=== PATIENT | male | born 1960 | race Caucasian/White ===

== ENCOUNTER → 2018-01-19 | Outpatient (CLI) | payer MEDICARE, OTHER ==
--- NOTE | 2018-01-19 20:12 | CT ---
EXAMINATION TYPE: CT chest wo con DATE OF EXAM: 01/19/2018 COMPARISON: NONE HISTORY: Right side chest pain and SOB x1 month. CT DLP: 848 mGycm. Automated Exposure Control for Dose Reduction was Utilized. TECHNIQUE: CT scan of the thorax is performed without IV contrast. FINDINGS: There is a moderate right-sided pleural effusion. There is atelectasis at the right lung base. The le ft lung is clear of infiltrate. There is no pleural fluid on the left side. Heart size is normal. The re is no pericardial effusion. There is decreased size of the right lower lobe bronchus. I see no def inite hilar mass. There is a 1.3 cm pretracheal lymph node. The bony thorax is intact. There is old u nunited lateral left rib fracture. There is no evidence of aortic aneurysm. IMPRESSION: Large right pleural effusion. Right lower lobe atelectasis. No definite hilar mass identi fied. Bronchoscopy is recommended for further evaluation if clinically indicated.
== END | disposition home or self-care (01) ==
LOC: RADCTMAIN 16:05
PROVIDERS: ATTEND Internal Medicine Critical Care Medicine
DX: J90 Pleural effusion, not elsewhere classified (principal); J98.11 Atelectasis
CPT/HCPCS: 71250

== ENCOUNTER 2018-01-22 16:28 | Inpatient (IN) | payer MEDICARE, OTHER ==
[2018-01-22] MEDS ORDERED: DEXAMETHASONE SOD PHOSPHATE 10 MG/ML 1 ML VIAL IV STA (17:27)
[2018-01-22] MEDS ORDERED: IPRATROPIUM-ALBUTEROL 3 ML NEB INHALATION STA (17:27)
--- NOTE | 2018-01-22 17:37 | ED ---
General Adult HPI - General Chief complaint: Shortness of Breath Stated complaint: LUNG PROBLEM Time Seen by Provider: 01/22/18 17:15 Source: patient, RN notes reviewed, old records reviewed Mode of arrival: wheelchair Limitations: no limitations - History of Present Illness Initial comments: 57-year-old male presenting for worsening cough and dyspnea. Patient was sent from previous pulmonologists office with low oxygen level and right-sided pleural effusion. This was seen on CAT scan taken several days prior. Patient does have history of COPD, he is on 2.5 L of home oxygen. He reports over the past several days his breathing has worsened. Cough is productive. He reports some mild pain which is worse with cough. No fever or chills. He also complains of abdominal distention and right lateral chest wall fullness. He denies nausea vomiting or diarrhea. Denies lower extremity pain or swelling. - Related Data Home Medications Medication Instructions Recorded Confirmed Ipratropium/Albuterol Sulfate 1 puff INHALATION RT-QID 02/28/16 01/22/18 [Combivent Respimat Inhaler] OLANZapine [ZyPREXA] 20 mg PO HS 02/28/16 01/22/18 Tiotropium [place] [Spiriva] 1 cap INHALATION RT-DAILY 04/17/16 01/22/18 Albuterol Nebulized [Ventolin 2.5 mg INHALATION RT-Q4H PRN 01/22/18 01/22/18 Nebulized] Albuterol Sulfate [Proair Hfa] 2 puff INHALATION RT-Q4H PRN 01/22/18 01/22/18 Budesonide/Formoterol Fumarate 2 puff INHALATION RT-BID 01/22/18 01/22/18 [Symbicort 160-4.5 Mcg Inhaler] Escitalopram [Lexapro] 15 mg PO DAILY 01/22/18 01/22/18 HYDROcodone/APAP 5-325MG [[place] 1 tab PO BID PRN 01/22/18 01/22/18 5-325] Omeprazole 40 mg PO DAILY 01/22/18 01/22/18 predniSONE 10 mg PO QAM 01/22/18 01/22/18 traZODone HCL 50 mg PO HS 01/22/18 01/22/18 Allergies Allergy/AdvReac Type Severity Reaction Status Date / Time No Known Allergies Allergy Verified 01/22/18 17:14 Review of Systems ROS Statement: Those systems with pertinent positive or pertinent negative responses have been documented in the HPI. ROS Other: All systems not noted in ROS Statement are negative. Past Medical History Past Medical History: COPD, GERD/Reflux Additional Past Medical History / Comment(s): hep C History of Any Multi-Drug Resistant Organisms: None Reported Past Surgical History: No Surgical Hx Reported Past Psychological History: No Psychological Hx Reported Smoking Status: Former smoker Past Alcohol Use History: Occasional Past Drug Use History: None Reported, Marijuana General Exam Limitations: no limitations General appearance: alert, in no apparent distress Head exam: Present: atraumatic, normocephalic Eye exam: Present: normal appearance, PERRL, EOMI ENT exam: Present: normal exam Neck exam: Present: normal inspection. Absent: tenderness, meningismus Respiratory exam: Present: respiratory distress, wheezes, decreased breath sounds, prolonged expiratory Cardiovascular Exam: Present: regular rate, normal rhythm GI/Abdominal exam: Present: soft, distended. Absent: tenderness Extremities exam: Present: normal inspection, normal capillary refill. Absent: pedal edema, calf tenderness Neurological exam: Present: alert, oriented X3, CN II-XII intact. Absent: motor sensory deficit Psychiatric exam: Present: normal affect, normal mood Skin exam: Present: warm, dry, intact. Absent: cyanosis, diaphoretic Course Vital Signs 01/22/18 01/22/18 01/22/18 16:51 17:29 17:49 Temperature 98.9 F Pulse Rate 86 88 Respiratory 20 22 Rate Blood Pressure 139/77 O2 Sat by Pulse 83 L Oximetry 01/22/18 01/22/18 01/22/18 18:05 18:08 18:50 Temperature Pulse Rate 86 90 86 Respiratory 20 16 Rate Blood Pressure 144/89 140/91 O2 Sat by Pulse 97 91 L Oximetry EKG Findings - EKG Comments: EKG Findings:: EKG: Normal sinus rhythm with premature atrial complexes, rate of 87, NE interval 136, QRS duration 92, QTC 421 Medical Decision Making - Medical Decision Making 57-year-old male with history COPD on home O2 presents for evaluation of worsening hypoxia and right pleural effusion. Computed tomography scan from several days prior shows a large right pleural effusion. Chest x-ray today confirms pleural fluid with concern for possible adjacent consolidation. Blood cell count is normal 9.8. Hemoglobin stable. CO2 31 consistent with chronic CO2 retention. Patient will be admitted for further management of his COPD as well as evaluation of his pleural effusion. Case discussed with Dr. Hernandez, and Dr. Canales who will accept admission. - Lab Data Result diagrams: 01/22/18 17:30 01/22/18 17:30 Lab Results 01/22/18 01/22/18 01/22/18 Range/Units 17:30 17:30 17:30 WBC 9.8 (3.8-10.6) k/uL RBC 5.07 (4.30-5.90) m/uL Hgb 15.3 (13.0-17.5) gm/dL Hct 47.2 (39.0-53.0) % MCV 93.1 (80.0-100.0) fL MCH 30.1 (25.0-35.0) pg MCHC 32.4 (31.0-37.0) g/dL RDW 15.2 (11.5-15.5) % Plt Count 352 (150-450) k/uL Neutrophils % 70 % Lymphocytes % 20 % Monocytes % 5 % Eosinophils % 3 % Basophils % 0 % Neutrophils # 6.9 (1.3-7.7) k/uL Lymphocytes # 2.0 (1.0-4.8) k/uL Monocytes # 0.5 (0-1.0) k/uL Eosinophils # 0.3 (0-0.7) k/uL Basophils # 0.0 (0-0.2) k/uL Hypochromasia Slight PT (9.0-12.0) sec INR (<1.2) APTT (22.0-30.0) sec Sodium 138 (137-145) mmol/L Potassium 4.2 (3.5-5.1) mmol/L Chloride 96 L (98-107) mmol/L Carbon Dioxide 31 H (22-30) mmol/L Anion Gap 11 mmol/L BUN 7 L (9-20) mg/dL Creatinine 0.70 (0.66-1.25) mg/dL Est GFR (CKD-EPI)AfAm >90 (>60 ml/min/1.73 sqM) Est GFR (CKD-EPI)NonAf >90 (>60 ml/min/1.73 sqM) Glucose 133 H (74-99) mg/dL Calcium 9.0 (8.4-10.2) mg/dL Magnesium 2.1 (1.6-2.3) mg/dL Total Bilirubin 0.2 (0.2-1.3) mg/dL AST 21 (17-59) U/L ALT 31 (21-72) U/L Alkaline Phosphatase 61 (38-126) U/L Total Creatine Kinase 95 (55-170) U/L CK-MB (CK-2) 2.2 (0.0-2.4) ng/mL CK-MB (CK-2) Rel Index 2.3 Troponin I <0.012 (0.000-0.034) ng/mL NT-Pro-B Natriuret Pep pg/mL Total Protein 6.0 L (6.3-8.2) g/dL Albumin 3.7 (3.5-5.0) g/dL 01/22/18 01/22/18 Range/Units 17:30 17:30 WBC (3.8-10.6) k/uL RBC (4.30-5.90) m/uL Hgb (13.0-17.5) gm/dL Hct (39.0-53.0) % MCV (80.0-100.0) fL MCH (25.0-35.0) pg MCHC (31.0-37.0) g/dL RDW (11.5-15.5) % Plt Count (150-450) k/uL Neutrophils % % Lymphocytes % % Monocytes % % Eosinophils % % Basophils % % Neutrophils # (1.3-7.7) k/uL Lymphocytes # (1.0-4.8) k/uL Monocytes # (0-1.0) k/uL Eosinophils # (0-0.7) k/uL Basophils # (0-0.2) k/uL Hypochromasia PT 9.6 (9.0-12.0) sec INR 1.0 (<1.2) APTT 23.6 (22.0-30.0) sec Sodium (137-145) mmol/L Potassium (3.5-5.1) mmol/L Chloride (98-107) mmol/L Carbon Dioxide (22-30) mmol/L Anion Gap mmol/L BUN (9-20) mg/dL Creatinine (0.66-1.25) mg/dL Est GFR (CKD-EPI)AfAm (>60 ml/min/1.73 sqM) Est GFR (CKD-EPI)NonAf (>60 ml/min/1.73 sqM) Glucose (74-99) mg/dL Calcium (8.4-10.2) mg/dL Magnesium (1.6-2.3) mg/dL Total Bilirubin (0.2-1.3) mg/dL AST (17-59) U/L ALT (21-72) U/L Alkaline Phosphatase (38-126) U/L Total Creatine Kinase (55-170) U/L CK-MB (CK-2) (0.0-2.4) ng/mL CK-MB (CK-2) Rel Index Troponin I (0.000-0.034) ng/mL NT-Pro-B Natriuret Pep 93 pg/mL Total Protein (6.3-8.2) g/dL Albumin (3.5-5.0) g/dL Disposition Clinical Impression: Acute exacerbation of chronic obstructive airways disease, Pleural effusion Disposition: ADMITTED IP TO THIS HOSP Condition: Stable Is patient prescribed a controlled substance at d/c from ED?: No Referrals: Hina Rojas MD [Primary Care Provider] - 1-2 days Decision to Admit Reason: Admit from EC Decision Date: 01/22/18 Decision Time: 19:39
[2018-01-22 17:38] LABS: Basophils % (A) 0 %; Eosinophils # (A) 0.3 k/uL (0-0.7); Eosinophils % (A) 3 %; HCT 47.2 % (39.0-53.0); HGB 15.3 gm/dL (13.0-17.5); Hypochromasia Slight; Lymphocytes % (A) 20 %; MCH 30.1 pg (25.0-35.0); MCHC 32.4 g/dL (31.0-37.0); MCV 93.1 fL (80.0-100.0); Monocytes # (A) 0.5 k/uL (0-1.0); Monocytes % (A) 5 %; Neutrophils # (A) 6.9 k/uL (1.3-7.7); Neutrophils % (A) 70 %; Platelet Count 352 k/uL (150-450); RBC 5.07 m/uL (4.30-5.90); RDW 15.2 % (11.5-15.5); WBC 9.8 k/uL (3.8-10.6)
[2018-01-22 17:49] LABS: Partial Thromboplastin Time 23.6 sec (22.0-30.0); Prothrombin Time 9.6 sec (9.0-12.0)
[2018-01-22] MEDS: IPRATROPIUM-ALBUTEROL 3 ML NEB INHALATION STA (17:49)
--- NOTE | 2018-01-22 17:55 | XR ---
EXAMINATION TYPE: XR chest 2V DATE OF EXAM: 01/22/2018 COMPARISON: NONE HISTORY: Difficulty breathing TECHNIQUE: Frontal and lateral views of the chest are obtained. FINDINGS: There is opacification of 50% of right hemithorax. Left lung is fairly clear. There is no heart failure. Trachea is midline. IMPRESSION: There is consolidation and pleural fluid on the right side. No gross heart failure.
[2018-01-22 18:11] LABS: ALT 31 U/L (21-72); AST 21 U/L (17-59); Albumin 3.7 g/dL (3.5-5.0); Alkaline Phosphatase 61 U/L (38-126); Anion Gap 11 mmol/L; Blood Urea Nitrogen 7 mg/dL (9-20); Carbon Dioxide 31 mmol/L (22-30); Chloride 96 mmol/L (98-107); Glucose 133 mg/dL (74-99); Magnesium 2.1 mg/dL (1.6-2.3); Potassium 4.2 mmol/L (3.5-5.1); Sodium 138 mmol/L (137-145); Total Bilirubin 0.2 mg/dL (0.2-1.3)
[2018-01-22 18:12] LABS: Creatine Kinase 95 U/L (55-170)
[2018-01-22 18:14] LABS: Creatine Kinase MB 2.2 ng/mL (0.0-2.4); Troponin I <0.012 ng/mL (0.000-0.034)
[2018-01-22] MEDS ORDERED: NALOXONE 0.4 MG/ML 1 ML VIAL IV PRN (19:37)
[2018-01-22] MEDS ORDERED: HYDROcodone/APAP 5-325MG 1 EACH TAB PO STA (20:13)
--- NOTE | 2018-01-22 23:44 | P.HPIM ---
History of Present Illness H&P Date: 01/22/18 Chief Complaint: Progressive shortness of breath 57-year-old male with history of COPD on home oxygen of 2-3 L and hepatitis C. Patient presented to the hospital with 1 month history of progressive shortness of breath, he has underwent outpatient workup including computed tomography scan of the chest which showed moderate to large right pleural effusion. Patient uses home oxygen however he was requiring an increased dose of his oxygen, he reports paroxysmal nocturnal dyspnea and difficulty sleeping at night until he finds a proper positioning. He reports some coughing and shortness of breath even at rest now without any chest pain however he noticed some fullness in the right subcostal region. He denies any fevers or chills, he denies any night sweats except for the past few days due to outdoor temperatures being high. He denies any hemoptysis or weight loss actually he reports weight gain. He denies any leg swelling or early satiety. He denies any prior history of pleural effusion. Patient continues to smoke 2 packs a day however he quit 5 days ago due to very severe progressive shortness of breath that he couldn't smoke anymore. Patient has seen his employee benefits coordinator in the outpatient setting recommended pleural tap to help diagnose and relieve his symptoms. Patient is not currently on any blood thinners Review of Systems Pertinent positives as noted in HPI. All other systems were reviewed and are negative Patient reported that he had colonoscopy done and reports to him to be normal ROS unobtainable: due to endotracheal tube Past Medical History Past Medical History: Asthma, COPD, GERD/Reflux, Hyperlipidemia, Hypertension, Pneumonia Additional Past Medical History / Comment(s): hep C past iv heroin use in the , home 02 2.5 liters n/c pt stated he had a pne vacine less than 5 years ago not sure of date, unable to verify at time of this admit. History of Any Multi-Drug Resistant Organisms: None Reported Past Surgical History: Adenoidectomy, Tonsillectomy Past Anesthesia/Blood Transfusion Reactions: No Reported Reaction Smoking Status: Former smoker - Past Family History Father Family Medical History: Myocardial Infarction ([place]) Additional Family Medical History / Comment(s): from [place] Mother Family Medical History: COPD Additional Family Medical History / Comment(s): still living Medications and Allergies Home Medications Medication Instructions Recorded Confirmed Type Ipratropium/Albuterol Sulfate 1 puff INHALATION RT-QID 02/28/16 01/22/18 History [Combivent Respimat Inhaler] OLANZapine [ZyPREXA] 20 mg PO HS 02/28/16 01/22/18 History Tiotropium [place] [Spiriva] 1 cap INHALATION RT-DAILY 04/17/16 01/22/18 History Albuterol Nebulized [Ventolin 2.5 mg INHALATION RT-Q4H PRN 01/22/18 01/22/18 History Nebulized] Albuterol Sulfate [Proair Hfa] 2 puff INHALATION RT-Q4H PRN 01/22/18 01/22/18 History Budesonide/Formoterol Fumarate 2 puff INHALATION RT-BID 01/22/18 01/22/18 History [Symbicort 160-4.5 Mcg Inhaler] Escitalopram [Lexapro] 15 mg PO DAILY 01/22/18 01/22/18 History HYDROcodone/APAP 5-325MG [[place] 1 tab PO BID PRN 01/22/18 01/22/18 History 5-325] Omeprazole 40 mg PO DAILY 01/22/18 01/22/18 History predniSONE 10 mg PO QAM 01/22/18 01/22/18 History traZODone HCL 50 mg PO HS 01/22/18 01/22/18 History Allergies Allergy/AdvReac Type Severity Reaction Status Date / Time No Known Allergies Allergy Verified 01/22/18 17:14 Physical Exam Vitals: Vital Signs Temp Pulse Resp BP Pulse Ox 01/22/18 20:19 93 17 123/84 94 L 01/22/18 18:50 86 16 140/91 91 L 01/22/18 18:08 90 01/22/18 18:05 86 20 144/89 97 01/22/18 17:49 88 01/22/18 17:29 22 01/22/18 16:51 98.9 F 86 20 139/77 83 L Intake and Output 01/22/18 01/22/18 01/22/18 06:59 14:59 22:59 Output Total 550 Balance -550 Output: Urine 550 Other: Voiding Method Urinal Weight 122.016 kg Constitutional: No acute distress, conversant, pleasant Eyes: Anicteric sclerae, moist conjunctiva, no lid-lag Pupils equal round reactive to light ENMT: NC/AT Oropharynx clear, no erythema, or exudates Neck: Supple, FROM, no masses, or JVD No carotid bruits No thyromegaly Lungs: Decreased breath sounds throughout, diffuse expiratory rhonchi Dullness to percussion over the right back from the midportion and below Normal respiratory effort, no accessory muscle use Cardiovascular: Heart regular in rate and rhythm, No murmurs, gallops, or rubs No peripheral edema Abdominal: Soft Nontender, no guarding, rebound or rigidity Abdomen moving with respiration Normoactive bowel sounds No hepatomegaly, No splenomegaly No palpable mass No abdominal wall hernia noted Skin: Normal temperature, tone, texture, turgor No induration No subcutaneous nodules No rash, lesions No ulcers Extremities: No digital cyanosis No clubbing Pedal pulses intact and symmetrical Radial pulses intact and symmetrical No calf tenderness Psychiatric: Alert and oriented to person, place and time Appropriate affect fair judgment Neuro Muscles Strength 5/5 in all 4 extremities Sensation to light touch grossly present throughout Cranial nerves II-XII grossly intact No focal sensory deficits Lymphatics: no palpable cervical or supraclavicular , or inguinal lymph nodes Results CBC & Chem 7: 01/22/18 17:30 01/22/18 17:30 Labs: Abnormal Lab Results - Last 24 Hours (Table) 01/22/18 Range/Units 17:30 Chloride 96 L (98-107) mmol/L Carbon Dioxide 31 H (22-30) mmol/L BUN 7 L (9-20) mg/dL Glucose 133 H (74-99) mg/dL Total Protein 6.0 L (6.3-8.2) g/dL Thrombosis Risk Factor Assmnt - Choose All That Apply Any of the Below Risk Factors Present?: Yes Each Factor Represents 1 point: Abnormal pulmonary function (COPD), Age 41-60 years, Obesity (BMI >25) Other Risk Factors: No Other congenital or acquired thrombophilia - If yes, enter type in comment: No Thrombosis Risk Factor Assessment Total Risk Factor Score: 3 Thrombosis Risk Factor Assessment Level: Moderate Risk Assessment and Plan Assessment: 57-year-old male with history of COPD on home oxygen 2-3 L, continues to smoke 2 packs a day, history of schizophrenia, hepatitis C. Patient presented to the hospital due to worsening shortness of breath for which outpatient workup revealed moderate to large right pleural effusion patient admitted for further care and to have right pleural tap for purposes of therapeutic and diagnostic.. Computed tomography scan of the chest was done as an outpatient which revealed consolidation over the right side with large right pleural effusion Plan: #Large right pleural effusion currently symptomatic with shortness of breath #COPD with acute mild exacerbation Unknown underlying cause Plan for pleurocentesis for diagnostic and therapeutic reasons Computed tomography scan suggests consolidation and large right pleural effusion otherwise did not show any masses Patient is requiring higher oxygen dosing than his baseline due to hypoxemia currently at 4 L/m Continue home medications DuoNeb's, Combivent, Spiriva Systemic by mouth steroids, prednisone Patient strongly counseled to quit smoking #GERD Continue with PPI #History of hepatitis C Continue to follow up outpatient #History of schizophrenia Continue home medications #Obesity Patient counseled for lifestyle modification weight loss #DVT prophylaxis heparin subcu 3 times a day #Diet regular as tolerated #Tobacco smoking abuse Patient counseled to quit smoking Nicotine replacement therapy offered patient declined Labs reviewed Chest x-ray reviewed Preformed a thorough record review from recent workup including computed tomography scan of the chest as summarized above Surrogate decision-maker: Patient's Sister. Shilpa Ferrell CODE STATUS: Full code Discussed with: Patient, ER, RN Anticipated discharge: <[address]: Home A total of 50 minutes was spent on the care of this complex patient more than 50 % of the time was spent in counseling and care coordination.
[2018-01-23] MEDS: OLANZapine 10 MG TAB PO SCH ×2 (00:15→21:23)
[2018-01-23] MEDS: traZODone HCL 50 MG TAB PO SCH ×2 (00:15→21:23)
[2018-01-23] MEDS: HEPARIN SODIUM,PORCINE 5,000 UNIT/ML 1 ML VIAL SQ SCH ×4 (00:15→23:13)
[2018-01-23] MEDS ORDERED: IPRATROPIUM 0.5 MG/2.5 ML NEBU INHALATION PRN (05:28)
[2018-01-23] MEDS: PANTOPRAZOLE 40 MG TABLET PO SCH (07:36)
[2018-01-23] MEDS: predniSONE 20 MG TAB PO SCH (07:36)
[2018-01-23] MEDS: ESCITALOPRAM 5 MG TAB PO SCH (07:36)
[2018-01-23 07:43] LABS: Prothrombin Time 9.7 sec (9.0-12.0)
[2018-01-23 07:53] LABS: Basophils % (A) 0 %; Eosinophils % (A) 0 %; HCT 50.4 % (39.0-53.0); HGB 15.7 gm/dL (13.0-17.5); Hypochromasia Moderate; Lymphocytes # (A) 0.5 k/uL (1.0-4.8); Lymphocytes % (A) 6 %; MCH 29.3 pg (25.0-35.0); MCHC 31.2 g/dL (31.0-37.0); MCV 93.9 fL (80.0-100.0); Mean Platelet Volume 7.3; Monocytes # (A) 0.3 k/uL (0-1.0); Monocytes % (A) 3 %; Neutrophils % (A) 90 %; Platelet Count 364 k/uL (150-450); RBC 5.37 m/uL (4.30-5.90); WBC 7.8 k/uL (3.8-10.6)
[2018-01-23 07:54] LABS: ALT 31 U/L (21-72); AST 19 U/L (17-59); Albumin 3.7 g/dL (3.5-5.0); Alkaline Phosphatase 60 U/L (38-126); Anion Gap 10 mmol/L; Blood Urea Nitrogen 8 mg/dL (9-20); Calcium 9.4 mg/dL (8.4-10.2); Carbon Dioxide 35 mmol/L (22-30); Chloride 95 mmol/L (98-107); Glucose 111 mg/dL (74-99); Sodium 140 mmol/L (137-145); Total Bilirubin 0.3 mg/dL (0.2-1.3); Total Protein 5.9 g/dL (6.3-8.2)
[2018-01-23] MEDS ORDERED: IPRATROPIUM 0.5 MG/2.5 ML NEBU INHALATION SCH (08:00)
[2018-01-23] MEDS ORDERED: IPRATROPIUM-ALBUTEROL 3 ML NEB INHALATION SCH ×3 (08:00→20:00)
[2018-01-23] MEDS: SYMBICORT 160-4.5 MCG INHALER INHALATION SCH ×2 (08:09→19:28)
[2018-01-23] MEDS: IPRATROPIUM-ALBUTEROL 3 ML NEB INHALATION STA ×2 (08:09→12:16)
[2018-01-23] MEDS ORDERED: IOPAMIDOL-300 CONTRAST 30 ML VIAL (ORAL USE) PO PRN ×2 (11:28→11:52)
[2018-01-23] MEDS ORDERED: RX INFO: IV CONTRAST WAS GIVEN 1 EACH MISC MISCELLANE PRN ×2 (11:28→11:52)
--- NOTE | 2018-01-23 11:45 | P.CNPUL ---
History of Present Illness Consult date: 01/23/18 Requesting physician: Eduardo Canales Reason for consult: dyspnea, COPD, hypoxemia, pleural effusion, abnormal CXR/CT Chief complaint: Shortness of breath right-sided chest pain, right upper quadrant pain History of present illness: This is a very pleasant 57-year-old gentleman who follows with Dr. Rojas as his primary care physician. He has a history of gastroesophageal reflux disease , hyperlipidemia, hypertension, hepatitis C and previous IV drug abuse. He also has significant chronic obstructive pulmonary disease with an FEV1 value of 26% of predicted, Gold stage IV. Also a 40+ year pack per day smoking history. He was recently seen in our office by Dr. Hernandez as a new patient on . He did review pulmonary function testing and initiated the patient on Symbicort, Spiriva, Pro-air and DuoNeb inhalations. He was started on nebulized treatments. He is on home oxygen at 2 L/m per nasal cannula. No portable oxygen at this time. He presented to our office again yesterday regarding the computed tomography scan of the chest that was ordered which revealed a large right-sided pleural effusion. The patient also has hepatomegaly and abdominal distention. He was quite dyspneic and hypoxemic with O2 saturation of 80% on room air at rest. He had ongoing right-sided chest discomfort was splinting. He was recommended inpatient evaluation. He is seen today in consultation on the regular medical floor. He is awake and alert in no acute distress. He is still having significant shortness of breath and right-sided chest pain. He has significant abdominal distention. 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 He is currently maintaining good O2 saturations in the 90s on 4 L/m per nasal cannula. His been afebrile. Slightly tachycardic. Hemodynamically stable. No leukocytosis. Bicarb 35. Creatinine 0.70. Liver enzymes within normal limits. ProBNP 93. Troponin negative. Review of Systems Constitutional: Reports daytime sleepiness, Reports fatigue, Reports weakness, Reports weight gain Eyes: denies blurred vision, denies decreased vision Ears: deny: decreased hearing Ears, nose, mouth and throat: Denies headache, Denies sore throat Cardiovascular: Reports dyspnea on exertion, Reports lightheadedness, Reports shortness of breath Respiratory: Reports cough with sputum, Reports dyspnea, Reports home oxygen, Reports wheezing Gastrointestinal: Reports abdominal pain, Reports bloating Genitourinary: Reports as per HPI Musculoskeletal: Reports limitation of motion, Reports muscle weakness Musculoskeletal: bilateral: ankle swelling Integumentary: Reports as per HPI Neurological: Denies numbness, Denies weakness Psychiatric: Reports anxiety Endocrine: Denies fatigue, Denies weight change Hematologic/Lymphatic: Reports as per HPI Allergic/Immunologic: Reports as per HPI Past Medical History Past Medical History: Asthma, COPD, GERD/Reflux, Hyperlipidemia, Hypertension, Pneumonia Additional Past Medical History / Comment(s): hep C past iv heroin use in the , home 02 2.5 liters n/c pt stated he had a pne vacine less than 5 years ago not sure of date, unable to verify at time of this admit. History of Any Multi-Drug Resistant Organisms: None Reported Past Surgical History: Adenoidectomy, Tonsillectomy Past Anesthesia/Blood Transfusion Reactions: No Reported Reaction Smoking Status: Former smoker - Past Family History Father Family Medical History: Myocardial Infarction ([place]) Additional Family Medical History / Comment(s): from [place] Mother Family Medical History: COPD Additional Family Medical History / Comment(s): still living Medications and Allergies Home Medications Medication Instructions Recorded Confirmed Type Ipratropium/Albuterol Sulfate 1 puff INHALATION RT-QID 02/28/16 01/22/18 History [Combivent Respimat Inhaler] OLANZapine [ZyPREXA] 20 mg PO HS 02/28/16 01/22/18 History Tiotropium [place] [Spiriva] 1 cap INHALATION RT-DAILY 04/17/16 01/22/18 History Albuterol Nebulized [Ventolin 2.5 mg INHALATION RT-Q4H PRN 01/22/18 01/22/18 History Nebulized] Albuterol Sulfate [Proair Hfa] 2 puff INHALATION RT-Q4H PRN 01/22/18 01/22/18 History Budesonide/Formoterol Fumarate 2 puff INHALATION RT-BID 01/22/18 01/22/18 History [Symbicort 160-4.5 Mcg Inhaler] Escitalopram [Lexapro] 15 mg PO DAILY 01/22/18 01/22/18 History HYDROcodone/APAP 5-325MG [[place] 1 tab PO BID PRN 01/22/18 01/22/18 History 5-325] Omeprazole 40 mg PO DAILY 01/22/18 01/22/18 History predniSONE 10 mg PO QAM 01/22/18 01/22/18 History traZODone HCL 50 mg PO HS 01/22/18 01/22/18 History Allergies Allergy/AdvReac Type Severity Reaction Status Date / Time No Known Allergies Allergy Verified 01/22/18 17:14 Physical Exam Vitals: Vital Signs Temp Pulse Pulse Resp BP BP Pulse Ox 01/23/18 08:25 107 H 01/23/18 05:35 97.0 F L 97 16 155/71 92 L 01/22/18 22:30 98.7 F 100 20 151/79 90 L 01/22/18 20:19 93 17 123/84 94 L 01/22/18 18:50 86 16 140/91 91 L 01/22/18 18:08 90 01/22/18 18:05 86 20 144/89 97 01/22/18 17:49 88 01/22/18 17:29 22 01/22/18 16:51 98.9 F 86 20 139/77 83 L Intake and Output 01/22/18 01/23/18 01/23/18 22:59 06:59 14:59 Output Total 550 550 Balance -550 -550 Output: Urine 550 550 Other: Voiding Method Urinal Urinal # Voids 1 Weight 122.016 kg - Constitutional General appearance: cooperative, morbidly obese - EENT Eyes: EOMI, PERRLA Ears: bilateral: normal - Neck Carotids: bilateral: upstroke normal Thyroid: negative: normal size - Respiratory Respiratory: right: diminished, dullness, bilateral: wheezing - Cardiovascular Rhythm: regular Heart sounds: normal: S1, S2 - Gastrointestinal General gastrointestinal: distended, hepatomegaly, normal bowel sounds, tenderness Localized gastrointestinal: tender: RUQ, guarding: RUQ - Neurologic Neurologic: CNII-XII intact - Musculoskeletal Musculoskeletal: generalized weakness - Psychiatric Psychiatric: A&O x's 3, appropriate affect, intact judgment & insight Results - Laboratory Findings CBC and BMP: 01/23/18 06:44 01/23/18 06:44 PT/INR, D-dimer PT 9.7 sec (9.0-12.0) 01/23/18 06:44 INR 1.0 (<1.2) 01/23/18 06:44 Abnormal lab findings: Abnormal Labs 01/22/18 01/23/18 01/23/18 17:30 06:44 06:44 Lymphocytes # 0.5 L Chloride 96 L 95 L Carbon Dioxide 31 H 35 H BUN 7 L 8 L Glucose 133 H 111 H Total Protein 6.0 L 5.9 L - Diagnostic Findings Chest x-ray: image reviewed CT scan - chest: image reviewed Assessment and Plan Assessment: Impression: #1 Acute on chronic hypoxic respiratory failure secondary to large right-sided pleural effusion and acute exacerbation of chronic obstructive pulmonary disease. Severe Gold stage IV chronic obstructive pulmonary disease with FEV1 value 26% of predicted. #2 Chronic tobacco dependence. 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 Computed tomography scan of the abdomen is pending. #4 Hepatitis C secondary to remote history of IV drug abuse. #5 History of alcohol abuse. #6 History of hyperlipidemia. #7 Hypertension. #8 Gastroesophageal reflux disease. #9 Morbid obesity with suspected obesity/hypoventilation syndrome. Possible obstructive sleep apnea. Marine: The patient was seen and evaluated by Dr. Hernandez. Chest x-ray, computed tomography scan and labs were all reviewed. We'll go ahead and order a computed tomography scan of the abdomen to determine if there is a significant amount of ascites that may benefit from a paracentesis which will help with the right-sided pleural effusion. Probable need for interventional radiology for thoracentesis if needed based on the patient's body habitus. In the interim, we' ll continue with his current pulmonary medications including DuoNeb inhalations 4 times a day and when necessary, Symbicort, prednisone. He is on heparin for DVT prophylaxis. Protonix for GI prophylaxis. We will increase his activity as tolerated. We'll continue to follow and make further recommendations based on his clinical status. I, the cosigning physician, performed a history & physical examination of the patient. Lungs sounds bilateral end expiratory wheeze. Crackles in the right posterior base. Diminished mainly in the right base. Maintaining good O2 saturations in the 90s on 4 L/m per nasal cannula. I discussed the assessment and plan of care with my nurse practitioner, Marixa Carty. I attest to the above note as dictated by her. Time with Patient: Greater than 30
--- NOTE | 2018-01-23 12:31 | P.PN ---
Subjective Progress Note Date: 01/23/18 Principal diagnosis: Shortness of breath Patient is a 57-year-old male with a history of COPD on home oxygen of 2-3 L, hepatitis C, GERD, dyslipidemia, hypertension, morbid obesity who presented to the hospital at the direction of Dr. Hernandez's office due to right- sided pleural effusion. In the ER he underwent an extensive examination. On arrival he was found to be hypoxic with an oxygen saturation of 83% on room air. He remained hypoxic despite being placed on 2.5 L his home dose. Remainder of his vital signs were within normal limits. Initial laboratory analysis was unremarkable. Chest x-ray showed consolidation and pleural effusion on the right side. Dr. Slade was contacted who recommended admission for thoracentesis. Patient was admitted to the general medical floor. He was suspected to have acute exacerbation of COPD due to diffuse wheezing and was started on oral prednisone therapy. He has been seen by Dr. Hernandez who recommends a CT abdomen and pelvis to rule out significant ascites as well as drainage by interventional radiology secondary to morbid obesity. Patient seen and examined at bedside. He complains of chest and rib discomfort has not responded to his [place] 5 mg dose. He complains of shortness of breath that has been progressing over the last month. He states shortness of breath is slightly better when he lays on his left hand side. He denies any nausea, vomiting, or diarrhea. He denies any weight loss. Objective - Vital Signs Vital signs: Vital Signs Temp 97.0 F L 01/23/18 05:35 Pulse 97 01/23/18 12:16 Resp 16 01/23/18 05:35 BP 155/71 01/23/18 05:35 Pulse Ox 92 L 01/23/18 05:35 Intake & Output 01/22/18 01/23/18 01/23/18 18:59 06:59 18:59 Output Total 1100 Balance -1100 Weight 122.016 kg 122.016 kg Output: Urine 1100 Other: Voiding Method Urinal # Voids 1 - Exam General: non toxic, no distress, appears at stated age, obese Derm: warm, dry Head: atraumatic, normocephalic, symmetric Eyes: EOMI, no lid lag, anicteric sclera Mouth: no lip lesion, mucus membranes moist Cardiovascular: S1S2 reg, no murmur, positive posterior tibial pulse bilateral, Lungs: Diffuse wheeze bilaterally, no rhonchi, no rales , no accessory muscle use Abdominal: soft, nontender to palpation, no guarding, no appreciable organomegaly Ext: no gross muscle atrophy, no edema, no contractures Neuro: CN II-XI grossly intact, no focal neuro deficits Psych: Alert, oriented, appropriate affect - Labs CBC & Chem 7: 01/23/18 06:44 01/23/18 06:44 Labs: Abnormal Lab Results - Last 24 Hours (Table) 01/22/18 01/23/18 01/23/18 Range/Units 17:30 06:44 06:44 Lymphocytes # 0.5 L (1.0-4.8) k/uL Chloride 96 L 95 L (98-107) mmol/L Carbon Dioxide 31 H 35 H (22-30) mmol/L BUN 7 L 8 L (9-20) mg/dL Glucose 133 H 111 H (74-99) mg/dL Total Protein 6.0 L 5.9 L (6.3-8.2) g/dL Assessment and Plan Assessment: Right-sided pleural effusion -Consult pulmonary -Need for thoracentesis both diagnostic and therapeutic -Echocardiogram pending -Pulmonology recommendations appreciated. Plan is for CT abdomen and pelvis to rule out hepatomegaly and ascites -Interventional radiology is not available at this time Acute on chronic hypoxic respiratory failure secondary to pleural effusion and COPD -Wean O2 as able Acute exacerbation of severe cold stage IV chronic obstructive pulmonary disease with FEV1 of 26% -Continue with home Symbicort -As needed bronchodilators -Oral prednisone therapy History of hepatitis C -Liver enzymes normal Morbid obesity with BMI 36.5 -Structured outpatient weight loss GERD -PPI History of schizophrenia -Continue home medication: Lexapro, Zyprexa, and trazodone Tobacco abuse -Patient recently quit smoking -Patient refuses nicotine replacement therapy -Continue tobacco cessation DVT prophylaxis: Heparin subcutaneous Discussed with: Patient, nursing Anticipated discharge: 24-[address]: Home A total of 35 minutes was spent on the care of this complex patient more than 50 % of the time was spent in counseling and care coordination.
[2018-01-23] MEDS: HYDROcodone/APAP 7.5-325MG 1 EACH TAB PO PRN ×2 (13:23→21:24)
--- NOTE | 2018-01-23 16:01 | CT ---
EXAMINATION TYPE: CT abdomen pelvis w con DATE OF EXAM: 01/23/2018 COMPARISON: 01/19/2018 CT chest. HISTORY: Abdominal distention CT DLP: 1804 mGycm Automated exposure control for dose reduction was used. TECHNIQUE: Helical acquisition of images was performed from the lung bases through the pelvis. CONTRAST: Performed with Oral Contrast and with IV Contrast, patient injected with 100 mL of Isovue 300. Oral c ontrast per protocol. FINDINGS: LUNG BASES: There is partial visualization of a large right pleural effusion and associated right mul tifocal subsegmental atelectasis. Left lung remains clear. Pleural parenchymal scarring is seen on th e left. LIVER/GB: No significant abnormality is appreciated. No cholelithiasis. PANCREAS: No ductal dilatation. Pancreas enhances homogeneously. SPLEEN: No splenomegaly. ADRENALS: No significant abnormality is seen. KIDNEYS: Hydronephrosis. Kidneys enhance symmetrically. FREE AIR: No free air is visualized. ADENOPATHY: No greater than 1 cm short axis lymph nodes are seen within the abdomen or pelvis. REPRODUCTIVE ORGANS: No significant abnormality is seen URINARY BLADDER: No significant abnormality is seen. OSSEOUS STRUCTURES: No significant abnormality is seen. Multilevel degenerative changes are mild. BOWEL: Moderate amount retained colonic stool is seen. No evidence of bowel dilatation. Appendix is air-filled and within normal limits. No pericolonic fluid or fat stranding. OTHER: Subcentimeter fat filled umbilical hernia is noted. IMPRESSION: 1. NO ACUTE INTRA-ABDOMINAL PROCESS IDENTIFIED. NO EVIDENCE OF BOWEL OBSTRUCTION. 2. PARTIAL VISUALIZATION OF A LARGE RIGHT PLEURAL EFFUSION AND MULTIFOCAL RIGHT-SIDED SUBSEGMENTAL AT ELECTASIS. AGAIN BRONCHOSCOPY COULD BE PERFORMED.
[2018-01-23] MEDS: IPRATROPIUM-ALBUTEROL 3 ML NEB INHALATION SCH (19:34)
[2018-01-24] MEDS: HYDROcodone/APAP 7.5-325MG 1 EACH TAB PO PRN ×4 (03:23→21:56)
[2018-01-24] MEDS: ESCITALOPRAM 5 MG TAB PO SCH (07:41)
[2018-01-24] MEDS: HEPARIN SODIUM,PORCINE 5,000 UNIT/ML 1 ML VIAL SQ SCH ×3 (07:41→23:24)
[2018-01-24] MEDS: predniSONE 20 MG TAB PO SCH (07:42)
[2018-01-24] MEDS: PANTOPRAZOLE 40 MG TABLET PO SCH (07:42)
[2018-01-24] MEDS: IPRATROPIUM-ALBUTEROL 3 ML NEB INHALATION SCH ×4 (07:47→21:31)
[2018-01-24] MEDS: SYMBICORT 160-4.5 MCG INHALER INHALATION SCH ×2 (07:47→21:31)
--- NOTE | 2018-01-24 08:06 | ECHOF ---
Referral Reason:right pleural effusion MEASUREMENTS -------- HEIGHT: 182.9 cm WEIGHT: 122.0 kg BP: 155/71 RVIDd: 2.8 cm (< 3.3) IVSd: 1.2 cm (0.6 - 1.1) LVIDd: 3.3 cm (3.9 - 5.3) LVPWd: 1.2 cm (0.6 - 1.1) IVSs: 1.6 cm LVIDs: 2.3 cm LVPWs: 1.5 cm LAESV Index (A-L): 13.88 ml/m Ao Diam: 3.3 cm (2.0 - 3.7) AV Cusp: 2.1 cm (1.5 - 2.6) LA Diam: 3.9 cm (2.7 - 3.8) MV E David: 0.82 m/s MV DecT: 357 ms MV A David: 1.04 m/s MV E/A Ratio: 0.78 RAP: 5.00 mmHg RVSP: 14.61 mmHg FINDINGS -------- Sinus rhythm with extra systolic beats. This was a technically adequate study. The left ventricular size is normal. There is mild concentric left ventricular hypertrophy. Overa ll left ventricular systolic function is normal with, an EF between 55 - 60 %. The right ventricle is normal in size and function. Normal LA size by volume 22+/-6 ml/m2. The right atrium is normal in size. There is mild aortic valve sclerosis. There is no evidence of aortic regurgitation. There is no e vidence of aortic stenosis. The mitral valve leaflets are mildly thickened. There is trace mitral regurgitation. Trace tricuspid regurgitation present. Right ventricular systolic pressure is normal at < 35 mmHg. There is no evidence of pulmonary hypertension. The pulmonic valve was not well visualized. The aortic root size is normal. Normal inferior vena cava with normal inspiratory collapse consistent with estimated right atrial pre ssure of 5 mmHg. Echo free space may represent effusion or a pericardial fat pad. CONCLUSIONS -------- 1. Sinus rhythm with extra systolic beats. 2. This was a technically adequate study. 3. The left ventricular size is normal. 4. There is mild concentric left ventricular hypertrophy. 5. Overall left ventricular systolic function is normal with, an EF between 55 - 60 %. 6. Normal LA size by volume 22+/-6 ml/m2. 7. There is mild aortic valve sclerosis. 8. The mitral valve leaflets are mildly thickened. 9. There is trace mitral regurgitation. 10. Trace tricuspid regurgitation present. 11. Right ventricular systolic pressure is normal at < 35 mmHg. 12. There is no evidence of pulmonary hypertension. 13. The pulmonic valve was not well visualized. 14. The aortic root size is normal. 15. Echo free space may represent effusion or a pericardial fat pad. IN ROOM DINING SERVER: Venkata Duran RDCS
--- NOTE | 2018-01-24 10:05 | P.PN ---
Subjective Progress Note Date: 01/24/18 Principal diagnosis: Shortness of breath, pleural effusion Progress note dated 01/24/2018 This is a very pleasant 57-year-old gentleman who follows with Dr. Rojas as his primary care physician. He has a history of gastroesophageal reflux disease , hyperlipidemia, hypertension, hepatitis C and previous IV drug abuse. He also has significant chronic obstructive pulmonary disease with an FEV1 value of 26% of predicted, Gold stage IV. Also a 40+ year pack per day smoking history. He was recently seen in our office by Dr. Hernandez as a new patient on . He did review pulmonary function testing and initiated the patient on Symbicort, Spiriva, Pro-air and DuoNeb inhalations. He was started on nebulized treatments. He is on home oxygen at 2 L/m per nasal cannula. No portable oxygen at this time. He presented to our office again yesterday regarding the computed tomography scan of the chest that was ordered which revealed a large right-sided pleural effusion. The patient also has hepatomegaly and abdominal distention. He was quite dyspneic and hypoxemic with O2 saturation of 80% on room air at rest. He had ongoing right-sided chest discomfort was splinting. He was recommended inpatient evaluation. He is seen today in consultation on the regular medical floor. He is awake and alert in no acute distress. He is still having significant shortness of breath and right-sided chest pain. He has significant abdominal distention. 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 He is currently maintaining good O2 saturations in the 90s on 4 L/m per nasal cannula. His been afebrile. Slightly tachycardic. Hemodynamically stable. No leukocytosis. Bicarb 35. Creatinine 0.70. Liver enzymes within normal limits. ProBNP 93. Troponin negative. I spoke to the primary physician. The patient could be discharged home and brought back as an outpatient for outpatient thoracentesis. I'm not sure why interventional radiology isn't available on the weekends. The patient is stable though. Because of body habitus, I don't believe my kid we will allow me to enter the pleural space. Interventional radiology has the longer needles that would be necessary in a patient this body habitus. Objective - Vital Signs Vital signs: Vital Signs Temp 97.8 F 01/24/18 05:25 Pulse 84 01/24/18 08:01 Resp 16 01/24/18 05:25 BP 133/64 01/24/18 05:25 Pulse Ox 83 L 01/24/18 05:25 Intake & Output 01/23/18 01/24/18 01/24/18 18:59 06:59 18:59 Intake Total 800 1790 Output Total 550 Balance 250 1790 Weight 122.016 kg Intake: Oral 800 1790 Output: Urine 550 Other: Voiding Method Urinal Urinal # Voids 1 2 - Exam No acute distress, oriented 3. HEENT examination is grossly unremarkable. Mucous membranes are moist. No oral lesions. Neck supple. Full range of motion. No adenopathy thyromegaly or neck vein distention. Cardiovascular examination reveals regular rhythm rate. S1-S2 normal. No S3 or S4. No discernible murmur noted. Lungs reveal diminished breath sounds at the right lung base. There is dullness at the right lung base. No crackles or wheezes appreciated. Mild diffuse rhonchi are noted throughout. Abdomen soft bowel sounds are heard. No masses or tenderness. Extremities are intact. No cyanosis clubbing or edema. Skin is without rash or lesion. Neurologic examination is brief but nonfocal. - Labs CBC & Chem 7: 01/23/18 06:44 01/23/18 06:44 Labs: Microbiology - Last 24 Hours (Table) 01/22/18 17:30 Blood Culture - Preliminary Blood No Growth after 24 hours Assessment and Plan Assessment: Assessment #1 Acute on chronic hypoxic respiratory failure secondary to large right-sided pleural effusion and acute exacerbation of chronic obstructive pulmonary disease. Severe Gold stage IV chronic obstructive pulmonary disease with FEV1 value 26% of predicted. #2 Chronic tobacco dependence. 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 Computed tomography scan of the abdomen is pending. #4 Hepatitis C secondary to remote history of IV drug abuse. #5 History of alcohol abuse. #6 History of hyperlipidemia. #7 Hypertension. #8 Gastroesophageal reflux disease. #9 Morbid obesity with suspected obesity/hypoventilation syndrome. Possible obstructive sleep apnea. Plan: Plan dated 01/24/2018 I spoke to the primary hospitalist. We may end up either trying to get interventional radiology into the thoracentesis or rather, because the patient relatively stable, have the patient come back on Thursday for an outpatient thoracentesis. Additional recommendations and suggestions are forthcoming. Computed tomography scan of the abdomen did not reveal any abnormalities of significance. We'll continue to follow. Prognosis is guarded. The patient has a plethora of medical problems. Time with Patient: Less than 30
--- NOTE | 2018-01-24 11:41 | P.PN ---
Subjective Progress Note Date: 01/24/18 Principal diagnosis: Shortness of breath Patient is a 57-year-old male with a history of COPD on home oxygen of 2-3 L, hepatitis C, GERD, dyslipidemia, hypertension, morbid obesity who presented to the hospital at the direction of Dr. Hernandez's office due to right- sided pleural effusion. In the ER he underwent an extensive examination. On arrival he was found to be hypoxic with an oxygen saturation of 83% on room air. He remained hypoxic despite being placed on 2.5 L his home dose. Remainder of his vital signs were within normal limits. Initial laboratory analysis was unremarkable. Chest x-ray showed consolidation and pleural effusion on the right side. Dr. Hernandez was contacted who recommended admission for thoracentesis. Patient was admitted to the general medical floor. He was suspected to have acute exacerbation of COPD due to diffuse wheezing and was started on oral prednisone therapy. He has been seen by Dr. Hernandez who recommends a CT abdomen and pelvis to rule out significant ascites as well as drainage by interventional radiology secondary to morbid obesity. CT abdomen and plevis showed no acute process. Unfortunately, interventional radiology is not available this weekend. We were going to attempt to set patient up for outpatient thora on Thursday. Patient then informed nurse that he has been using his sisters O2 and does not have his own at home. He has no portable tanks and immediately desats for 83 on . We are unable to set up home O2 at this time due to holiday weekend. Patient seen and examined at bedside. Pain is well controlled on norco 7.5, still having SOB and rib pain at the bottom. No nausea. vomiting or diarrhea. Objective - Vital Signs Vital signs: Vital Signs Temp 97.8 F 01/24/18 05:25 Pulse 84 01/24/18 08:01 Resp 16 01/24/18 05:25 BP 133/64 01/24/18 05:25 Pulse Ox 94 L 01/24/18 07:30 Intake & Output 01/23/18 01/24/18 01/24/18 18:59 06:59 18:59 Intake Total 800 1790 Output Total 550 Balance 250 1790 Weight 122.016 kg Intake: Oral 800 1790 Output: Urine 550 Other: Voiding Method Urinal Urinal # Voids 1 2 - Exam General: non toxic, no distress, appears at stated age, obese Derm: warm, dry Head: atraumatic, normocephalic, symmetric Eyes: EOMI, no lid lag, anicteric sclera Mouth: no lip lesion, mucus membranes moist Cardiovascular: S1S2 reg, no murmur, positive posterior tibial pulse bilateral, Lungs: Diffuse wheeze bilaterally, no rhonchi, no rales , no accessory muscle use Abdominal: soft, nontender to palpation, no guarding, no appreciable organomegaly Ext: no gross muscle atrophy, no edema, no contractures Neuro: CN II-XI grossly intact, no focal neuro deficits Psych: Alert, oriented, appropriate affect - Labs CBC & Chem 7: 01/23/18 06:44 01/23/18 06:44 Labs: Microbiology - Last 24 Hours (Table) 01/22/18 17:30 Blood Culture - Preliminary Blood No Growth after 24 hours Assessment and Plan Assessment: Right-sided pleural effusion -pulmonary recs appreciated -Need for thoracentesis both diagnostic and therapeutic -Echocardiogram pending -Interventional radiology is not available at this time, plan will be for drainage on Thursday. Acute on chronic hypoxic respiratory failure secondary to pleural effusion and COPD -Wean O2 as able, needs arrangements for home oxygen with protab tanks. Acute exacerbation of severe cold stage IV chronic obstructive pulmonary disease with FEV1 of 26% -Continue with home Symbicort -As needed bronchodilators -Oral prednisone therapy History of hepatitis C -Liver enzymes normal Morbid obesity with BMI 36.5 -Structured outpatient weight loss GERD -PPI History of schizophrenia -Continue home medication: Lexapro, Zyprexa, and trazodone Tobacco abuse -Patient recently quit smoking -Patient refuses nicotine replacement therapy -Continue tobacco cessation Unfortunately, interventional radiology is not available this weekend. Discussed with Dr. Hernandez who felt he could have this done as an outpatient as he is relatively stable. We were going to attempt to set patient up for outpatient thora on Thursday. Patient then informed nurse that he has been using his sisters O2 and does not have his own at home. He has no portable tanks and immediately desats for 83 on RA. We are unable to set up home O2 at this time due to holiday weekend. DVT prophylaxis: Heparin subcutaneous Discussed with: Patient, Dr. Hernandez, nursing Anticipated discharge: [address]: Home A total of 35 minutes was spent on the care of this complex patient more than 50 % of the time was spent in counseling and care coordination.
[2018-01-24] MEDS: traZODone HCL 50 MG TAB PO SCH (20:59)
[2018-01-24] MEDS: OLANZapine 10 MG TAB PO SCH (20:59)
[2018-01-25] MEDS: HYDROcodone/APAP 7.5-325MG 1 EACH TAB PO PRN ×4 (04:06→22:52)
[2018-01-25] MEDS: SYMBICORT 160-4.5 MCG INHALER INHALATION SCH ×2 (07:41→21:15)
[2018-01-25] MEDS: IPRATROPIUM-ALBUTEROL 3 ML NEB INHALATION SCH ×4 (07:41→20:58)
[2018-01-25] MEDS: HEPARIN SODIUM,PORCINE 5,000 UNIT/ML 1 ML VIAL SQ SCH (07:56)
[2018-01-25] MEDS: ESCITALOPRAM 5 MG TAB PO SCH (07:56)
[2018-01-25] MEDS: PANTOPRAZOLE 40 MG TABLET PO SCH (07:57)
[2018-01-25] MEDS: predniSONE 20 MG TAB PO SCH (07:57)
--- NOTE | 2018-01-25 08:41 | US ---
EXAMINATION TYPE: US chest DATE OF EXAM: 01/25/2018 COMPARISON: CT abdomen pelvis dated 01/23/2018 CLINICAL HISTORY: right pleural effusion. EXAM MEASUREMENTS: Right Pleural Effusion fluid pocket: 4.1 cm Right skin to fluid thickness: 5.2 cm Left Pleural Effusion fluid pocket: minimally seen Right side was marked for possible thoracentesis outside the dept. Pulmonologists are able to review the images in the patient?s EMR. IMPRESSIONS: Partial visualization of a right pleural effusion is seen on the prior CT abdomen pelvis of 01/23/2018 and trace left pleural effusion
--- NOTE | 2018-01-25 09:47 | P.PN ---
Subjective Progress Note Date: 01/25/18 Principal diagnosis: Shortness of breath Patient is a 57-year-old male with a history of COPD on home oxygen of 2-3 L, hepatitis C, GERD, dyslipidemia, hypertension, morbid obesity who presented to the hospital at the direction of Dr. Hernandez's office due to right- sided pleural effusion. In the ER he underwent an extensive examination. On arrival he was found to be hypoxic with an oxygen saturation of 83% on room air. He remained hypoxic despite being placed on 2.5 L his home dose. Remainder of his vital signs were within normal limits. Initial laboratory analysis was unremarkable. Chest x-ray showed consolidation and pleural effusion on the right side. Dr. Hernandez was contacted who recommended admission for thoracentesis. Patient was admitted to the general medical floor. He was suspected to have acute exacerbation of COPD due to diffuse wheezing and was started on oral prednisone therapy. He has been seen by Dr. Hernandez who recommends a CT abdomen and pelvis to rule out significant ascites as well as drainage by interventional radiology secondary to morbid obesity. CT abdomen and plevis showed no acute process. Unfortunately, interventional radiology is not available this weekend. We were going to attempt to set patient up for outpatient thora on Thursday. Patient then informed nurse that he has been using his sisters O2 and does not have his own at home. He has no portable tanks and immediately desats for 83 on . We are unable to set up home O2 at this time due to holiday weekend. Patient seen and examined at bedside. Patient states SOB is increasing and he is feeling tired. Pain is controlled. c/o numbness over his RUQ. No chest pain, + back pain on the right. No nausea, no vomiting. No diarrhea. Has nebulizer at home Objective - Vital Signs Vital signs: Vital Signs Temp 97.7 F 01/25/18 06:24 Pulse 96 01/25/18 07:54 Resp 16 01/25/18 06:24 BP 139/79 01/25/18 06:24 Pulse Ox 91 L 01/25/18 07:44 Intake & Output 01/24/18 01/25/18 01/25/18 18:59 06:59 18:59 Intake Total 1040 Balance 1040 Intake: Oral 1040 Other: Voiding Method Urinal Urinal Urinal # Voids 4 1 - Exam General: non toxic, no distress, appears at stated age, obese Derm: warm, dry Head: atraumatic, normocephalic, symmetric Eyes: EOMI, no lid lag, anicteric sclera Mouth: no lip lesion, mucus membranes moist Cardiovascular: S1S2 reg, no murmur, positive posterior tibial pulse bilateral, Lungs: absent breath sounds right base, no rhonchi, no rales , no accessory muscle use Abdominal: soft, nontender to palpation, no guarding, no appreciable organomegaly Ext: no gross muscle atrophy, no edema, no contractures Neuro: CN II-XI grossly intact, no focal neuro deficits Psych: Alert, oriented, appropriate affect - Labs CBC & Chem 7: 01/23/18 06:44 01/23/18 06:44 Labs: Microbiology - Last 24 Hours (Table) 01/22/18 17:30 Blood Culture - Preliminary Blood No Growth after 48 hours Assessment and Plan Assessment: Right-sided pleural effusion -pulmonary recs appreciated -Need for thoracentesis both diagnostic and therapeutic -Echocardiogram with EF 55-60% -Interventional radiology is not available at this time, plan will be for drainage on Thursday. NPO after midnight Acute on chronic hypoxic respiratory failure secondary to pleural effusion and COPD -Wean O2 as able, needs arrangements for home oxygen with protable tanks. Acute exacerbation of severe chronic obstructive pulmonary disease with FEV1 of 26%, Gold stage IV -Continue with home Symbicort -As needed bronchodilators -Oral prednisone therapy History of hepatitis C -Liver enzymes normal Morbid obesity with BMI 36.5 -Structured outpatient weight loss GERD -PPI History of schizophrenia -Continue home medication: Lexapro, Zyprexa, and trazodone Tobacco abuse -Patient recently quit smoking -Patient refuses nicotine replacement therapy -Continue tobacco cessation Unfortunately, interventional radiology is not available this weekend also not available to set up home O2 over the weekend. Plan is for thoracentesis in AM and then D/C home. DVT prophylaxis: Heparin subcutaneous (hold for thoracentesis) Discussed with: Patient, nursing Anticipated discharge: [address]: Home A total of 35 minutes was spent on the care of this complex patient more than 50 % of the time was spent in counseling and care coordination.
--- NOTE | 2018-01-25 14:57 | P.PN ---
Subjective Progress Note Date: 01/25/18 Principal diagnosis: Shortness of breath, pleural effusion Progress note dated 01/24/2018 This is a very pleasant 57-year-old gentleman who follows with Dr. Rojas as his primary care physician. He has a history of gastroesophageal reflux disease , hyperlipidemia, hypertension, hepatitis C and previous IV drug abuse. He also has significant chronic obstructive pulmonary disease with an FEV1 value of 26% of predicted, Gold stage IV. Also a 40+ year pack per day smoking history. He was recently seen in our office by Dr. Hernandez as a new patient on . He did review pulmonary function testing and initiated the patient on Symbicort, Spiriva, Pro-air and DuoNeb inhalations. He was started on nebulized treatments. He is on home oxygen at 2 L/m per nasal cannula. No portable oxygen at this time. He presented to our office again yesterday regarding the computed tomography scan of the chest that was ordered which revealed a large right-sided pleural effusion. The patient also has hepatomegaly and abdominal distention. He was quite dyspneic and hypoxemic with O2 saturation of 80% on room air at rest. He had ongoing right-sided chest discomfort was splinting. He was recommended inpatient evaluation. He is seen today in consultation on the regular medical floor. He is awake and alert in no acute distress. He is still having significant shortness of breath and right-sided chest pain. He has significant abdominal distention. 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 He is currently maintaining good O2 saturations in the 90s on 4 L/m per nasal cannula. His been afebrile. Slightly tachycardic. Hemodynamically stable. No leukocytosis. Bicarb 35. Creatinine 0.70. Liver enzymes within normal limits. ProBNP 93. Troponin negative. I spoke to the primary physician. The patient could be discharged home and brought back as an outpatient for outpatient thoracentesis. I'm not sure why interventional radiology isn't available on the weekends. The patient is stable though. Because of body habitus, I don't believe my kid we will allow me to enter the pleural space. Interventional radiology has the longer needles that would be necessary in a patient this body habitus. Progress noted dated 01/25/2018 57-year-old male with a history of acute hypoxemic respiratory failure secondary to COPD and a moderate size right pleural effusion. His FEV1 is 26% of predicted. 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 The patient's ultrasound showed a small to moderate right -sided pleural effusion. The skin to pocket depth is quite significant. I think we will allow interventional radiology to do his thoracentesis under ultrasound guidance. The patient is not in any respiratory distress at this time. The patient was placed on Symbicort Spiriva and Pro Air as well as updrafts. The breathing is about the same. He denies any wheezing chest congestion cough or phlegm production. No fever or chills. A CT of the abdomen was essentially unremarkable. Objective - Vital Signs Vital signs: Vital Signs Temp 97.7 F 01/25/18 06:24 Pulse 92 01/25/18 11:35 Resp 16 01/25/18 06:24 BP 139/79 01/25/18 06:24 Pulse Ox 91 L 01/25/18 07:44 Intake & Output 01/24/18 01/25/18 01/25/18 18:59 06:59 18:59 Intake Total 1040 Balance 1040 Intake: Oral 1040 Other: Voiding Method Urinal Urinal Urinal # Voids 4 1 4 - Exam No acute distress, oriented 3. HEENT examination is grossly unremarkable. Mucous membranes are moist. No oral lesions. Neck supple. Full range of motion. No adenopathy thyromegaly or neck vein distention. Cardiovascular examination reveals regular rhythm rate. S1-S2 normal. No S3 or S4. No discernible murmur noted. Lungs reveal diminished breath sounds at the right lung base. There is dullness at the right lung base. No crackles or wheezes appreciated. Mild diffuse rhonchi are noted throughout. Abdomen soft bowel sounds are heard. No masses or tenderness. Extremities are intact. No cyanosis clubbing or edema. Skin is without rash or lesion. Neurologic examination is brief but nonfocal. - Labs CBC & Chem 7: 01/23/18 06:44 01/23/18 06:44 Labs: Microbiology - Last 24 Hours (Table) 01/22/18 17:30 Blood Culture - Preliminary Blood No Growth after 48 hours Assessment and Plan Assessment: Assessment #1 Acute on chronic hypoxic respiratory failure secondary to large right-sided pleural effusion and acute exacerbation of chronic obstructive pulmonary disease. Severe Gold stage IV chronic obstructive pulmonary disease with FEV1 value 26% of predicted. #2 Chronic tobacco dependence. 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 Computed tomography scan of the abdomen is pending. #4 Hepatitis C secondary to remote history of IV drug abuse. #5 History of alcohol abuse. #6 History of hyperlipidemia. #7 Hypertension. #8 Gastroesophageal reflux disease. #9 Morbid obesity with suspected obesity/hypoventilation syndrome. Possible obstructive sleep apnea. Plan: Plan dated 01/24/2018 I spoke to the primary hospitalist. We may end up either trying to get interventional radiology into the thoracentesis or rather, because the patient relatively stable, have the patient come back on Thursday for an outpatient thoracentesis. Additional recommendations and suggestions are forthcoming. Computed tomography scan of the abdomen did not reveal any abnormalities of significance. We'll continue to follow. Prognosis is guarded. The patient has a plethora of medical problems. Plan dated 01/25/2018 The patient is scheduled for a thoracentesis to be done by interventional radiology tomorrow morning. The patient is currently stable. Denies any cough wheezing or congestion in the chest. Labs x-rays a medications are all reviewed. No new labs have been ordered. Blood cultures are currently negative. Chest ultrasound was reviewed. Additional recommendations and suggestions are forthcoming. Time with Patient: Less than 30
[2018-01-25] MEDS: traZODone HCL 50 MG TAB PO SCH (20:31)
[2018-01-25] MEDS: OLANZapine 10 MG TAB PO SCH (20:31)
[2018-01-26] MEDS ORDERED: IPRATROPIUM-ALBUTEROL 3 ML NEB INHALATION PRN (02:24)
[2018-01-26] MEDS: IPRATROPIUM-ALBUTEROL 3 ML NEB INHALATION SCH ×5 (02:27→19:35)
[2018-01-26 07:07] LABS: HGB 14.7 gm/dL (13.0-17.5); Hypochromasia Moderate; MCH 29.3 pg (25.0-35.0); MCHC 30.6 g/dL (31.0-37.0); MCV 95.9 fL (80.0-100.0); Mean Platelet Volume 6.4; Platelet Count 323 k/uL (150-450); RBC 5.01 m/uL (4.30-5.90)
[2018-01-26] MEDS: HYDROcodone/APAP 7.5-325MG 1 EACH TAB PO PRN ×3 (07:46→22:20)
[2018-01-26] MEDS: ESCITALOPRAM 5 MG TAB PO SCH (07:46)
[2018-01-26] MEDS: predniSONE 20 MG TAB PO SCH (07:47)
[2018-01-26] MEDS: PANTOPRAZOLE 40 MG TABLET PO SCH (07:47)
[2018-01-26] MEDS: SYMBICORT 160-4.5 MCG INHALER INHALATION SCH ×2 (09:05→19:35)
--- NOTE | 2018-01-26 15:21 | US ---
EXAMINATION TYPE: US thoracentesis DATE OF EXAM: 01/26/2018 COMPARISON: NONE HISTORY: Pleural effusion. FINDINGS: Maximal barrier technique was utilized. The skin overlying a suitable pocket of fluid was localized and the overlying skin prepped and draped. Lidocaine was used for local anesthesia. Ultras ound was used with sterile technique. A 5 Yi catheter over guide needle was advanced into the pl eural fluid collection using ultrasound guidance and the catheter advanced, needle. Approximately 1. 3 liter(s) of serous angle and is fluid was removed. Catheter was withdrawn and hemostasis achieved. There is no immediate complication. The patient discharged in stable condition without complicatio n. IMPRESSION: STATUS POST ULTRASOUND GUIDED THORACENTESIS, POST PROCEDURE CHEST X-RAY PENDING. THIS MO OCEDURE WAS PERFORMED BY THE UNDERSIGNED. Specimen sent for laboratory analysis.
--- NOTE | 2018-01-26 15:37 | XR ---
EXAMINATION TYPE: XR chest 1V DATE OF EXAM: 01/26/2018 COMPARISON: Prior chest x-ray 01/22/2018 HISTORY: Pleural effusion status post thoracentesis TECHNIQUE: Single frontal view of the chest is obtained. FINDINGS: There is aerated lung the apex. Increased pleural fluid is present. There is obscured righ t hemidiaphragm and heart border, patient is rotated. IMPRESSION: Large right pleural effusion and associated underlying atelectasis versus edema or pneum onia, rotated exam, follow-up recommended.
[2018-01-26 17:06] LABS: Appearance,BF Bloody; Color,BF Red; Nucleated Cells, Body Fluid 1540 /uL; RBC, Body Fluid 170000 /uL
[2018-01-26 17:29] LABS: Mononuclear WBC,Body Fluid 82 %; Polynuclear WBC,Body Fluid 16 %; Total Cells Counted,Body Fluid 100
--- NOTE | 2018-01-26 17:42 | P.PN ---
Subjective Progress Note Date: 01/26/18 Principal diagnosis: Acute on chronic hypoxic rest or a failure secondary to large right-sided pleural effusion and acute exacerbation of chronic obstructive pulmonary disease Progress note dated 01/24/2018 This is a very pleasant 57-year-old gentleman who follows with Dr. Rojas as his primary care physician. He has a history of gastroesophageal reflux disease , hyperlipidemia, hypertension, hepatitis C and previous IV drug abuse. He also has significant chronic obstructive pulmonary disease with an FEV1 value of 26% of predicted, Gold stage IV. Also a 40+ year pack per day smoking history. He was recently seen in our office by Dr. Hernandez as a new patient on . He did review pulmonary function testing and initiated the patient on Symbicort, Spiriva, Pro-air and DuoNeb inhalations. He was started on nebulized treatments. He is on home oxygen at 2 L/m per nasal cannula. No portable oxygen at this time. He presented to our office again yesterday regarding the computed tomography scan of the chest that was ordered which revealed a large right-sided pleural effusion. The patient also has hepatomegaly and abdominal distention. He was quite dyspneic and hypoxemic with O2 saturation of 80% on room air at rest. He had ongoing right-sided chest discomfort was splinting. He was recommended inpatient evaluation. He is seen today in consultation on the regular medical floor. He is awake and alert in no acute distress. He is still having significant shortness of breath and right-sided chest pain. He has significant abdominal distention. 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 He is currently maintaining good O2 saturations in the 90s on 4 L/m per nasal cannula. His been afebrile. Slightly tachycardic. Hemodynamically stable. No leukocytosis. Bicarb 35. Creatinine 0.70. Liver enzymes within normal limits. ProBNP 93. Troponin negative. I spoke to the primary physician. The patient could be discharged home and brought back as an outpatient for outpatient thoracentesis. I'm not sure why interventional radiology isn't available on the weekends. The patient is stable though. Because of body habitus, I don't believe my kid we will allow me to enter the pleural space. Interventional radiology has the longer needles that would be necessary in a patient this body habitus. Progress noted dated 01/25/2018 57-year-old male with a history of acute hypoxemic respiratory failure secondary to COPD and a moderate size right pleural effusion. His FEV1 is 26% of predicted. 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 The patient's ultrasound showed a small to moderate right -sided pleural effusion. The skin to pocket depth is quite significant. I think we will allow interventional radiology to do his thoracentesis under ultrasound guidance. The patient is not in any respiratory distress at this time. The patient was placed on Symbicort Spiriva and Pro Air as well as updrafts. The breathing is about the same. He denies any wheezing chest congestion cough or phlegm production. No fever or chills. A CT of the abdomen was essentially unremarkable. On 01/26/2018 patient seen in follow-up on medical surgical floor. Denies any acute complaints, denies any worsening dyspnea. Currently on 3 L per nasal cannula with a pulse ox at 92%, afebrile, hemodynamically stable. Interventional radiology has performed ultrasound-guided right thoracentesis would removal of 1.3 L of serous pleural fluid which was sent for analysis. Otherwise patient remains stable, has improved significantly and is requesting to go home today. He has been treated with a combination of nebulized bronchodilators, IV steroids, Symbicort. Patient could be discharged home today as low and he remains stable after the procedure, and he could be followed up on by Dr. Dr. Hernandez in the outpatient setting in regards to the results of his pleural fluid analysis. Objective - Vital Signs Vital signs: Vital Signs Temp 97.9 F 01/26/18 15:31 Pulse 90 01/26/18 15:31 Resp 18 01/26/18 15:31 BP 133/83 01/26/18 15:31 Pulse Ox 92 L 01/26/18 15:31 Intake & Output 01/25/18 01/26/18 01/26/18 18:59 06:59 18:59 Intake Total 700 Balance 700 Intake: Oral 700 Other: Voiding Method Urinal Toilet Toilet # Voids 4 1 3 - Exam No acute distress, oriented 3. HEENT examination is grossly unremarkable. Mucous membranes are moist. No oral lesions. Neck supple. Full range of motion. No adenopathy thyromegaly or neck vein distention. Cardiovascular examination reveals regular rhythm rate. S1-S2 normal. No S3 or S4. No discernible murmur noted. Lungs reveal diminished breath sounds at the right lung base. There is dullness at the right lung base. No crackles or wheezes appreciated. Mild diffuse rhonchi are noted throughout. Abdomen soft bowel sounds are heard. No masses or tenderness. Extremities are intact. No cyanosis clubbing or edema. Skin is without rash or lesion. Neurologic examination is brief but nonfocal. - Labs CBC & Chem 7: 01/26/18 06:48 01/23/18 06:44 Labs: Abnormal Lab Results - Last 24 Hours (Table) 01/26/18 Range/Units 06:48 MCHC 30.6 L (31.0-37.0) g/dL Microbiology - Last 24 Hours (Table) 01/22/18 17:30 Blood Culture - Preliminary Blood No Growth after 72 hours Assessment and Plan Plan: Assessment: #1 Acute on chronic hypoxic respiratory failure secondary to large right-sided pleural effusion and acute exacerbation of chronic obstructive pulmonary disease. Severe Gold stage IV chronic obstructive pulmonary disease with FEV1 value 26% of predicted. #2 Chronic tobacco dependence. 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 Computed tomography scan of the abdomen is pending. #4 Hepatitis C secondary to remote history of IV drug abuse. #5 History of alcohol abuse. #6 History of hyperlipidemia. #7 Hypertension. #8 Gastroesophageal reflux disease. #9 Morbid obesity with suspected obesity/hypoventilation syndrome. Possible obstructive sleep apnea. Plan: Plan dated 01/24/2018 I spoke to the primary hospitalist. We may end up either trying to get interventional radiology into the thoracentesis or rather, because the patient relatively stable, have the patient come back on Thursday for an outpatient thoracentesis. Additional recommendations and suggestions are forthcoming. Computed tomography scan of the abdomen did not reveal any abnormalities of significance. We'll continue to follow. Prognosis is guarded. The patient has a plethora of medical problems. Plan dated 01/25/2018 The patient is scheduled for a thoracentesis to be done by interventional radiology tomorrow morning. The patient is currently stable. Denies any cough wheezing or congestion in the chest. Labs x-rays a medications are all reviewed. No new labs have been ordered. Blood cultures are currently negative. Chest ultrasound was reviewed. Additional recommendations and suggestions are forthcoming. Plan dated 01/26/2018 Patient underwent ultrasound-guided right thoracentesis would removal of 1.3 L of serous pleural fluid which was sent for analysis. From pulmonary standpoint his breathing is improving, IV steroids have been transitioned to oral, no worsening dyspnea, he is on 3 L per nasal cannula, which is his home dose oxygen. From pulmonary standpoint patient could be discharged home today as long as he remains stable, with follow-up in an outpatient setting with Dr. Dr. Hernandez in regards to the results of his pleural fluid analysis I performed a history & physical examination of the patient and discussed their management with my nurse practitioner, Asia Peraza. I reviewed the nurse practitioner's note and agree with the documented findings and plan of care. Lung sounds are positive diminished breath sounds on the right, and scattered crackles on the left base. The findings and the impression was discussed with the patient. I attest to the documentation by the nurse practitioner. Time with Patient: Less than 30
--- NOTE | 2018-01-26 18:14 | P.PN ---
Subjective Progress Note Date: 01/26/18 Principal diagnosis: Shortness of breath Patient is a 57-year-old male with a history of COPD on home oxygen of 2-3 L, hepatitis C, GERD, dyslipidemia, hypertension, morbid obesity who presented to the hospital at the direction of Dr. Hernandez's office due to right- sided pleural effusion. In the ER he underwent an extensive examination. On arrival he was found to be hypoxic with an oxygen saturation of 83% on room air. He remained hypoxic despite being placed on 2.5 L his home dose. Remainder of his vital signs were within normal limits. Initial laboratory analysis was unremarkable. Chest x-ray showed consolidation and pleural effusion on the right side. Dr. Hernandez was contacted who recommended admission for thoracentesis. Patient was admitted to the general medical floor. He was suspected to have acute exacerbation of COPD due to diffuse wheezing and was started on oral prednisone therapy. He has been seen by Dr. Hernandez who recommends a CT abdomen and pelvis to rule out significant ascites as well as drainage by interventional radiology secondary to morbid obesity. CT abdomen and plevis showed no acute process. Patient underwent thoracentesis on 01/26. This showed grossly bloody fluid with 170,[address] Farnsworth was contacted who recommended maintaining the patient's hospitalization secondary to increased risk of pleural scarring and incomplete reexpansion of the lung due to hemothorax. Patient updated as well as patient's family and they're understanding of need for continued hospitalization. We were able to set up his oxygen and portable oxygen for home. Patient seen and examined at bedside. States that his breathing feels much improved. Having much less right-sided rib pain. No longer feeling a mass underneath his right rib cage. No nausea, vomiting, or diarrhea. Prolonged discussion was had with the patient and his family regarding the findings of blood on pleural fluid and possible hemothorax and continued need for hospitalization and possible repeat procedures. Objective - Vital Signs Vital signs: Vital Signs Temp 97.9 F 01/26/18 15:31 Pulse 90 01/26/18 15:31 Resp 18 01/26/18 15:31 BP 133/83 01/26/18 15:31 Pulse Ox 92 L 01/26/18 15:31 Intake & Output 01/25/18 01/26/18 01/26/18 18:59 06:59 18:59 Intake Total 700 Balance 700 Intake: Oral 700 Other: Voiding Method Urinal Toilet Toilet # Voids 4 1 3 - Exam General: non toxic, no distress, appears at stated age, obese Derm: warm, dry Head: atraumatic, normocephalic, symmetric Eyes: EOMI, no lid lag, anicteric sclera Mouth: no lip lesion, mucus membranes moist Cardiovascular: S1S2 reg, no murmur, positive posterior tibial pulse bilateral, Lungs: absent breath sounds right base, no rhonchi, no rales , no accessory muscle use Abdominal: soft, nontender to palpation, no guarding, no appreciable organomegaly Ext: no gross muscle atrophy, no edema, no contractures Neuro: CN II-XI grossly intact, no focal neuro deficits Psych: Alert, oriented, appropriate affect - Labs CBC & Chem 7: 01/26/18 06:48 01/23/18 06:44 Labs: Abnormal Lab Results - Last 24 Hours (Table) 01/26/18 Range/Units 06:48 MCHC 30.6 L (31.0-37.0) g/dL Microbiology - Last 24 Hours (Table) 01/22/18 17:30 Blood Culture - Preliminary Blood No Growth after 72 hours Assessment and Plan Assessment: Right-sided pleural effusion, grossly bloody fluid -Status post removal of 1.3 L of fluid, repeat chest x-ray shows continued right sided pleural effusion as well as mediastinal shift to the right. Discussed with Dr. Farnsworth at length plan is for repeat Thora versus chest tube in a.m. -pulmonary recs appreciated -Echocardiogram with EF 55-60% - Await remainder of pleural fluid analysis including cytology. Acute on chronic hypoxic respiratory failure secondary to pleural effusion and COPD -Wean O2 as able, needs arrangements for home oxygen with protable tanks. Acute exacerbation of severe chronic obstructive pulmonary disease with FEV1 of 26%, Gold stage IV -Continue with home Symbicort -As needed bronchodilators -Oral prednisone therapy History of hepatitis C -Liver enzymes normal Morbid obesity with BMI 36.5 -Structured outpatient weight loss GERD -PPI History of schizophrenia -Continue home medication: Lexapro, Zyprexa, and trazodone Tobacco abuse -Patient recently quit smoking -Patient refuses nicotine replacement therapy -Continue tobacco cessation DVT prophylaxis: Heparin subcutaneous (hold for thoracentesis/ CT in AM) Discussed with: Patient, nursing Anticipated discharge: 2-[address]: Home A total of 55 minutes was spent on the care of this complex patient more than 50 % of the time was spent in counseling and care coordination.
[2018-01-26] MEDS: OLANZapine 10 MG TAB PO SCH (20:29)
[2018-01-26] MEDS: traZODone HCL 50 MG TAB PO SCH (20:29)
[2018-01-27 01:30] LABS: Total Protein, Body Fluid 3330 mg/dL
[2018-01-27] MEDS: HYDROcodone/APAP 7.5-325MG 1 EACH TAB PO PRN ×3 (05:31→18:15)
[2018-01-27] MEDS: SYMBICORT 160-4.5 MCG INHALER INHALATION SCH ×2 (07:44→19:36)
[2018-01-27] MEDS: IPRATROPIUM-ALBUTEROL 3 ML NEB INHALATION SCH ×4 (07:44→19:35)
--- NOTE | 2018-01-27 07:47 | XR ---
EXAMINATION TYPE: XR chest 2V DATE OF EXAM: 01/27/2018 COMPARISON: Prior chest x-ray 01/26/2018 HISTORY: Pleural effusion TECHNIQUE: Frontal and lateral views of the chest are obtained. FINDINGS: Right-sided effusion persists. No pneumothorax. Heart is obscured. Patient is showing over lying cardiac leads. IMPRESSION: Right pleural effusion and associated atelectasis or pneumonia, follow-up to resolution to exclude underlying mass.
[2018-01-27 08:17] LABS: HCT 49.6 % (39.0-53.0); HGB 15.3 gm/dL (13.0-17.5); Hypochromasia Marked; MCH 29.6 pg (25.0-35.0); MCHC 30.8 g/dL (31.0-37.0); Mean Platelet Volume 6.7; Platelet Count 323 k/uL (150-450); RBC 5.16 m/uL (4.30-5.90); RDW 15.1 % (11.5-15.5)
[2018-01-27 08:27] LABS: ALT 48 U/L (21-72); AST 24 U/L (17-59); Albumin 3.7 g/dL (3.5-5.0); Alkaline Phosphatase 55 U/L (38-126); Anion Gap 9 mmol/L; Blood Urea Nitrogen 14 mg/dL (9-20); Calcium 8.8 mg/dL (8.4-10.2); Carbon Dioxide 36 mmol/L (22-30); Chloride 95 mmol/L (98-107); Glucose 76 mg/dL (74-99); LDH 473 U/L (313-618); Potassium 4.5 mmol/L (3.5-5.1); Sodium 140 mmol/L (137-145); Total Bilirubin 0.4 mg/dL (0.2-1.3); Total Protein 5.9 g/dL (6.3-8.2)
--- NOTE | 2018-01-27 09:15 | P.PN ---
Subjective Progress Note Date: 01/27/18 Principal diagnosis: Shortness of breath Patient is a 57-year-old male with a history of COPD on home oxygen of 2-3 L, hepatitis C, GERD, dyslipidemia, hypertension, morbid obesity who presented to the hospital at the direction of Dr. Hernandez's office due to right- sided pleural effusion. In the ER he underwent an extensive examination. On arrival he was found to be hypoxic with an oxygen saturation of 83% on room air. He remained hypoxic despite being placed on 2.5 L his home dose. Remainder of his vital signs were within normal limits. Initial laboratory analysis was unremarkable. Chest x-ray showed consolidation and pleural effusion on the right side. Dr. Hernandez was contacted who recommended admission for thoracentesis. Patient was admitted to the general medical floor. He was suspected to have acute exacerbation of COPD due to diffuse wheezing and was started on oral prednisone therapy. He has been seen by Dr. Hernandez who recommends a CT abdomen and pelvis to rule out significant ascites as well as drainage by interventional radiology secondary to morbid obesity. CT abdomen and plevis showed no acute process. Patient underwent thoracentesis on 01/26. This showed grossly bloody fluid with 170,[address] Farnsworth was contacted who recommended maintaining the patient's hospitalization secondary to increased risk of pleural scarring and incomplete reexpansion of the lung due to bloody pleural fluid. Patient seen and examined at bedside. Patient is feeling well this morning. States that shortness of breath is even better than when I saw him last evening. He is still having some coughing. He states he is having less rib pain than he was yesterday. Denies nausea or vomiting. Asking to go home. I again explained that we need to have Dr. Farnsworth reevaluate his fluid analysis and probable need for further intervention secondary to blood. Objective - Vital Signs Vital signs: Vital Signs Temp 97.9 F 01/27/18 05:00 Pulse 88 01/27/18 07:53 Resp 16 01/27/18 05:00 BP 122/61 01/27/18 05:00 Pulse Ox 93 L 01/27/18 05:00 Intake & Output 01/26/18 01/27/18 01/27/18 18:59 06:59 18:59 Intake Total 1080 Balance 1080 Intake: Oral 1080 Other: Voiding Method Toilet Toilet # Voids 3 2 - Exam General: non toxic, no distress, appears at stated age, obese Derm: warm, dry Head: atraumatic, normocephalic, symmetric Eyes: EOMI, no lid lag, anicteric sclera Mouth: no lip lesion, mucus membranes moist Cardiovascular: S1S2 reg, no murmur, positive posterior tibial pulse bilateral, Lungs: absent breath sounds right base, improved breath sounds right apex, no rhonchi, no rales , no accessory muscle use Abdominal: soft, nontender to palpation, no guarding, no appreciable organomegaly Ext: no gross muscle atrophy, no edema, no contractures Neuro: CN II-XI grossly intact, no focal neuro deficits Psych: Alert, oriented, appropriate affect - Labs CBC & Chem 7: 01/27/18 07:38 01/27/18 07:38 Labs: Abnormal Lab Results - Last 24 Hours (Table) 01/27/18 01/27/18 Range/Units 07:38 07:38 MCHC 30.8 L (31.0-37.0) g/dL Chloride 95 L (98-107) mmol/L Carbon Dioxide 36 H (22-30) mmol/L Total Protein 5.9 L (6.3-8.2) g/dL Microbiology - Last 24 Hours (Table) 01/26/18 14:50 Gram Stain - Preliminary Pleural Fluid Body Fluid Culture - Preliminary 01/26/18 14:50 Anaerobic Culture - Preliminary Pleural Fluid 01/22/18 17:30 Blood Culture - Preliminary Blood No Growth after 96 hours Assessment and Plan Assessment: Right-sided pleural effusion, grossly bloody fluid -Status post removal of 1.3 L of fluid, repeat chest x-ray shows continued right sided pleural effusion as well as mediastinal shift to the right. Discussed with Dr. Farnsworth at length plan is for re-eval of fluid today. -pulmonary recs appreciated -Echocardiogram with EF 55-60% - Protein ratio 0.55, LDH 0.4, no organism awaiting cytology and cultures Acute on chronic hypoxic respiratory failure secondary to pleural effusion and COPD -Wean O2 as able, has arrangements for home oxygen with protable tank at bedside. Acute exacerbation of severe chronic obstructive pulmonary disease with FEV1 of 26%, Gold stage IV -Continue with home Symbicort -As needed bronchodilators -Oral prednisone therapy History of hepatitis C -Liver enzymes normal Morbid obesity with BMI 36.5 -Structured outpatient weight loss GERD -PPI History of schizophrenia -Continue home medication: Lexapro, Zyprexa, and trazodone Tobacco abuse -Patient recently quit smoking -Patient refuses nicotine replacement therapy -Continue tobacco cessation DVT prophylaxis: Heparin subcutaneous (hold for thoracentesis/ CT in AM) Discussed with: Patient, nursing Anticipated discharge: 2-[address]: Home A total of 55 minutes was spent on the care of this complex patient more than 50 % of the time was spent in counseling and care coordination.
[2018-01-27] MEDS ORDERED: RX INFO: IV CONTRAST WAS GIVEN 1 EACH MISC MISCELLANE PRN (09:27)
[2018-01-27] MEDS: ESCITALOPRAM 5 MG TAB PO SCH (09:36)
[2018-01-27] MEDS: PANTOPRAZOLE 40 MG TABLET PO SCH ×2 (09:36→21:27)
[2018-01-27] MEDS: predniSONE 20 MG TAB PO SCH (09:36)
--- NOTE | 2018-01-27 10:51 | CT ---
EXAMINATION TYPE: CT chest w con DATE OF EXAM: 01/27/2018 COMPARISON: Prior CT chest 01/19/2018 HISTORY: Pneumothorax, history of mass CT DLP: 868 mGycm Automated exposure control for dose reduction was used. CONTRAST: CT scan of the chest is performed with IV Contrast, patient injected with 100 ml mL of Isovue 300. FINDINGS: LUNGS: Again noted is a right pleural effusion, there is associated atelectasis. Minimal basilar atel ectatic changes are present on the left, there is a calcified granuloma in the left lung base. MEDIASTINUM: There are no greater than 1 cm hilar or mediastinal lymph nodes. No pericardial effusi on is seen. AORTA: No additional significant abnormality is seen. Pulmonary artery is prominent. OTHER: There are bilateral rib fractures. The eighth rib on the left shows nonunion rib fracture. Th e right eighth rib fracture is minimally displaced, ninth rib fracture laterally is displaced approxi mately 1 cm. Suspected eventration of the right hemidiaphragm. IMPRESSION: Bilateral rib fractures of questionable acuity, correlate with appropriate patient histo ry. Right pleural effusion and associated atelectasis. Correlate to exclude pulmonary artery hyperten gil.
--- NOTE | 2018-01-27 13:33 | P.PN ---
Subjective Progress Note Date: 01/27/18 Principal diagnosis: Acute on chronic hypoxic rest or a failure secondary to large right-sided pleural effusion and acute exacerbation of chronic obstructive pulmonary disease Progress note dated 01/24/2018 This is a very pleasant 57-year-old gentleman who follows with Dr. Rojas as his primary care physician. He has a history of gastroesophageal reflux disease , hyperlipidemia, hypertension, hepatitis C and previous IV drug abuse. He also has significant chronic obstructive pulmonary disease with an FEV1 value of 26% of predicted, Gold stage IV. Also a 40+ year pack per day smoking history. He was recently seen in our office by Dr. Hernandez as a new patient on . He did review pulmonary function testing and initiated the patient on Symbicort, Spiriva, Pro-air and DuoNeb inhalations. He was started on nebulized treatments. He is on home oxygen at 2 L/m per nasal cannula. No portable oxygen at this time. He presented to our office again yesterday regarding the computed tomography scan of the chest that was ordered which revealed a large right-sided pleural effusion. The patient also has hepatomegaly and abdominal distention. He was quite dyspneic and hypoxemic with O2 saturation of 80% on room air at rest. He had ongoing right-sided chest discomfort was splinting. He was recommended inpatient evaluation. He is seen today in consultation on the regular medical floor. He is awake and alert in no acute distress. He is still having significant shortness of breath and right-sided chest pain. He has significant abdominal distention. 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 He is currently maintaining good O2 saturations in the 90s on 4 L/m per nasal cannula. His been afebrile. Slightly tachycardic. Hemodynamically stable. No leukocytosis. Bicarb 35. Creatinine 0.70. Liver enzymes within normal limits. ProBNP 93. Troponin negative. I spoke to the primary physician. The patient could be discharged home and brought back as an outpatient for outpatient thoracentesis. I'm not sure why interventional radiology isn't available on the weekends. The patient is stable though. Because of body habitus, I don't believe my kid we will allow me to enter the pleural space. Interventional radiology has the longer needles that would be necessary in a patient this body habitus. Progress noted dated 01/25/2018 57-year-old male with a history of acute hypoxemic respiratory failure secondary to COPD and a moderate size right pleural effusion. His FEV1 is 26% of predicted. 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 The patient's ultrasound showed a small to moderate right -sided pleural effusion. The skin to pocket depth is quite significant. I think we will allow interventional radiology to do his thoracentesis under ultrasound guidance. The patient is not in any respiratory distress at this time. The patient was placed on Symbicort Spiriva and Pro Air as well as updrafts. The breathing is about the same. He denies any wheezing chest congestion cough or phlegm production. No fever or chills. A CT of the abdomen was essentially unremarkable. On 01/26/2018 patient seen in follow-up on medical surgical floor. Denies any acute complaints, denies any worsening dyspnea. Currently on 3 L per nasal cannula with a pulse ox at 92%, afebrile, hemodynamically stable. Interventional radiology has performed ultrasound-guided right thoracentesis would removal of 1.3 L of serous pleural fluid which was sent for analysis. Otherwise patient remains stable, has improved significantly and is requesting to go home today. He has been treated with a combination of nebulized bronchodilators, IV steroids, Symbicort. Patient could be discharged home today as low and he remains stable after the procedure, and he could be followed up on by Dr. Dr. Hernandez in the outpatient setting in regards to the results of his pleural fluid analysis. On 01/27/2018 patient seen in follow-up. The pleural fluid drained yesterday was found to be bloody, and for that reason chest CT was obtained, which showed bilateral rib fractures of questionable acuity, and residual right pleural effusion and associated atelectasis, possibly traumatic hemothorax. We spoke to interventional radiologist Dr. Carter today, and insertion of a right-sided chest tube was discussed with the intent of draining the rest of the pleural fluid. Patient is still having some right-sided chest wall discomfort, likely related to his rib fractures. He denies any trauma to his chest wall. Patient will be scheduled for ultrasound-guided right-sided pigtail chest tube insertion , and it will be connected to wall suction. Patient is in agreement with the plan. Otherwise continue with the rest of his medical treatments. Objective - Vital Signs Vital signs: Vital Signs Temp 97.9 F 01/27/18 05:00 Pulse 90 01/27/18 11:52 Resp 16 01/27/18 05:00 BP 122/61 01/27/18 05:00 Pulse Ox 93 L 01/27/18 05:00 Intake & Output 01/26/18 01/27/18 01/27/18 18:59 06:59 18:59 Intake Total 1080 Balance 1080 Intake: Oral 1080 Other: Voiding Method Toilet Toilet Toilet # Voids 3 2 - Exam No acute distress, oriented 3. HEENT examination is grossly unremarkable. Mucous membranes are moist. No oral lesions. Neck supple. Full range of motion. No adenopathy thyromegaly or neck vein distention. Cardiovascular examination reveals regular rhythm rate. S1-S2 normal. No S3 or S4. No discernible murmur noted. Lungs reveal diminished breath sounds at the right lung base. There is dullness at the right lung base. No crackles or wheezes appreciated. Mild diffuse rhonchi are noted throughout. Abdomen soft bowel sounds are heard. No masses or tenderness. Extremities are intact. No cyanosis clubbing or edema. Skin is without rash or lesion. Neurologic examination is brief but nonfocal. - Labs CBC & Chem 7: 01/27/18 07:38 01/27/18 07:38 Labs: Abnormal Lab Results - Last 24 Hours (Table) 01/27/18 01/27/18 Range/Units 07:38 07:38 MCHC 30.8 L (31.0-37.0) g/dL Chloride 95 L (98-107) mmol/L Carbon Dioxide 36 H (22-30) mmol/L Total Protein 5.9 L (6.3-8.2) g/dL Microbiology - Last 24 Hours (Table) 01/26/18 14:50 Gram Stain - Preliminary Pleural Fluid Body Fluid Culture - Preliminary 01/26/18 14:50 Anaerobic Culture - Preliminary Pleural Fluid 01/22/18 17:30 Blood Culture - Preliminary Blood No Growth after 96 hours Assessment and Plan Plan: Assessment: #1 Acute on chronic hypoxic respiratory failure secondary to large right-sided pleural effusion and acute exacerbation of chronic obstructive pulmonary disease , possibly related to a traumatic hemothorax, status post ultrasound-guided right thoracentesis on 01/26/2018 with removal of 1.3 L, and the fluid was bloody, pleural fluid analysis is positive for exudative pleural fluid. Severe Gold stage IV chronic obstructive pulmonary disease with FEV1 value 26% of predicted. #2 Chronic tobacco dependence. 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 Computed tomography scan of the abdomen is pending. #4 Hepatitis C secondary to remote history of IV drug abuse. #5 History of alcohol abuse. #6 History of hyperlipidemia. #7 Hypertension. #8 Gastroesophageal reflux disease. #9 Morbid obesity with suspected obesity/hypoventilation syndrome. Possible obstructive sleep apnea. Plan: Plan dated 01/24/2018 I spoke to the primary hospitalist. We may end up either trying to get interventional radiology into the thoracentesis or rather, because the patient relatively stable, have the patient come back on Thursday for an outpatient thoracentesis. Additional recommendations and suggestions are forthcoming. Computed tomography scan of the abdomen did not reveal any abnormalities of significance. We'll continue to follow. Prognosis is guarded. The patient has a plethora of medical problems. Plan dated 01/25/2018 The patient is scheduled for a thoracentesis to be done by interventional radiology tomorrow morning. The patient is currently stable. Denies any cough wheezing or congestion in the chest. Labs x-rays a medications are all reviewed. No new labs have been ordered. Blood cultures are currently negative. Chest ultrasound was reviewed. Additional recommendations and suggestions are forthcoming. Plan dated 01/26/2018 Patient underwent ultrasound-guided right thoracentesis would removal of 1.3 L of serous pleural fluid which was sent for analysis. From pulmonary standpoint his breathing is improving, IV steroids have been transitioned to oral, no worsening dyspnea, he is on 3 L per nasal cannula, which is his home dose oxygen. From pulmonary standpoint patient could be discharged home today as long as he remains stable, with follow-up in an outpatient setting with Dr. Dr. Hernandez in regards to the results of his pleural fluid analysis Plan dated 01/27/2018 The pleural fluid drained on 01/26/2018 was bloody, and there is a possibility of traumatic hemothorax, CT chest shows large pleural effusion and interventional radiology has been consulted for ultrasound-guided pigtail chest tube placement today, so we connected to continuous low wall suction. Continue the rest of the medical treatments, cytology is pending. Vital signs are stable , patient still has right-sided chest wall pain, but his shortness of breath has not worsened, hopefully this will further improve with drainage of the residual pleural fluid in the right chest. I performed a history & physical examination of the patient and discussed their management with my nurse practitioner, Asia Peraza. I reviewed the nurse practitioner's note and agree with the documented findings and plan of care. Lung sounds are positive diminished breath sounds on the right, and scattered crackles on the left base. The findings and the impression was discussed with the patient. I attest to the documentation by the nurse practitioner. Time with Patient: Less than 30
--- NOTE | 2018-01-27 16:14 | XR ---
EXAMINATION TYPE: XR chest 1V DATE OF EXAM: 01/27/2018 COMPARISON: Prior chest 01/27/2018 HISTORY: Status post right-sided chest tube placement TECHNIQUE: Single frontal view of the chest is obtained. FINDINGS: There is been interval placement of a posterior right chest tube. There is some improvemen t in aeration in the right lung. No evident sizable pneumothorax. IMPRESSION: No evident complication status post chest tube placement.
[2018-01-27] MEDS: traZODone HCL 50 MG TAB PO SCH (20:18)
[2018-01-27] MEDS: OLANZapine 10 MG TAB PO SCH (20:18)
[2018-01-27] MEDS ORDERED: MAG HYDROX/AL HYDROX/SIMETH 30 ML CUP PO PRN (20:38)
[2018-01-27] MEDS: KETOROLAC 30 MG/ML 1 ML VIAL IVP PRN (21:25)
[2018-01-28] MEDS ORDERED: HYDROcodone/APAP 7.5-325MG 1 EACH TAB ONE (01:15)
[2018-01-28] MEDS: IPRATROPIUM-ALBUTEROL 3 ML NEB INHALATION SCH ×4 (07:13→20:14)
[2018-01-28] MEDS: SYMBICORT 160-4.5 MCG INHALER INHALATION SCH ×2 (07:13→20:14)
[2018-01-28 07:16] LABS: HCT 45.9 % (39.0-53.0); HGB 14.3 gm/dL (13.0-17.5); Hypochromasia Moderate; MCH 29.4 pg (25.0-35.0); MCHC 31.1 g/dL (31.0-37.0); MCV 94.8 fL (80.0-100.0); Mean Platelet Volume 7.1; Platelet Count 313 k/uL (150-450); RBC 4.84 m/uL (4.30-5.90); WBC 11.4 k/uL (3.8-10.6)
[2018-01-28 07:41] LABS: ALT 39 U/L (21-72); AST 19 U/L (17-59); Albumin 3.1 g/dL (3.5-5.0); Alkaline Phosphatase 47 U/L (38-126); Anion Gap 7 mmol/L; Blood Urea Nitrogen 17 mg/dL (9-20); Calcium 8.8 mg/dL (8.4-10.2); Carbon Dioxide 35 mmol/L (22-30); Chloride 95 mmol/L (98-107); Glucose 103 mg/dL (74-99); Potassium 4.2 mmol/L (3.5-5.1); Sodium 137 mmol/L (137-145); Total Bilirubin 0.4 mg/dL (0.2-1.3); Total Protein 5.2 g/dL (6.3-8.2)
[2018-01-28] MEDS: PANTOPRAZOLE 40 MG TABLET PO SCH ×2 (07:44→16:43)
[2018-01-28] MEDS: predniSONE 20 MG TAB PO SCH (07:44)
[2018-01-28] MEDS: HYDROcodone/APAP 7.5-325MG 1 EACH TAB PO PRN ×3 (07:44→21:40)
[2018-01-28] MEDS: ESCITALOPRAM 5 MG TAB PO SCH (07:44)
[2018-01-28] MEDS: KETOROLAC 30 MG/ML 1 ML VIAL IVP PRN (08:54)
--- NOTE | 2018-01-28 09:24 | US ---
EXAMINATION TYPE: US guided chest tube insertion DATE OF EXAM: 01/27/2018 HISTORY: Pleural effusion FINDINGS: Maximal barrier technique was utilized. The skin overlying a suitable path to the fluid wa s localized with ultrasound and the overlying skin prepped and draped. Lidocaine was used for local anesthesia. A skin chevy made with a scalpel. Access was gained under direct ultrasound guidance to the fluid with a 21-gauge needle. Ultrasound was utilized using sterile technique. A 0.018 inch wire was advanced. Access site was dilated and an 8.5-Beninese catheter advanced into the pleural fluid co llection. Sanguinous fluid returned. Catheter fixed to the skin. Hemostasis achieved. No immediate complication and the patient remained in stable condition. IMPRESSION: STATUS POST ULTRASOUND GUIDED SEROMA DRAINAGE, THIS PROCEDURE WAS PERFORMED BY THE UNDERS IGNED. Post procedure chest x-ray pending.
--- NOTE | 2018-01-28 09:38 | P.PN ---
Subjective Progress Note Date: 01/28/18 Principal diagnosis: Shortness of breath Patient is a 57-year-old male with a history of COPD on home oxygen of 2-3 L, hepatitis C, GERD, dyslipidemia, hypertension, morbid obesity who presented to the hospital at the direction of Dr. Hernandez's office due to right- sided pleural effusion. In the ER he underwent an extensive examination. On arrival he was found to be hypoxic with an oxygen saturation of 83% on room air. He remained hypoxic despite being placed on 2.5 L his home dose. Remainder of his vital signs were within normal limits. Initial laboratory analysis was unremarkable. Chest x-ray showed consolidation and pleural effusion on the right side. Dr. Hernandez was contacted who recommended admission for thoracentesis. Patient was admitted to the general medical floor. He was suspected to have acute exacerbation of COPD due to diffuse wheezing and was started on oral prednisone therapy. He has been seen by Dr. Hernandez who recommends a CT abdomen and pelvis to rule out significant ascites as well as drainage by interventional radiology secondary to morbid obesity. CT abdomen and plevis showed no acute process. Patient underwent thoracentesis on 01/26. This showed grossly bloody fluid with 170,[address] Farnsworth was contacted who recommended maintaining the patient's hospitalization secondary to increased risk of pleural scarring and incomplete reexpansion of the lung due to hemothorax. Patient had chest tube placed by interventional radiology on with the return of bloody fluid. Chest tube to suction. He had a repeat CT of the chest that demonstarted multiple rib fractures which may account for his hemothorax and pain. Patient seen and examined at bedside. Complains of increasing pain today. Pain is now at the front of his right chest and goes down his abdomen. He states that his shortness of breath and cough are better. No nausea. No vomiting. Wants to go home. Poor understanding of current conditions. Objective - Vital Signs Vital signs: Vital Signs Temp 97.2 F L 01/28/18 05:40 Pulse 80 01/28/18 07:24 Resp 16 01/28/18 05:40 BP 138/74 01/28/18 05:40 Pulse Ox 95 01/28/18 07:13 Intake & Output 01/27/18 01/28/18 01/28/18 18:59 06:59 18:59 Intake Total 1750 Output Total 400 Balance 1350 Intake: Oral 1750 Output: Chest Tube Drainage 400 Chest Tube 400 Other: Voiding Method Toilet Toilet # Voids 2 2 - Exam General: non toxic, mild distress, appears at stated age, obese Derm: warm, dry Head: atraumatic, normocephalic, symmetric Eyes: EOMI, no lid lag, anicteric sclera Mouth: no lip lesion, mucus membranes moist Cardiovascular: S1S2 reg, no murmur, positive posterior tibial pulse bilateral, Lungs: decreased breath sounds right base, no rhonchi, no rales , no accessory muscle use Abdominal: soft, + tender to palpation RUQ, no guarding, no appreciable organomegaly Ext: no gross muscle atrophy, no edema, no contractures Neuro: CN II-XI grossly intact, no focal neuro deficits Psych: Alert, oriented, appropriate affect - Labs CBC & Chem 7: 01/28/18 06:51 01/28/18 06:51 Labs: Abnormal Lab Results - Last 24 Hours (Table) 01/28/18 01/28/18 Range/Units 06:51 06:51 WBC 11.4 H (3.8-10.6) k/uL Chloride 95 L (98-107) mmol/L Carbon Dioxide 35 H (22-30) mmol/L Glucose 103 H (74-99) mg/dL Total Protein 5.2 L (6.3-8.2) g/dL Albumin 3.1 L (3.5-5.0) g/dL Microbiology - Last 24 Hours (Table) 01/22/18 17:30 Blood Culture - Preliminary Blood No Growth after 120 hours 01/26/18 14:50 Gram Stain - Preliminary Pleural Fluid Body Fluid Culture - Preliminary Assessment and Plan Assessment: Right-sided pleural effusion, hemothorax - s/p Chest tube on 01/27 - increased chest pain, check CXR - pain control - pulmonary hygiene -pulmonary recs appreciated -Echocardiogram with EF 55-60% - cytology and cultures are pending - Protein ratio 0.55, LDH 0.4, no organism awaiting cytology and cultures Leukoctyosis, likely reactive - follow CBC - repeat CXR Acute on chronic hypoxic respiratory failure secondary to pleural effusion and COPD -Wean O2 as able, has arrangements for home oxygen with protable tank at bedside. Acute exacerbation of severe chronic obstructive pulmonary disease with FEV1 of 26%, Gold stage IV -Continue with home Symbicort -As needed bronchodilators -Oral prednisone therapy completed. History of hepatitis C -Liver enzymes normal Morbid obesity with BMI 36.5 -Structured outpatient weight loss GERD -PPI History of schizophrenia -Continue home medication: Lexapro, Zyprexa, and trazodone Tobacco abuse -Patient recently quit smoking -Patient refuses nicotine replacement therapy -Continue tobacco cessation DVT prophylaxis: SCDs due to hemothorax Discussed with: Patient, nursing Anticipated discharge: 2-[address]: Home A total of 45 minutes was spent on the care of this complex patient more than 50 % of the time was spent in counseling and care coordination.
--- NOTE | 2018-01-28 10:48 | XR ---
EXAMINATION TYPE: XR chest 1V DATE OF EXAM: 01/28/2018 COMPARISON: Prior chest x-ray 01/27/2018 HISTORY: Right pleural effusion, chest tube TECHNIQUE: Single frontal view of the chest is obtained. FINDINGS: There is persistent opacity at the right lung base, obscured right hemidiaphragm and right heart border. Chest tube is not well seen. No evident pneumothorax. IMPRESSION: Findings compatible with right lower lobe atelectasis versus pneumonia and associated pa rapneumonic effusion, follow-up to resolution.
--- NOTE | 2018-01-28 15:57 | P.PN ---
Subjective Progress Note Date: 01/28/18 Principal diagnosis: Acute on chronic hypoxic rest or a failure secondary to large right-sided pleural effusion and acute exacerbation of chronic obstructive pulmonary disease Progress note dated 01/24/2018 This is a very pleasant 57-year-old gentleman who follows with Dr. Rojas as his primary care physician. He has a history of gastroesophageal reflux disease , hyperlipidemia, hypertension, hepatitis C and previous IV drug abuse. He also has significant chronic obstructive pulmonary disease with an FEV1 value of 26% of predicted, Gold stage IV. Also a 40+ year pack per day smoking history. He was recently seen in our office by Dr. Hernandez as a new patient on . He did review pulmonary function testing and initiated the patient on Symbicort, Spiriva, Pro-air and DuoNeb inhalations. He was started on nebulized treatments. He is on home oxygen at 2 L/m per nasal cannula. No portable oxygen at this time. He presented to our office again yesterday regarding the computed tomography scan of the chest that was ordered which revealed a large right-sided pleural effusion. The patient also has hepatomegaly and abdominal distention. He was quite dyspneic and hypoxemic with O2 saturation of 80% on room air at rest. He had ongoing right-sided chest discomfort was splinting. He was recommended inpatient evaluation. He is seen today in consultation on the regular medical floor. He is awake and alert in no acute distress. He is still having significant shortness of breath and right-sided chest pain. He has significant abdominal distention. 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 He is currently maintaining good O2 saturations in the 90s on 4 L/m per nasal cannula. His been afebrile. Slightly tachycardic. Hemodynamically stable. No leukocytosis. Bicarb 35. Creatinine 0.70. Liver enzymes within normal limits. ProBNP 93. Troponin negative. I spoke to the primary physician. The patient could be discharged home and brought back as an outpatient for outpatient thoracentesis. I'm not sure why interventional radiology isn't available on the weekends. The patient is stable though. Because of body habitus, I don't believe my kid we will allow me to enter the pleural space. Interventional radiology has the longer needles that would be necessary in a patient this body habitus. Progress noted dated 01/25/2018 57-year-old male with a history of acute hypoxemic respiratory failure secondary to COPD and a moderate size right pleural effusion. His FEV1 is 26% of predicted. 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 The patient's ultrasound showed a small to moderate right -sided pleural effusion. The skin to pocket depth is quite significant. I think we will allow interventional radiology to do his thoracentesis under ultrasound guidance. The patient is not in any respiratory distress at this time. The patient was placed on Symbicort Spiriva and Pro Air as well as updrafts. The breathing is about the same. He denies any wheezing chest congestion cough or phlegm production. No fever or chills. A CT of the abdomen was essentially unremarkable. On 01/26/2018 patient seen in follow-up on medical surgical floor. Denies any acute complaints, denies any worsening dyspnea. Currently on 3 L per nasal cannula with a pulse ox at 92%, afebrile, hemodynamically stable. Interventional radiology has performed ultrasound-guided right thoracentesis would removal of 1.3 L of serous pleural fluid which was sent for analysis. Otherwise patient remains stable, has improved significantly and is requesting to go home today. He has been treated with a combination of nebulized bronchodilators, IV steroids, Symbicort. Patient could be discharged home today as low and he remains stable after the procedure, and he could be followed up on by Dr. Dr. Hernandez in the outpatient setting in regards to the results of his pleural fluid analysis. On 01/27/2018 patient seen in follow-up. The pleural fluid drained yesterday was found to be bloody, and for that reason chest CT was obtained, which showed bilateral rib fractures of questionable acuity, and residual right pleural effusion and associated atelectasis, possibly traumatic hemothorax. We spoke to interventional radiologist Dr. Carter today, and insertion of a right-sided chest tube was discussed with the intent of draining the rest of the pleural fluid. Patient is still having some right-sided chest wall discomfort, likely related to his rib fractures. He denies any trauma to his chest wall. Patient will be scheduled for ultrasound-guided right-sided pigtail chest tube insertion , and it will be connected to wall suction. Patient is in agreement with the plan. Otherwise continue with the rest of his medical treatments. Patient seen in follow-up again on 01/28/2018. Patient does have some discomfort in the right upper chest, and the right posterior lower chest, his pain has been treated with [place] and Toradol has been added for pain control. Vital signs are stable, patient is currently 2 L per nasal cannula with O2 sat at 93%, vital signs are stable, patient is afebrile, and 1500 mL of serosanguineous fluid in the Pleur-evac since the chest tube yesterday on 2017. The chest tube continues to drain, it is now serous and thin. Chest x- ray has been reviewed, and shows right lower lobe atelectasis and associated parapneumonic effusion. Today's labs were reviewed, we'll continue current plan of care, obtain repeat chest x-ray in the morning. Encourage incentive spirometry, pain control Objective - Vital Signs Vital signs: Vital Signs Temp 98.4 F 01/28/18 13:48 Pulse 86 01/28/18 15:31 Resp 20 01/28/18 13:48 BP 109/69 01/28/18 13:48 Pulse Ox 93 L 01/28/18 13:48 Intake & Output 01/27/18 01/28/18 01/28/18 18:59 06:59 18:59 Intake Total 1750 Output Total 400 1700 Balance 1350 -1700 Intake: Oral 1750 Output: Chest Tube Drainage 400 1700 Chest Tube 400 1700 Other: Voiding Method Toilet Toilet Toilet # Voids 2 2 - Exam No acute distress, oriented 3. HEENT examination is grossly unremarkable. Mucous membranes are moist. No oral lesions. Neck supple. Full range of motion. No adenopathy thyromegaly or neck vein distention. Cardiovascular examination reveals regular rhythm rate. S1-S2 normal. No S3 or S4. No discernible murmur noted. Lungs reveal diminished breath sounds at the right lung base. No wheezes, no rhonchi, no rales. Temperature right posterior chest tube in place, connected to Pleur-evac, and continuous low wall suction Abdomen soft bowel sounds are heard. No masses or tenderness. Extremities are intact. No cyanosis clubbing or edema. Skin is without rash or lesion. Neurologic examination is brief but nonfocal. - Labs CBC & Chem 7: 05/31/18 06:51 01/28/18 06:51 Labs: Abnormal Lab Results - Last 24 Hours (Table) 01/28/18 01/28/18 Range/Units 06:51 06:51 WBC 11.4 H (3.8-10.6) k/uL Chloride 95 L (98-107) mmol/L Carbon Dioxide 35 H (22-30) mmol/L Glucose 103 H (74-99) mg/dL Total Protein 5.2 L (6.3-8.2) g/dL Albumin 3.1 L (3.5-5.0) g/dL Microbiology - Last 24 Hours (Table) 01/22/18 17:30 Blood Culture - Preliminary Blood No Growth after 120 hours 01/26/18 14:50 Gram Stain - Preliminary Pleural Fluid Body Fluid Culture - Preliminary Assessment and Plan Plan: Assessment: #1 Acute on chronic hypoxic respiratory failure secondary to large right-sided pleural effusion and acute exacerbation of chronic obstructive pulmonary disease , possibly related to a traumatic hemothorax, status post ultrasound-guided right thoracentesis on 01/26/2018 with removal of 1.3 L, and the fluid was bloody, pleural fluid analysis is positive for exudative pleural fluid. Patient underwent right chest tube placement on 01/27/2018, and additional drainage of 1500 mL of serosanguineous pleural fluid . Severe Gold stage IV chronic obstructive pulmonary disease with FEV1 value 26% of predicted. #2 Chronic tobacco dependence. 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 Computed tomography scan of the abdomen is pending. #4 Hepatitis C secondary to remote history of IV drug abuse. #5 History of alcohol abuse. #6 History of hyperlipidemia. #7 Hypertension. #8 Gastroesophageal reflux disease. #9 Morbid obesity with suspected obesity/hypoventilation syndrome. Possible obstructive sleep apnea. Plan: Plan dated 01/24/2018 I spoke to the primary hospitalist. We may end up either trying to get interventional radiology into the thoracentesis or rather, because the patient relatively stable, have the patient come back on Thursday for an outpatient thoracentesis. Additional recommendations and suggestions are forthcoming. Computed tomography scan of the abdomen did not reveal any abnormalities of significance. We'll continue to follow. Prognosis is guarded. The patient has a plethora of medical problems. Plan dated 01/25/2018 The patient is scheduled for a thoracentesis to be done by interventional radiology tomorrow morning. The patient is currently stable. Denies any cough wheezing or congestion in the chest. Labs x-rays a medications are all reviewed. No new labs have been ordered. Blood cultures are currently negative. Chest ultrasound was reviewed. Additional recommendations and suggestions are forthcoming. Plan dated 01/26/2018 Patient underwent ultrasound-guided right thoracentesis would removal of 1.3 L of serous pleural fluid which was sent for analysis. From pulmonary standpoint his breathing is improving, IV steroids have been transitioned to oral, no worsening dyspnea, he is on 3 L per nasal cannula, which is his home dose oxygen. From pulmonary standpoint patient could be discharged home today as long as he remains stable, with follow-up in an outpatient setting with Dr. Dr. Hernandez in regards to the results of his pleural fluid analysis Plan dated 01/27/2018 The pleural fluid drained on 01/26/2018 was bloody, and there is a possibility of traumatic hemothorax, CT chest shows large pleural effusion and interventional radiology has been consulted for ultrasound-guided pigtail chest tube placement today, so we connected to continuous low wall suction. Continue the rest of the medical treatments, cytology is pending. Vital signs are stable , patient still has right-sided chest wall pain, but his shortness of breath has not worsened, hopefully this will further improve with drainage of the residual pleural fluid in the right chest. Plan dated 01/28/2018 Today's chest x-ray has been reviewed by Dr. Farnsworth. We'll obtain repeat chest x-ray in the morning, maintain pain control, encourage deep breathing and coughing, incentive spirometry use. We'll continue to follow I performed a history & physical examination of the patient and discussed their management with my nurse practitioner, Asia Peraza. I reviewed the nurse practitioner's note and agree with the documented findings and plan of care. Lung sounds are positive diminished. The findings and the impression was discussed with the patient. I attest to the documentation by the nurse practitioner. Time with Patient: Less than 30
[2018-01-28] MEDS: ceFAZolin 1,000 MG in DEXTROSE/WATER 1 50ML.BAG IVPB SCH (16:43)
[2018-01-28] MEDS: OLANZapine 10 MG TAB PO SCH (20:10)
[2018-01-28] MEDS: traZODone HCL 50 MG TAB PO SCH (20:11)
[2018-01-29] MEDS: ceFAZolin 1,000 MG in DEXTROSE/WATER 1 50ML.BAG IVPB SCH ×2 (00:01→07:53)
[2018-01-29] MEDS: HYDROcodone/APAP 7.5-325MG 1 EACH TAB PO PRN ×2 (05:14→11:10)
[2018-01-29] MEDS: PANTOPRAZOLE 40 MG TABLET PO SCH (07:53)
[2018-01-29] MEDS: ESCITALOPRAM 5 MG TAB PO SCH (07:54)
[2018-01-29] MEDS: KETOROLAC 30 MG/ML 1 ML VIAL IVP PRN (08:09)
--- NOTE | 2018-01-29 09:15 | XR ---
EXAMINATION TYPE: XR chest 1V DATE OF EXAM: 01/29/2018 COMPARISON: Prior chest 01/28/2018 HISTORY: Chest tube, pleural effusion TECHNIQUE: Single frontal view of the chest is obtained. FINDINGS: Persistent density present at the right lung base. No pneumothorax. Posterior chest tube i s not well seen, there are overlying cardiac leads. Bilateral rib fractures noted. IMPRESSION: Persistent right pleural effusion and atelectasis versus associated pneumonia, follow-up to resolution.
--- NOTE | 2018-01-29 10:17 | P.PN ---
Subjective Progress Note Date: 01/29/18 Principal diagnosis: Right pleural effusion Patient was in the bathroom, when he suddenly felt the chest tube was slipping out of his chest. Subsequently the whole tube was out. He was ok afterwards, no significant sob but did have chest pain on the site of the tube. Last night he did have bilateral chest discomfort that resolved spontaneously. Objective - Vital Signs Vital signs: Vital Signs Temp 97.9 F 01/29/18 08:30 Pulse 96 01/29/18 08:30 Resp 24 01/29/18 08:59 BP 130/77 01/29/18 08:30 Pulse Ox 93 L 01/29/18 08:30 Intake & Output 01/28/18 01/29/18 01/29/18 18:59 06:59 18:59 Intake Total 2850 Output Total 1900 Balance -1900 2850 Weight 122.016 kg Intake: Oral 2850 Output: Chest Tube Drainage 1900 Chest Tube 1900 Other: Voiding Method Toilet Toilet Toilet # Voids 3 4 - Exam No acute distress, oriented 3. HEENT examination is grossly unremarkable. Mucous membranes are moist. No oral lesions. Neck supple. Full range of motion. No adenopathy thyromegaly or neck vein distention. Cardiovascular examination reveals regular rhythm rate. S1-S2 normal. No S3 or S4. No discernible murmur noted. Lungs reveal diminished breath sounds at the right lung base. No wheezes, no rhonchi, no rales. Chest wall wound at the site of the chest tube. Abdomen soft bowel sounds are heard. No masses or tenderness. Extremities are intact. No cyanosis clubbing or edema. Skin is without rash or lesion. Neurologic examination is brief but nonfocal. - Labs CBC & Chem 7: 01/28/18 06:51 01/28/18 06:51 Labs: Microbiology - Last 24 Hours (Table) 01/26/18 14:50 Anaerobic Culture - Preliminary Pleural Fluid 01/22/18 17:30 Blood Culture - Final Blood No Growth after 144 hours 01/26/18 14:50 Gram Stain - Preliminary Pleural Fluid Body Fluid Culture - Preliminary Assessment and Plan Plan: Right-sided pleural effusion, hemothorax - s/p Chest tube on 01/27, spontaneous dislodging 01/29. Awaiting further input from pulm. - F/U CXR today reviewed. - pain control - pulmonary hygiene - Echocardiogram with EF 55-60% - cytology and cultures are pending - Protein ratio 0.55, LDH 0.4, no organism awaiting cytology and cultures Acute on chronic hypoxic respiratory failure secondary to pleural effusion and COPD -Wean O2 as able, has arrangements for home oxygen with protable tank at bedside. Acute exacerbation of severe chronic obstructive pulmonary disease with FEV1 of 26%, Gold stage IV -Continue with home Symbicort -Duonebs qid and q2hrs as needed. -Oral prednisone therapy completed. History of hepatitis C -Liver enzymes normal Morbid obesity with BMI 36.5 -Structured outpatient weight loss GERD -PPI History of schizophrenia -Continue home medication: Lexapro, Zyprexa, and trazodone Tobacco abuse -Patient recently quit smoking -Patient refuses nicotine replacement therapy -Continue tobacco cessation DVT prophylaxis: SCDs due to hemothorax
[2018-01-29 10:19] LABS: HCT 46.4 % (39.0-53.0); HGB 14.4 gm/dL (13.0-17.5); Hypochromasia Moderate; MCH 29.5 pg (25.0-35.0); MCHC 31.1 g/dL (31.0-37.0); Mean Platelet Volume 7.1; Platelet Count 315 k/uL (150-450); RBC 4.88 m/uL (4.30-5.90); RDW 14.8 % (11.5-15.5); WBC 12.4 k/uL (3.8-10.6)
[2018-01-29 10:30] LABS: Anion Gap 9 mmol/L; Blood Urea Nitrogen 17 mg/dL (9-20); Carbon Dioxide 34 mmol/L (22-30); Chloride 96 mmol/L (98-107); Glucose 94 mg/dL (74-99); Potassium 4.7 mmol/L (3.5-5.1); Sodium 139 mmol/L (137-145)
[2018-01-29] MEDS: IPRATROPIUM-ALBUTEROL 3 ML NEB INHALATION SCH ×2 (10:44)
[2018-01-29] MEDS: SYMBICORT 160-4.5 MCG INHALER INHALATION SCH (10:44)
[2018-01-29 10:55] VITALS: PULSE 88
[2018-01-29 11:03] VITALS: BP 138/80; RESP 20; TEMP 97.3
[2018-01-29 11:19] VITALS: BMI 36.4
--- NOTE | 2018-01-29 14:25 | P.PN ---
Subjective Progress Note Date: 01/29/18 Principal diagnosis: Acute on chronic hypoxic rest or a failure secondary to large right-sided pleural effusion and acute exacerbation of chronic obstructive pulmonary disease Progress note dated 01/24/2018 This is a very pleasant 57-year-old gentleman who follows with Dr. Rojas as his primary care physician. He has a history of gastroesophageal reflux disease , hyperlipidemia, hypertension, hepatitis C and previous IV drug abuse. He also has significant chronic obstructive pulmonary disease with an FEV1 value of 26% of predicted, Gold stage IV. Also a 40+ year pack per day smoking history. He was recently seen in our office by Dr. Hernandez as a new patient on . He did review pulmonary function testing and initiated the patient on Symbicort, Spiriva, Pro-air and DuoNeb inhalations. He was started on nebulized treatments. He is on home oxygen at 2 L/m per nasal cannula. No portable oxygen at this time. He presented to our office again yesterday regarding the computed tomography scan of the chest that was ordered which revealed a large right-sided pleural effusion. The patient also has hepatomegaly and abdominal distention. He was quite dyspneic and hypoxemic with O2 saturation of 80% on room air at rest. He had ongoing right-sided chest discomfort was splinting. He was recommended inpatient evaluation. He is seen today in consultation on the regular medical floor. He is awake and alert in no acute distress. He is still having significant shortness of breath and right-sided chest pain. He has significant abdominal distention. 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 He is currently maintaining good O2 saturations in the 90s on 4 L/m per nasal cannula. His been afebrile. Slightly tachycardic. Hemodynamically stable. No leukocytosis. Bicarb 35. Creatinine 0.70. Liver enzymes within normal limits. ProBNP 93. Troponin negative. I spoke to the primary physician. The patient could be discharged home and brought back as an outpatient for outpatient thoracentesis. I'm not sure why interventional radiology isn't available on the weekends. The patient is stable though. Because of body habitus, I don't believe my kid we will allow me to enter the pleural space. Interventional radiology has the longer needles that would be necessary in a patient this body habitus. Progress noted dated 01/25/2018 57-year-old male with a history of acute hypoxemic respiratory failure secondary to COPD and a moderate size right pleural effusion. His FEV1 is 26% of predicted. 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 The patient's ultrasound showed a small to moderate right -sided pleural effusion. The skin to pocket depth is quite significant. I think we will allow interventional radiology to do his thoracentesis under ultrasound guidance. The patient is not in any respiratory distress at this time. The patient was placed on Symbicort Spiriva and Pro Air as well as updrafts. The breathing is about the same. He denies any wheezing chest congestion cough or phlegm production. No fever or chills. A CT of the abdomen was essentially unremarkable. On 01/26/2018 patient seen in follow-up on medical surgical floor. Denies any acute complaints, denies any worsening dyspnea. Currently on 3 L per nasal cannula with a pulse ox at 92%, afebrile, hemodynamically stable. Interventional radiology has performed ultrasound-guided right thoracentesis would removal of 1.3 L of serous pleural fluid which was sent for analysis. Otherwise patient remains stable, has improved significantly and is requesting to go home today. He has been treated with a combination of nebulized bronchodilators, IV steroids, Symbicort. Patient could be discharged home today as low and he remains stable after the procedure, and he could be followed up on by Dr. Dr. Hernandez in the outpatient setting in regards to the results of his pleural fluid analysis. On 01/27/2018 patient seen in follow-up. The pleural fluid drained yesterday was found to be bloody, and for that reason chest CT was obtained, which showed bilateral rib fractures of questionable acuity, and residual right pleural effusion and associated atelectasis, possibly traumatic hemothorax. We spoke to interventional radiologist Dr. Carter today, and insertion of a right-sided chest tube was discussed with the intent of draining the rest of the pleural fluid. Patient is still having some right-sided chest wall discomfort, likely related to his rib fractures. He denies any trauma to his chest wall. Patient will be scheduled for ultrasound-guided right-sided pigtail chest tube insertion , and it will be connected to wall suction. Patient is in agreement with the plan. Otherwise continue with the rest of his medical treatments. Patient seen in follow-up again on 01/28/2018. Patient does have some discomfort in the right upper chest, and the right posterior lower chest, his pain has been treated with [place] and Toradol has been added for pain control. Vital signs are stable, patient is currently 2 L per nasal cannula with O2 sat at 93%, vital signs are stable, patient is afebrile, and 1500 mL of serosanguineous fluid in the Pleur-evac since the chest tube yesterday on 2017. The chest tube continues to drain, it is now serous and thin. Chest x- ray has been reviewed, and shows right lower lobe atelectasis and associated parapneumonic effusion. Today's labs were reviewed, we'll continue current plan of care, obtain repeat chest x-ray in the morning. Encourage incentive spirometry, pain control Patient was seen and examined again in follow-up on 01/29/2018. Patient had accidentally pulled out his right posterior pigtail chest tube catheter this morning, follow-up chest x-ray small right plural effusion and atelectasis, but significant improvement was noted compared to previous exam with better aeration. Patient is still having some moderate amount of right upper anterior and right lower posterior chest wall discomfort, and this may be related to his rib fractures. She is being medicated with [place] and has been given a few doses of Toradol. Pulse ox on 3 L per nasal cannula is 91%, patient is afebrile , is compliant with his incentive spirometry, and is able to achieve 1500 on it today. Patient had a total output of 1900 ML in the Pleur-evac since the insertion of the chest tube. Pleural fluid cytology was negative for malignancy. Blood culture showed no growth, pleural fluid cultures are pending. From pulmonary standpoint patient is stable for discharge home today, follow up with Dr. Dr. Hernandez in the office early next week. Objective - Vital Signs Vital signs: Vital Signs Temp 97.3 F L 01/29/18 11:02 Pulse 88 01/29/18 11:02 Resp 20 01/29/18 11:02 BP 138/80 01/29/18 11:02 Pulse Ox 88 L 01/29/18 13:32 Intake & Output 01/28/18 01/29/1818 18:59 06:59 18:59 Intake Total 2850 1017 Output Total 1900 Balance -1900 2850 1017 Weight 122.016 kg 122.016 kg Intake: Oral 2850 1017 Output: Chest Tube Drainage 1900 Chest Tube 1900 Other: Voiding Method Toilet Toilet Toilet # Voids 3 4 - Exam No acute distress, oriented 3. HEENT examination is grossly unremarkable. Mucous membranes are moist. No oral lesions. Neck supple. Full range of motion. No adenopathy thyromegaly or neck vein distention. Cardiovascular examination reveals regular rhythm rate. S1-S2 normal. No S3 or S4. No discernible murmur noted. Lungs reveal diminished breath sounds at the right lung base. No wheezes, no rhonchi, no rales. Patient had removed his right posterior pigtail chest tube catheter this morning accidentally Abdomen soft bowel sounds are heard. No masses or tenderness. Extremities are intact. No cyanosis clubbing or edema. Skin is without rash or lesion. Neurologic examination is brief but nonfocal. - Labs CBC & Chem 7: 01/29/18 09:25 01/29/18 09:25 Labs: Abnormal Lab Results - Last 24 Hours (Table) 01/29/18 01/29/18 Range/Units 09:25 09:25 WBC 12.4 H (3.8-10.6) k/uL Chloride 96 L (98-107) mmol/L Carbon Dioxide 34 H (22-30) mmol/L Microbiology - Last 24 Hours (Table) 01/26/18 14:50 Anaerobic Culture - Preliminary Pleural Fluid 01/22/18 17:30 Blood Culture - Final Blood No Growth after 144 hours 01/26/18 14:50 Gram Stain - Preliminary Pleural Fluid Body Fluid Culture - Preliminary Assessment and Plan Plan: Assessment: #1 Acute on chronic hypoxic respiratory failure secondary to large right-sided pleural effusion, likely traumatic hemothorax and acute exacerbation of chronic obstructive pulmonary disease, possibly related to a traumatic hemothorax, status post ultrasound-guided right thoracentesis on 01/26/2018 with removal of 1.3 L, and the fluid was bloody, pleural fluid analysis is positive for exudative pleural fluid. Patient underwent right chest tube placement on 2017, and additional drainage of 1900 mL of serosanguineous pleural fluid . Severe Gold stage IV chronic obstructive pulmonary disease with FEV1 value 26% of predicted. #2 Chronic tobacco dependence. 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 Computed tomography scan of the abdomen is pending. #4 Hepatitis C secondary to remote history of IV drug abuse. #5 History of alcohol abuse. #6 History of hyperlipidemia. #7 Hypertension. #8 Gastroesophageal reflux disease. #9 Morbid obesity with suspected obesity/hypoventilation syndrome. Possible obstructive sleep apnea. Plan: Plan dated 01/24/2018 I spoke to the primary hospitalist. We may end up either trying to get interventional radiology into the thoracentesis or rather, because the patient relatively stable, have the patient come back on Thursday for an outpatient thoracentesis. Additional recommendations and suggestions are forthcoming. Computed tomography scan of the abdomen did not reveal any abnormalities of significance. We'll continue to follow. Prognosis is guarded. The patient has a plethora of medical problems. Plan dated 01/25/2018 The patient is scheduled for a thoracentesis to be done by interventional radiology tomorrow morning. The patient is currently stable. Denies any cough wheezing or congestion in the chest. Labs x-rays a medications are all reviewed. No new labs have been ordered. Blood cultures are currently negative. Chest ultrasound was reviewed. Additional recommendations and suggestions are forthcoming. Plan dated 01/26/2018 Patient underwent ultrasound-guided right thoracentesis would removal of 1.3 L of serous pleural fluid which was sent for analysis. From pulmonary standpoint his breathing is improving, IV steroids have been transitioned to oral, no worsening dyspnea, he is on 3 L per nasal cannula, which is his home dose oxygen. From pulmonary standpoint patient could be discharged home today as long as he remains stable, with follow-up in an outpatient setting with Dr. Dr. Hernandez in regards to the results of his pleural fluid analysis Plan dated 01/27/2018 The pleural fluid drained on 01/26/2018 was bloody, and there is a possibility of traumatic hemothorax, CT chest shows large pleural effusion and interventional radiology has been consulted for ultrasound-guided pigtail chest tube placement today, so we connected to continuous low wall suction. Continue the rest of the medical treatments, cytology is pending. Vital signs are stable , patient still has right-sided chest wall pain, but his shortness of breath has not worsened, hopefully this will further improve with drainage of the residual pleural fluid in the right chest. Plan dated 01/28/2018 Today's chest x-ray has been reviewed by Dr. Farnsworth. We'll obtain repeat chest x-ray in the morning, maintain pain control, encourage deep breathing and coughing, incentive spirometry use. We'll continue to follow Plan dated 01/29/2018 Patient accidentally removed the right posterior chest pigtail chest tube catheter this morning, and follow-up chest x-ray shows significant improvement in the appearance of the right effusion, which is likely a traumatic hemothorax secondary to broken ribs. Patient remains stable from pulmonary standpoint, continue encouraging incentive spirometry, patient is stable for discharge home today, follow up with Dr. Dr. Hernandez in the office early next week. I performed a history & physical examination of the patient and discussed their management with my nurse practitioner, Asia Peraza. I reviewed the nurse practitioner's note and agree with the documented findings and plan of care. Lung sounds are positive diminished. The findings and the impression was discussed with the patient. I attest to the documentation by the nurse practitioner. Time with Patient: Less than 30
--- NOTE | 2018-01-29 16:43 | P.DS ---
Providers Date of admission: 01/22/18 19:37 Expected date of discharge: 01/29/18 Attending physician: Eduardo Canales MD Consults: 01/22/18 19:37 Consult Physician Routine Consulting Provider: Hernando Hernandez Consult Reason/Comments: COPD, large right pleural effusion Do you want consulting provider notified?: Yes Primary care physician: Hina Rojas MD Hospital Course: 57-year-old male with a history of COPD on home oxygen of 2-3 L, hepatitis C, GERD, dyslipidemia, hypertension, morbid obesity who presented to the hospital at the direction of Dr. Hernandez's office due to right-sided pleural effusion. On arrival to ER he was found to be hypoxic with an oxygen saturation of 83% on room air. He remained hypoxic despite being placed on 2.5 L his home dose. Remainder of his vital signs were within normal limits. Initial laboratory analysis was unremarkable. Chest x-ray showed consolidation and pleural effusion on the right side. Dr. Hernandez was contacted who recommended admission for thoracentesis. Patient was admitted to the general medical floor. He was suspected to have acute exacerbation of COPD due to diffuse wheezing and was started on oral prednisone therapy. He has been seen by Dr. Hernandez who recommends a CT abdomen and pelvis to rule out significant ascites as well as drainage by interventional radiology secondary to morbid obesity. CT abdomen and plevis showed no acute process. Computed tomography scan of the chest showed bilateral rib fractures of uncertain acuity as well as a right pleural effusion with right lower lung atelectasis. Echocardiogram showed mild concentric LVH with normal ejection fraction. Patient then informed nurse that he has been using his sisters O2 and does not have his own at home. He has no portable tanks and immediately desats for 83 on RA. Interventional radiology was able to do right-sided thoracentesis and 1200 mL of bloody fluid was taken out from the chest. Due to that pulmonary thought that patient had traumatic hemothorax and he recommended putting in a chest tube on the right side. Again that was placed by IR and throughout the hospitalization a total of 1900 mL of fluids was drained through the chest tube. Serial follow-up chest x-rays were performed on a daily basis during the hospitalization and those were showing lung reexpansion with slight atelectasis at the base. Patient was treated with incentive spirometry and he was compliant with it. Patient was medicated with [place] and Toradol for pain. Blood culture showed no growth, pleural fluid cultures are pending Today patient was cleared by pulmonary for discharge, he will be discharged home in a stable condition. Follow up with pulmonary as well as primary care physician as soon as possible after discharge. Discharge diagnoses Bilateral rib fractures Traumatic right pleural effusion status post chest tube and thoracentesis COPD Bipolar disorder Patient Condition at Discharge: Stable Plan - Discharge Summary Discharge Rx Participant: Yes New Discharge Prescriptions: New Ibuprofen [Motrin] 400 mg PO Q6HR PRN #40 tab PRN Reason: Pain Continue Ipratropium/Albuterol Sulfate [Combivent Respimat Inhaler] 1 puff INHALATION RT-QID OLANZapine [ZyPREXA] 20 mg PO HS Tiotropium [place] [Spiriva] 1 cap INHALATION RT-DAILY Escitalopram [Lexapro] 15 mg PO DAILY Albuterol Nebulized [Ventolin Nebulized] 2.5 mg INHALATION RT-Q4H PRN PRN Reason: Shortness Of Breath traZODone HCL 50 mg PO HS predniSONE 10 mg PO QAM HYDROcodone/APAP 5-325MG [[place] 5-325] 1 tab PO BID PRN PRN Reason: Pain Budesonide/Formoterol Fumarate [Symbicort 160-4.5 Mcg Inhaler] 2 puff INHALATION RT-BID Albuterol Sulfate [Proair Hfa] 2 puff INHALATION RT-Q4H PRN PRN Reason: Shortness Of Breath Omeprazole 40 mg PO DAILY Discharge Medication List Ipratropium/Albuterol Sulfate [Combivent Respimat Inhaler] 1 puff INHALATION RT- QID 02/28/16 [History] OLANZapine [ZyPREXA] 20 mg PO HS 02/28/16 [History] Tiotropium [place] [Spiriva] 1 cap INHALATION RT-DAILY 04/17/16 [History] Albuterol Nebulized [Ventolin Nebulized] 2.5 mg INHALATION RT-Q4H PRN 01/22/18 [ History] Albuterol Sulfate [Proair Hfa] 2 puff INHALATION RT-Q4H PRN 01/22/18 [History] Budesonide/Formoterol Fumarate [Symbicort 160-4.5 Mcg Inhaler] 2 puff INHALATION RT-BID 01/22/18 [History] Escitalopram [Lexapro] 15 mg PO DAILY 01/22/18 [History] HYDROcodone/APAP 5-325MG [[place] 5-325] 1 tab PO BID PRN 01/22/18 [History] Omeprazole 40 mg PO DAILY 01/22/18 [History] predniSONE 10 mg PO QAM 01/22/18 [History] traZODone HCL 50 mg PO HS 01/22/18 [History] Ibuprofen [Motrin] 400 mg PO Q6HR PRN #40 tab 01/29/18 [Rx] Follow up Appointment(s)/Referral(s): Hina Rojas MD [Primary Care Provider] - 1-2 days (please call office for appointment during office hours between thursday-) Porsche Farnsworth MD [STAFF PHYSICIAN] - 02/01/18 9:15 am Patient Instructions/Handouts: Ibuprofen (By mouth), Thoracentesis (DC), Using Oxygen at Home (DC), COPD (Chronic Obstructive Pulmonary Disease) (DC), Pleural Effusion (DC) Activity/Diet/Wound Care/Special Instructions: Oxygen ordered through [facility]: #[phone] - nurse to call [facility] when the pt is d/c for delivery - [phone] Discharge Disposition: HOME SELF-CARE
== END 2018-01-29 14:40 | disposition home or self-care (01) | DRG 186 ==
LOC: EC 16:28 → 5MS5E 19:37
PROVIDERS: ADMIT Internal Medicine; ATTEND Internal Medicine
PROC: 0W993ZZ Drainage of Right Pleural Cavity, Percutaneous Approach (ICD-10-PCS; principal; 2018-01-26)
PROC: 0B9N30Z Drainage of Right Pleura with Drainage Device, Percutaneous Approach (ICD-10-PCS; 2018-01-28)
DX: J90 Pleural effusion, not elsewhere classified (principal); J96.21 Acute and chronic respiratory failure with hypoxia; S27.1XXA Traumatic hemothorax, initial encounter; S22.43XA Multiple fractures of ribs, bilateral, initial encounter for closed fracture; J44.1 Chronic obstructive pulmonary disease with (acute) exacerbation; J98.11 Atelectasis; E66.2 Morbid (severe) obesity with alveolar hypoventilation; B19.20 Unspecified viral hepatitis C without hepatic coma; E78.5 Hyperlipidemia, unspecified; F17.210 Nicotine dependence, cigarettes, uncomplicated; F20.9 Schizophrenia, unspecified; F31.9 Bipolar disorder, unspecified; I10 Essential (primary) hypertension; K21.9 Gastro-esophageal reflux disease without esophagitis; Z68.36 Body mass index [BMI] 36.0-36.9, adult; Z79.51 Long term (current) use of inhaled steroids; Z79.899 Other long term (current) drug therapy; Z82.49 Family history of ischemic heart disease and other diseases of the circulatory system; Z82.5 Family history of asthma and other chronic lower respiratory diseases; Z99.81 Dependence on supplemental oxygen
CPT/HCPCS: 32551; 32555; 36415; 71045; 71046; 71260; 74177; 76604; 76942; 80048; 80053; 82550; 82553; 82945; 83615; 83735; 83880; 84157; 84484; 85025; 85027; 85610; 85730; 87040; 87070; 87075; 87205; 88108; 88305; 89050; 93005; 93306; 94640; 94760; 96374; 99285

== ENCOUNTER → 2018-02-25 | Outpatient (CLI) | payer MEDICARE, OTHER ==
--- NOTE | 2018-02-25 11:53 | XR ---
EXAMINATION TYPE: XR chest 2V DATE OF EXAM: 02/25/2018 COMPARISON: Prior chest x-ray 01/29/2018, 02/01/2018 HISTORY: Abnormal chest x-ray, COPD exacerbation TECHNIQUE: Frontal and lateral views of the chest are obtained. FINDINGS: Some minimal patchy density persists at the right costophrenic angle. Bandlike areas of in creased attenuation seen on previous exam have improved in the interval. IMPRESSION: Improved aeration, consider additional follow-up
== END | disposition home or self-care (01) ==
LOC: RADXRMAIN 10:54
PROVIDERS: ATTEND Family Medicine
DX: J44.1 Chronic obstructive pulmonary disease with (acute) exacerbation (principal); J90 Pleural effusion, not elsewhere classified
CPT/HCPCS: 71046

== ENCOUNTER 2018-03-03 16:14 | Inpatient (IN) | payer MEDICARE, OTHER ==
[2018-03-03] MEDS ORDERED: IPRATROPIUM 0.5 MG/2.5 ML NEBU INHALATION STA (16:21)
[2018-03-03] MEDS ORDERED: ALBUTEROL NEBULIZED 2.5 MG/3 ML INHALATION STA (16:21)
[2018-03-03] MEDS ORDERED: DEXAMETHASONE 4 MG TAB PO STA (16:22)
[2018-03-03 16:43] LABS: VBG PH 7.31 (7.31-7.41)
[2018-03-03 16:44] LABS: Basophils % (A) 0 %; Eosinophils # (A) 0.2 k/uL (0-0.7); Eosinophils % (A) 1 %; HCT 44.7 % (39.0-53.0); HGB 14.7 gm/dL (13.0-17.5); Lymphocytes # (A) 2.1 k/uL (1.0-4.8); Lymphocytes % (A) 14 %; MCH 29.8 pg (25.0-35.0); MCHC 32.9 g/dL (31.0-37.0); MCV 90.7 fL (80.0-100.0); Mean Platelet Volume 7.1; Monocytes # (A) 0.7 k/uL (0-1.0); Monocytes % (A) 5 %; Neutrophils # (A) 12.6 k/uL (1.3-7.7); Neutrophils % (A) 80 %; Platelet Count 284 k/uL (150-450); RBC 4.93 m/uL (4.30-5.90); WBC 15.7 k/uL (3.8-10.6)
[2018-03-03 16:53] LABS: ALT 33 U/L (21-72); AST 31 U/L (17-59); Albumin 4.1 g/dL (3.5-5.0); Alcohol 139 mg/dL; Alkaline Phosphatase 52 U/L (38-126); Anion Gap 13 mmol/L; Blood Urea Nitrogen 10 mg/dL (9-20); Calcium 8.8 mg/dL (8.4-10.2); Carbon Dioxide 31 mmol/L (22-30); Chloride 91 mmol/L (98-107); Glucose 101 mg/dL (74-99); Lipase 127 U/L (23-300); Potassium 4.3 mmol/L (3.5-5.1); Sodium 135 mmol/L (137-145); Total Bilirubin 0.2 mg/dL (0.2-1.3); Total Protein 6.4 g/dL (6.3-8.2)
--- NOTE | 2018-03-03 17:00 | XR ---
EXAMINATION TYPE: XR chest 2V DATE OF EXAM: 03/03/2018 COMPARISON: 02/17/2018 HISTORY: Chest pain TECHNIQUE: Frontal and lateral views of the chest are obtained. FINDINGS: There is coarsening of interstitial pulmonary markings. There is poor inspiration. Heart s ize is normal. There is no heart failure. There are chest leads. IMPRESSION: Poor inspiration with coarse lung markings consistent with pulmonary fibrosis. Inspirati on is worse than last exam. No heart failure.
--- NOTE | 2018-03-03 18:40 | ED ---
General Adult HPI - General Chief complaint: Shortness of Breath Stated complaint: JESSICA Source: patient Mode of arrival: EMS Limitations: no limitations - History of Present Illness Initial comments: HPI Macro Chief Complaint: 57-year-old male with past medical history of COPD on home O2, right-sided pleural effusion presents via EMS for right upper quadrant abdominal pain and right-sided chest pain. History of Present Illness: She is a 57-year-old male with severe COPD on home oxygen presents with right-sided chest pain and shortness of breath. She states he's been having these symptoms which have been progressive over the last 2-3 days. Patient states that his chest pain is located to his right chest. Patient states his symptoms are worsened with deep inspiration. Denies any constitutional symptoms. Patient is on home oxygen or he is on 3 L. Patient does take inhaled medications for chronic COPD. Denies any fever or other constitutional symptoms. Past Medical History: Scabies, pleural effusion, COPD Past Surgical History: Thoracentesis of the right chest Social History: [denies alcohol, tobacco or illicit drug use] Family History: reviewed and noncontributory The ROS documented in this emergency department record has been reviewed and confirmed by me. Those systems with pertinent positive or negative responses have been documented in the HPI. All other systems are other negative and/or noncontributory. - Related Data Home Medications Medication Instructions Recorded Confirmed Ipratropium/Albuterol Sulfate 1 puff INHALATION RT-QID 02/28/16 01/22/18 [Combivent Respimat Inhaler] OLANZapine [ZyPREXA] 20 mg PO HS 02/28/16 01/22/[address] [Spiriva] 1 cap INHALATION RT-DAILY 04/17/16 01/22/18 Albuterol Nebulized [Ventolin 2.5 mg INHALATION RT-Q4H PRN 01/22/18 01/22/18 Nebulized] Albuterol Sulfate [Proair Hfa] 2 puff INHALATION RT-Q4H PRN 01/22/18 01/22/18 Budesonide/Formoterol Fumarate 2 puff INHALATION RT-BID 01/22/18 01/22/18 [Symbicort 160-4.5 Mcg Inhaler] Escitalopram [Lexapro] 15 mg PO DAILY 01/22/18 01/22/18 HYDROcodone/APAP 5-325MG [[place] 1 tab PO BID PRN 01/22/18 01/22/18 5-325] Omeprazole 40 mg PO DAILY 01/22/18 01/22/18 predniSONE 10 mg PO QAM 01/22/18 01/22/18 traZODone HCL 50 mg PO HS 01/22/18 01/22/18 Previous Rx's Medication Instructions Recorded Ibuprofen [Motrin] 400 mg PO Q6HR PRN #40 tab 01/29/18 Allergies Allergy/AdvReac Type Severity Reaction Status Date / Time No Known Allergies Allergy Verified 03/03/18 16:24 Review of Systems ROS Statement: Those systems with pertinent positive or pertinent negative responses have been documented in the HPI. ROS Other: All systems not noted in ROS Statement are negative. Past Medical History Past Medical History: Asthma, COPD, GERD/Reflux, Hyperlipidemia, Hypertension, Pneumonia Additional Past Medical History / Comment(s): hep C past iv heroin use in the , home 02 2.5 liters n/c pt stated he had a pne vacine less than 5 years ago not sure of date, unable to verify at time of this admit. History of Any Multi-Drug Resistant Organisms: None Reported Past Surgical History: Adenoidectomy, Tonsillectomy Past Anesthesia/Blood Transfusion Reactions: No Reported Reaction Past Psychological History: No Psychological Hx Reported Smoking Status: Current every day smoker Past Alcohol Use History: Occasional Past Drug Use History: None Reported - Past Family History Father Family Medical History: Myocardial Infarction ([place]) Additional Family Medical History / Comment(s): from [place] Mother Family Medical History: COPD Additional Family Medical History / Comment(s): still living General Exam - General Exam Comments Initial Comments: Vitals: Vital signs upon arrival shows heart rate of 103, respiratory rate of 24 , 96% on aerosol mask. Blood pressure is normotensive. PHYSICAL EXAM: General Impression: Alert and oriented x3, seated in respiratory distress, not able to complete HEENT: Normocephalic atraumatic, extra-ocular movements intact, pupils equal and reactive to light bilaterally, mucous membranes moist. Cardiovascular: Heart regular rate and rhythm, S1&S2 audible, no murmurs, rubs or gallops Chest: Bilateral lung wheezing with diminished breath sounds Abdomen: Bowel sounds present, abdomen soft, non-tender, non-distended, no organomegaly Musculoskeletal: Pulses present and equal in all extremities, no peripheral edema Motor: Power 5/5 bilaterally, no focal deficits noted Neurological: CN II-XII grossly intact, no focal motor or sensory deficits noted Skin: Intact with no visualized rashes Psych: Normal affect and mood Limitations: no limitations Course Vital Signs 03/03/18 03/03/18 03/03/18 16:15 17:02 17:12 Temperature 99.3 F Pulse Rate 107 H 100 96 Respiratory 24 Rate Blood Pressure 124/65 O2 Sat by Pulse 93 L Oximetry 03/03/18 03/03/18 03/03/18 17:29 17:39 18:12 Temperature Pulse Rate 103 H 98 100 Respiratory 24 Rate Blood Pressure 132/74 O2 Sat by Pulse 96 Oximetry 03/03/18 03/03/18 18:23 18:47 Temperature Pulse Rate 101 H 103 H Respiratory 24 22 Rate Blood Pressure 133/63 129/70 O2 Sat by Pulse 94 L 89 L Oximetry Medical Decision Making - Medical Decision Making ED course: 57-year-old male with past medical history of significant COPD on home oxygen presents with right thoracic chest pain and shortness of breath. All signs upon arrival shows tachycardia 103, respiratory rate of 24. Physical examination shows male with significant respiratory distress. Patient has history of pleural effusion to the right side. He does not report having history of cancer. There is some clinical suspicion that patient's symptoms represent pulmonary embolus. CT angiogram of the chest was obtained. Chest x- ray shows coarse lung markings consistent with pulmonary fibrosis. EKG was obtained showing sinus tachycardia however no signs of right ventricular strain.Laboratory evaluation tape. Patient is leukocytosis of 15.7. Hemoglobin stable. Coag panel unremarkable. Venous blood gas shows pH of 7.31 , pCO2 of 67 with bicarb of 33. Patient has respiratory acidosis with metabolic compensation. Sodium is 135. Patient has a non-gap acidosis likely secondary to history of COPD. Rest of labs unremarkable. Chest x-ray obtained showing findings of pulmonary fibrosis. There was some concern that patient has symptoms that could reflect pulmonary emboli. CT angios the chest was obtained showing bilateral lower lobe pneumonia without any evidence of pulmonary embolus. Patient treated for community acquired pneumonia and given ceftriaxone and azithromycin. Blood cultures were obtained. Discussed patient case with Dr. Murguia who is willing to accept admission. The patient would benefit from inpatient admission given patient has multilobar pneumonia and superimposed COPD exacerbation. EKG Interpretation: A 12 lead EKG was obtained. It was interpreted by myself and attending physician. There is a P wave before every QRS complex. Rate is 105. Rhythm is sinus tachycardia, IL interval 134, care surgeon 96, QTC 433. QT is not prolonged. No ST segment depression or elevation. - Lab Data Result diagrams: 03/03/18 16:34 03/03/18 16:34 Lab Results 03/03/18 03/03/18 03/03/18 Range/Units 16:34 16:34 16:34 WBC 15.7 H (3.8-10.6) k/uL RBC 4.93 (4.30-5.90) m/uL Hgb 14.7 (13.0-17.5) gm/dL Hct 44.7 (39.0-53.0) % MCV 90.7 (80.0-100.0) fL MCH 29.8 (25.0-35.0) pg MCHC 32.9 (31.0-37.0) g/dL RDW 15.0 (11.5-15.5) % Plt Count 284 (150-450) k/uL Neutrophils % 80 % Lymphocytes % 14 % Monocytes % 5 % Eosinophils % 1 % Basophils % 0 % Neutrophils # 12.6 H (1.3-7.7) k/uL Lymphocytes # 2.1 (1.0-4.8) k/uL Monocytes # 0.7 (0-1.0) k/uL Eosinophils # 0.2 (0-0.7) k/uL Basophils # 0.0 (0-0.2) k/uL PT (9.0-12.0) sec INR (<1.2) VBG pH 7.31 (7.31-7.41) VBG pCO2 67 H (37-51) mmHg VBG HCO3 33 H (24-28) mmol/L Sodium 135 L (137-145) mmol/L Potassium 4.3 (3.5-5.1) mmol/L Chloride 91 L (98-107) mmol/L Carbon Dioxide 31 H (22-30) mmol/L Anion Gap 13 mmol/L BUN 10 (9-20) mg/dL Creatinine 0.73 (0.66-1.25) mg/dL Est GFR (CKD-EPI)AfAm >90 (>60 ml/min/1.73 sqM) Est GFR (CKD-EPI)NonAf >90 (>60 ml/min/1.73 sqM) Glucose 101 H (74-99) mg/dL Calcium 8.8 (8.4-10.2) mg/dL Magnesium 2.0 (1.6-2.3) mg/dL Total Bilirubin 0.2 (0.2-1.3) mg/dL AST 31 (17-59) U/L ALT 33 (21-72) U/L Alkaline Phosphatase 52 (38-126) U/L Troponin I (0.000-0.034) ng/mL Total Protein 6.4 (6.3-8.2) g/dL Albumin 4.1 (3.5-5.0) g/dL Lipase 127 (23-300) U/L Serum Alcohol 139 mg/dL 03/03/18 03/03/18 Range/Units 16:34 16:34 WBC (3.8-10.6) k/uL RBC (4.30-5.90) m/uL Hgb (13.0-17.5) gm/dL Hct (39.0-53.0) % MCV (80.0-100.0) fL MCH (25.0-35.0) pg MCHC (31.0-37.0) g/dL RDW (11.5-15.5) % Plt Count (150-450) k/uL Neutrophils % % Lymphocytes % % Monocytes % % Eosinophils % % Basophils % % Neutrophils # (1.3-7.7) k/uL Lymphocytes # (1.0-4.8) k/uL Monocytes # (0-1.0) k/uL Eosinophils # (0-0.7) k/uL Basophils # (0-0.2) k/uL PT 10.0 (9.0-12.0) sec INR 1.0 (<1.2) VBG pH (7.31-7.41) VBG pCO2 (37-51) mmHg VBG HCO3 (24-28) mmol/L Sodium (137-145) mmol/L Potassium (3.5-5.1) mmol/L Chloride (98-107) mmol/L Carbon Dioxide (22-30) mmol/L Anion Gap mmol/L BUN (9-20) mg/dL Creatinine (0.66-1.25) mg/dL Est GFR (CKD-EPI)AfAm (>60 ml/min/1.73 sqM) Est GFR (CKD-EPI)NonAf (>60 ml/min/1.73 sqM) Glucose (74-99) mg/dL Calcium (8.4-10.2) mg/dL Magnesium (1.6-2.3) mg/dL Total Bilirubin (0.2-1.3) mg/dL AST (17-59) U/L ALT (21-72) U/L Alkaline Phosphatase (38-126) U/L Troponin I 0.015 (0.000-0.034) ng/mL Total Protein (6.3-8.2) g/dL Albumin (3.5-5.0) g/dL Lipase (23-300) U/L Serum Alcohol mg/dL Disposition Clinical Impression: Community acquired pneumonia, COPD (chronic obstructive pulmonary disease) Disposition: ADMITTED IP TO THIS HOSP Condition: Fair Referrals: Hina Rojas MD [Primary Care Provider] - 1-2 days
--- NOTE | 2018-03-03 18:56 | CT ---
EXAMINATION TYPE: CT angio chest DATE OF EXAM: 03/03/2018 6:50 PM COMPARISON: NONE HISTORY: Chest pain, shortness of breath, right side middle back pain. CT DLP: 662 mGycm Automated exposure control for dose reduction was used. CONTRAST: CTA scan of the thorax is performed with IV Contrast, patient injected with 86 mL of Isovue 370, pulm onary embolism protocol. There are 3-D post processed images.. FINDINGS: There is patchy infiltrate and atelectasis in the right lower lobe. There is similar change to lesser extent in the left lower lobe and lingula of the left upper lobe. There is no significant pleural ef fusion. Heart size is normal. There is no pericardial effusion. I see no filling defects in the pulmonary arteries. There is no evidence of aortic aneurysm or dissec tion. There is no mediastinal adenopathy. There are no hilar masses. There is elevated right diaphrag m. There is 1 cm right bronchial lymph node. IMPRESSION: BILATERAL LOWER LOBE PNEUMONIA AND ATELECTASIS. NO EVIDENCE OF PULMONARY EMBOLISM.
[2018-03-03] MEDS ORDERED: AZITHROMYCIN 500 MG in DEXTROSE 5% IN WATER 250 ML IVPB STA ×2 (18:59)
[2018-03-03] MEDS ORDERED: cefTRIAXone IN SWFI 1,000 MG/10 ML SYRINGE IVP STA (19:03)
[2018-03-03] MEDS ORDERED: NALOXONE 0.4 MG/ML 1 ML VIAL IV PRN (19:08)
[2018-03-03] MEDS ORDERED: ACETAMINOPHEN TAB 325 MG TAB PO PRN (19:08)
[2018-03-03] MEDS ORDERED: ALBUTEROL NEBULIZED 2.5 MG/3 ML INHALATION PRN (19:11)
[2018-03-03] MEDS ORDERED: SODIUM CHLORIDE 0.9% 1,000 ML IV SCH (19:15)
[2018-03-03] MEDS ORDERED: IBUPROFEN 400 MG TAB PO PRN (19:26)
[2018-03-03] MEDS ORDERED: IPRATROPIUM-ALBUTEROL 3 ML NEB INHALATION PRN (19:28)
[2018-03-03] MEDS ORDERED: SODIUM CHLORIDE 0.9% 1,000 ML IV STA (19:28)
[2018-03-03] MEDS ORDERED: VANCOMYCIN IV PER PHARMACY 1 EACH MISC MISCELLANE PRN (19:29)
[2018-03-03] MEDS ORDERED: methylPREDNISolone SOD SUCCI 125 MG/2 ML VIAL IV STA (19:32)
[2018-03-03] MEDS ORDERED: PIPERACILLIN-TAZOBACTAM 3.375 GM in DEXTROSE/WATER 1 50ML.BAG IVPB STA (19:33)
--- NOTE | 2018-03-03 19:38 | P.HPIM ---
History of Present Illness H&P Date: 03/03/18 Chief Complaint: SOB 57-year-old male with history of COPD on home oxygen of 2-3 L and hepatitis C presented to the hospital with 1-2 days history of progressive shortness of breath, cough productive of white and black phlegm, no hemoptysis as well as right upper back chest pain. No fevers or chills. He was evaluated by his primary care physician a few days ago and was prescribed an antibiotic. He is not sure which antibiotic he was prescribed. He has been feeling generally weak. Has some nausea and developed diarrhea after taking the antibiotic. He has been using his nebulizers but they haven't been doing much for him. He was recently discharged from the hospital last December, he had a prolonged hospitalization because of rib fracture and hemothorax. He had thoracentesis done on the right side. He denies any leg swelling. Patient used to smoke 2 packs a day however he quit about a month ago. In the emergency department she was found to be tachycardic, he had a CT angiogram of the chest to rule out PE and that was negative for PE was positive for pneumonia, subsequently he was admitted to the hospital for further evaluation and management. Review of Systems 12 point review of system performed, negative except for HPI Past Medical History Past Medical History: Asthma, COPD, GERD/Reflux, Hyperlipidemia, Hypertension, Pneumonia Additional Past Medical History / Comment(s): hep C past iv heroin use in the , home 02 2.5 liters n/c pt stated he had a pne vacine less than 5 years ago not sure of date, unable to verify at time of this admit. History of Any Multi-Drug Resistant Organisms: None Reported Past Surgical History: Adenoidectomy, Tonsillectomy Past Anesthesia/Blood Transfusion Reactions: No Reported Reaction Past Psychological History: No Psychological Hx Reported Smoking Status: Current every day smoker Past Alcohol Use History: Occasional Past Drug Use History: None Reported - Past Family History Father Family Medical History: Myocardial Infarction ([place]) Additional Family Medical History / Comment(s): [place] Mother Family Medical History: COPD Additional Family Medical History / Comment(s): still living Medications and Allergies Home Medications Medication Instructions Recorded Confirmed Type Ipratropium/Albuterol Sulfate 1 puff INHALATION RT-QID 02/27/01/22/18 History [Combivent Respimat Inhaler] OLANZapine [ZyPREXA] 20 mg PO HS 02/28/16 01/22/18 History Tiotropium [place] [Spiriva] 1 cap INHALATION RT-DAILY 04/17/16 01/22/18 History Albuterol Nebulized [Ventolin 2.5 mg INHALATION RT-Q4H PRN 01/22/18 01/22/18 History Nebulized] Albuterol Sulfate [Proair Hfa] 2 puff INHALATION RT-Q4H PRN 01/22/18 01/22/18 History Budesonide/Formoterol Fumarate 2 puff INHALATION RT-BID 01/22/18 01/22/18 History [Symbicort 160-4.5 Mcg Inhaler] Escitalopram [Lexapro] 15 mg PO DAILY 01/22/18 01/22/18 History HYDROcodone/APAP 5-325MG [[place] 1 tab PO BID PRN 01/22/18 01/22/18 History 5-325] Omeprazole 40 mg PO DAILY 01/22/18 01/22/18 History predniSONE 10 mg PO QAM 01/22/18 01/22/18 History traZODone HCL 50 mg PO HS 01/22/18 01/22/18 History Ibuprofen [Motrin] 400 mg PO Q6HR PRN #40 tab 01/29/18 Rx Allergies Allergy/AdvReac Type Severity Reaction Status Date / Time No Known Allergies Allergy Verified 03/03/18 16:24 Physical Exam Vitals: Vital Signs Temp Pulse Resp BP Pulse Ox 03/03/18 18:47 103 H 22 129/70 89 L 03/03/18 18:23 101 H 24 133/63 94 L 03/03/18 18:12 100 03/03/18 17:39 98 03/03/18 17:29 103 H 24 132/74 96 03/03/18 17:12 96 03/03/18 17:02 100 03/03/18 16:15 99.3 F 107 H 24 124/65 93 L Intake and Output 03/03/18 03/03/18 03/03/18 06:59 14:59 22:59 Other: Weight 125.191 kg Constitutional: No acute distress, conversant, pleasant Eyes:Anicteric sclerae, moist conjunctiva, no lid-lag, PERRLA, ENMT: Oropharynx clear, no erythema, exudates Neck: Supple, FROM, no masses, or JVD, No carotid bruits, No thyromegaly Lungs: Very diminished breath sounds bilaterally, Clear to percussion, Normal respiratory effort, no accessory muscle use Cardiovascular: Heart regular in rate and rhythm, No murmurs, gallops, or rubs, No peripheral edema Abdominal: Soft, right upper and left upper quadrant tenderness, no guarding, rebound or rigidity, Normoactive bowel sounds, No hepatomegaly, No splenomegaly , No palpable mass Skin: Normal temperature, tone, texture, turgor, no induration, No subcutaneous nodules, No rash, lesions, No ulcers Extremities: No digital cyanosis, No clubbing, Pedal pulses intact and symmetrical, Radial pulses intact and symmetrical, No calf tenderness Psychiatric: Alert and oriented to person, place and time, appropriate affect, intact judgement Neuro: Muscles Strength 5/5 in all 4 extremities, Sensation to light touch grossly present throughout, Cranial nerves II-XII grossly intact, no focal sensory deficits Results CBC & Chem 7: 03/03/18 16:34 03/03/18 16:34 Labs: Abnormal Lab Results - Last 24 Hours (Table) 03/03/18 03/03/18 03/03/18 Range/Units 16:34 16:34 16:34 WBC 15.7 H (3.8-10.6) k/uL Neutrophils # 12.6 H (1.3-7.7) k/uL VBG pCO2 67 H (37-51) mmHg VBG HCO3 33 H (24-28) mmol/L Sodium 135 L (137-145) mmol/L Chloride 91 L (98-107) mmol/L Carbon Dioxide 31 H (22-30) mmol/L Glucose 101 H (74-99) mg/dL Assessment and Plan Plan: Acute sepsis, likely secondary to healthcare associated pneumonia Stat lactic acid IV fluids Antibiotics Zosyn and vancomycin Blood cultures Monitor on telemetry Acute hypoxic respiratory failure/acute exacerbation of COPD DuoNeb's Steroids Bipolar disorder, GERD/Reflux, Hyperlipidemia, Hypertension: All stable Resume home meds DVT prophylaxis Subcu Lovenox Sepsis - Sepsis Sepsis Focused Exam #1 Sepsis Focused Exam Date: 03/03/18 Sepsis Focused Exam Time: 19:00 Capillary Refill: < 2 Seconds: Fingers, Toes Peripheral Pulses: Normal: Radial (R), Radial (L), Posterior Tibialis (R), Posterior Tibialis (L), Dorsalis Pedis (R), Dorsalis Pedis (L) Skin Color: Normal for Patient Respiratory Exam: rhonchi, decreased breath sounds Cardiovascular Exam: normal rhythm, tachycardia
[2018-03-03] MEDS ORDERED: NON-FORMULARY DRUG (Ipratropium/Albuterol Sulfate [Combivent Respimat Inhaler] 1 PUFF) INHALATION SCH (20:00)
[2018-03-03] MEDS ORDERED: IPRATROPIUM-ALBUTEROL 3 ML NEB INHALATION SCH (20:00)
[2018-03-03] MEDS ORDERED: VANCOMYCIN 2,250 MG in SODIUM CHLORIDE 0.9% 500 ML IVPB ONE (21:00)
[2018-03-03] MEDS: traZODone HCL 50 MG TAB PO SCH (21:06)
[2018-03-03] MEDS: OLANZapine 10 MG TAB PO SCH (21:12)
[2018-03-03 22:24] VITALS: BMI 36.0
[2018-03-04] MEDS ORDERED: HEPARIN SODIUM,PORCINE 5,000 UNIT/ML 1 ML VIAL SQ SCH
[2018-03-04] MEDS: HYDROcodone/APAP 5-325MG 1 EACH TAB PO PRN ×2 (00:37→20:20)
[2018-03-04] MEDS: methylPREDNISolone SOD SUCCI 125 MG/2 ML VIAL IV SCH ×4 (00:38→17:14)
[2018-03-04] MEDS: PIPERACILLIN-TAZOBACTAM 3.375 GM in DEXTROSE/WATER 1 50ML.BAG IVPB SCH ×3 (04:47→20:17)
[2018-03-04] MEDS: VANCOMYCIN 2,000 MG in SODIUM CHLORIDE 0.9% 500 ML IVPB SCH ×3 (06:10→22:02)
[2018-03-04 06:51] LABS: Basophils % (A) 0 %; Eosinophils % (A) 0 %; HCT 48.2 % (39.0-53.0); HGB 15.3 gm/dL (13.0-17.5); Hypochromasia Slight; Lymphocytes # (A) 0.3 k/uL (1.0-4.8); Lymphocytes % (A) 3 %; MCH 30.3 pg (25.0-35.0); MCHC 31.8 g/dL (31.0-37.0); MCV 95.1 fL (80.0-100.0); Monocytes # (A) 0.2 k/uL (0-1.0); Monocytes % (A) 2 %; Neutrophils # (A) 9.5 k/uL (1.3-7.7); Neutrophils % (A) 95 %; Platelet Count 257 k/uL (150-450); RBC 5.07 m/uL (4.30-5.90); RDW 14.9 % (11.5-15.5); WBC 10.1 k/uL (3.8-10.6)
[2018-03-04 07:05] LABS: Anion Gap 12 mmol/L; Blood Urea Nitrogen 8 mg/dL (9-20); Calcium 8.9 mg/dL (8.4-10.2); Carbon Dioxide 33 mmol/L (22-30); Chloride 94 mmol/L (98-107); Glucose 135 mg/dL (74-99); Magnesium 2.4 mg/dL (1.6-2.3); Phosphorus 5.6 mg/dL (2.5-4.5); Potassium 5.7 mmol/L (3.5-5.1); Sodium 139 mmol/L (137-145)
[2018-03-04] MEDS: IPRATROPIUM-ALBUTEROL 3 ML NEB INHALATION SCH ×4 (07:37→19:32)
[2018-03-04] MEDS: SYMBICORT 160-4.5 MCG INHALER INHALATION SCH ×2 (07:37→19:31)
[2018-03-04] MEDS: PANTOPRAZOLE 40 MG TABLET PO SCH (07:43)
[2018-03-04] MEDS: ENOXAPARIN 40 MG/0.4 ML SYRINGE SQ SCH (07:43)
[2018-03-04] MEDS ORDERED: SODIUM POLYSTYRENE SULFONATE 15 GM/60 ML BOTTLE PO STA (10:34)
[2018-03-04] MEDS: KETOROLAC 30 MG/ML 1 ML VIAL IVP SCH ×3 (10:59→17:36)
[2018-03-04] MEDS: ESCITALOPRAM 5 MG TAB PO SCH (11:04)
--- NOTE | 2018-03-04 11:58 | P.PN ---
Subjective Progress Note Date: 03/04/18 Patient complaining of pleuritic discomfort in his lower lungs, that does report to being shortness of breath, reports a cough. No acute events overnight Objective - Vital Signs Vital signs: Vital Signs Temp 96.0 F L 03/04/18 06:30 Pulse 93 03/04/18 11:11 Resp 20 03/04/18 08:00 BP 179/84 03/04/18 11:09 Pulse Ox 91 L 03/04/18 06:30 Intake & Output 03/03/18 03/04/18 03/04/18 18:59 06:59 18:59 Intake Total 1175 Output Total 800 Balance 1175 -800 Weight 125.191 kg 120.5 kg 120.5 kg Intake: Intake, IV Titration 1175 Amount Azithromycin 500 mg In 250 Dextrose 5% in Water 250 ml @ 125 mls/hr IVPB ONCE STA Rx#:[id number] Piperacillin-Tazobactam 3 50 .375 gm In Dextrose/Water 1 50ml.bag @ 12.5 mls/hr IVPB ONCE STA Rx#: [id number] Sodium Chloride 0.9% 1, 375 000 ml @ 75 mls/hr IV . [id number] STA Rx#:[id number] Vancomycin 2,000 mg In 500 Sodium Chloride 0.9% 500 ml @ 167 mls/hr IVPB Q8H JOCELYNE Rx#:[id number] Output: Urine 800 Other: Voiding Method Toilet Toilet # Voids 1 1 - Exam Constitutional: No acute distress, conversant, pleasant Eyes: Anicteric sclerae, moist conjunctiva, no lid-lag, PERRLA ENMT: NC/AT,Oropharynx clear, no erythema, exudates Neck:Supple, FROM, no masses, or JVD, No carotid bruits; No thyromegaly Lungs: Diminished in the bases, but clear no wheezes Clear to percussion, Normal respiratory effort, no accessory muscle use Cardiovascular: Heart regular in rate and rhythm, No murmurs, gallops, or rubs no peripheral edema Abdominal: Soft Nontender, nom distended, no guarding, no rebound or rigidity, Normoactive bowel sounds No hepatomegaly, No splenomegaly, No palpable mass No abdominal wall hernia noted Skin: Normal temperature, tone, texture, turgor, No induration No subcutaneous nodules, No rash, lesions, No ulcers Extremities:No digital cyanosis No clubbing, Pedal pulses intact and symmetrical Radial pulses intact and symmetrical Normal gait and station, No calf tenderness Psychiatric: Alert and oriented to person, place and time, Appropriate affect Intact judgement Neuro: Muscles Strength 5/5 in all 4 extremities, Sensation to light touch grossly present throughout, Cranial nerves II-XII grossly intact. No focal sensory deficits - Labs CBC & Chem 7: 03/04/18 06:13 03/04/18 06:13 Labs: Abnormal Lab Results - Last 24 Hours (Table) 03/03/18 03/03/18 03/03/18 Range/Units 16:34 16:34 16:34 WBC 15.7 H (3.8-10.6) k/uL Neutrophils # 12.6 H (1.3-7.7) k/uL Lymphocytes # (1.0-4.8) k/uL VBG pCO2 67 H (37-51) mmHg VBG HCO3 33 H (24-28) mmol/L Sodium 135 L (137-145) mmol/L Potassium (3.5-5.1) mmol/L Chloride 91 L (98-107) mmol/L Carbon Dioxide 31 H (22-30) mmol/L BUN (9-20) mg/dL Glucose 101 H (74-99) mg/dL Phosphorus (2.5-4.5) mg/dL Magnesium (1.6-2.3) mg/dL 03/04/18 03/04/18 Range/Units 06:13 06:13 WBC (3.8-10.6) k/uL Neutrophils # 9.5 H (1.3-7.7) k/uL Lymphocytes # 0.3 L (1.0-4.8) k/uL VBG pCO2 (37-51) mmHg VBG HCO3 (24-28) mmol/L Sodium (137-145) mmol/L Potassium 5.7 H (3.5-5.1) mmol/L Chloride 94 L (98-107) mmol/L Carbon Dioxide 33 H (22-30) mmol/L BUN 8 L (9-20) mg/dL Glucose 135 H (74-99) mg/dL Phosphorus 5.6 H (2.5-4.5) mg/dL Magnesium 2.4 H (1.6-2.3) mg/dL Assessment and Plan Plan: Acute sepsis, likely secondary to healthcare associated pneumonia * Patient afebrile with leukocytosis resolving * IV fluids * Antibiotics Zosyn and vancomycin Blood cultures pending if still negative will de-escalate antibiotic regimen Pneumonia * The treatment as above Acute hypoxic respiratory failure * Multifactorial secondary to pneumonia superimposed on COPD exacerbation * Continue with breathing treatments and supplemental oxygen COPD exacerbation * DuoNeb's * Continue with IV Steroids Solu-Medrol Hypertension * Uncontrolled we'll restart his home losartan * And continue to monitor Bipolar disorder, GERD/Reflux, Hyperlipidemia, All stable Resume home meds DVT prophylaxis Subcu Lovenox
[2018-03-04] MEDS: LOSARTAN 25 MG TAB PO SCH (12:47)
[2018-03-04] MEDS: OLANZapine 10 MG TAB PO SCH (20:18)
[2018-03-04] MEDS: traZODone HCL 50 MG TAB PO SCH (20:18)
[2018-03-05] MEDS: methylPREDNISolone SOD SUCCI 125 MG/2 ML VIAL IV SCH ×2 (01:00→05:53)
[2018-03-05] MEDS: KETOROLAC 30 MG/ML 1 ML VIAL IVP SCH ×2 (01:12→05:53)
[2018-03-05] MEDS: PIPERACILLIN-TAZOBACTAM 3.375 GM in DEXTROSE/WATER 1 50ML.BAG IVPB SCH (04:22)
[2018-03-05] MEDS ORDERED: VANCOMYCIN TROUGH DUE 1 EACH MISC MISCELLANE ONE (05:00)
[2018-03-05] MEDS: VANCOMYCIN 2,000 MG in SODIUM CHLORIDE 0.9% 500 ML IVPB SCH (05:54)
[2018-03-05 07:00] LABS: Glucose,Whole Blood 137 mg/dL (75-99)
[2018-03-05] MEDS: SYMBICORT 160-4.5 MCG INHALER INHALATION SCH (07:06)
[2018-03-05] MEDS: IPRATROPIUM-ALBUTEROL 3 ML NEB INHALATION SCH (07:06)
[2018-03-05 07:23] VITALS: BP 160/82; PULSE 88; RESP 16; TEMP 97.8
[2018-03-05 07:58] LABS: Basophils % (A) 0 %; Eosinophils % (A) 0 %; HCT 46.5 % (39.0-53.0); HGB 14.5 gm/dL (13.0-17.5); Hypochromasia Moderate; Lymphocytes # (A) 0.4 k/uL (1.0-4.8); Lymphocytes % (A) 3 %; MCH 29.7 pg (25.0-35.0); MCHC 31.1 g/dL (31.0-37.0); MCV 95.4 fL (80.0-100.0); Mean Platelet Volume 7.6; Monocytes # (A) 0.5 k/uL (0-1.0); Monocytes % (A) 4 %; Neutrophils # (A) 10.9 k/uL (1.3-7.7); Neutrophils % (A) 92 %; Platelet Count 233 k/uL (150-450); RBC 4.87 m/uL (4.30-5.90); RDW 14.6 % (11.5-15.5); WBC 11.8 k/uL (3.8-10.6)
[2018-03-05 08:01] LABS: Anion Gap 6 mmol/L; Blood Urea Nitrogen 14 mg/dL (9-20); Calcium 8.7 mg/dL (8.4-10.2); Carbon Dioxide 38 mmol/L (22-30); Chloride 92 mmol/L (98-107); Glucose 150 mg/dL (74-99); Potassium 5.3 mmol/L (3.5-5.1); Sodium 136 mmol/L (137-145)
[2018-03-05] MEDS: PANTOPRAZOLE 40 MG TABLET PO SCH (08:57)
[2018-03-05] MEDS: LOSARTAN 25 MG TAB PO SCH (08:57)
[2018-03-05] MEDS: ESCITALOPRAM 5 MG TAB PO SCH (08:57)
[2018-03-05] MEDS: ENOXAPARIN 40 MG/0.4 ML SYRINGE SQ SCH (08:57)
[2018-03-05] MEDS ORDERED: LEVOFLOXACIN 750 MG TAB PO SCH (09:00)
[2018-03-05] MEDS ORDERED: predniSONE 20 MG TAB PO SCH (09:00)
[2018-03-05] MEDS ORDERED: ATORVASTATIN 40 MG TAB PO SCH (09:00)
--- NOTE | 2018-03-05 11:35 | P.DS ---
Providers Date of admission: 03/03/18 19:08 Expected date of discharge: 03/05/18 Attending physician: Siri Murguia MD Primary care physician: Hina Rojas MD - Discharge Diagnosis(es) (1) Acute on chronic respiratory failure with hypoxia Status: Acute (2) Sepsis Status: Acute (3) Acute exacerbation of chronic obstructive airways disease Status: Acute (4) Pneumonia Status: Acute (5) Essential hypertension Status: Acute Hospital Course: The patient is a 57-year-old male the past focal history of COPD known to be oxygen dependent on 3 L of oxygen at his baseline who presented to the ER and was admitted for acute on chronic respiratory failure multifactorial secondary to sepsis triggered by community-acquired pneumonia with an acute COPD exacerbation. The patient presented with a leukocytosis of 16, but remained afebrile and pancultures were negative. He was started on empiric IV antibiotics with Zosyn and vancomycin. CTA of the chest was negative for PE but was consistent with bilateral lower lobe pneumonia and atelectasis. The patient was also treated with scheduled and when necessary bronchodilator breathing treatments, systemic steroids with IV Solu-Medrol , With treatment the patient's condition improved his leukocytosis resolved and he was transitioned to oral antibiotics Levaquin and prednisone for treatment of his COPD exacerbation. He was subsequently discharged home in stable condition told to follow-up with his primary physician in the next 2-3 days. New prescriptions for Levaquin and prednisone were given at discharge. This discharge process took approximately 35 minutes Constitutional: No acute distress, conversant, pleasant Eyes: Anicteric sclerae, moist conjunctiva, no lid-lag, PERRLA ENMT: NC/AT,Oropharynx clear, no erythema, exudates Neck:Supple, FROM, no masses, or JVD, No carotid bruits; No thyromegaly Lungs: Clear to auscultation, Clear to percussion, Normal respiratory effort, no accessory muscle use on 3 L nasal Cannula Cardiovascular: Heart regular in rate and rhythm, No murmurs, gallops, or rubs no peripheral edema Abdominal: Soft Nontender, nom distended, no guarding, no rebound or rigidity, Normoactive bowel sounds No hepatomegaly, No splenomegaly, No palpable mass No abdominal wall hernia noted Skin: Normal temperature, tone, texture, turgor, No induration No subcutaneous nodules, No rash, lesions, No ulcers Extremities:No digital cyanosis No clubbing, Pedal pulses intact and symmetrical Radial pulses intact and symmetrical Normal gait and station, No calf tenderness Psychiatric: Alert and oriented to person, place and time, Appropriate affect Intact judgement Neuro: Muscles Strength 5/5 in all 4 extremities, Sensation to light touch grossly present throughout, Cranial nerves II-XII grossly intact. No focal sensory deficits Patient Condition at Discharge: Good Plan - Discharge Summary Discharge Rx Participant: No New Discharge Prescriptions: New Levofloxacin [Levaquin] 750 mg PO DAILY #5 tab predniSONE 40 mg PO DAILY #5 tab Acetaminophen Tab [Tylenol] 650 mg PO Q6HR PRN #28 tab PRN Reason: Mild Pain Or Fever > 100.5 Continue OLANZapine [ZyPREXA] 20 mg PO HS Tiotropium [place] [Spiriva] 1 cap INHALATION RT-DAILY Escitalopram [Lexapro] 10 mg PO DAILY Albuterol Nebulized [Ventolin Nebulized] 2.5 mg INHALATION RT-Q4H PRN PRN Reason: Shortness Of Breath traZODone HCL 50 mg PO HS Budesonide/Formoterol Fumarate [Symbicort 160-4.5 Mcg Inhaler] 2 puff INHALATION RT-BID Albuterol Sulfate [Proair Hfa] 2 puff INHALATION RT-Q4H PRN PRN Reason: Shortness Of Breath Omeprazole 40 mg PO DAILY Atorvastatin [Lipitor] 40 mg PO DAILY Losartan [Cozaar] 25 mg PO DAILY Discontinued Ibuprofen [Motrin] 600 mg PO Q6HR PRN PRN Reason: Pain Discharge Medication List OLANZapine [ZyPREXA] 20 mg PO HS 02/28/16 [History] Tiotropium [place] [Spiriva] 1 cap INHALATION RT-DAILY 04/17/16 [History] Albuterol Nebulized [Ventolin Nebulized] 2.5 mg INHALATION RT-Q4H PRN 01/22/18 [ History] Albuterol Sulfate [Proair Hfa] 2 puff INHALATION RT-Q4H PRN 01/22/18 [History] Budesonide/Formoterol Fumarate [Symbicort 160-4.5 Mcg Inhaler] 2 puff INHALATION RT-BID 01/22/18 [History] Escitalopram [Lexapro] 10 mg PO DAILY 01/22/18 [History] Omeprazole 40 mg PO DAILY 01/22/18 [History] traZODone HCL 50 mg PO HS 01/22/18 [History] Atorvastatin [Lipitor] 40 mg PO DAILY 03/04/18 [History] Losartan [Cozaar] 25 mg PO DAILY 03/04/18 [History] Acetaminophen Tab [Tylenol] 650 mg PO Q6HR PRN #28 tab 03/05/18 [Rx] Levofloxacin [Levaquin] 750 mg PO DAILY #5 tab 03/05/18 [Rx] predniSONE 40 mg PO DAILY #5 tab 03/05/18 [Rx] Follow up Appointment(s)/Referral(s): Hina Rojas MD [Primary Care Provider] - 1-2 days (Patient to call Dr. Rojas's office Thursday morning to schedule follow up appointment. The office is closed at time of discharge. ) [facility], [NON-STAFF] - 1 Week Patient Instructions/Handouts: Acetaminophen/Codeine (By mouth), Prednisone ( By mouth), Levofloxacin (By mouth), COPD (Chronic Obstructive Pulmonary Disease ) (DC), Community Acquired Pneumonia (DC) Activity/Diet/Wound Care/Special Instructions: [facility] for o2 needs - Discharge Disposition: HOME SELF-CARE
== END 2018-03-05 11:00 | disposition home health service (06) | DRG 871 ==
LOC: EC 16:14 → 5MS5E 19:08
PROVIDERS: ADMIT Internal Medicine; ATTEND Internal Medicine
DX: A41.9 Sepsis, unspecified organism (principal); J18.9 Pneumonia, unspecified organism; J96.21 Acute and chronic respiratory failure with hypoxia; J44.0 Chronic obstructive pulmonary disease with (acute) lower respiratory infection; J44.1 Chronic obstructive pulmonary disease with (acute) exacerbation; J98.11 Atelectasis; E78.5 Hyperlipidemia, unspecified; F17.200 Nicotine dependence, unspecified, uncomplicated; F31.9 Bipolar disorder, unspecified; I10 Essential (primary) hypertension; K21.9 Gastro-esophageal reflux disease without esophagitis; B19.20 Unspecified viral hepatitis C without hepatic coma; R19.7 Diarrhea, unspecified; Z79.51 Long term (current) use of inhaled steroids; Z79.899 Other long term (current) drug therapy; Z79.52 Long term (current) use of systemic steroids; Z99.81 Dependence on supplemental oxygen; Z87.01 Personal history of pneumonia (recurrent); Z82.49 Family history of ischemic heart disease and other diseases of the circulatory system; Z82.5 Family history of asthma and other chronic lower respiratory diseases; Y95 Nosocomial condition
CPT/HCPCS: 36415; 71046; 71275; 80048; 80053; 80202; 80320; 82803; 83605; 83690; 83735; 84100; 84484; 85025; 85610; 87040; 87070; 87205; 93005; 94640; 94644; 94760; 96365; 96375; 99285

== ENCOUNTER 2018-03-11 07:54 | Inpatient (IN) | payer MEDICARE, OTHER ==
[2018-03-11] MEDS ORDERED: methylPREDNISolone SOD SUCCI 125 MG/2 ML VIAL IV STA (08:17)
[2018-03-11] MEDS ORDERED: SODIUM CHLORIDE 0.9% 1,000 ML IV STA (08:17)
[2018-03-11 08:49] LABS: Basophils # (A) 0.1 k/uL (0-0.2); Basophils % (A) 0 %; Eosinophils # (A) 0.2 k/uL (0-0.7); Eosinophils % (A) 1 %; HCT 53.5 % (39.0-53.0); Lymphocytes # (A) 1.7 k/uL (1.0-4.8); Lymphocytes % (A) 11 %; MCH 29.8 pg (25.0-35.0); MCHC 31.8 g/dL (31.0-37.0); MCV 93.8 fL (80.0-100.0); Mean Platelet Volume 6.7; Monocytes # (A) 0.8 k/uL (0-1.0); Monocytes % (A) 5 %; Neutrophils # (A) 12.5 k/uL (1.3-7.7); Neutrophils % (A) 82 %; Platelet Count 379 k/uL (150-450); RDW 15.4 % (11.5-15.5); WBC 15.3 k/uL (3.8-10.6)
[2018-03-11 09:00] LABS: ALT 35 U/L (21-72); AST 26 U/L (17-59); Albumin 4.1 g/dL (3.5-5.0); Alkaline Phosphatase 46 U/L (38-126); Anion Gap 8 mmol/L; Blood Urea Nitrogen 22 mg/dL (9-20); Calcium 8.8 mg/dL (8.4-10.2); Carbon Dioxide 37 mmol/L (22-30); Chloride 92 mmol/L (98-107); Glucose 100 mg/dL (74-99); Potassium 4.9 mmol/L (3.5-5.1); Sodium 137 mmol/L (137-145); Total Bilirubin 0.6 mg/dL (0.2-1.3); Total Protein 6.5 g/dL (6.3-8.2)
[2018-03-11 09:04] LABS: INR 1.1 (<1.2); Partial Thromboplastin Time 22.1 sec (22.0-30.0); Prothrombin Time 10.8 sec (9.0-12.0)
--- NOTE | 2018-03-11 09:08 | XR ---
EXAMINATION TYPE: XR chest 2V DATE OF EXAM: 03/11/2018 COMPARISON: 03/03/2018 HISTORY: Chest pain with difficulty breathing TECHNIQUE: Frontal and lateral views of the chest are obtained. FINDINGS: There is cardiomegaly, right minor fissural fluid, and mild interstitial pulmonary edema w ith trace right pleural effusion also suspicious for decompensated congestive heart failure. There is no pulmonary hyperexpansion in this patient with known underlying COPD. Osseous structures appear in tact. There is engorgement of the superior vena cava/right azygos vein exaggerated by patient rotatio n. IMPRESSION: Findings concerning for decompensated congestive heart failure with mild interstitial pu lmonary edema, right interfissural fluid, cardiomegaly and trace right pleural effusion.
[2018-03-11] MEDS ORDERED: FUROSEMIDE 10 MG/ML 10 ML VIAL IV STA (09:15)
[2018-03-11 09:29] LABS: Creatine Kinase MB 2.4 ng/mL (0.0-2.4)
[2018-03-11 09:32] LABS: Troponin I 0.167 ng/mL (0.000-0.034)
[2018-03-11 09:36] LABS: D-Dimer 1.04 mg/L FEU (<0.60)
--- NOTE | 2018-03-11 09:36 | ED ---
SOB HPI - General Chief Complaint: Shortness of Breath Stated Complaint: Back Pain Time Seen by Provider: 03/11/18 08:12 Source: patient Mode of arrival: wheelchair Limitations: no limitations - History of Present Illness Initial Comments: 57 years old male with a history of COPD respiratory failure and now essential hypertension complaining about mild prolonged expiratory last 2 days though he has no history of DVT or PE he is oxygen-dependent he wears oxygen at home him a chest hurts with deep breaths no abdominal pain no frequency urgency dysuria no symptoms of TIA or CVA - Related Data Home Medications Medication Instructions Recorded Confirmed OLANZapine [ZyPREXA] 20 mg PO HS 02/28/16 03/11/18 Tiotropium [place] [Spiriva] 1 cap INHALATION RT-DAILY 04/17/16 03/11/18 Albuterol Nebulized [Ventolin 2.5 mg INHALATION RT-Q4H PRN 01/22/18 03/11/18 Nebulized] Albuterol Sulfate [Proair Hfa] 2 puff INHALATION RT-Q4H PRN 01/22/18 03/11/18 Budesonide/Formoterol Fumarate 2 puff INHALATION RT-BID 01/22/18 03/11/18 [Symbicort 160-4.5 Mcg Inhaler] Escitalopram [Lexapro] 10 mg PO DAILY 01/22/18 03/11/18 Omeprazole 40 mg PO DAILY 01/22/18 03/11/18 traZODone HCL 50 mg PO HS 01/22/18 03/11/18 Atorvastatin [Lipitor] 40 mg PO DAILY 03/04/18 03/11/18 Losartan [Cozaar] 25 mg PO DAILY 03/04/18 03/11/18 Previous Rx's Medication Instructions Recorded Acetaminophen Tab [Tylenol] 650 mg PO Q6HR PRN #28 tab 03/05/18 Levofloxacin [Levaquin] 750 mg PO DAILY #5 tab 03/05/18 predniSONE 40 mg PO DAILY #5 tab 03/05/18 Allergies Allergy/AdvReac Type Severity Reaction Status Date / Time No Known Allergies Allergy Verified 03/11/18 08:26 Review of Systems ROS Statement: Those systems with pertinent positive or pertinent negative responses have been documented in the HPI. ROS Other: All systems not noted in ROS Statement are negative. Past Medical History Past Medical History: Asthma, COPD, GERD/Reflux, Hyperlipidemia, Hypertension, Pneumonia Additional Past Medical History / Comment(s): hep C past iv heroin use in the , home 02 2.5 liters n/c pt stated he had a pne vacine less than 5 years ago not sure of date, unable to verify at time of this admit. History of Any Multi-Drug Resistant Organisms: None Reported Past Surgical History: Adenoidectomy, Tonsillectomy Past Anesthesia/Blood Transfusion Reactions: No Reported Reaction Past Psychological History: No Psychological Hx Reported Past Drug Use History: Heroin, Marijuana - Past Family History Father Family Medical History: Myocardial Infarction ([place]) Additional Family Medical History / Comment(s): from [place] Mother Family Medical History: COPD Additional Family Medical History / Comment(s): still living General Exam Limitations: no limitations Course Vital Signs 03/11/18 03/11/18 03/11/18 08:06 09:49 10:38 Temperature 98.7 F Pulse Rate 111 H 113 H 109 H Respiratory 22 20 18 Rate Blood Pressure 145/99 188/97 171/112 O2 Sat by Pulse 81 L 94 L 95 Oximetry EKG is a sinus tachycardia ventricular rate is 1 of 4 PA interval is 24 QRS duration is 94 QT/QTc is 332/436 review of this EKG does not reveal any ST elevation or ST depression patient reassessed at at 10:50 AM, CT angios pending disposition be done as soon as CT angiogram is received CT angiogram is available at term 11 AM, noticed term pulmonary emboli with no right heart strain and also noticed hemothorax, patient denies any trauma to the chest he said he probably broke broke his ribs when he coughs hard also noticed elevated troponin which could be secondary to congestive heart failure or fluid overload and will go ahead and heparinize him for the pulmonary embolism will consult cardiology, patient be admitted to [facility] physician Medical Decision Making - Lab Data Result diagrams: 03/11/18 08:33 03/11/18 08:33 Lab Results 03/11/18 03/11/18 03/11/18 Range/Units 08:33 08:33 08:33 WBC 15.3 H (3.8-10.6) k/uL RBC 5.70 (4.30-5.90) m/uL Hgb 17.0 (13.0-17.5) gm/dL Hct 53.5 H (39.0-53.0) % MCV 93.8 (80.0-100.0) fL MCH 29.8 (25.0-35.0) pg MCHC 31.8 (31.0-37.0) g/dL RDW 15.4 (11.5-15.5) % Plt Count 379 (150-450) k/uL Neutrophils % 82 % Lymphocytes % 11 % Monocytes % 5 % Eosinophils % 1 % Basophils % 0 % Neutrophils # 12.5 H (1.3-7.7) k/uL Lymphocytes # 1.7 (1.0-4.8) k/uL Monocytes # 0.8 (0-1.0) k/uL Eosinophils # 0.2 (0-0.7) k/uL Basophils # 0.1 (0-0.2) k/uL PT (9.0-12.0) sec INR (<1.2) APTT (22.0-30.0) sec D-Dimer (<0.60) mg/L FEU Sodium 137 (137-145) mmol/L Potassium 4.9 (3.5-5.1) mmol/L Chloride 92 L (98-107) mmol/L Carbon Dioxide 37 H (22-30) mmol/L Anion Gap 8 mmol/L BUN 22 H (9-20) mg/dL Creatinine 0.79 (0.66-1.25) mg/dL Est GFR (CKD-EPI)AfAm >90 (>60 ml/min/1.73 sqM) Est GFR (CKD-EPI)NonAf >90 (>60 ml/min/1.73 sqM) Glucose 100 H (74-99) mg/dL Plasma Lactic Acid Vu (0.7-2.0) mmol/L Calcium 8.8 (8.4-10.2) mg/dL Total Bilirubin 0.6 (0.2-1.3) mg/dL AST 26 (17-59) U/L ALT 35 (21-72) U/L Alkaline Phosphatase 46 (38-126) U/L Total Creatine Kinase 69 (55-170) U/L CK-MB (CK-2) 2.4 (0.0-2.4) ng/mL CK-MB (CK-2) Rel Index 3.5 Troponin I 0.167 H* (0.000-0.034) ng/mL Total Protein 6.5 (6.3-8.2) g/dL Albumin 4.1 (3.5-5.0) g/dL 03/11/18 03/11/18 Range/Units 08:33 09:49 WBC (3.8-10.6) k/uL RBC (4.30-5.90) m/uL Hgb (13.0-17.5) gm/dL Hct (39.0-53.0) % MCV (80.0-100.0) fL MCH (25.0-35.0) pg MCHC (31.0-37.0) g/dL RDW (11.5-15.5) % Plt Count (150-450) k/uL Neutrophils % % Lymphocytes % % Monocytes % % Eosinophils % % Basophils % % Neutrophils # (1.3-7.7) k/uL Lymphocytes # (1.0-4.8) k/uL Monocytes # (0-1.0) k/uL Eosinophils # (0-0.7) k/uL Basophils # (0-0.2) k/uL PT 10.8 (9.0-12.0) sec INR 1.1 (<1.2) APTT 22.1 (22.0-30.0) sec D-Dimer 1.04 H (<0.60) mg/L FEU Sodium (137-145) mmol/L Potassium (3.5-5.1) mmol/L Chloride (98-107) mmol/L Carbon Dioxide (22-30) mmol/L Anion Gap mmol/L BUN (9-20) mg/dL Creatinine (0.66-1.25) mg/dL Est GFR (CKD-EPI)AfAm (>60 ml/min/1.73 sqM) Est GFR (CKD-EPI)NonAf (>60 ml/min/1.73 sqM) Glucose (74-99) mg/dL Plasma Lactic Acid Vu 1.2 (0.7-2.0) mmol/L Calcium (8.4-10.2) mg/dL Total Bilirubin (0.2-1.3) mg/dL AST (17-59) U/L ALT (21-72) U/L Alkaline Phosphatase (38-126) U/L Total Creatine Kinase (55-170) U/L CK-MB (CK-2) (0.0-2.4) ng/mL CK-MB (CK-2) Rel Index Troponin I (0.000-0.034) ng/mL Total Protein (6.3-8.2) g/dL Albumin (3.5-5.0) g/dL Critical Care Time Total Critical Care Time: 45 Critical Care Time: He came and numb he had a significant trouble breathing, x-ray was reviewed it' s consistent with a congestive heart failure Lasix 40 mg IV was done noticed up is elevated so is some the d-dimer at this point waiting for the CT angiogram based on that he will be heparinized. EKG sinus tachycardia ventricular rate is 74 PA interval is 124 QRS duration is 94 QT/QTc is 332/426. This EKG does not reveal any ST elevation or ST depression there are some artifacts making the interpretation bit harder. I noticed some white ketamine 15.3 patient is afebrile did notice it is a left shift I have cultured the blood in the ER and lactate is pending differential diagnosis of leukocytosis would be patient being on prednisone or sepsis. S2 x-ray didn't show any clear infiltrate area I am get a CT angiogram reported as my show pulmonary embolism considering his elevated troponin and PE and start him on heparin drip also noticed that he has a pneumothorax and multiple right-sided rib fractures 69 I plan to put him in ICU he be admitted under Dr. Yaakov Culp and Dr. Farnsworth be consult with a hemothorax there is increased stress that he might bleed Disposition Clinical Impression: Congestive heart failure, Leukocytosis, Pulmonary embolus, Hemothorax, Multiple rib fractures Clinical Impression: (Ruled Out): Fracture Disposition: ADMITTED IP TO THIS HOSP Referrals: Hina Rojas MD [Primary Care Provider] - 1-2 days
--- NOTE | 2018-03-11 11:01 | CT ---
EXAMINATION TYPE: CT angio chest DATE OF EXAM: 03/11/2018 COMPARISON: NONE HISTORY: Difficulty breathing CT DLP: 809.4 mGycm. Automated Exposure Control for Dose Reduction was Utilized. CONTRAST: CTA scan of the thorax is performed with IV Contrast, patient injected with 100, wasted 10 mL of Isov ue 370, pulmonary embolism protocol. MIP Images are created on CT scanner and reviewed. FINDINGS: Motion artifact/expiratory artifact is present throughout the exam, limiting evaluation. LUNGS: There is a moderate right and a trace left pleural effusion with associated compressive atelec tasis. Intrafissural fluid is seen on the right as well as fluid within pleural parenchymal scarring. Mild centrilobular emphysematous changes are seen with few scattered blebs. Calcified left basilar b enign granuloma is identified. No pneumothorax. Mild interstitial pulmonary edema is present. The tra cheobronchial tree is patent. MEDIASTINUM: There are multiple left basilar segmental and subsegmental, predominantly subsegmental, incompletely occluding pulmonary emboli. No interval enlargement of the main pulmonary artery is seen in comparison to the prior of 03/03/2018. There is chronic. Artery enlargement of the main pulmonary a rtery measuring 3.9 cm. The right ventricular to left ventricular ratio is greater than 1, however th ere is no reflux of contrast into the inferior vena cava or hepatic veins and ratio appears somewhat similar to the prior exam of 03/03/2018 therefore right heart strain is not suspected on CT additionall y there is no bowing of the intraventricular septum. There are no greater than 1 cm hilar or mediastinal lymph nodes. No cardiomegaly or pericardial eff usion is seen. OTHER: There is incidental note of bilateral gynecomastia. Unchanged nonunited right lateral rib frac tures are seen of the ribs 6, 7, 8, and 9 on the right. IMPRESSION: 1. Although there is extensive respiratory motion, exaggerated at the lung bases, findings are most c ompatible with multiple incompletely occluding acute subsegmental with few segmental left basilar acu te pulmonary emboli. No convincing findings of right heart strain. 2. Increasing right-sided pleural effusion with new loculated high density area favored to represent a hemothorax given its short-term development in comparison to prior 03/03/2018, secondary to multiple displaced right lateral nonunited rib fractures of ribs 6 through 9. 3. Mild interstitial edema and increasing pleural effusions also suggests component of fluid overload .
[2018-03-11] MEDS ORDERED: HEPARIN SODIUM,PORCINE 5,000 UNIT/ML 1 ML VIAL IV PRN (11:14)
[2018-03-11] MEDS ORDERED: HEPARIN SODIUM,PORCINE 10,000 UNIT/ML 1 ML VIAL IV ONE (11:14)
[2018-03-11] MEDS ORDERED: ACETAMINOPHEN TAB 325 MG TAB PO PRN (11:24)
[2018-03-11] MEDS ORDERED: NALOXONE 0.4 MG/ML 1 ML VIAL IV PRN ×2 (11:24→15:27)
[2018-03-11] MEDS: HEPARIN SOD,PORK IN 0.45% NACL 25,000 UNIT in 0.45% NACL 1 500ML.BAG IV SCH (11:32)
[2018-03-11 13:26] LABS: Glucose,Whole Blood 154 mg/dL (75-99)
[2018-03-11] MEDS: IPRATROPIUM-ALBUTEROL 3 ML NEB INHALATION PRN ×2 (15:22→19:03)
[2018-03-11] MEDS ORDERED: LACTATED RINGERS 1,000 ML IV SCH (15:30)
--- NOTE | 2018-03-11 17:24 | P.CNPUL ---
History of Present Illness Consult date: 03/11/18 Reason for consult: dyspnea, COPD, pleural effusion, pulmonary embolism History of present illness: This is a 57-year-old male patient who presented to the burst department with two-day history of worsening shortness of breath and pain across his chest with deep breathing. A CT angios the chest was done in the emergency department and the patient was found to have respiratory motion artifact, multiple areas of suspected subsegmental filling defects and few segmental defects in the left basilar pulmonary artery raising the suspicion for pulmonary embolism. No evidence of any right heart strain pattern. There was a right-sided pleural effusion that was small and the patient has multiple displaced right lateral nonunited rib fractures ribs 6 through 9. There was some also interstitial edema and signs of fluid overload This patient is known to me. The patient was in the hospital back in January 2018. The patient has a known history of COPD with an FEV1 of 26% of predicted , in addition to hepatitis C, history of IVDA, hypertension, hyperlipidemia and acid reflux. The patient is also obese.. The patient was having increased cough and and he was admitted to the hospital with vigorous cough, pain along the right side of the chest and a right lung opacity. Upon further investigation the patient was found to have a moderate-sized right-sided pleural effusion. Initially, a thoracentesis was done and approximately 1.3 L of fluid was aspirated from the right lung. The procedure itself did result in significant right lung reexpansion. Based on that, a CAT scan of the chest was ordered and the patient was found to have evidence of bilateral the fracture and there was a right-sided pleural effusion and compressive atelectasis of the right lung base. At that point, a pigtail catheter/chest tube was inserted and the residual pleural effusion was drained. Another 2 L of pleural fluid was aspirated. Ultimately the patient accidentally lost the tube and the tube was not reinserted as the patient's chest x-ray showed improved aeration reexpansion of the right lung. There may be some eventration of right hemidiaphragm/right hemidiaphragmatic paralysis as the right hemidiaphragm remains to be elevated. He was discharged home on oxygen. The patient is a chronic smoker. The patient has smoked for more than 40 years and he has not smoked for the past 2 weeks. He is on a combination of Spiriva, Symbicort and Proventil rescue inhaler. He also has an oxygen concentrator at home. In the interim the patient was readmitted to the hospital back in 03/03/2018 and it was suspected the patient was having a pneumonia. CT angios the chest was done on 03/03 and there was no evidence of any pulmonary embolism. The CAT scan showed elevation of the right hemidiaphragm and there is some limited the right basilar atelectatic changes/infiltration and the patient was assumed to have an underlying pneumonia and he was treated with broad-spectrum antibiotics including a combination of Zosyn and vancomycin ultimately the patient was discharged home on a prednisone burst taper and Levaquin. No pulmonate consultation was requested at that time. Also, on 02/16/2018, the patient was diagnosed having severe obstructive sleep apnea an AHI of 62.4 worsening a by body position and the patient also demonstrates severe nocturnal oxygen desaturations. He was supposed to undergo a CPAP/BiPAP titration at a later stage. Review of Systems Constitutional Constitutional: no fever, no night sweats, no significant weight loss, exercise intolerance Eyes Eyes: no dry eyes, no vision change, no irritation ENMT Ears: no difficulty hearing, no ear pain Nose: no frequent nosebleeds, no nose problems, no sinus problems Mouth/Throat: no sore throat, no bleeding gums, no mouth ulcers, no teeth problems, snoring, dry mouth Cardiovascular Cardiovascular: no chest pain, no arm pain on exertion, no palpitations, no known heart murmur, shortness of breath when walking, shortness of breath when lying down (right sided chest wall pain) Respiratory Respiratory: no coughing up blood, cough, wheezing, shortness of breath, sleep apnea Gastrointestinal Gastrointestinal: no abdominal pain, no nausea, no vomiting, no constipation, normal appetite, no diarrhea, not vomiting blood, no dyspepsia, no GERD Genitourinary Genitourinary: no incontinence, no difficulty urinating, no hematuria, no increased frequency Musculoskeletal Musculoskeletal: no muscle aches, no muscle weakness, no arthralgias/joint pain , no back pain, no swelling in the extremities Integumentary Skin: no abnormal mole, no jaundice, no rashes, no laceration Neurologic Neurologic: no loss of consciousness, no weakness, no numbness, no seizures, no dizziness, no migraines, no headaches, no tremor Psychiatric Psych: no depression, feeling safe in a relationship, no alcohol abuse, no anxiety, no hallucinations, no suicidal thoughts, sleep disturbances Endocrine Endocrine: fatigue Hematologic/Lymphatic Hematologic/Lymphatic no swollen glands, no bruising, no excessive bleeding Allergic/Immunologic Allergy/Immunologic: no runny nose, no sinus pressure, no itching, no hives, no frequent sneezing Past Medical History Past Medical History: Asthma, COPD, GERD/Reflux, Hyperlipidemia, Hypertension, Pneumonia Additional Past Medical History / Comment(s): COPD, right-sided rib fractures related to vigorous coughing, hepatitis C related to previous history of IV heroin use back in the 80s, chronic hypoxic respiratory failure maintained on oxygen at 2 Liters per minute nasal cannula, hypertension, hyperlipidemia, acid reflux, hypersomnia with possible obstructive sleep apnea History of Any Multi-Drug Resistant Organisms: None Reported Past Surgical History: Adenoidectomy, Tonsillectomy Past Anesthesia/Blood Transfusion Reactions: No Reported Reaction Smoking Status: Former smoker - Past Family History Father Family Medical History: Myocardial Infarction (SD) Additional Family Medical History / Comment(s): from [place] Mother Family Medical History: COPD Additional Family Medical History / Comment(s): still living Medications and Allergies Home Medications Medication Instructions Recorded Confirmed Type OLANZapine [ZyPREXA] 20 mg PO HS 02/28/16 03/11/18 History Tiotropium [place] [Spiriva] 1 cap INHALATION RT-DAILY 04/17/16 03/11/18 History Albuterol Nebulized [Ventolin 2.5 mg INHALATION RT-Q4H PRN 01/22/18 03/11/18 History Nebulized] Albuterol Sulfate [Proair Hfa] 2 puff INHALATION RT-Q4H PRN 01/22/18 03/11/18 History Budesonide/Formoterol Fumarate 2 puff INHALATION RT-BID 01/22/18 03/11/18 History [Symbicort 160-4.5 Mcg Inhaler] Escitalopram [Lexapro] 10 mg PO DAILY 01/22/18 03/11/18 History Omeprazole 40 mg PO DAILY 01/22/18 03/11/18 History traZODone HCL 50 mg PO HS 01/22/18 03/11/18 History Atorvastatin [Lipitor] 40 mg PO DAILY 03/04/18 03/11/18 History Losartan [Cozaar] 25 mg PO DAILY 03/04/18 03/11/18 History Acetaminophen Tab [Tylenol] 650 mg PO Q6HR PRN #28 tab 03/05/18 03/11/18 Rx Levofloxacin [Levaquin] 750 mg PO DAILY #5 tab 03/05/18 03/11/18 Rx predniSONE 40 mg PO DAILY #5 tab 03/05/18 03/11/18 Rx Allergies Allergy/AdvReac Type Severity Reaction Status Date / Time No Known Allergies Allergy Verified 03/11/18 08:26 Physical Exam Vitals: Vital Signs Temp Pulse Resp BP Pulse Ox 03/11/18 15:34 102 H 03/11/18 15:30 98.3 F 108 H 26 H 170/93 96 03/11/18 15:22 103 H 94 L 03/11/18 15:00 110 H 33 H 165/94 95 03/11/18 14:30 113 H 35 H 161/84 95 03/11/18 14:00 107 H 32 H 160/86 95 03/11/18 13:30 102 H 28 H 165/89 97 03/11/18 13:21 104 H 03/11/18 12:00 116 H 22 168/101 93 L 03/11/18 11:39 104 H 20 168/102 94 L 03/11/18 10:38 109 H 18 171/112 95 03/11/18 09:49 113 H 20 188/97 94 L 03/11/18 08:06 98.7 F 111 H 22 145/99 81 L Intake and Output 03/11/18 03/11/18 03/11/18 06:59 14:59 22:59 Output Total 1100 0 Balance -1100 0 Output: Urine 1100 0 Other: Weight 114.7 kg General Appearance no diaphoresis, no respiratory distress, speech not interrupted by breaths, no dyspnea, no pallor, not cachectic, well nourished, appears well, obesity HEENT no pursed lip breathing, no jugular venous distention, no mucous membrane cyanosis, no perioral cyanosis, mallampati classification: class 1, Mallampati Classification: Class 4 Chest no barrel chest, no retractions, no sternocleidomastoid muscle contractions, no supraclavicular retractions, no intercostal retractions, no prolonged expiratory wheezing, no decreased air movement, no rhonchi, no hyperinflation, (normal) adventitious sounds: rales / crackles: bilaterally: midlung contreras, decreased air movement Heart no right ventricular heave, no distant heart sounds, no s3 gallop, (normal ) jugular vein: jugular venous distention: by 0cm, (normal) jugular vein, Murmurs: Unspecified Location: Systolic: Grade 2 / IV GI bowel sounds: hyperactive (borborygmi), bowel sounds: diminished or absent Extremities no cyanosis, no clubbing, no edema Neurologic no decreased mental status, no somnolence, no confusion Assisstive Devices: ambulates with no assitive devices Gait and Mobility: gait WNL, full weight bearing General Appearance normal, (normal) normal except as noted Results - Laboratory Findings CBC and BMP: 03/11/18 08:33 03/11/18 08:33 PT/INR, D-dimer PT 10.8 sec (9.0-12.0) 03/11/18 08:33 INR 1.1 (<1.2) 03/11/18 08:33 D-Dimer 1.04 mg/L FEU (<0.60) H 03/11/18 08:33 Abnormal lab findings: Abnormal Labs 03/11/18 03/11/18 03/11/18 08:33 08:33 08:33 WBC 15.3 H Hct 53.5 H Neutrophils # 12.5 H D-Dimer Chloride 92 L Carbon Dioxide 37 H BUN 22 H Glucose 100 H POC Glucose (mg/dL) Troponin I 0.167 H* 03/11/18 03/11/18 03/11/18 08:33 13:25 15:46 WBC Hct Neutrophils # D-Dimer 1.04 H Chloride Carbon Dioxide BUN Glucose POC Glucose (mg/dL) 154 H Troponin I 0.114 H* - Diagnostic Findings CT scan - chest: image reviewed Assessment and Plan Plan: #1 acute/chronic chest pain/shortness of breath with suspected pulmonary embolism involving the left lower lobe segmental and subsegmental branches. There is mild elevation of the d-dimer and the CAT scan findings are not certain and they're not conclusive for pulmonary embolism. The fact that I'm a bit doubtful of this diagnosis. Also, the patient had a CAT scan of the chest on 03/03/2018 that was of good quality and did not show any filling defects in the lower lobe pulmonary artery branches bilaterally. #2 pleural effusion, the patient is status post initial thoracentesis and following that the patient had a small bore chest tube inserted and evacuation of more than 2 L of bloody pleural effusion which is most likely related to vigorous coughing. The patient had a pleural effusion that was bloody and the right-sided rib fractures. The fluid analysis showed no evidence of malignancy. The most recent CAT scan shows a small right-sided pleural effusion and the right hemidiaphragm remains elevated and there is no indication of an underlying pneumonia #3 fracture multiple ribs on the right 6 -9 likely secondary to vigorous cough , with secondary pain on the right side of the chest #4 Hepatitis C secondary to remote history of IV drug abuse. #5 COPD CVA with an FEV1 of 27% of predicted maintained on a combination of Symbicort Spiriva on outpatient basis #6 History of hyperlipidemia. #7 Hypertension. #8 Gastroesophageal reflux disease. #9 Morbid obesity with suspected obesity/hypoventilation syndrome. Possible obstructive sleep apnea. #10 chronic hypoxic respiratory failure maintained on O2, 2 or 3 L/m nasal cannula #11 chronic smoker #12 chronic right hemidiaphragmatic elevation, likely a underlying paralysis/ unilateral. #13 severe symptomatically obstructive sleep apnea with an AHI of 62.4 with severe nocturnal oxygen desaturation. #14 altered mentation episodic, possible CO2 narcosis due to combination of COPD and obstructive sleep apnea and chronic right hemidiaphragmatic paralysis/ elevation. #15, troponin leak Plan Obtain blood gas to assess acid-base status. Obtain Doppler of the lower extremities. May discontinue the IV heparin within next 24 hours. The predominant pathology remains COPD as the patient has a advanced COPD with an FEV1 of 27% of predicted on examination he has marked diminished breath sounds along with active signs of COPD exacerbation. We'll treat him with known otherwise seems around the clock and IV Solu-Medrol. We'll check a blood gas. We'll offer her BiPAP overnight at a pressure of 10/5 cm of water which will be an arbitrary pressure to help with his COPD and obstructive sleep apnea. We'll ask cardiology to evaluate the troponin leak. Pain control regarding his right- sided chest wall pain. Provide the patient incentive spirometer. We'll continue to follow.
[2018-03-11 17:32] LABS: ABG Oxygen Saturation 92.4 % (94-97); ABG PH 7.31 (7.35-7.45); ABG PO2 73 mmHg (83-108); ABG TCO2 47 mmol/L (19-24)
[2018-03-11 17:34] LABS: ABG HCO3 44 mmol/L (21-25); ABG PCO2 88 mmHg (35-45)
--- NOTE | 2018-03-11 17:34 | P.HPIM ---
History of Present Illness H&P Date: 03/11/18 Chief Complaint: SOB 57-year-old male with history of COPD on home oxygen of 2-3 L and hepatitis C presented to the hospital with progressively worsening shortness of breath, cough productive of white phlegm, no hemoptysis as well as right upper back pleuritic chest pain. Also mentioned subjective fevers & chills. He has not been eating for the last 3 days because he has been feeling nauseous and having abdominal pain as well. He has been feeling generally weak. He has been using his nebulizers but they haven't been doing much for him. Patient has been in and out of the hospital over the last several months. He feels he was discharged from the hospital early last time. Last time his main diagnosis was COPD exacerbation, upon discharge he was given levaquin and prednisone taper. The hospitalization before that was for rib fracture and hemothorax. He had thoracentesis done on the right side at that time. He denies any leg swelling. Patient used to smoke 2 packs a day however he quit recently. In the emergency department she was found to be tachycardic, he had a CT angiogram of the chest that was positive for PE, he was started on heparin drip and admitted to the hospital for further evaluation and management. Review of Systems 12 point review of system performed, negative except HPI Past Medical History Past Medical History: Asthma, COPD, GERD/Reflux, Hyperlipidemia, Hypertension, Pneumonia Additional Past Medical History / Comment(s): hep C past iv heroin use in the , home 02 2.5 liters n/c pt stated he had a pne vacine less than 5 years ago not sure of date, unable to verify at time of this admit. History of Any Multi-Drug Resistant Organisms: None Reported Past Surgical History: Adenoidectomy, Tonsillectomy Past Anesthesia/Blood Transfusion Reactions: No Reported Reaction Past Psychological History: No Psychological Hx Reported Past Drug Use History: Heroin, Marijuana - Past Family History Father Family Medical History: Myocardial Infarction (MD) Additional Family Medical History / Comment(s): from [place] Mother Family Medical History: COPD Additional Family Medical History / Comment(s): still living Medications and Allergies Home Medications Medication Instructions Recorded Confirmed Type OLANZapine [ZyPREXA] 20 mg PO HS 02/28/16 03/11/18 History Tiotropium [place] [Spiriva] 1 cap INHALATION RT-DAILY 04/17/16 03/11/18 History Albuterol Nebulized [Ventolin 2.5 mg INHALATION RT-Q4H PRN 01/22/18 03/11/18 History Nebulized] Albuterol Sulfate [Proair Hfa] 2 puff INHALATION RT-Q4H PRN 01/22/18 03/11/18 History Budesonide/Formoterol Fumarate 2 puff INHALATION RT-BID 01/22/18 03/11/18 History [Symbicort 160-4.5 Mcg Inhaler] Escitalopram [Lexapro] 10 mg PO DAILY 01/22/18 03/11/18 History Omeprazole 40 mg PO DAILY 01/22/18 03/11/18 History traZODone HCL 50 mg PO HS 01/22/18 03/11/18 History Atorvastatin [Lipitor] 40 mg PO DAILY 03/04/18 03/11/18 History Losartan [Cozaar] 25 mg PO DAILY 03/04/18 03/11/18 History Acetaminophen Tab [Tylenol] 650 mg PO Q6HR PRN #28 tab 03/05/18 03/11/18 Rx Levofloxacin [Levaquin] 750 mg PO DAILY #5 tab 03/05/18 03/11/18 Rx predniSONE 40 mg PO DAILY #5 tab 03/05/18 03/11/18 Rx Allergies Allergy/AdvReac Type Severity Reaction Status Date / Time No Known Allergies Allergy Verified 03/11/18 08:26 Physical Exam Vitals: Vital Signs Temp Pulse Resp BP Pulse Ox 03/11/18 15:22 103 H 94 L 03/11/18 12:00 116 H 22 168/101 93 L 03/11/18 11:39 104 H 20 168/102 94 L 03/11/18 10:38 109 H 18 171/112 95 03/11/18 09:49 113 H 20 188/97 94 L 03/11/18 08:06 98.7 F 111 H 22 145/99 81 L Intake and Output 03/11/18 03/11/18 03/11/18 06:59 14:59 22:59 Output Total 1100 Balance -1100 Output: Urine 1100 Other: Weight 114.7 kg Constitutional: No acute distress, conversant, pleasant Eyes:Anicteric sclerae, moist conjunctiva, no lid-lag, PERRLA, ENMT: Oropharynx clear, no erythema, exudates Neck: Supple, FROM, no masses, or JVD, No carotid bruits, No thyromegaly Lungs: Very diminished breath sounds bilaterally, Clear to percussion, Normal respiratory effort, no accessory muscle use Cardiovascular: Heart regular in rate and rhythm, No murmurs, gallops, or rubs, No peripheral edema Abdominal: Soft, right upper and left upper quadrant tenderness, no guarding, rebound or rigidity, Normoactive bowel sounds, No hepatomegaly, No splenomegaly , No palpable mass Skin: Normal temperature, tone, texture, turgor, no induration, No subcutaneous nodules, No rash, lesions, No ulcers Extremities: No digital cyanosis, No clubbing, Pedal pulses intact and symmetrical, Radial pulses intact and symmetrical, No calf tenderness Psychiatric: Alert and oriented to person, place and time, appropriate affect, intact judgement Neuro: Muscles Strength 5/5 in all 4 extremities, Sensation to light touch grossly present throughout, Cranial nerves II-XII grossly intact, no focal sensory deficits Results CBC & Chem 7: 03/11/18 08:33 03/11/18 08:33 Labs: Abnormal Lab Results - Last 24 Hours (Table) 03/11/18 03/11/18 03/11/18 Range/Units 08:33 08:33 08:33 WBC 15.3 H (3.8-10.6) k/uL Hct 53.5 H (39.0-53.0) % Neutrophils # 12.5 H (1.3-7.7) k/uL D-Dimer (<0.60) mg/L FEU Chloride 92 L (98-107) mmol/L Carbon Dioxide 37 H (22-30) mmol/L BUN 22 H (9-20) mg/dL Glucose 100 H (74-99) mg/dL POC Glucose (mg/dL) (75-99) mg/dL Troponin I 0.167 H* (0.000-0.034) ng/mL 03/11/18 03/11/18 Range/Units 08:33 13:25 WBC (3.8-10.6) k/uL Hct (39.0-53.0) % Neutrophils # (1.3-7.7) k/uL D-Dimer 1.04 H (<0.60) mg/L FEU Chloride (98-107) mmol/L Carbon Dioxide (22-30) mmol/L BUN (9-20) mg/dL Glucose (74-99) mg/dL POC Glucose (mg/dL) 154 H (75-99) mg/dL Troponin I (0.000-0.034) ng/mL Assessment and Plan Plan: Acute hypoxic respiratory failure/acute exacerbation of COPD We'll obtain ABG CT of the chest reviewed Pulmonary consulted, discussed with Dr. Farnsworth Support Manager doubts PE. Recommend stopping heparin in 24 hours. No sepsis or pneumonia. Solu-Medrol and DuoNeb's Right-sided pleural effusion Patient has chronic elevation of right hemidiaphragm Decision for thoracentesis up to pulmonary Troponin elevation Likely nonspecific, secondary to #1 EKG reviewed, nothing acute Consult cardiology Cycle troponins Bipolar disorder, GERD/Reflux, Hyperlipidemia, Hypertension: All stable Resume home meds DVT prophylaxis On heparin
[2018-03-11] MEDS: methylPREDNISolone SOD SUCCI 125 MG/2 ML VIAL IV SCH (18:04)
[2018-03-11] MEDS: SYMBICORT 160-4.5 MCG INHALER INHALATION SCH (19:03)
[2018-03-11 19:25] LABS: Hemoglobin A1C 5.6 % (4.0-6.0)
[2018-03-11] MEDS ORDERED: BUDESONIDE 0.5 MG/2 ML NEBU INHALATION SCH (20:00)
[2018-03-11 20:51] LABS: Glucose,Whole Blood 143 mg/dL (75-99)
[2018-03-11] MEDS: traZODone HCL 50 MG TAB PO SCH (21:38)
[2018-03-11] MEDS: OLANZapine 10 MG TAB PO SCH (21:41)
--- NOTE | 2018-03-11 22:00 | US ---
EXAMINATION TYPE: US venous doppler duplex LE DATE OF EXAM: 03/11/2018 5:19 PM COMPARISON: NONE CLINICAL HISTORY: rule out DVT. PE SIDE PERFORMED: Bilateral TECHNIQUE: The lower extremity deep venous system is examined utilizing real time linear array sonog brice with graded compression, doppler sonography and color-flow sonography. VESSELS IMAGED: External Iliac Vein (EIV) Common Femoral Vein Deep Femoral Vein Greater Saphenous Vein * Femoral Vein Popliteal Vein Small Saphenous Vein * Proximal Calf Veins (* superficial vessels) FINDINGS: Grayscale, color doppler, spectral doppler imaging performed of the deep veins of the lower extremities. There is normal flow, compressibility, vascular waveforms. IMPRESSION: NEGATIVE FOR DVT BILATERAL LOWER EXTREMITIES.
[2018-03-12] MEDS: HEPARIN SOD,PORK IN 0.45% NACL 25,000 UNIT in 0.45% NACL 1 500ML.BAG IV SCH (00:03)
[2018-03-12] MEDS: MORPHINE SULFATE 2 MG/ML SYRINGE IV PRN ×5 (00:22→22:25)
[2018-03-12 02:44] LABS: Basophils % (A) 0 %; Eosinophils # (A) 0.1 k/uL (0-0.7); Eosinophils % (A) 1 %; HCT 50.2 % (39.0-53.0); Hypochromasia Slight; Lymphocytes # (A) 0.5 k/uL (1.0-4.8); Lymphocytes % (A) 4 %; MCH 30.1 pg (25.0-35.0); MCHC 31.8 g/dL (31.0-37.0); MCV 94.7 fL (80.0-100.0); Mean Platelet Volume 6.9; Monocytes # (A) 0.3 k/uL (0-1.0); Monocytes % (A) 2 %; Neutrophils # (A) 12.3 k/uL (1.3-7.7); Neutrophils % (A) 93 %; Platelet Count 289 k/uL (150-450); RDW 14.7 % (11.5-15.5); WBC 13.2 k/uL (3.8-10.6)
[2018-03-12 03:26] LABS: Anion Gap 8 mmol/L; Blood Urea Nitrogen 31 mg/dL (9-20); Calcium 8.6 mg/dL (8.4-10.2); Carbon Dioxide 39 mmol/L (22-30); Chloride 86 mmol/L (98-107); Glucose 165 mg/dL (74-99); Magnesium 2.5 mg/dL (1.6-2.3); Phosphorus 6.4 mg/dL (2.5-4.5); Potassium 4.5 mmol/L (3.5-5.1); Sodium 133 mmol/L (137-145)
[2018-03-12 05:01] LABS: ABG Base Excess 17.6 mmol/L; ABG Oxygen Saturation 94.9 % (94-97); ABG PO2 81 mmHg (83-108); ABG TCO2 47 mmol/L (19-24)
[2018-03-12] MEDS: methylPREDNISolone SOD SUCCI 125 MG/2 ML VIAL IV SCH ×4 (05:24→18:02)
[2018-03-12 06:38] LABS: Glucose,Whole Blood 134 mg/dL (75-99)
--- NOTE | 2018-03-12 07:06 | XR ---
EXAMINATION TYPE: XR chest 1V portable DATE OF EXAM: 03/12/2018 COMPARISON: Yesterday HISTORY: Difficulty breathing TECHNIQUE: Single frontal view of the chest is obtained. FINDINGS: There is some elevation of the right diaphragm. Heart is shifted slightly to the right raudel e. There is patchy increased density over the right lung base. There is mild pulmonary congestion. Le ft lung is clear of consolidation. There are chest leads. Right posterior rib fractures noted. IMPRESSION: There is some consolidation and atelectasis in the right lower lobe that is slightly wor se than yesterday. I do not suspect heart failure.
[2018-03-12] MEDS: IPRATROPIUM-ALBUTEROL 3 ML NEB INHALATION PRN ×4 (07:16→20:30)
[2018-03-12] MEDS: IPRATROPIUM 0.5 MG/2.5 ML NEBU INHALATION SCH ×4 (07:16→20:31)
[2018-03-12] MEDS: SYMBICORT 160-4.5 MCG INHALER INHALATION SCH ×3 (07:17→21:07)
--- NOTE | 2018-03-12 07:20 | P.CRDCN ---
History of Present Illness Consult date: 03/12/18 Chief complaint: Chest discomfort History of present illness: This is a pleasant 57-year-old gentleman with a past medical history significant for COPD, chronic hypoxic respiratory failure on home oxygen, hypertension, dyslipidemia, and history of hepatitis C, presented to the hospital complaining of chest discomfort as well as shortness of breath. The patient stated that he has been experiencing chest discomfort, mainly on the right side of the chest, described it as a sharp kind of discomfort associated mainly with breathing movement. He is also was more short of breath and also was coughing extensively. The d-dimer in the emergency room came in to be elevated and subsequently the patient underwent a computed tomography scan of the chest which found to have suspected subsegmental filling defect and few segmental defect in the left lung raising suspicious of pulmonary embolization. Because of that the patient was started on heparin IV. Beside that the patient was found to have multiple displaced right lateral rib fracture and also interstitial edema and sign of fluid overload. The repeated the chest x-ray from today showed slightly worsening right pleural effusion. The patient does have history of chronic right pleural effusion and he underwent pleurocentesis in the past. We get involved in the care of the patient this time because her troponin was checked and came in to be slightly abnormal. The patient did have 3 sets of cardiac enzymes came in to be abnormal but it does not seem to be consistent with acute myocardial infarction. The EKG showed sinus rhythm without any ischemic ST or T-wave abnormalities. The patient is not aware of any prior history of coronary artery disease or congestive heart failure or cardiac arrhythmia and he stated that he never seen a radiology specialist in the past. No history of coronary revascularization as well. Currently the patient is on heparin IV. I am going to add aspirin and statin to the current medical regimen. Also I am going to add small dose of metoprolol to control the heart rate as well. I do feel that the abnormal cardiac enzymes is unrelated to acute myocardial infarction giving there are trend which is flat across the board. But I will obtain an echocardiogram was Doppler. And I will consider medical treatment at this point. Past Medical History Past Medical History: Asthma, COPD, GERD/Reflux, Hyperlipidemia, Hypertension, Pneumonia Additional Past Medical History / Comment(s): hep C past iv heroin use in the , home 02 2.5 liters n/c pt stated he had a pne vacine less than 5 years ago not sure of date, unable to verify at time of this admit. History of Any Multi-Drug Resistant Organisms: None Reported Past Surgical History: Adenoidectomy, Tonsillectomy Past Anesthesia/Blood Transfusion Reactions: No Reported Reaction Past Psychological History: No Psychological Hx Reported Past Drug Use History: Heroin, Marijuana - Past Family History Father Family Medical History: Myocardial Infarction ([place]) Additional Family Medical History / Comment(s): from [place] Mother Family Medical History: COPD Additional Family Medical History / Comment(s): still living Medications and Allergies Home Medications Medication Instructions Recorded Confirmed Type OLANZapine [ZyPREXA] 20 mg PO HS 02/28/16 03/11/18 History Tiotropium Witt [Spiriva] 1 cap INHALATION RT-DAILY 04/17/16 03/11/18 History Albuterol Nebulized [Ventolin 2.5 mg INHALATION RT-Q4H PRN 01/22/18 03/11/18 History Nebulized] Albuterol Sulfate [Proair Hfa] 2 puff INHALATION RT-Q4H PRN 01/22/18 03/11/18 History Budesonide/Formoterol Fumarate 2 puff INHALATION RT-BID 01/22/18 03/11/18 History [Symbicort 160-4.5 Mcg Inhaler] Escitalopram [Lexapro] 10 mg PO DAILY 01/22/18 03/11/18 History Omeprazole 40 mg PO DAILY 01/22/18 03/11/18 History traZODone HCL 50 mg PO HS 01/22/18 03/11/18 History Atorvastatin [Lipitor] 40 mg PO DAILY 03/04/18 03/11/18 History Losartan [Cozaar] 25 mg PO DAILY 03/04/18 03/11/18 History Acetaminophen Tab [Tylenol] 650 mg PO Q6HR PRN #28 tab 03/05/18 03/11/18 Rx Levofloxacin [Levaquin] 750 mg PO DAILY #5 tab 03/05/18 03/11/18 Rx predniSONE 40 mg PO DAILY #5 tab 03/05/18 03/11/18 Rx Allergies Allergy/AdvReac Type Severity Reaction Status Date / Time No Known Allergies Allergy Verified 03/11/18 08:26 Physical Exam Vitals: Vital Signs Temp Pulse Resp BP Pulse Ox 03/12/18 05:00 84 20 140/86 96 03/12/18 04:00 98.1 F 84 20 113/69 91 L 03/12/18 03:11 24 03/12/18 03:00 94 24 125/73 91 L 03/12/18 02:00 91 15 114/64 90 L 03/12/18 01:00 93 18 129/81 94 L 03/12/18 00:00 97.5 F L 83 23 136/71 93 L 03/11/18 23:00 86 17 104/64 93 L 03/11/18 22:00 94 11 L 111/65 93 L 03/11/18 21:00 98.5 F 91 21 128/58 96 03/11/18 20:00 92 24 90/63 90 L 03/11/18 19:14 97 93 L 03/11/18 19:03 95 03/11/18 19:00 105 H 34 H 137/73 95 03/11/18 18:00 103 H 49 H 139/82 89 L 03/11/18 17:00 113 H 36 H 150/85 92 L 03/11/18 16:30 103 H 28 H 150/85 03/11/18 16:00 98.1 F 108 H 27 H 151/70 90 L 03/11/18 15:34 102 H 03/11/18 15:30 98.3 F 108 H 26 H 170/93 96 03/11/18 15:22 103 H 94 L 03/11/18 15:00 110 H 33 H 165/94 95 03/11/18 14:30 113 H 35 H 161/84 95 03/11/18 14:00 107 H 32 H 160/86 95 03/11/18 13:30 102 H 28 H 165/89 97 03/11/18 13:21 104 H 03/11/18 12:00 116 H 22 168/101 93 L 03/11/18 11:39 104 H 20 168/102 94 L 03/11/18 10:38 109 H 18 171/112 95 03/11/18 09:49 113 H 20 188/97 94 L 03/11/18 08:06 98.7 F 111 H 22 145/99 81 L Intake and Output 03/11/18 03/12/18 03/12/18 22:59 06:59 14:59 Intake Total 528.212 569.858 Output Total 650 700 Balance -121.788 -130.142 Intake: IV 60 180 normal saline 60 180 Intake, IV Titration 348.212 149.858 Amount Heparin Sod,Pork in 0.45% 348.212 149.858 NaCl 25,000 unit In 0.45 % NaCl 1 500ml.bag @ 18 UNITS/KG/HR 41.29 mls/hr IV .Q12H7M [facility] Rx#: [id number] Oral 120 240 Output: Urine 650 700 Other: Voiding Method Urinal Urinal Weight 115 kg 116.6 kg - Constitutional General appearance: no acute distress - Respiratory Respiratory: right: diminished, left: CTA - Cardiovascular Rhythm: regular Heart sounds: normal: S1, S2 Results 03/12/18 02:28 03/12/18 02:28 Cardiac Enzymes 03/11/18 03/11/18 03/11/18 Range/Units 08:33 08:33 15:46 AST 26 (17-59) U/L CK-MB (CK-2) 2.4 (0.0-2.4) ng/mL Troponin I 0.167 H* 0.114 H* (0.000-0.034) ng/mL 03/11/18 Range/Units 20:12 AST (17-59) U/L CK-MB (CK-2) (0.0-2.4) ng/mL Troponin I 0.092 H* (0.000-0.034) ng/mL Coagulation 03/11/18 03/11/18 03/12/18 Range/Units 08:33 17:15 02:28 PT 10.8 (9.0-12.0) sec APTT 22.1 86.5 H 70.0 H (22.0-30.0) sec CBC 03/11/18 03/12/18 Range/Units 08:33 02:28 WBC 15.3 H 13.2 H (3.8-10.6) k/uL RBC 5.70 5.30 (4.30-5.90) m/uL Hgb 17.0 16.0 (13.0-17.5) gm/dL Hct 53.5 H 50.2 (39.0-53.0) % Plt Count 379 289 (150-450) k/uL Comprehensive Metabolic Panel 03/11/18 03/12/18 Range/Units 08:33 02:28 Sodium 137 133 L (137-145) mmol/L Potassium 4.9 4.5 (3.5-5.1) mmol/L Chloride 92 L 86 L (98-107) mmol/L Carbon Dioxide 37 H 39 H (22-30) mmol/L BUN 22 H 31 H (9-20) mg/dL Creatinine 0.79 0.90 (0.66-1.25) mg/dL Glucose 100 H 165 H (74-99) mg/dL Calcium 8.8 8.6 (8.4-10.2) mg/dL AST 26 (17-59) U/L ALT 35 (21-72) U/L Alkaline Phosphatase 46 (38-126) U/L Total Protein 6.5 (6.3-8.2) g/dL Albumin 4.1 (3.5-5.0) g/dL Current Medications Generic Name Dose Route Start Last Admin Trade Name Freq PRN Reason Stop Dose Admin Acetaminophen 650 mg 03/11/18 11:24 Tylenol Tab PO Q4HR PRN Fever and/or Mild Pain Albuterol/Ipratropium 3 ml 03/11/18 11:24 03/11/18 19:03 Duoneb 0.5 Mg-3 Mg/3 Ml Soln INHALATION 3 ml RT-Q4H PRN Administration Shortness Of Breath Or Wheezing Atorvastatin Calcium 40 mg 03/12/18 09:00 Lipitor PO DAILY [facility] Budesonide/Formoterol Fumarate 2 puff 03/11/18 20:00 03/11/18 19:03 Symbicort 160-4.5 Mcg Inhaler INHALATION Not Given RT-BID [facility] Escitalopram Oxalate 10 mg 03/12/18 09:00 Lexapro PO DAILY JOCELYNE Heparin Sodium (Porcine) 0 unit 03/11/18 11:14 Heparin IV PER PROTOCOL PRN Low PTT Protocol Heparin Sodium/Sodium Chloride 500 mls @ 41.29 mls/hr 03/11/18 11:15 00:03 25,000 unit/ Sodium Chloride IV 16 units/kg/hr .Q12H7M JOCELYNE 36.7 mls/hr Administration Protocol 18 UNITS/KG/HR Ipratropium Witt 0.5 mg 03/12/18 08:00 Atrovent Nebulized INHALATION RT-QID [facility] Losartan Potassium 25 mg 03/12/18 09:00 Cozaar PO DAILY [facility] Methylprednisolone Sodium Succinate 60 mg 03/11/18 18:00 03/12/18 05:24 Solu-Medrol IV 60 mg Q6HR JOCELYNE Administration Morphine Sulfate 4 mg 03/11/18 11:24 03/12/18 05:23 Morphine Sulfate (Inj) IV 4 mg Q2HR PRN Administration Pain Scale 8 to 10 Naloxone HCl 0.2 mg 03/11/18 11:24 Narcan IV Q2M PRN Opioid Reversal Naloxone HCl 0.2 mg 03/11/18 15:27 Narcan IV Q2M PRN Opioid Reversal Olanzapine 20 mg 03/11/18 21:00 03/11/18 21:41 Zyprexa PO Not Given HS [facility] Pantoprazole Sodium 40 mg 03/12/18 07:30 Protonix PO AC-BRKFST [facility] Trazodone HCl 50 mg 03/11/18 21:00 03/11/18 21:38 Desyrel PO Not Given HS [facility] Intake and Output 03/11/18 03/12/18 03/12/18 22:59 06:59 14:59 Intake Total 528.212 569.858 Output Total 650 700 Balance -121.788 -130.142 Intake: IV 60 180 normal saline 60 180 Intake, IV Titration 348.212 149.858 Amount Heparin Sod,Pork in 0.45% 348.212 149.858 NaCl 25,000 unit In 0.45 % NaCl 1 500ml.bag @ 18 UNITS/KG/HR 41.29 mls/hr IV .Q12H7M [facility] Rx#: [id number] Oral 120 240 Output: Urine 650 700 Other: Voiding Method Urinal Urinal Weight 115 kg 116.6 kg 03/12/18 02:28 03/12/18 02:28 Assessment and Plan Assessment: Assessment #1 pleuritic chest discomfort likely related to rib fracture as well as possible PE #2 PE #3 right pleural effusion #4 rib fracture #5 mildly abnormal cardiac enzymes Plan #1 the abnormal cardiac enzymes is not consistent with acute myocardial infarction. #2 in the absence of any anginal chest discomfort and EKG changes I would consider medical treatment only. #3 I would add aspirin and metoprolol to the current medical regimen which includes statin #4 continue IV heparin for anticoagulation for the PE #5 obtain an echocardiogram was Doppler #6 I will obtain a BNP as well as to help stratify the diagnoses of congestive heart failure #7 follow-up with the patient.
[2018-03-12] MEDS ORDERED: predniSONE 20 MG TAB PO SCH (09:00)
[2018-03-12] MEDS ORDERED: ASPIRIN 325 MG TAB PO SCH (09:00)
[2018-03-12] MEDS ORDERED: LEVOFLOXACIN 750 MG TAB PO SCH (09:00)
[2018-03-12] MEDS: PANTOPRAZOLE 40 MG TABLET PO SCH (10:39)
[2018-03-12] MEDS: ATORVASTATIN 40 MG TAB PO SCH (10:39)
[2018-03-12] MEDS: ESCITALOPRAM 10 MG TAB PO SCH (10:39)
[2018-03-12] MEDS: LOSARTAN 25 MG TAB PO SCH (10:40)
[2018-03-12] MEDS: APIXABAN 5 MG TAB PO SCH ×2 (10:40→21:43)
[2018-03-12] MEDS: METOPROLOL TARTRATE 12.5 MG TAB PO SCH ×2 (10:41→21:44)
[2018-03-12] MEDS: FUROSEMIDE 10 MG/ML 4 ML VIAL IV SCH ×2 (11:06→21:44)
[2018-03-12] MEDS: ASPIRIN 81 MG PO SCH (11:14)
--- NOTE | 2018-03-12 11:42 | ECHOF ---
Referral Reason:nstemi MEASUREMENTS -------- HEIGHT: 182.9 cm WEIGHT: 116.6 kg BP: 128/66 RVIDd: 3.6 cm (< 3.3) IVSd: 1.2 cm (0.6 - 1.1) LVIDd: 4.4 cm (3.9 - 5.3) LVPWd: 1.2 cm (0.6 - 1.1) IVSs: 1.7 cm LVIDs: 1.7 cm LVPWs: 1.8 cm LA Diam: 3.9 cm (2.7 - 3.8) LAESV Index (A-L): 17.85 ml/m Ao Diam: 3.2 cm (2.0 - 3.7) AV Cusp: 2.4 cm (1.5 - 2.6) MV EXCURSION: 16.659 mm (> 18.000) MV EF SLOPE: 69 mm/s (70 - 150) EPSS: 0.3 cm MV E David: 0.82 m/s MV DecT: 358 ms MV A David: 1.06 m/s MV E/A Ratio: 0.77 AV maxP.81 mmHg AV meanP.07 mmHg RAP: 5.00 mmHg RVSP: 41.95 mmHg FINDINGS -------- Sinus rhythm. This was a technically adequate study. The left ventricular size is normal. There is borderline concentric left ventricular hypertrophy. Overall left ventricular systolic function is normal with, an EF between 65 - 70 %. The right ventricle is mildly enlarged. Normal LA size by volume 22+/-6 ml/m2. The right atrium is normal in size. There is mild aortic valve sclerosis. Peak/mean gradient across the Aortic Valve is 14.81mmHg / 8.0 7mmHg. Mild mitral annular calcification present. Mild tricuspid regurgitation present. There is mild pulmonary hypertension. The right ventricular systolic pressure, as measured by Doppler, is 41.95mmHg. Trace/mild (physiologic) pulmonic regurgitation. The aortic root size is normal. Normal inferior vena cava with normal inspiratory collapse consistent with estimated right atrial pre ssure of 5 mmHg. There is no pericardial effusion. CONCLUSIONS -------- 1. Sinus rhythm. 2. This was a technically adequate study. 3. The left ventricular size is normal. 4. There is borderline concentric left ventricular hypertrophy. 5. Overall left ventricular systolic function is normal with, an EF between 65 - 70 %. 6. The right ventricle is mildly enlarged. 7. Normal LA size by volume 22+/-6 ml/m2. 8. The right atrium is normal in size. 9. There is mild aortic valve sclerosis. 10. Peak/mean gradient across the Aortic Valve is 14.81mmHg / 8.07mmHg. 11. Mild mitral annular calcification present. 12. Mild tricuspid regurgitation present. 13. There is mild pulmonary hypertension. 14. The right ventricular systolic pressure, as measured by Doppler, is 41.95mmHg. 15. Trace/mild (physiologic) pulmonic regurgitation. 16. The aortic root size is normal. 17. Normal inferior vena cava with normal inspiratory collapse consistent with estimated right atrial pressure of 5 mmHg. 18. There is no pericardial effusion. NUTRITION TECHNICIAN: Zoe Rich RDCS
[2018-03-12 12:09] LABS: Glucose,Whole Blood 118 mg/dL (75-99)
--- NOTE | 2018-03-12 12:58 | P.PN ---
Subjective Progress Note Date: 03/12/18 This is a 57-year-old male patient who presented to the burst department with two-day history of worsening shortness of breath and pain across his chest with deep breathing. A CT angios the chest was done in the emergency department and the patient was found to have respiratory motion artifact, multiple areas of suspected subsegmental filling defects and few segmental defects in the left basilar pulmonary artery raising the suspicion for pulmonary embolism. No evidence of any right heart strain pattern. There was a right-sided pleural effusion that was small and the patient has multiple displaced right lateral nonunited rib fractures ribs 6 through 9. There was some also interstitial edema and signs of fluid overload This patient is known to me. The patient was in the hospital back in January 2018. The patient has a known history of COPD with an FEV1 of 26% of predicted , in addition to hepatitis C, history of IVDA, hypertension, hyperlipidemia and acid reflux. The patient is also obese.. The patient was having increased cough and and he was admitted to the hospital with vigorous cough, pain along the right side of the chest and a right lung opacity. Upon further investigation the patient was found to have a moderate-sized right-sided pleural effusion. Initially, a thoracentesis was done and approximately 1.3 L of fluid was aspirated from the right lung. The procedure itself did result in significant right lung reexpansion. Based on that, a CAT scan of the chest was ordered and the patient was found to have evidence of bilateral the fracture and there was a right-sided pleural effusion and compressive atelectasis of the right lung base. At that point, a pigtail catheter/chest tube was inserted and the residual pleural effusion was drained. Another 2 L of pleural fluid was aspirated. Ultimately the patient accidentally lost the tube and the tube was not reinserted as the patient's chest x-ray showed improved aeration reexpansion of the right lung. There may be some eventration of right hemidiaphragm/right hemidiaphragmatic paralysis as the right hemidiaphragm remains to be elevated. He was discharged home on oxygen. The patient is a chronic smoker. The patient has smoked for more than 40 years and he has not smoked for the past 2 weeks. He is on a combination of Spiriva, Symbicort and Proventil rescue inhaler. He also has an oxygen concentrator at home. In the interim the patient was readmitted to the hospital back in 03/03/2018 and it was suspected the patient was having a pneumonia. CT angios the chest was done on 03/03 and there was no evidence of any pulmonary embolism. The CAT scan showed elevation of the right hemidiaphragm and there is some limited the right basilar atelectatic changes/infiltration and the patient was assumed to have an underlying pneumonia and he was treated with broad-spectrum antibiotics including a combination of Zosyn and vancomycin ultimately the patient was discharged home on a prednisone burst taper and Levaquin. No pulmonate consultation was requested at that time. Also, on 02/16/2018, the patient was diagnosed having severe obstructive sleep apnea an AHI of 62.4 worsening a by body position and the patient also demonstrates severe nocturnal oxygen desaturations. He was supposed to undergo a CPAP/BiPAP titration at a later stage. Today's evaluation of 03/12/2018 the patient is a bit more awake compared to yesterday. Note that after my initial evaluation blood gases was done and the patient was found to be in acute on top of chronic hypercapnic respiratory failure with a pCO2 in the high 80s. Overnight the patient was laced on a BiPAP initially at a pressure of 10/5 and subsequently at a pressure of 12/5 cm of water and FiO2 was being adjusted to maintain a saturation above 88%. This morning he seems to be much more alert and awake. I tried him on oxygen by nasal cannula however he was unable to tolerate and he desaturated and based on that he was placed back on the BiPAP. Currently his acute hypoxic and hypercapnic respiratory failure is felt to be related to COPD exacerbation, right hemidiaphragmatic paralysis, and severe obstructive sleep apnea. Underlying pulmonary embolism is felt to be less likely. The pleural effusion on the right is small at this point in time. There is troponin leak. I give him IV heparin for the past 24 hours and going to switch this patient to oral Eliquis. I doubt the possibility of pulmonary embolism as mentioned earlier and the patient had Doppler of the lower extremity that came back negative for any DVTs. white cell count is at 13.2. The morning blood gases showed a pH of 7.3 with a pCO2 of 90 and pO2 of 81 and this was done and FiO2 of 60%. Objective - Vital Signs Vital signs: Vital Signs Temp 97.8 F 03/12/18 08:00 Pulse 80 03/12/18 11:12 Resp 18 03/12/18 11:00 BP 118/80 03/12/18 11:00 Pulse Ox 93 L 03/12/18 11:00 Intake & Output 03/11/18 03/12/18 03/12/18 18:59 06:59 18:59 Intake Total 120 978.070 80 Output Total 1100 1350 0 Balance -980 -371.930 80 Weight 115 kg 116.6 kg Intake: IV 240 80 normal saline 240 80 Intake, IV Titration 498.070 Amount Heparin Sod,Pork in 0.45% 498.070 NaCl 25,000 unit In 0.45 % NaCl 1 500ml.bag @ 18 UNITS/KG/HR 41.29 mls/hr IV .Q12H7M [facility] Rx#: [id number] Oral 120 240 Output: Urine 1100 1350 0 Other: Voiding Method Urinal Urinal - Exam General Appearance no diaphoresis, no respiratory distress, speech not interrupted by breaths, no dyspnea, no pallor, not cachectic, well nourished, appears well, obesity HEENT no pursed lip breathing, no jugular venous distention, no mucous membrane cyanosis, no perioral cyanosis, mallampati classification: class 1, Mallampati Classification: Class 4 Chest no barrel chest, no retractions, no sternocleidomastoid muscle contractions, no supraclavicular retractions, no intercostal retractions, no prolonged expiratory wheezing, no decreased air movement, no rhonchi, no hyperinflation, (normal) adventitious sounds: rales / crackles: bilaterally: midlung contreras, decreased air movement Heart no right ventricular heave, no distant heart sounds, no s3 gallop, (normal ) jugular vein: jugular venous distention: by 0cm, (normal) jugular vein, Murmurs: Unspecified Location: Systolic: Grade 2 / IV GI bowel sounds: hyperactive (borborygmi), bowel sounds: diminished or absent Extremities no cyanosis, no clubbing, no edema Neurologic no decreased mental status, no somnolence, no confusion Assisstive Devices: ambulates with no assitive devices Gait and Mobility: gait WNL, full weight bearing General Appearance normal, (normal) normal except as noted - Labs CBC & Chem 7: 03/12/18 02:28 03/12/18 02:28 Labs: Abnormal Lab Results - Last 24 Hours (Table) 03/11/18 03/11/18 03/11/18 Range/Units 13:25 15:46 17:15 WBC (3.8-10.6) k/uL Neutrophils # (1.3-7.7) k/uL Lymphocytes # (1.0-4.8) k/uL APTT 86.5 H (22.0-30.0) sec ABG pH (7.35-7.45) ABG pCO2 (35-45) mmHg ABG pO2 (83-108) mmHg ABG HCO3 (21-25) mmol/L ABG Total CO2 (19-24) mmol/L ABG O2 Saturation (94-97) % Sodium (137-145) mmol/L Chloride (98-107) mmol/L Carbon Dioxide (22-30) mmol/L BUN (9-20) mg/dL Glucose (74-99) mg/dL POC Glucose (mg/dL) 154 H (75-99) mg/dL Phosphorus (2.5-4.5) mg/dL Magnesium (1.6-2.3) mg/dL Troponin I 0.114 H* (0.000-0.034) ng/mL 03/11/18 03/11/18 03/11/18 Range/Units 17:25 20:12 20:48 WBC (3.8-10.6) k/uL Neutrophils # (1.3-7.7) k/uL Lymphocytes # (1.0-4.8) k/uL APTT (22.0-30.0) sec ABG pH 7.31 L (7.35-7.45) ABG pCO2 88 H* (35-45) mmHg ABG pO2 73 L (83-108) mmHg ABG HCO3 44 H* (21-25) mmol/L ABG Total CO2 47 H (19-24) mmol/L ABG O2 Saturation 92.4 L (94-97) % Sodium (137-145) mmol/L Chloride (98-107) mmol/L Carbon Dioxide (22-30) mmol/L BUN (9-20) mg/dL Glucose (74-99) mg/dL POC Glucose (mg/dL) 143 H (75-99) mg/dL Phosphorus (2.5-4.5) mg/dL Magnesium (1.6-2.3) mg/dL Troponin I 0.092 H* (0.000-0.034) ng/mL 03/12/18 03/12/18 03/12/18 Range/Units 02:28 02:28 02:28 WBC 13.2 H (3.8-10.6) k/uL Neutrophils # 12.3 H (1.3-7.7) k/uL Lymphocytes # 0.5 L (1.0-4.8) k/uL APTT 70.0 H (22.0-30.0) sec ABG pH (7.35-7.45) ABG pCO2 (35-45) mmHg ABG pO2 (83-108) mmHg ABG HCO3 (21-25) mmol/L ABG Total CO2 (19-24) mmol/L ABG O2 Saturation (94-97) % Sodium 133 L (137-145) mmol/L Chloride 86 L (98-107) mmol/L Carbon Dioxide 39 H (22-30) mmol/L BUN 31 H (9-20) mg/dL Glucose 165 H (74-99) mg/dL POC Glucose (mg/dL) (75-99) mg/dL Phosphorus 6.4 H (2.5-4.5) mg/dL Magnesium 2.5 H (1.6-2.3) mg/dL Troponin I (0.000-0.034) ng/mL 03/12/18 03/12/18 03/12/18 Range/Units 04:59 06:36 12:07 WBC (3.8-10.6) k/uL Neutrophils # (1.3-7.7) k/uL Lymphocytes # (1.0-4.8) k/uL APTT (22.0-30.0) sec ABG pH 7.30 L (7.35-7.45) ABG pCO2 90 H* (35-45) mmHg ABG pO2 81 L (83-108) mmHg ABG HCO3 44 H* (21-25) mmol/L ABG Total CO2 47 H (19-24) mmol/L ABG O2 Saturation (94-97) % Sodium (137-145) mmol/L Chloride (98-107) mmol/L Carbon Dioxide (22-30) mmol/L BUN (9-20) mg/dL Glucose (74-99) mg/dL POC Glucose (mg/dL) 134 H 118 H (75-99) mg/dL Phosphorus (2.5-4.5) mg/dL Magnesium (1.6-2.3) mg/dL Troponin I (0.000-0.034) ng/mL Microbiology - Last 24 Hours (Table) 03/11/18 10:30 Urine Culture - Preliminary Urine,Voided Assessment and Plan Plan: #1 . acute/chronic chest pain/shortness of breath with acute on chronic hypercapnic respiratory failure and acute hypoxic arrest 30 failure. The patient's respiratory failure is essentially due to COPD exacerbation and right hemidiaphragmatic elevation and severe obstructive sleep apnea. The pleural effusion is small and probably not contributing to respiratory failure. I doubt the possibility of pulmonary embolism although the CAT scan of the chest has revealed some questionable segmental and subsegmental filling defects in the lower lobe pulmonary artery branch. I'm going to treat this patient with BiPAP, bronchodilators and steroids. We'll offer this patient some diuretics and will continue the anticoagulation. #2 pleural effusion, the patient is status post initial thoracentesis and following that the patient had a small bore chest tube inserted and evacuation of more than 2 L of bloody pleural effusion which is most likely related to vigorous coughing. The patient had a pleural effusion that was bloody and the right-sided rib fractures. The fluid analysis showed no evidence of malignancy. The most recent CAT scan shows a small right-sided pleural effusion and the right hemidiaphragm remains elevated and there is no indication of an underlying pneumonia #3 fracture multiple ribs on the right 6 -9 likely secondary to vigorous cough , with secondary pain on the right side of the chest #4 Hepatitis C secondary to remote history of IV drug abuse. #5 COPD CVA with an FEV1 of 27% of predicted maintained on a combination of Symbicort Spiriva on outpatient basis #6 History of hyperlipidemia. #7 Hypertension. #8 Gastroesophageal reflux disease. #9 Morbid obesity with suspected obesity/hypoventilation syndrome. Possible obstructive sleep apnea. #10 chronic hypoxic respiratory failure maintained on O2, 2 or 3 L/m nasal cannula #11 chronic smoker #12 chronic right hemidiaphragmatic elevation, likely a underlying paralysis/ unilateral. #13 severe symptomatically obstructive sleep apnea with an AHI of 62.4 with severe nocturnal oxygen desaturation. #14 altered mentation episodic, possible CO2 narcosis due to combination of COPD and obstructive sleep apnea and chronic right hemidiaphragmatic paralysis/ elevation. #15, troponin leak Plan Monitor the blood gases and the patient has significant amount of respiratory acidosis acute on top of chronic. Continue bronchodilators. Continue steroids. We will offer diuretics for the next 24 hours. Monitor the blood gases. Continue BiPAP on and off during the day at a pressure of 12/5 cm of water to maintain a saturation above 90% and will titrate FiO2 as tolerated. Stopped IV heparin switch this patient to oral Eliquis. The patient be kept in ICU. We'll continue to follow the patient's x-ray in the morning and make further recommendations based on his overall progress. Long-term prognosis poor. The patient will likely need a auto CPAP machine at time of discharge. Critically care evaluation. Time with Patient: Greater than 30
--- NOTE | 2018-03-12 13:29 | P.PN ---
Subjective Progress Note Date: 03/12/18 Principal diagnosis: SOB and cp Patient feels better today, chest pain and shortness of breath improving. Objective - Vital Signs Vital signs: Vital Signs Temp 97.8 F 03/12/18 08:00 Pulse 77 03/12/18 13:00 Resp 18 03/12/18 13:00 BP 133/65 03/12/18 13:00 Pulse Ox 90 L 03/12/18 13:00 Intake & Output 03/11/18 03/12/18 03/12/18 18:59 06:59 18:59 Intake Total 120 978.070 120 Output Total 1100 1350 0 Balance -980 -371.930 120 Weight 115 kg 116.6 kg Intake: IV 240 120 normal saline 240 120 Intake, IV Titration 498.070 Amount Heparin Sod,Pork in 0.45% 498.070 NaCl 25,000 unit In 0.45 % NaCl 1 500ml.bag @ 18 UNITS/KG/HR 41.29 mls/hr IV .Q12H7M [facility] Rx#: [id number] Oral 120 240 Output: Urine 1100 1350 0 Other: Voiding Method Urinal Urinal - Exam Constitutional: No acute distress, conversant, pleasant Eyes:Anicteric sclerae, moist conjunctiva, no lid-lag, PERRLA, ENMT: Oropharynx clear, no erythema, exudates Neck: Supple, FROM, no masses, or JVD, No carotid bruits, No thyromegaly Lungs: Very diminished breath sounds bilaterally, Clear to percussion, Normal respiratory effort, no accessory muscle use Cardiovascular: Heart regular in rate and rhythm, No murmurs, gallops, or rubs, No peripheral edema Abdominal: Soft, right upper and left upper quadrant tenderness, no guarding, rebound or rigidity, Normoactive bowel sounds, No hepatomegaly, No splenomegaly , No palpable mass Skin: Normal temperature, tone, texture, turgor, no induration, No subcutaneous nodules, No rash, lesions, No ulcers Extremities: No digital cyanosis, No clubbing, Pedal pulses intact and symmetrical, Radial pulses intact and symmetrical, No calf tenderness Psychiatric: Alert and oriented to person, place and time, appropriate affect, intact judgement Neuro: Gen. weakness, no focal sensory deficits - Labs CBC & Chem 7: 03/12/18 02:28 03/12/18 02:28 Labs: Abnormal Lab Results - Last 24 Hours (Table) 03/11/18 03/11/18 03/11/18 Range/Units 13:25 15:46 17:15 WBC (3.8-10.6) k/uL Neutrophils # (1.3-7.7) k/uL Lymphocytes # (1.0-4.8) k/uL APTT 86.5 H (22.0-30.0) sec ABG pH (7.35-7.45) ABG pCO2 (35-45) mmHg ABG pO2 (83-108) mmHg ABG HCO3 (21-25) mmol/L ABG Total CO2 (19-24) mmol/L ABG O2 Saturation (94-97) % Sodium (137-145) mmol/L Chloride (98-107) mmol/L Carbon Dioxide (22-30) mmol/L BUN (9-20) mg/dL Glucose (74-99) mg/dL POC Glucose (mg/dL) 154 H (75-99) mg/dL Phosphorus (2.5-4.5) mg/dL Magnesium (1.6-2.3) mg/dL Troponin I 0.114 H* (0.000-0.034) ng/mL 03/11/18 03/11/18 03/11/18 Range/Units 17:25 20:12 20:48 WBC (3.8-10.6) k/uL Neutrophils # (1.3-7.7) k/uL Lymphocytes # (1.0-4.8) k/uL APTT (22.0-30.0) sec ABG pH 7.31 L (7.35-7.45) ABG pCO2 88 H* (35-45) mmHg ABG pO2 73 L (83-108) mmHg ABG HCO3 44 H* (21-25) mmol/L ABG Total CO2 47 H (19-24) mmol/L ABG O2 Saturation 92.4 L (94-97) % Sodium (137-145) mmol/L Chloride (98-107) mmol/L Carbon Dioxide (22-30) mmol/L BUN (9-20) mg/dL Glucose (74-99) mg/dL POC Glucose (mg/dL) 143 H (75-99) mg/dL Phosphorus (2.5-4.5) mg/dL Magnesium (1.6-2.3) mg/dL Troponin I 0.092 H* (0.000-0.034) ng/mL 03/12/18 03/12/18 03/12/18 Range/Units 02:28 02:28 02:28 WBC 13.2 H (3.8-10.6) k/uL Neutrophils # 12.3 H (1.3-7.7) k/uL Lymphocytes # 0.5 L (1.0-4.8) k/uL APTT 70.0 H (22.0-30.0) sec ABG pH (7.35-7.45) ABG pCO2 (35-45) mmHg ABG pO2 (83-108) mmHg ABG HCO3 (21-25) mmol/L ABG Total CO2 (19-24) mmol/L ABG O2 Saturation (94-97) % Sodium 133 L (137-145) mmol/L Chloride 86 L (98-107) mmol/L Carbon Dioxide 39 H (22-30) mmol/L BUN 31 H (9-20) mg/dL Glucose 165 H (74-99) mg/dL POC Glucose (mg/dL) (75-99) mg/dL Phosphorus 6.4 H (2.5-4.5) mg/dL Magnesium 2.5 H (1.6-2.3) mg/dL Troponin I (0.000-0.034) ng/mL 03/12/18 03/12/18 03/12/18 Range/Units 04:59 06:36 12:07 WBC (3.8-10.6) k/uL Neutrophils # (1.3-7.7) k/uL Lymphocytes # (1.0-4.8) k/uL APTT (22.0-30.0) sec ABG pH 7.30 L (7.35-7.45) ABG pCO2 90 H* (35-45) mmHg ABG pO2 81 L (83-108) mmHg ABG HCO3 44 H* (21-25) mmol/L ABG Total CO2 47 H (19-24) mmol/L ABG O2 Saturation (94-97) % Sodium (137-145) mmol/L Chloride (98-107) mmol/L Carbon Dioxide (22-30) mmol/L BUN (9-20) mg/dL Glucose (74-99) mg/dL POC Glucose (mg/dL) 134 H 118 H (75-99) mg/dL Phosphorus (2.5-4.5) mg/dL Magnesium (1.6-2.3) mg/dL Troponin I (0.000-0.034) ng/mL Microbiology - Last 24 Hours (Table) 03/11/18 10:30 Urine Culture - Preliminary Urine,Voided Assessment and Plan Plan: Acute hypoxic and hypercarbic respiratory failure/acute exacerbation of COPD/ likely component of obstructive sleep apnea as well ABG reviewed Currently on BiPAP, we'll continue CT of the chest reviewed Discussed with Dr. Farnsworth Switch heparin to eliquis Solu-Medrol and DuoNeb's Right-sided pleural effusion Patient has chronic elevation of right hemidiaphragm Not a candidate for thoracentesis per pulmonary as the size of the effusion is small Troponin elevation Likely nonspecific, secondary to #1 EKG reviewed, nothing acute Cardiology following, input appreciated, patient was started on aspirin, metoprolol and statin Bipolar disorder, GERD/Reflux, Hyperlipidemia, Hypertension: All stable Resume home meds DVT prophylaxis On AC
[2018-03-12 17:14] LABS: Glucose,Whole Blood 153 mg/dL (75-99)
[2018-03-12 20:56] LABS: Glucose,Whole Blood 167 mg/dL (75-99)
[2018-03-12] MEDS: traZODone HCL 50 MG TAB PO SCH (21:43)
[2018-03-12] MEDS: OLANZapine 10 MG TAB PO SCH (21:43)
[2018-03-13] MEDS: methylPREDNISolone SOD SUCCI 125 MG/2 ML VIAL IV SCH ×5 (00:28→23:29)
[2018-03-13] MEDS: MORPHINE SULFATE 2 MG/ML SYRINGE IV PRN ×3 (05:29→17:06)
[2018-03-13 06:03] LABS: Basophils % (A) 0 %; Eosinophils % (A) 0 %; HCT 47.5 % (39.0-53.0); HGB 14.7 gm/dL (13.0-17.5); Hypochromasia Slight; Lymphocytes # (A) 0.5 k/uL (1.0-4.8); Lymphocytes % (A) 3 %; MCH 29.9 pg (25.0-35.0); MCV 96.5 fL (80.0-100.0); Mean Platelet Volume 7.3; Monocytes # (A) 0.5 k/uL (0-1.0); Monocytes % (A) 3 %; Neutrophils # (A) 15.5 k/uL (1.3-7.7); Neutrophils % (A) 94 %; Platelet Count 297 k/uL (150-450); RBC 4.92 m/uL (4.30-5.90); RDW 15.7 % (11.5-15.5); WBC 16.5 k/uL (3.8-10.6)
[2018-03-13 06:26] LABS: Anion Gap 5 mmol/L; Blood Urea Nitrogen 38 mg/dL (9-20); Calcium 8.8 mg/dL (8.4-10.2); Chloride 88 mmol/L (98-107); Glucose 111 mg/dL (74-99); Magnesium 2.6 mg/dL (1.6-2.3); Phosphorus 5.1 mg/dL (2.5-4.5); Potassium 5.3 mmol/L (3.5-5.1); Sodium 133 mmol/L (137-145)
[2018-03-13 06:44] LABS: Carbon Dioxide 40 mmol/L (22-30)
--- NOTE | 2018-03-13 06:53 | XR ---
EXAMINATION TYPE: XR chest 1V portable DATE OF EXAM: 03/13/2018 HISTORY: shortness of breath. REFERENCE: Previous study dated 03/12/2018. FINDINGS: The heart is enlarged. There is vascular congestion and mild interstitial change. There are small, bilateral effusions. There is some right basilar airspace disease which may represent atelect asis, pneumonia or confluent edema. The overall appearance has worsened somewhat. IMPRESSION: 1. FINDINGS SUGGESTIVE OF PULMONARY EDEMA. 2. RIGHT BASILAR AIRSPACE DISEASE. 3. SMALL, BILATERAL EFFUSIONS.
[2018-03-13 07:28] LABS: Glucose,Whole Blood 133 mg/dL (75-99)
[2018-03-13] MEDS: ATORVASTATIN 40 MG TAB PO SCH (07:42)
[2018-03-13] MEDS: ESCITALOPRAM 10 MG TAB PO SCH (07:42)
[2018-03-13] MEDS: LOSARTAN 25 MG TAB PO SCH (07:42)
[2018-03-13] MEDS: ASPIRIN 81 MG PO SCH (07:42)
[2018-03-13] MEDS: PANTOPRAZOLE 40 MG TABLET PO SCH (07:42)
[2018-03-13] MEDS: APIXABAN 5 MG TAB PO SCH ×2 (07:42→20:04)
[2018-03-13] MEDS: METOPROLOL TARTRATE 12.5 MG TAB PO SCH ×2 (07:43→20:03)
[2018-03-13] MEDS: FUROSEMIDE 10 MG/ML 4 ML VIAL IV SCH ×3 (07:49→20:04)
[2018-03-13] MEDS: IPRATROPIUM-ALBUTEROL 3 ML NEB INHALATION PRN ×2 (07:53→12:09)
--- NOTE | 2018-03-13 07:53 | P.PN ---
Subjective Progress Note Date: 03/13/18 Principal diagnosis: CHF secondary to diastolic dysfunction This is a pleasant 57-year-old gentleman with a past medical history significant for COPD, chronic hypoxic respiratory failure on home oxygen, hypertension, dyslipidemia, and history of hepatitis C, presented to the hospital complaining of chest discomfort as well as shortness of breath. The patient stated that he has been experiencing chest discomfort, mainly on the right side of the chest, described it as a sharp kind of discomfort associated mainly with breathing movement. He is also was more short of breath and also was coughing extensively. The d-dimer in the emergency room came in to be elevated and subsequently the patient underwent a computed tomography scan of the chest which found to have suspected subsegmental filling defect and few segmental defect in the left lung raising suspicious of pulmonary embolization. Because of that the patient was started on heparin IV. Beside that the patient was found to have multiple displaced right lateral rib fracture and also interstitial edema and sign of fluid overload. The repeated the chest x- ray from today showed slightly worsening right pleural effusion. The patient does have history of chronic right pleural effusion and he underwent pleurocentesis in the past. We get involved in the care of the patient this time because her troponin was checked and came in to be slightly abnormal. The patient did have 3 sets of cardiac enzymes came in to be abnormal but it does not seem to be consistent with acute myocardial infarction. The EKG showed sinus rhythm without any ischemic ST or T-wave abnormalities. 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 No history of coronary revascularization as well. On follow-up with the patient today, he is overall feeling better. He still complained of right chest pleuritic discomfort. No mid sternal chest discomfort. Is still deciding as well even with minimal exertion. On physical examination he does have very diminished breathing sounds bilaterally and the chest x-ray continues to show findings consistent with CHF. I am going to give the patient additional 40 mg IV Lasix. Beside that he is on oral anticoagulation for the PE. He is also on aspirin and metoprolol. And he is also on a statin. The echocardiogram revealed normal left ventricular systolic function. Objective - Vital Signs Vital signs: Vital Signs Temp 98.2 F 03/13/18 04:00 Pulse 81 03/13/18 07:00 Resp 17 03/13/18 07:00 BP 121/74 03/13/18 07:00 Pulse Ox 96 03/13/18 07:00 Intake & Output 03/12/18 03/13/18 03/13/18 18:59 06:59 18:59 Intake Total 340 520 20 Output Total 650 1300 Balance -310 -780 20 Weight 118.4 kg Intake: IV 240 220 20 normal saline 240 220 20 Oral 100 300 Output: Urine 650 1300 Other: Voiding Method Urinal Urinal - Constitutional General appearance: Present: no acute distress - Respiratory Respiratory: bilateral: diminished - Cardiovascular Rhythm: regular Heart sounds: normal: S1, S2 - Labs CBC & Chem 7: 03/13/18 04:59 03/13/18 04:59 Labs: Abnormal Lab Results - Last 24 Hours (Table) 03/12/18 03/12/18 03/12/18 Range/Units 12:07 17:12 20:55 WBC (3.8-10.6) k/uL RDW (11.5-15.5) % Neutrophils # (1.3-7.7) k/uL Lymphocytes # (1.0-4.8) k/uL Sodium (137-145) mmol/L Potassium (3.5-5.1) mmol/L Chloride (98-107) mmol/L Carbon Dioxide (22-30) mmol/L BUN (9-20) mg/dL Glucose (74-99) mg/dL POC Glucose (mg/dL) 118 H 153 H 167 H (75-99) mg/dL Phosphorus (2.5-4.5) mg/dL Magnesium (1.6-2.3) mg/dL 03/13/18 03/13/18 03/13/18 Range/Units 04:59 04:59 07:27 WBC 16.5 H (3.8-10.6) k/uL RDW 15.7 H (11.5-15.5) % Neutrophils # 15.5 H (1.3-7.7) k/uL Lymphocytes # 0.5 L (1.0-4.8) k/uL Sodium 133 L (137-145) mmol/L Potassium 5.3 H (3.5-5.1) mmol/L Chloride 88 L (98-107) mmol/L Carbon Dioxide 40 H* (22-30) mmol/L BUN 38 H (9-20) mg/dL Glucose 111 H (74-99) mg/dL POC Glucose (mg/dL) 133 H (75-99) mg/dL Phosphorus 5.1 H (2.5-4.5) mg/dL Magnesium 2.6 H (1.6-2.3) mg/dL Microbiology - Last 24 Hours (Table) 03/11/18 10:30 Urine Culture - Final Urine,Voided 03/11/18 12:02 Blood Culture - Preliminary Blood No Growth after 24 hours Assessment and Plan Assessment: Assessment #1 pleuritic chest discomfort likely related to rib fracture as well as possible PE #2 PE #3 right pleural effusion #4 rib fracture #5 mildly abnormal cardiac enzymes Plan #1 the abnormal cardiac enzymes is not consistent with acute myocardial infarction. #2 in the absence of any anginal chest discomfort and EKG changes I would consider medical treatment only. #3 continue the aspirin, beta asher, and statin #4 keep the patient additional 40 mg IV Lasix #5 the echocardiogram revealed normal LV function was mild aortic stenosis #6 follow-up with the patient.
[2018-03-13] MEDS: IPRATROPIUM 0.5 MG/2.5 ML NEBU INHALATION SCH ×2 (07:54→12:10)
[2018-03-13] MEDS: SYMBICORT 160-4.5 MCG INHALER INHALATION SCH ×2 (07:54→20:28)
[2018-03-13 11:13] VITALS: BMI 35.4
[2018-03-13 11:55] LABS: ABG Oxygen Saturation 88.5 % (94-97); ABG PCO2 65 mmHg (35-45); ABG PH 7.44 (7.35-7.45); ABG PO2 53 mmHg (83-108); ABG TCO2 46 mmol/L (19-24)
[2018-03-13] MEDS ORDERED: IPRATROPIUM-ALBUTEROL 3 ML NEB INHALATION PRN (12:13)
[2018-03-13 12:15] LABS: Glucose,Whole Blood 96 mg/dL (75-99)
--- NOTE | 2018-03-13 14:24 | P.PN ---
Subjective Progress Note Date: 03/13/18 Principal diagnosis: SOB and cp Patient is feeling better today, still requiring bipap jake at night. Objective - Vital Signs Vital signs: Vital Signs Temp 97.9 F 03/13/18 12:00 Pulse 81 03/13/18 13:00 Resp 17 03/13/18 13:00 BP 121/69 03/13/18 13:00 Pulse Ox 94 L 03/13/18 13:00 Intake & Output 03/12/18 03/13/18 03/13/18 18:59 06:59 18:59 Intake Total 340 520 940 Output Total 650 1300 885 Balance -310 -780 55 Weight 118.4 kg 118.4 kg Intake: IV 240 220 140 normal saline 240 220 140 Oral 100 300 800 Output: Urine 650 1300 885 Other: Voiding Method Urinal Urinal Urinal - Exam Constitutional: No acute distress, conversant, pleasant Eyes:Anicteric sclerae, moist conjunctiva, no lid-lag, PERRLA, ENMT: Oropharynx clear, no erythema, exudates Neck: Supple, FROM, no masses, or JVD, No carotid bruits, No thyromegaly Lungs: Very diminished breath sounds bilaterally, Clear to percussion, Normal respiratory effort, no accessory muscle use Cardiovascular: Heart regular in rate and rhythm, No murmurs, gallops, or rubs, No peripheral edema Abdominal: Soft, right upper and left upper quadrant tenderness, no guarding, rebound or rigidity, Normoactive bowel sounds, No hepatomegaly, No splenomegaly , No palpable mass Skin: Normal temperature, tone, texture, turgor, no induration, No subcutaneous nodules, No rash, lesions, No ulcers Extremities: No digital cyanosis, No clubbing, Pedal pulses intact and symmetrical, Radial pulses intact and symmetrical, No calf tenderness Psychiatric: Alert and oriented to person, place and time, appropriate affect, intact judgement Neuro: Gen. weakness, no focal sensory deficits - Labs CBC & Chem 7: 03/13/18 04:59 03/13/18 04:59 Labs: Abnormal Lab Results - Last 24 Hours (Table) 03/12/18 03/12/18 03/13/18 Range/Units 17:12 20:55 04:59 WBC 16.5 H (3.8-10.6) k/uL RDW 15.7 H (11.5-15.5) % Neutrophils # 15.5 H (1.3-7.7) k/uL Lymphocytes # 0.5 L (1.0-4.8) k/uL ABG pCO2 (35-45) mmHg ABG pO2 (83-108) mmHg ABG HCO3 (21-25) mmol/L ABG Total CO2 (19-24) mmol/L ABG O2 Saturation (94-97) % Sodium (137-145) mmol/L Potassium (3.5-5.1) mmol/L Chloride (98-107) mmol/L Carbon Dioxide (22-30) mmol/L BUN (9-20) mg/dL Glucose (74-99) mg/dL POC Glucose (mg/dL) 153 H 167 H (75-99) mg/dL Phosphorus (2.5-4.5) mg/dL Magnesium (1.6-2.3) mg/dL 03/13/18 03/13/18 03/13/18 Range/Units 04:59 07:27 11:53 WBC (3.8-10.6) k/uL RDW (11.5-15.5) % Neutrophils # (1.3-7.7) k/uL Lymphocytes # (1.0-4.8) k/uL ABG pCO2 65 H (35-45) mmHg ABG pO2 53 L (83-108) mmHg ABG HCO3 44 H* (21-25) mmol/L ABG Total CO2 46 H (19-24) mmol/L ABG O2 Saturation 88.5 L (94-97) % Sodium 133 L (137-145) mmol/L Potassium 5.3 H (3.5-5.1) mmol/L Chloride 88 L (98-107) mmol/L Carbon Dioxide 40 H* (22-30) mmol/L BUN 38 H (9-20) mg/dL Glucose 111 H (74-99) mg/dL POC Glucose (mg/dL) 133 H (75-99) mg/dL Phosphorus 5.1 H (2.5-4.5) mg/dL Magnesium 2.6 H (1.6-2.3) mg/dL Microbiology - Last 24 Hours (Table) 03/11/18 12:02 Blood Culture - Preliminary Blood No Growth after 48 hours 03/11/18 10:30 Urine Culture - Final Urine,Voided Assessment and Plan Plan: Acute hypoxic and hypercarbic respiratory failure/acute exacerbation of COPD/ likely component of obstructive sleep apnea as well Improving Reqiuring BiPAP on and off, we'll continue Discussed with Dr. Farnsworth Continue eliquis Wean down solu-Medrol Continue DuoNeb's Right-sided pleural effusion Patient has chronic elevation of right hemidiaphragm Not a candidate for thoracentesis per pulmonary as the size of the effusion is small Troponin elevation Likely nonspecific, secondary to #1 EKG reviewed, nothing acute Cardiology following, input appreciated, patient was started on aspirin, metoprolol and statin Bipolar disorder, GERD/Reflux, Hyperlipidemia, Hypertension: All stable Resume home meds DVT prophylaxis On AC
--- NOTE | 2018-03-13 14:40 | P.PN ---
Subjective Progress Note Date: 03/13/18 This is a 57-year-old male patient who presented to the burst department with two-day history of worsening shortness of breath and pain across his chest with deep breathing. A CT angios the chest was done in the emergency department and the patient was found to have respiratory motion artifact, multiple areas of suspected subsegmental filling defects and few segmental defects in the left basilar pulmonary artery raising the suspicion for pulmonary embolism. No evidence of any right heart strain pattern. There was a right-sided pleural effusion that was small and the patient has multiple displaced right lateral nonunited rib fractures ribs 6 through 9. There was some also interstitial edema and signs of fluid overload This patient is known to me. The patient was in the hospital back in January 2018. The patient has a known history of COPD with an FEV1 of 26% of predicted , in addition to hepatitis C, history of IVDA, hypertension, hyperlipidemia and acid reflux. The patient is also obese.. The patient was having increased cough and and he was admitted to the hospital with vigorous cough, pain along the right side of the chest and a right lung opacity. Upon further investigation the patient was found to have a moderate-sized right-sided pleural effusion. Initially, a thoracentesis was done and approximately 1.3 L of fluid was aspirated from the right lung. The procedure itself did result in significant right lung reexpansion. Based on that, a CAT scan of the chest was ordered and the patient was found to have evidence of bilateral the fracture and there was a right-sided pleural effusion and compressive atelectasis of the right lung base. At that point, a pigtail catheter/chest tube was inserted and the residual pleural effusion was drained. Another 2 L of pleural fluid was aspirated. Ultimately the patient accidentally lost the tube and the tube was not reinserted as the patient's chest x-ray showed improved aeration reexpansion of the right lung. There may be some eventration of right hemidiaphragm/right hemidiaphragmatic paralysis as the right hemidiaphragm remains to be elevated. He was discharged home on oxygen. The patient is a chronic smoker. The patient has smoked for more than 40 years and he has not smoked for the past 2 weeks. He is on a combination of Spiriva, Symbicort and Proventil rescue inhaler. He also has an oxygen concentrator at home. In the interim the patient was readmitted to the hospital back in 03/03/2018 and it was suspected the patient was having a pneumonia. CT angios the chest was done on 03/03 and there was no evidence of any pulmonary embolism. The CAT scan showed elevation of the right hemidiaphragm and there is some limited the right basilar atelectatic changes/infiltration and the patient was assumed to have an underlying pneumonia and he was treated with broad-spectrum antibiotics including a combination of Zosyn and vancomycin ultimately the patient was discharged home on a prednisone burst taper and Levaquin. No pulmonate consultation was requested at that time. Also, on 02/16/2018, the patient was diagnosed having severe obstructive sleep apnea an AHI of 62.4 worsening a by body position and the patient also demonstrates severe nocturnal oxygen desaturations. He was supposed to undergo a CPAP/BiPAP titration at a later stage. Today's evaluation of 03/12/2018 the patient is a bit more awake compared to yesterday. Note that after my initial evaluation blood gases was done and the patient was found to be in acute on top of chronic hypercapnic respiratory failure with a pCO2 in the high 80s. Overnight the patient was laced on a BiPAP initially at a pressure of 10/5 and subsequently at a pressure of 12/5 cm of water and FiO2 was being adjusted to maintain a saturation above 88%. This morning he seems to be much more alert and awake. I tried him on oxygen by nasal cannula however he was unable to tolerate and he desaturated and based on that he was placed back on the BiPAP. Currently his acute hypoxic and hypercapnic respiratory failure is felt to be related to COPD exacerbation, right hemidiaphragmatic paralysis, and severe obstructive sleep apnea. Underlying pulmonary embolism is felt to be less likely. The pleural effusion on the right is small at this point in time. There is troponin leak. I give him IV heparin for the past 24 hours and going to switch this patient to oral Eliquis. I doubt the possibility of pulmonary embolism as mentioned earlier and the patient had Doppler of the lower extremity that came back negative for any DVTs. white cell count is at 13.2. The morning blood gases showed a pH of 7.3 with a pCO2 of 90 and pO2 of 81 and this was done and FiO2 of 60%. On 03/13/2018 I'm seeing this patient for a follow-up. The patient has done significant amount of progress over the past 24 hours. He is breathing easier and he is not having any shortness of breath at rest. He was using the BiPAP throughout the night and the morning blood gases from today showed improvement in his acid base status. Noted that his pH is at 7.44 and the pCO2 is down to 65. He is still hypoxic with a pO2 of 53 and this was done on 5 L of oxygen by nasal cannula. He remains on bronchodilators. He remains on systemic steroids. He remains on IV Solu-Medrol 60 mg every 6 hours. Chest x-ray from today shows some ongoing pulmonary edema. There is also right-sided pleural effusion and right basilar airspace disease. Possibly small left-sided pleural effusion is also present. Otherwise, his hemoglobin is stable at 14.7. The possibility of pulmonary embolism is felt to be less likely. The patient was given Eliquis based on the most recent CAT scan findings. I am quite impressed by his neurologic recovery as the patient is much more lucid and awake and interactive on today's evaluation and his signs and symptoms is a CO2 narcosis is improved. The patient would likely need a noninvasive positive pressure ventilation treatment on outpatient basis. We'll try to arrange for trilogy machine. He has obstructive sleep apnea and he will undergo a CPAP titration for the appropriate vent setting changes. Objective - Vital Signs Vital signs: Vital Signs Temp 97.9 F 03/13/18 12:00 Pulse 81 03/13/18 13:00 Resp 17 03/13/18 13:00 BP 121/69 03/13/18 13:00 Pulse Ox 94 L 03/13/18 13:00 Intake & Output 03/12/18 03/13/18 03/13/18 18:59 06:59 18:59 Intake Total 340 520 940 Output Total 650 1300 885 Balance -310 -780 55 Weight 118.4 kg 118.4 kg Intake: IV 240 220 140 normal saline 240 220 140 Oral 100 300 800 Output: Urine 650 1300 885 Other: Voiding Method Urinal Urinal Urinal - Exam General Appearance no diaphoresis, no respiratory distress, speech not interrupted by breaths, no dyspnea, no pallor, not cachectic, well nourished, appears well, obesity HEENT no pursed lip breathing, no jugular venous distention, no mucous membrane cyanosis, no perioral cyanosis, mallampati classification: class 1, Mallampati Classification: Class 4 Chest no barrel chest, no retractions, no sternocleidomastoid muscle contractions, no supraclavicular retractions, no intercostal retractions, no prolonged expiratory wheezing, no decreased air movement, no rhonchi, no hyperinflation, (normal) adventitious sounds: rales / crackles: bilaterally: midlung contreras, decreased air movement Heart no right ventricular heave, no distant heart sounds, no s3 gallop, (normal ) jugular vein: jugular venous distention: by 0cm, (normal) jugular vein, Murmurs: Unspecified Location: Systolic: Grade 2 / IV GI bowel sounds: hyperactive (borborygmi), bowel sounds: diminished or absent Extremities no cyanosis, no clubbing, no edema Neurologic no decreased mental status, no somnolence, no confusion Assisstive Devices: ambulates with no assitive devices Gait and Mobility: gait WNL, full weight bearing General Appearance normal, (normal) normal except as noted - Labs CBC & Chem 7: 03/13/18 04:59 03/13/18 04:59 Labs: Abnormal Lab Results - Last 24 Hours (Table) 03/12/18 03/12/18 03/13/18 Range/Units 17:12 20:55 04:59 WBC 16.5 H (3.8-10.6) k/uL RDW 15.7 H (11.5-15.5) % Neutrophils # 15.5 H (1.3-7.7) k/uL Lymphocytes # 0.5 L (1.0-4.8) k/uL ABG pCO2 (35-45) mmHg ABG pO2 (83-108) mmHg ABG HCO3 (21-25) mmol/L ABG Total CO2 (19-24) mmol/L ABG O2 Saturation (94-97) % Sodium (137-145) mmol/L Potassium (3.5-5.1) mmol/L Chloride (98-107) mmol/L Carbon Dioxide (22-30) mmol/L BUN (9-20) mg/dL Glucose (74-99) mg/dL POC Glucose (mg/dL) 153 H 167 H (75-99) mg/dL Phosphorus (2.5-4.5) mg/dL Magnesium (1.6-2.3) mg/dL 03/13/18 03/13/18 03/13/18 Range/Units 04:59 07:27 11:53 WBC (3.8-10.6) k/uL RDW (11.5-15.5) % Neutrophils # (1.3-7.7) k/uL Lymphocytes # (1.0-4.8) k/uL ABG pCO2 65 H (35-45) mmHg ABG pO2 53 L (83-108) mmHg ABG HCO3 44 H* (21-25) mmol/L ABG Total CO2 46 H (19-24) mmol/L ABG O2 Saturation 88.5 L (94-97) % Sodium 133 L (137-145) mmol/L Potassium 5.3 H (3.5-5.1) mmol/L Chloride 88 L (98-107) mmol/L Carbon Dioxide 40 H* (22-30) mmol/L BUN 38 H (9-20) mg/dL Glucose 111 H (74-99) mg/dL POC Glucose (mg/dL) 133 H (75-99) mg/dL Phosphorus 5.1 H (2.5-4.5) mg/dL Magnesium 2.6 H (1.6-2.3) mg/dL Microbiology - Last 24 Hours (Table) 03/11/18 12:02 Blood Culture - Preliminary Blood No Growth after 48 hours 03/11/18 10:30 Urine Culture - Final Urine,Voided Assessment and Plan Plan: #1 . acute/chronic chest pain/shortness of breath with acute on chronic hypercapnic respiratory failure and acute hypoxic arrest 30 failure. The patient's respiratory failure is essentially due to COPD exacerbation and right hemidiaphragmatic elevation and severe obstructive sleep apnea. The pleural effusion is small and probably not contributing to respiratory failure. I doubt the possibility of pulmonary embolism although the CAT scan of the chest has revealed some questionable segmental and subsegmental filling defects in the lower lobe pulmonary artery branch. I'm going to treat this patient with BiPAP, bronchodilators and steroids. We'll offer this patient some diuretics and will continue the anticoagulation. On 03/13/2018 the patient was treated for COPD exacerbation and his volume status is also optimized by diuretics and there is a questionable pulmonary embolism that was treated with anticoagulation.. His blood gases from today shows improvement and acid base status. The patient is still hypoxic with a pO2 of 53 on 5 L of oxygen nasal cannula. Nevertheless his pCO2 is down to 65. He will likely need a Trilogy ventilator at a later stage on outpatient basis regarding his chronic hypercapnic respiratory failure. #2 pleural effusion, the patient is status post initial thoracentesis and following that the patient had a small bore chest tube inserted and evacuation of more than 2 L of bloody pleural effusion which is most likely related to vigorous coughing. The patient had a pleural effusion that was bloody and the right-sided rib fractures. The fluid analysis showed no evidence of malignancy. The most recent CAT scan shows a small right-sided pleural effusion and the right hemidiaphragm remains elevated and there is no indication of an underlying pneumonia #3 fracture multiple ribs on the right 6 -9 likely secondary to vigorous cough , with secondary pain on the right side of the chest #4 Hepatitis C secondary to remote history of IV drug abuse. #5 COPD CVA with an FEV1 of 27% of predicted maintained on a combination of Symbicort Spiriva on outpatient basis #6 History of hyperlipidemia. #7 Hypertension. #8 Gastroesophageal reflux disease. #9 Morbid obesity with suspected obesity/hypoventilation syndrome. Possible obstructive sleep apnea. #10 chronic hypoxic respiratory failure maintained on O2, 2 or 3 L/m nasal cannula #11 chronic smoker #12 chronic right hemidiaphragmatic elevation, likely a underlying paralysis/ unilateral. #13 severe symptomatically obstructive sleep apnea with an AHI of 62.4 with severe nocturnal oxygen desaturation. #14 altered mentation episodic, possible CO2 narcosis due to combination of COPD and obstructive sleep apnea and chronic right hemidiaphragmatic paralysis/ elevation. The patient was treated with BiPAP and bronchodilators and steroids and there is improvement in the acid base status with a drop in the pCO2 down to 65 and the patient is been much more awake and alert on today's evaluation. #15, troponin leak Plan We will continue diuresis and we'll give the patient another dose of diuretic 40 mg IV push Lasix 2 doses over the next 24 hours. Continue bronchodilators. Continue systemic steroids. BiPAP overnight at the current settings. We'll make arrangements for a Trilogy ventilator on outpatient basis. We'll continue to follow.
[2018-03-13] MEDS: IPRATROPIUM-ALBUTEROL 3 ML NEB INHALATION SCH ×2 (15:09→20:28)
[2018-03-13 16:31] LABS: Glucose,Whole Blood 188 mg/dL (75-99)
[2018-03-13] MEDS: BISACODYL 5 MG TABLET.DR PO PRN (17:06)
[2018-03-13] MEDS: traZODone HCL 50 MG TAB PO SCH (20:03)
[2018-03-13] MEDS: OLANZapine 10 MG TAB PO SCH (20:03)
[2018-03-13 21:16] LABS: Glucose,Whole Blood 142 mg/dL (75-99)
[2018-03-14] MEDS: MORPHINE SULFATE 2 MG/ML SYRINGE IV PRN ×3 (01:40→17:39)
[2018-03-14 05:53] LABS: Glucose,Whole Blood 97 mg/dL (75-99)
[2018-03-14] MEDS: PANTOPRAZOLE 40 MG TABLET PO SCH (06:18)
[2018-03-14] MEDS: methylPREDNISolone SOD SUCCI 125 MG/2 ML VIAL IV SCH (06:18)
[2018-03-14 07:06] LABS: Blood Urea Nitrogen 26 mg/dL (9-20); Calcium 8.8 mg/dL (8.4-10.2); Chloride 89 mmol/L (98-107); Glucose 98 mg/dL (74-99); Magnesium 2.6 mg/dL (1.6-2.3); Phosphorus 4.4 mg/dL (2.5-4.5); Sodium 135 mmol/L (137-145)
[2018-03-14 07:14] LABS: Anion Gap 3 mmol/L
[2018-03-14 07:15] LABS: Carbon Dioxide 43 mmol/L (22-30)
[2018-03-14 07:28] LABS: Basophils % (A) 0 %; Eosinophils % (A) 0 %; HCT 45.6 % (39.0-53.0); HGB 14.6 gm/dL (13.0-17.5); Hypochromasia Slight; Lymphocytes # (A) 0.4 k/uL (1.0-4.8); Lymphocytes % (A) 3 %; MCH 30.3 pg (25.0-35.0); MCHC 31.9 g/dL (31.0-37.0); MCV 94.7 fL (80.0-100.0); Mean Platelet Volume 7.1; Monocytes # (A) 0.8 k/uL (0-1.0); Monocytes % (A) 5 %; Neutrophils # (A) 13.1 k/uL (1.3-7.7); Neutrophils % (A) 91 %; Platelet Count 238 k/uL (150-450); RBC 4.82 m/uL (4.30-5.90); RDW 15.1 % (11.5-15.5); WBC 14.4 k/uL (3.8-10.6)
[2018-03-14] MEDS: SYMBICORT 160-4.5 MCG INHALER INHALATION SCH ×2 (08:58→20:04)
[2018-03-14] MEDS: IPRATROPIUM-ALBUTEROL 3 ML NEB INHALATION SCH ×4 (08:58→20:04)
[2018-03-14] MEDS: METOPROLOL TARTRATE 12.5 MG TAB PO SCH ×2 (09:10→20:30)
[2018-03-14] MEDS: LOSARTAN 25 MG TAB PO SCH (09:11)
[2018-03-14] MEDS: APIXABAN 5 MG TAB PO SCH ×2 (09:11→20:31)
[2018-03-14] MEDS: ESCITALOPRAM 10 MG TAB PO SCH (09:11)
[2018-03-14] MEDS: BISACODYL 5 MG TABLET.DR PO PRN (09:11)
[2018-03-14] MEDS: ASPIRIN 81 MG PO SCH (09:12)
[2018-03-14] MEDS: ATORVASTATIN 40 MG TAB PO SCH (09:12)
[2018-03-14] MEDS: FUROSEMIDE 10 MG/ML 4 ML VIAL IV SCH ×2 (09:12→20:30)
--- NOTE | 2018-03-14 10:16 | P.PN ---
Subjective Progress Note Date: 03/14/18 This is a 57-year-old male patient who presented to the burst department with two-day history of worsening shortness of breath and pain across his chest with deep breathing. A CT angios the chest was done in the emergency department and the patient was found to have respiratory motion artifact, multiple areas of suspected subsegmental filling defects and few segmental defects in the left basilar pulmonary artery raising the suspicion for pulmonary embolism. No evidence of any right heart strain pattern. There was a right-sided pleural effusion that was small and the patient has multiple displaced right lateral nonunited rib fractures ribs 6 through 9. There was some also interstitial edema and signs of fluid overload This patient is known to me. The patient was in the hospital back in January 2018. The patient has a known history of COPD with an FEV1 of 26% of predicted , in addition to hepatitis C, history of IVDA, hypertension, hyperlipidemia and acid reflux. The patient is also obese.. The patient was having increased cough and and he was admitted to the hospital with vigorous cough, pain along the right side of the chest and a right lung opacity. Upon further investigation the patient was found to have a moderate-sized right-sided pleural effusion. Initially, a thoracentesis was done and approximately 1.3 L of fluid was aspirated from the right lung. The procedure itself did result in significant right lung reexpansion. Based on that, a CAT scan of the chest was ordered and the patient was found to have evidence of bilateral the fracture and there was a right-sided pleural effusion and compressive atelectasis of the right lung base. At that point, a pigtail catheter/chest tube was inserted and the residual pleural effusion was drained. Another 2 L of pleural fluid was aspirated. Ultimately the patient accidentally lost the tube and the tube was not reinserted as the patient's chest x-ray showed improved aeration reexpansion of the right lung. There may be some eventration of right hemidiaphragm/right hemidiaphragmatic paralysis as the right hemidiaphragm remains to be elevated. He was discharged home on oxygen. The patient is a chronic smoker. The patient has smoked for more than 40 years and he has not smoked for the past 2 weeks. He is on a combination of Spiriva, Symbicort and Proventil rescue inhaler. He also has an oxygen concentrator at home. In the interim the patient was readmitted to the hospital back in 03/03/2018 and it was suspected the patient was having a pneumonia. CT angios the chest was done on 03/03 and there was no evidence of any pulmonary embolism. The CAT scan showed elevation of the right hemidiaphragm and there is some limited the right basilar atelectatic changes/infiltration and the patient was assumed to have an underlying pneumonia and he was treated with broad-spectrum antibiotics including a combination of Zosyn and vancomycin ultimately the patient was discharged home on a prednisone burst taper and Levaquin. No pulmonate consultation was requested at that time. Also, on 02/16/2018, the patient was diagnosed having severe obstructive sleep apnea an AHI of 62.4 worsening a by body position and the patient also demonstrates severe nocturnal oxygen desaturations. He was supposed to undergo a CPAP/BiPAP titration at a later stage. Today's evaluation of 03/12/2018 the patient is a bit more awake compared to yesterday. Note that after my initial evaluation blood gases was done and the patient was found to be in acute on top of chronic hypercapnic respiratory failure with a pCO2 in the high 80s. Overnight the patient was laced on a BiPAP initially at a pressure of 10/5 and subsequently at a pressure of 12/5 cm of water and FiO2 was being adjusted to maintain a saturation above 88%. This morning he seems to be much more alert and awake. I tried him on oxygen by nasal cannula however he was unable to tolerate and he desaturated and based on that he was placed back on the BiPAP. Currently his acute hypoxic and hypercapnic respiratory failure is felt to be related to COPD exacerbation, right hemidiaphragmatic paralysis, and severe obstructive sleep apnea. Underlying pulmonary embolism is felt to be less likely. The pleural effusion on the right is small at this point in time. There is troponin leak. I give him IV heparin for the past 24 hours and going to switch this patient to oral Eliquis. I doubt the possibility of pulmonary embolism as mentioned earlier and the patient had Doppler of the lower extremity that came back negative for any DVTs. white cell count is at 13.2. The morning blood gases showed a pH of 7.3 with a pCO2 of 90 and pO2 of 81 and this was done and FiO2 of 60%. On 03/13/2018 I'm seeing this patient for a follow-up. The patient has done significant amount of progress over the past 24 hours. He is breathing easier and he is not having any shortness of breath at rest. He was using the BiPAP throughout the night and the morning blood gases from today showed improvement in his acid base status. Noted that his pH is at 7.44 and the pCO2 is down to 65. He is still hypoxic with a pO2 of 53 and this was done on 5 L of oxygen by nasal cannula. He remains on bronchodilators. He remains on systemic steroids. He remains on IV Solu-Medrol 60 mg every 6 hours. Chest x-ray from today shows some ongoing pulmonary edema. There is also right-sided pleural effusion and right basilar airspace disease. Possibly small left-sided pleural effusion is also present. Otherwise, his hemoglobin is stable at 14.7. The possibility of pulmonary embolism is felt to be less likely. The patient was given Eliquis based on the most recent CAT scan findings. I am quite impressed by his neurologic recovery as the patient is much more lucid and awake and interactive on today's evaluation and his signs and symptoms is a CO2 narcosis is improved. The patient would likely need a noninvasive positive pressure ventilation treatment on outpatient basis. We'll try to arrange for trilogy machine. He has obstructive sleep apnea and he will undergo a CPAP titration for the appropriate vent setting changes. On 03/14/2018, I'm seeing this patient for a follow-up. He is awake alert and conscious and communicating. Less short of breath. He is diuresing well. Less shortness of breath in general. Still on 5 L of oxygen by nasal cannula and a pulse ox of 94%. Hemodynamically stable. We'll try to arrange this patient to have a trilogy ventilator on outpatient basis. Meanwhile we'll continue the bronchodilators and will continue the systemic steroids. Objective - Vital Signs Vital signs: Vital Signs Temp 98 F 03/14/18 00:00 Pulse 92 03/14/18 09:14 Resp 19 03/14/18 08:00 BP 145/76 03/14/18 08:00 Pulse Ox 94 L 03/14/18 08:00 Intake & Output 03/13/18 03/14/18 03/14/18 18:59 06:59 18:59 Intake Total 1300 240 120 Output Total 1535 0 250 Balance -235 240 -130 Weight 118.4 kg 119.2 kg Intake: IV 200 normal saline 200 Oral 1100 240 120 Output: Urine 1535 0 250 Other: Voiding Method Urinal Urinal # Voids 3 - Exam General Appearance no diaphoresis, no respiratory distress, speech not interrupted by breaths, no dyspnea, no pallor, not cachectic, well nourished, appears well, obesity HEENT no pursed lip breathing, no jugular venous distention, no mucous membrane cyanosis, no perioral cyanosis, mallampati classification: class 1, Mallampati Classification: Class 4 Chest no barrel chest, no retractions, no sternocleidomastoid muscle contractions, no supraclavicular retractions, no intercostal retractions, no prolonged expiratory wheezing, no decreased air movement, no rhonchi, no hyperinflation, (normal) adventitious sounds: rales / crackles: bilaterally: midlung contreras, decreased air movement Heart no right ventricular heave, no distant heart sounds, no s3 gallop, (normal ) jugular vein: jugular venous distention: by 0cm, (normal) jugular vein, Murmurs: Unspecified Location: Systolic: Grade 2 / IV GI bowel sounds: hyperactive (borborygmi), bowel sounds: diminished or absent Extremities no cyanosis, no clubbing, no edema Neurologic no decreased mental status, no somnolence, no confusion Assisstive Devices: ambulates with no assitive devices Gait and Mobility: gait WNL, full weight bearing General Appearance normal, (normal) normal except as noted - Labs CBC & Chem 7: 03/14/18 06:20 03/14/18 06:20 Labs: Abnormal Lab Results - Last 24 Hours (Table) 03/13/18 03/13/18 03/13/18 Range/Units 11:53 16:29 21:14 WBC (3.8-10.6) k/uL Neutrophils # (1.3-7.7) k/uL Lymphocytes # (1.0-4.8) k/uL ABG pCO2 65 H (35-45) mmHg ABG pO2 53 L (83-108) mmHg ABG HCO3 44 H* (21-25) mmol/L ABG Total CO2 46 H (19-24) mmol/L ABG O2 Saturation 88.5 L (94-97) % Sodium (137-145) mmol/L Chloride (98-107) mmol/L Carbon Dioxide (22-30) mmol/L BUN (9-20) mg/dL POC Glucose (mg/dL) 188 H 142 H (75-99) mg/dL Magnesium (1.6-2.3) mg/dL 03/14/18 03/14/18 Range/Units 06:20 06:20 WBC 14.4 H (3.8-10.6) k/uL Neutrophils # 13.1 H (1.3-7.7) k/uL Lymphocytes # 0.4 L (1.0-4.8) k/uL ABG pCO2 (35-45) mmHg ABG pO2 (83-108) mmHg ABG HCO3 (21-25) mmol/L ABG Total CO2 (19-24) mmol/L ABG O2 Saturation (94-97) % Sodium 135 L (137-145) mmol/L Chloride 89 L (98-107) mmol/L Carbon Dioxide 43 H* (22-30) mmol/L BUN 26 H (9-20) mg/dL POC Glucose (mg/dL) (75-99) mg/dL Magnesium 2.6 H (1.6-2.3) mg/dL Microbiology - Last 24 Hours (Table) 03/11/18 12:02 Blood Culture - Preliminary Blood No Growth after 48 hours Assessment and Plan Plan: #1 . acute/chronic chest pain/shortness of breath with acute on chronic hypercapnic respiratory failure and acute hypoxic arrest 30 failure. The patient's respiratory failure is essentially due to COPD exacerbation and right hemidiaphragmatic elevation and severe obstructive sleep apnea. The pleural effusion is small and probably not contributing to respiratory failure. I doubt the possibility of pulmonary embolism although the CAT scan of the chest has revealed some questionable segmental and subsegmental filling defects in the lower lobe pulmonary artery branch. I'm going to treat this patient with BiPAP, bronchodilators and steroids. We'll offer this patient some diuretics and will continue the anticoagulation. On 03/13/2018 the patient was treated for COPD exacerbation and his volume status is also optimized by diuretics and there is a questionable pulmonary embolism that was treated with anticoagulation.. His blood gases from today shows improvement and acid base status. The patient is still hypoxic with a pO2 of 53 on 5 L of oxygen nasal cannula. Nevertheless his pCO2 is down to 65. He will likely need a Trilogy ventilator at a later stage on outpatient basis regarding his chronic hypercapnic respiratory failure. On 03/14/2018 the patient continues to show ongoing signs of improvement and the patient is less short of breath. Note that the blood gases from yesterday showed improvement in the acid base status. Currently set at 5 L and the pulse ox is around 94%. It bronchus spastic and wheezy. He is diuresing and he is in a negative fluid balance. #2 pleural effusion, the patient is status post initial thoracentesis and following that the patient had a small bore chest tube inserted and evacuation of more than 2 L of bloody pleural effusion which is most likely related to vigorous coughing. The patient had a pleural effusion that was bloody and the right-sided rib fractures. The fluid analysis showed no evidence of malignancy. The most recent CAT scan shows a small right-sided pleural effusion and the right hemidiaphragm remains elevated and there is no indication of an underlying pneumonia #3 fracture multiple ribs on the right 6 -9 likely secondary to vigorous cough , with secondary pain on the right side of the chest #4 Hepatitis C secondary to remote history of IV drug abuse. #5 COPD CVA with an FEV1 of 27% of predicted maintained on a combination of Symbicort Spiriva on outpatient basis #6 History of hyperlipidemia. #7 Hypertension. #8 Gastroesophageal reflux disease. #9 Morbid obesity with suspected obesity/hypoventilation syndrome. Possible obstructive sleep apnea. #10 chronic hypoxic respiratory failure maintained on O2, 2 or 3 L/m nasal cannula #11 chronic smoker #12 chronic right hemidiaphragmatic elevation, likely a underlying paralysis/ unilateral. #13 severe symptomatically obstructive sleep apnea with an AHI of 62.4 with severe nocturnal oxygen desaturation. #14 altered mentation episodic, possible CO2 narcosis due to combination of COPD and obstructive sleep apnea and chronic right hemidiaphragmatic paralysis/ elevation. The patient was treated with BiPAP and bronchodilators and steroids and there is improvement in the acid base status with a drop in the pCO2 down to 65 and the patient is been much more awake and alert on today's evaluation. #15, troponin leak Plan Continue same treatment for another 24 hours. Arrange a Trilogy ventilator. Outpatient CPAP titration. Taper steroids as of tomorrow. Continue IV Lasix for another 24 hours we'll continue to follow.
--- NOTE | 2018-03-14 10:29 | P.PN ---
Subjective Progress Note Date: 03/14/18 Principal diagnosis: CHF secondary to diastolic dysfunction This is a pleasant 57-year-old gentleman with a past medical history significant for COPD, chronic hypoxic respiratory failure on home oxygen, hypertension, dyslipidemia, and history of hepatitis C, presented to the hospital complaining of chest discomfort as well as shortness of breath. The patient stated that he has been experiencing chest discomfort, mainly on the right side of the chest, described it as a sharp kind of discomfort associated mainly with breathing movement. He is also was more short of breath and also was coughing extensively. The d-dimer in the emergency room came in to be elevated and subsequently the patient underwent a computed tomography scan of the chest which found to have suspected subsegmental filling defect and few segmental defect in the left lung raising suspicious of pulmonary embolization. Because of that the patient was started on heparin IV. Beside that the patient was found to have multiple displaced right lateral rib fracture and also interstitial edema and sign of fluid overload. The repeated the chest x- ray from today showed slightly worsening right pleural effusion. The patient does have history of chronic right pleural effusion and he underwent pleurocentesis in the past. We get involved in the care of the patient this time because her troponin was checked and came in to be slightly abnormal. The patient did have 3 sets of cardiac enzymes came in to be abnormal but it does not seem to be consistent with acute myocardial infarction. The EKG showed sinus rhythm without any ischemic ST or T-wave abnormalities. The patient is not aware of any prior history of coronary artery disease or congestive heart failure or cardiac arrhythmia and he stated that he never seen a identification technician in the past. No history of coronary revascularization as well. On follow-up with the patient today, he is overall feeling better. The chest discomfort has improved significantly and he is resting in bed. No mid sternal chest discomfort. The echocardiogram revealed normal left ventricular systolic function. At this point I will continue the medical treatment which include aspirin, statin, and metoprolol. The patient was started on Lasix IV yesterday we'll continue that for additional 24 hours. Also continue oral anticoagulation for the PE. Objective - Vital Signs Vital signs: Vital Signs Temp 98 F 03/14/18 00:00 Pulse 92 03/14/18 09:14 Resp 19 03/14/18 08:00 BP 145/76 03/14/18 08:00 Pulse Ox 94 L 03/14/18 08:00 Intake & Output 03/13/18 03/14/18 03/14/18 18:59 06:59 18:59 Intake Total 1300 240 120 Output Total 1535 0 250 Balance -235 240 -130 Weight 118.4 kg 119.2 kg Intake: IV 200 normal saline 200 Oral 1100 240 120 Output: Urine 1535 0 250 Other: Voiding Method Urinal Urinal # Voids 3 - Constitutional General appearance: Present: no acute distress - Respiratory Respiratory: bilateral: CTA - Cardiovascular Rhythm: regular Heart sounds: normal: S1, S2 - Labs CBC & Chem 7: 03/14/18 06:20 03/14/18 06:20 Labs: Abnormal Lab Results - Last 24 Hours (Table) 03/13/18 03/13/18 03/13/18 Range/Units 11:53 16:29 21:14 WBC (3.8-10.6) k/uL Neutrophils # (1.3-7.7) k/uL Lymphocytes # (1.0-4.8) k/uL ABG pCO2 65 H (35-45) mmHg ABG pO2 53 L (83-108) mmHg ABG HCO3 44 H* (21-25) mmol/L ABG Total CO2 46 H (19-24) mmol/L ABG O2 Saturation 88.5 L (94-97) % Sodium (137-145) mmol/L Chloride (98-107) mmol/L Carbon Dioxide (22-30) mmol/L BUN (9-20) mg/dL POC Glucose (mg/dL) 188 H 142 H (75-99) mg/dL Magnesium (1.6-2.3) mg/dL 03/14/18 03/14/18 Range/Units 06:20 06:20 WBC 14.4 H (3.8-10.6) k/uL Neutrophils # 13.1 H (1.3-7.7) k/uL Lymphocytes # 0.4 L (1.0-4.8) k/uL ABG pCO2 (35-45) mmHg ABG pO2 (83-108) mmHg ABG HCO3 (21-25) mmol/L ABG Total CO2 (19-24) mmol/L ABG O2 Saturation (94-97) % Sodium 135 L (137-145) mmol/L Chloride 89 L (98-107) mmol/L Carbon Dioxide 43 H* (22-30) mmol/L BUN 26 H (9-20) mg/dL POC Glucose (mg/dL) (75-99) mg/dL Magnesium 2.6 H (1.6-2.3) mg/dL Microbiology - Last 24 Hours (Table) 03/11/18 12:02 Blood Culture - Preliminary Blood No Growth after 48 hours Assessment and Plan Assessment: Assessment #1 pleuritic chest discomfort likely related to rib fracture as well as possible PE #2 PE #3 right pleural effusion #4 rib fracture #5 mildly abnormal cardiac enzymes Plan #1 the abnormal cardiac enzymes is not consistent with acute myocardial infarction. #2 in the absence of any anginal chest discomfort and EKG changes I would consider medical treatment only. #3 continue the aspirin, beta asher, and statin #4 keep the patient on IV Lasix for additional 24 hours #5 the echocardiogram revealed normal LV function was mild aortic stenosis #6 follow-up with the patient.
[2018-03-14 11:33] LABS: Glucose,Whole Blood 107 mg/dL (75-99)
--- NOTE | 2018-03-14 13:23 | P.PN ---
Subjective Progress Note Date: 03/14/18 Principal diagnosis: SOB and cp Patient is feeling better, still requiring 5 L of oxygen. O2 saturation improving. Objective - Vital Signs Vital signs: Vital Signs Temp 97.4 F L 03/14/18 12:00 Pulse 88 03/14/18 13:17 Resp 18 03/14/18 12:00 BP 130/65 03/14/18 12:00 Pulse Ox 93 L 03/14/18 12:00 Intake & Output 03/13/18 03/14/18 03/14/18 18:59 06:59 18:59 Intake Total 1300 240 120 Output Total 1535 0 250 Balance -235 240 -130 Weight 118.4 kg 119.2 kg Intake: IV 200 normal saline 200 Oral 1100 240 120 Output: Urine 1535 0 250 Other: Voiding Method Urinal Urinal # Voids 3 - Exam Constitutional: No acute distress, conversant, pleasant Eyes:Anicteric sclerae, moist conjunctiva, no lid-lag, PERRLA, ENMT: Oropharynx clear, no erythema, exudates Neck: Supple, FROM, no masses, or JVD, No carotid bruits, No thyromegaly Lungs: Very diminished breath sounds bilaterally, Clear to percussion, Normal respiratory effort, no accessory muscle use Cardiovascular: Heart regular in rate and rhythm, No murmurs, gallops, or rubs, No peripheral edema Abdominal: Soft, right upper and left upper quadrant tenderness, no guarding, rebound or rigidity, Normoactive bowel sounds, No hepatomegaly, No splenomegaly , No palpable mass Skin: Normal temperature, tone, texture, turgor, no induration, No subcutaneous nodules, No rash, lesions, No ulcers Extremities: No digital cyanosis, No clubbing, Pedal pulses intact and symmetrical, Radial pulses intact and symmetrical, No calf tenderness Psychiatric: Alert and oriented to person, place and time, appropriate affect, intact judgement Neuro: Gen. weakness, no focal sensory deficits - Labs CBC & Chem 7: 03/14/18 06:20 03/14/18 06:20 Labs: Abnormal Lab Results - Last 24 Hours (Table) 03/13/18 03/13/18 03/14/18 Range/Units 16:29 21:14 06:20 WBC 14.4 H (3.8-10.6) k/uL Neutrophils # 13.1 H (1.3-7.7) k/uL Lymphocytes # 0.4 L (1.0-4.8) k/uL Sodium (137-145) mmol/L Chloride (98-107) mmol/L Carbon Dioxide (22-30) mmol/L BUN (9-20) mg/dL POC Glucose (mg/dL) 188 H 142 H (75-99) mg/dL Magnesium (1.6-2.3) mg/dL 03/14/18 03/14/18 Range/Units 06:20 11:31 WBC (3.8-10.6) k/uL Neutrophils # (1.3-7.7) k/uL Lymphocytes # (1.0-4.8) k/uL Sodium 135 L (137-145) mmol/L Chloride 89 L (98-107) mmol/L Carbon Dioxide 43 H* (22-30) mmol/L BUN 26 H (9-20) mg/dL POC Glucose (mg/dL) 107 H (75-99) mg/dL Magnesium 2.6 H (1.6-2.3) mg/dL Microbiology - Last 24 Hours (Table) 03/11/18 12:02 Blood Culture - Preliminary Blood No Growth after 48 hours Assessment and Plan Plan: Acute hypoxic and hypercarbic respiratory failure/acute exacerbation of COPD/ likely component of obstructive sleep apnea as well Improving Reqiuring BiPAP on and off, we'll continue, needs CPAP titration as an outpatient. Dr. Farnsworth to arrange for outpatient Trilogy ventilator Continue eliquis Wean down solu-Medrol Continue DuoNeb's Right-sided pleural effusion Patient has chronic elevation of right hemidiaphragm Not a candidate for thoracentesis per pulmonary as the size of the effusion is small Troponin elevation Likely nonspecific, secondary to #1 EKG reviewed, nothing acute Cardiology following, input appreciated, patient was started on aspirin, metoprolol and statin Bipolar disorder, GERD/Reflux, Hyperlipidemia, Hypertension: All stable Resume home meds DVT prophylaxis On AC
[2018-03-14] MEDS: methylPREDNISolone SOD SUCCI 40 MG/ML 1 ML VIAL IV SCH ×2 (13:46→17:33)
[2018-03-14 16:48] LABS: Glucose,Whole Blood 143 mg/dL (75-99)
[2018-03-14] MEDS: OLANZapine 10 MG TAB PO SCH (20:30)
[2018-03-14] MEDS: traZODone HCL 50 MG TAB PO SCH (20:30)
[2018-03-14 21:03] LABS: Glucose,Whole Blood 253 mg/dL (75-99)
[2018-03-15] MEDS: MORPHINE SULFATE 2 MG/ML SYRINGE IV PRN ×4 (00:02→17:47)
[2018-03-15] MEDS: methylPREDNISolone SOD SUCCI 40 MG/ML 1 ML VIAL IV SCH ×4 (00:03→21:02)
[2018-03-15 06:29] LABS: Glucose,Whole Blood 103 mg/dL (75-99)
[2018-03-15 06:46] LABS: Basophils % (A) 0 %; Eosinophils % (A) 0 %; HCT 48.2 % (39.0-53.0); Hypochromasia Slight; Lymphocytes # (A) 0.4 k/uL (1.0-4.8); Lymphocytes % (A) 3 %; MCH 29.4 pg (25.0-35.0); MCV 94.8 fL (80.0-100.0); Mean Platelet Volume 6.8; Monocytes # (A) 0.5 k/uL (0-1.0); Monocytes % (A) 4 %; Neutrophils # (A) 11.2 k/uL (1.3-7.7); Neutrophils % (A) 92 %; Platelet Count 264 k/uL (150-450); RBC 5.09 m/uL (4.30-5.90); RDW 15.4 % (11.5-15.5); WBC 12.2 k/uL (3.8-10.6)
[2018-03-15 07:42] LABS: ABG HCO3 44 mmol/L (21-25)
[2018-03-15 07:43] LABS: ABG PCO2 90 mmHg (35-45)
[2018-03-15 07:44] LABS: ABG HCO3 44 mmol/L (21-25)
[2018-03-15 07:56] LABS: Blood Urea Nitrogen 22 mg/dL (9-20); Calcium 8.8 mg/dL (8.4-10.2); Chloride 88 mmol/L (98-107); Glucose 101 mg/dL (74-99); Magnesium 2.4 mg/dL (1.6-2.3); Phosphorus 4.6 mg/dL (2.5-4.5); Potassium 4.9 mmol/L (3.5-5.1); Sodium 135 mmol/L (137-145)
[2018-03-15 08:18] LABS: Anion Gap 5 mmol/L
[2018-03-15] MEDS: SYMBICORT 160-4.5 MCG INHALER INHALATION SCH ×2 (08:19→19:12)
[2018-03-15] MEDS: IPRATROPIUM-ALBUTEROL 3 ML NEB INHALATION SCH ×4 (08:19→19:12)
[2018-03-15 08:45] LABS: Carbon Dioxide 42 mmol/L (22-30)
[2018-03-15] MEDS: METOPROLOL TARTRATE 12.5 MG TAB PO SCH ×2 (08:55→21:02)
[2018-03-15] MEDS: FUROSEMIDE 10 MG/ML 4 ML VIAL IV SCH (08:56)
[2018-03-15] MEDS: ESCITALOPRAM 10 MG TAB PO SCH (08:56)
[2018-03-15] MEDS: APIXABAN 5 MG TAB PO SCH ×2 (08:56→21:02)
[2018-03-15] MEDS: PANTOPRAZOLE 40 MG TABLET PO SCH (08:56)
[2018-03-15] MEDS: ASPIRIN 81 MG PO SCH (08:56)
[2018-03-15] MEDS: ATORVASTATIN 40 MG TAB PO SCH (08:56)
--- NOTE | 2018-03-15 09:44 | P.PN ---
Subjective Progress Note Date: 03/15/18 This is a pleasant 57-year-old gentleman with past medical history significant for COPD, chronic hypoxic respiratory failure on home oxygen, hypertension, dyslipidemia and history of hepatitis C. Presented to the hospital complaining of chest discomfort as well as shortness of breath. He had been expressing chest discomfort, mainly on the right side of the chest, described as a sharp kind of discomfort mainly associated with breathing and movement. D-dimer came in to be elevated in the emergency department and the patient subsequently underwent a computed tomography scan of the chest which found suspected subsegmental filling defect and diffuse segmental left basilar acute pulmonary emboli, no convincing findings of free heart strain. Also showed increasing right-sided pleural effusion and new loculated high density area as well as mild interstitial edema and increasing pleural effusions suggesting component of fluid overload. He does have a history of chronic right pleural effusion and underwent thoracentesis in the past. Patient does have 3 sets of cardiac enzymes that came in to be abnormal but it does not seem to be consistent with acute myocardial infarction. EKG showed sinus rhythm without any ischemic ST-T wave abnormalities. Upon examination today, patient continues to complain of chest discomfort with movement and deep inspiration. He is currently on oral anticoagulation for the PE. He continues to be on aspirin, statin and metoprolol. He's been on Lasix 40 mg IV push twice a day. Objective - Vital Signs Vital signs: Vital Signs Temp 98.2 F 03/14/18 20:00 Pulse 96 03/15/18 08:31 Resp 18 03/15/18 08:00 BP 149/79 03/15/18 08:00 Pulse Ox 93 L 03/15/18 08:22 Intake & Output 03/14/18 03/15/18 03/15/18 18:59 06:59 18:59 Intake Total 720 960 360 Output Total 600 950 Balance 120 10 360 Weight 120 kg Intake: Oral 720 960 360 Output: Urine 600 950 Other: Voiding Method Urinal # Voids 0 2 - Exam PHYSICAL EXAMINATION: HEENT: Head is atraumatic, normocephalic. Pupils equal, round. Neck is supple. There is no elevated jugular venous pressure. HEART EXAMINATION: Heart sounds regular, S1 and S2 normal. No murmur or gallop heard. CHEST EXAMINATION: Lungs reveal diminished air entry bilaterally. No chest wall tenderness is noted on palpation or with deep breathing. ABDOMEN: Soft, obese, nontender. Bowel sounds are heard. No organomegaly noted. EXTREMITIES: 2+ peripheral pulses with no evidence of peripheral edema and no calf tenderness noted. NEUROLOGIC patient is awake, alert and oriented x3. . - Labs CBC & Chem 7: 03/15/18 06:25 03/15/18 06:25 Labs: Abnormal Lab Results - Last 24 Hours (Table) 03/12/18 03/13/18 03/14/18 Range/Units 04:59 11:53 11:31 WBC (3.8-10.6) k/uL Neutrophils # (1.3-7.7) k/uL Lymphocytes # (1.0-4.8) k/uL ABG pCO2 90 H* (35-45) mmHg ABG HCO3 44 H* 44 H* (21-25) mmol/L Sodium (137-145) mmol/L Chloride (98-107) mmol/L Carbon Dioxide (22-30) mmol/L BUN (9-20) mg/dL Glucose (74-99) mg/dL POC Glucose (mg/dL) 107 H (75-99) mg/dL Phosphorus (2.5-4.5) mg/dL Magnesium (1.6-2.3) mg/dL 03/14/18 03/14/18 03/15/18 Range/Units 16:44 21:01 06:25 WBC 12.2 H (3.8-10.6) k/uL Neutrophils # 11.2 H (1.3-7.7) k/uL Lymphocytes # 0.4 L (1.0-4.8) k/uL ABG pCO2 (35-45) mmHg ABG HCO3 (21-25) mmol/L Sodium (137-145) mmol/L Chloride (98-107) mmol/L Carbon Dioxide (22-30) mmol/L BUN (9-20) mg/dL Glucose (74-99) mg/dL POC Glucose (mg/dL) 143 H 253 H (75-99) mg/dL Phosphorus (2.5-4.5) mg/dL Magnesium (1.6-2.3) mg/dL 03/15/18 03/15/18 Range/Units 06:25 06:27 WBC (3.8-10.6) k/uL Neutrophils # (1.3-7.7) k/uL Lymphocytes # (1.0-4.8) k/uL ABG pCO2 (35-45) mmHg ABG HCO3 (21-25) mmol/L Sodium 135 L (137-145) mmol/L Chloride 88 L (98-107) mmol/L Carbon Dioxide 42 H* (22-30) mmol/L BUN 22 H (9-20) mg/dL Glucose 101 H (74-99) mg/dL POC Glucose (mg/dL) 103 H (75-99) mg/dL Phosphorus 4.6 H (2.5-4.5) mg/dL Magnesium 2.4 H (1.6-2.3) mg/dL Microbiology - Last 24 Hours (Table) 03/11/18 12:02 Blood Culture - Preliminary Blood No Growth after 72 hours Assessment and Plan Assessment: #1 pleuritic chest discomfort likely related to rib fracture as well as possible PE #2 PE #3 right pleural effusion #4 rib fracture #5 mildly abnormal cardiac enzymes Plan: From cardiology's perspective, abnormal cardiac enzymes are not consistent with acute myocardial infarction. We will continue aspirin, beta asher and statin. Continue oral anticoagulation. At this time, we will follow with the patient on an as-needed basis. Please do not hesitate to contact us with questions. NET ARCHITECT note has been reviewed, I agree with a documented findings and plan of care. Patient was seen and examined.
[2018-03-15 11:41] LABS: Glucose,Whole Blood 97 mg/dL (75-99)
--- NOTE | 2018-03-15 14:10 | XR ---
EXAMINATION TYPE: XR chest 1V portable DATE OF EXAM: 03/15/2018 COMPARISON: Prior chest x-ray 03/13/[address] 03/11/2018 HISTORY: Dyspnea TECHNIQUE: Single frontal view of the chest is obtained. FINDINGS: Patient is rotated. There are low lung volumes. Patchy basilar density is again seen. Incr eased density along the minor fissure. No evident pneumothorax. Heart is stable. Central vascularity and chacho appear stable. Multiple right-sided rib fractures are not well seen. Prominent pulmonary art debi compatible with pulmonary artery hypertension. IMPRESSION: Findings suggest right pleural effusion and associated atelectasis greater on the right. Persistent cardiomegaly, additional findings above.
[2018-03-15] MEDS: LOSARTAN 25 MG TAB PO SCH (14:15)
--- NOTE | 2018-03-15 14:31 | P.PN ---
Subjective Progress Note Date: 03/15/18 Principal diagnosis: Acute/chronic chest pain/shortness of breath with acute on chronic hypercapnic respiratory failure and acute hypoxic trace failure related to COPD exacerbation , right hemidiaphragmatic elevation and severe obstructive sleep apnea This is a 57-year-old male patient who presented to the burst department with two-day history of worsening shortness of breath and pain across his chest with deep breathing. A CT angios the chest was done in the emergency department and the patient was found to have respiratory motion artifact, multiple areas of suspected subsegmental filling defects and few segmental defects in the left basilar pulmonary artery raising the suspicion for pulmonary embolism. No evidence of any right heart strain pattern. There was a right-sided pleural effusion that was small and the patient has multiple displaced right lateral nonunited rib fractures ribs 6 through 9. There was some also interstitial edema and signs of fluid overload This patient is known to me. The patient was in the hospital back in January 2018. The patient has a known history of COPD with an FEV1 of 26% of predicted , in addition to hepatitis C, history of IVDA, hypertension, hyperlipidemia and acid reflux. The patient is also obese.. The patient was having increased cough and and he was admitted to the hospital with vigorous cough, pain along the right side of the chest and a right lung opacity. Upon further investigation the patient was found to have a moderate-sized right-sided pleural effusion. Initially, a thoracentesis was done and approximately 1.3 L of fluid was aspirated from the right lung. The procedure itself did result in significant right lung reexpansion. Based on that, a CAT scan of the chest was ordered and the patient was found to have evidence of bilateral the fracture and there was a right-sided pleural effusion and compressive atelectasis of the right lung base. At that point, a pigtail catheter/chest tube was inserted and the residual pleural effusion was drained. Another 2 L of pleural fluid was aspirated. Ultimately the patient accidentally lost the tube and the tube was not reinserted as the patient's chest x-ray showed improved aeration reexpansion of the right lung. There may be some eventration of right hemidiaphragm/right hemidiaphragmatic paralysis as the right hemidiaphragm remains to be elevated. He was discharged home on oxygen. The patient is a chronic smoker. The patient has smoked for more than 40 years and he has not smoked for the past 2 weeks. He is on a combination of Spiriva, Symbicort and Proventil rescue inhaler. He also has an oxygen concentrator at home. In the interim the patient was readmitted to the hospital back in 03/03/2018 and it was suspected the patient was having a pneumonia. CT angios the chest was done on 03/03 and there was no evidence of any pulmonary embolism. The CAT scan showed elevation of the right hemidiaphragm and there is some limited the right basilar atelectatic changes/infiltration and the patient was assumed to have an underlying pneumonia and he was treated with broad-spectrum antibiotics including a combination of Zosyn and vancomycin ultimately the patient was discharged home on a prednisone burst taper and Levaquin. No pulmonate consultation was requested at that time. Also, on 02/16/2018, the patient was diagnosed having severe obstructive sleep apnea an AHI of 62.4 worsening a by body position and the patient also demonstrates severe nocturnal oxygen desaturations. He was supposed to undergo a CPAP/BiPAP titration at a later stage. Today's evaluation of 03/12/2018 the patient is a bit more awake compared to yesterday. Note that after my initial evaluation blood gases was done and the patient was found to be in acute on top of chronic hypercapnic respiratory failure with a pCO2 in the high 80s. Overnight the patient was laced on a BiPAP initially at a pressure of 10/5 and subsequently at a pressure of 12/5 cm of water and FiO2 was being adjusted to maintain a saturation above 88%. This morning he seems to be much more alert and awake. I tried him on oxygen by nasal cannula however he was unable to tolerate and he desaturated and based on that he was placed back on the BiPAP. Currently his acute hypoxic and hypercapnic respiratory failure is felt to be related to COPD exacerbation, right hemidiaphragmatic paralysis, and severe obstructive sleep apnea. Underlying pulmonary embolism is felt to be less likely. The pleural effusion on the right is small at this point in time. There is troponin leak. I give him IV heparin for the past 24 hours and going to switch this patient to oral Eliquis. I doubt the possibility of pulmonary embolism as mentioned earlier and the patient had Doppler of the lower extremity that came back negative for any DVTs. white cell count is at 13.2. The morning blood gases showed a pH of 7.3 with a pCO2 of 90 and pO2 of 81 and this was done and FiO2 of 60%. On 03/13/2018 I'm seeing this patient for a follow-up. The patient has done significant amount of progress over the past 24 hours. He is breathing easier and he is not having any shortness of breath at rest. He was using the BiPAP throughout the night and the morning blood gases from today showed improvement in his acid base status. Noted that his pH is at 7.44 and the pCO2 is down to 65. He is still hypoxic with a pO2 of 53 and this was done on 5 L of oxygen by nasal cannula. He remains on bronchodilators. He remains on systemic steroids. He remains on IV Solu-Medrol 60 mg every 6 hours. Chest x-ray from today shows some ongoing pulmonary edema. There is also right-sided pleural effusion and right basilar airspace disease. Possibly small left-sided pleural effusion is also present. Otherwise, his hemoglobin is stable at 14.7. The possibility of pulmonary embolism is felt to be less likely. The patient was given Eliquis based on the most recent CAT scan findings. I am quite impressed by his neurologic recovery as the patient is much more lucid and awake and interactive on today's evaluation and his signs and symptoms is a CO2 narcosis is improved. The patient would likely need a noninvasive positive pressure ventilation treatment on outpatient basis. We'll try to arrange for trilogy machine. He has obstructive sleep apnea and he will undergo a CPAP titration for the appropriate vent setting changes. On 03/14/2018, I'm seeing this patient for a follow-up. He is awake alert and conscious and communicating. Less short of breath. He is diuresing well. Less shortness of breath in general. Still on 5 L of oxygen by nasal cannula and a pulse ox of 94%. Hemodynamically stable. We'll try to arrange this patient to have a trilogy ventilator on outpatient basis. Meanwhile we'll continue the bronchodilators and will continue the systemic steroids. On 03/15/2018 patient seen in follow-up on selective care unit. He is awake and alert, and responding to questions appropriately, denies worsening dyspnea, still has mild to moderate degree of right lower chest wall discomfort which is worse with deep inspiration, and this is due to history of rib fractures. He is able to achieve 1850 ML on his incentive spirometry. He did wear his BiPAP support at night, with pressures of 12/5, FiO2 55%, his currently on 5 L per nasal cannula, and a pulse ox between 90-93%. Normally he wears 3 L of oxygen at home, however yesterday with ambulation patient's O2 saturation was only 90 5 L per nasal cannula. Lung sounds are diminished, no wheezes no rhonchi no rales noted on today's exam. Trilogy ventilator is being arranged. Cultures remain negative, patient is afebrile. Objective - Vital Signs Vital signs: Vital Signs Temp 98.2 F 03/14/18 20:00 Pulse 92 03/15/18 12:18 Resp 18 03/15/18 08:00 BP 149/79 03/15/18 08:00 Pulse Ox 93 L 03/15/18 08:22 Intake & Output 03/14/18 03/15/18 03/15/18 18:59 06:59 18:59 Intake Total 720 960 360 Output Total 600 950 Balance 120 10 360 Weight 120 kg Intake: Oral 720 960 360 Output: Urine 600 950 Other: Voiding Method Urinal # Voids 0 2 - Exam General Appearance no diaphoresis, no respiratory distress, speech not interrupted by breaths, no dyspnea, no pallor, not cachectic, well nourished, appears well, obesity HEENT no pursed lip breathing, no jugular venous distention, no mucous membrane cyanosis, no perioral cyanosis, mallampati classification: class 1, Mallampati Classification: Class 4 Chest no barrel chest, no retractions, no sternocleidomastoid muscle contractions, no supraclavicular retractions, no intercostal retractions, no prolonged expiratory wheezing, no decreased air movement, no rhonchi, no hyperinflation, (normal) lung sounds Heart no right ventricular heave, no distant heart sounds, no s3 gallop, (normal ) jugular vein: jugular venous distention: by 0cm, (normal) jugular vein, Murmurs: Unspecified Location: Systolic: Grade 2 / IV GI bowel sounds: hyperactive (borborygmi), bowel sounds: diminished or absent Extremities no cyanosis, no clubbing, no edema Neurologic no decreased mental status, no somnolence, no confusion Assisstive Devices: ambulates with no assitive devices Gait and Mobility: gait WNL, full weight bearing General Appearance normal, (normal) normal except as noted - Labs CBC & Chem 7: 03/15/18 06:25 03/15/18 06:25 Labs: Abnormal Lab Results - Last 24 Hours (Table) 03/12/18 03/13/18 03/14/18 Range/Units 04:59 11:53 16:44 WBC (3.8-10.6) k/uL Neutrophils # (1.3-7.7) k/uL Lymphocytes # (1.0-4.8) k/uL ABG pCO2 90 H* (35-45) mmHg ABG HCO3 44 H* 44 H* (21-25) mmol/L Sodium (137-145) mmol/L Chloride (98-107) mmol/L Carbon Dioxide (22-30) mmol/L BUN (9-20) mg/dL Glucose (74-99) mg/dL POC Glucose (mg/dL) 143 H (75-99) mg/dL Phosphorus (2.5-4.5) mg/dL Magnesium (1.6-2.3) mg/dL 03/14/18 03/15/18 03/15/18 Range/Units 21:01 06:25 06:25 WBC 12.2 H (3.8-10.6) k/uL Neutrophils # 11.2 H (1.3-7.7) k/uL Lymphocytes # 0.4 L (1.0-4.8) k/uL ABG pCO2 (35-45) mmHg ABG HCO3 (21-25) mmol/L Sodium 135 L (137-145) mmol/L Chloride 88 L (98-107) mmol/L Carbon Dioxide 42 H* (22-30) mmol/L BUN 22 H (9-20) mg/dL Glucose 101 H (74-99) mg/dL POC Glucose (mg/dL) 253 H (75-99) mg/dL Phosphorus 4.6 H (2.5-4.5) mg/dL Magnesium 2.4 H (1.6-2.3) mg/dL 03/15/18 Range/Units 06:27 WBC (3.8-10.6) k/uL Neutrophils # (1.3-7.7) k/uL Lymphocytes # (1.0-4.8) k/uL ABG pCO2 (35-45) mmHg ABG HCO3 (21-25) mmol/L Sodium (137-145) mmol/L Chloride (98-107) mmol/L Carbon Dioxide (22-30) mmol/L BUN (9-20) mg/dL Glucose (74-99) mg/dL POC Glucose (mg/dL) 103 H (75-99) mg/dL Phosphorus (2.5-4.5) mg/dL Magnesium (1.6-2.3) mg/dL Microbiology - Last 24 Hours (Table) 03/11/18 12:02 Blood Culture - Preliminary Blood No Growth after 72 hours Assessment and Plan Plan: Assessment: #1 . acute/chronic chest pain/shortness of breath with acute on chronic hypercapnic respiratory failure and acute hypoxic arrest 30 failure. The patient's respiratory failure is essentially due to COPD exacerbation and right hemidiaphragmatic elevation and severe obstructive sleep apnea. The pleural effusion is small and probably not contributing to respiratory failure. I doubt the possibility of pulmonary embolism although the CAT scan of the chest has revealed some questionable segmental and subsegmental filling defects in the lower lobe pulmonary artery branch. I'm going to treat this patient with BiPAP, bronchodilators and steroids. We'll offer this patient some diuretics and will continue the anticoagulation. On 03/13/2018 the patient was treated for COPD exacerbation and his volume status is also optimized by diuretics and there is a questionable pulmonary embolism that was treated with anticoagulation.. His blood gases from today shows improvement and acid base status. The patient is still hypoxic with a pO2 of 53 on 5 L of oxygen nasal cannula. Nevertheless his pCO2 is down to 65. He will likely need a Trilogy ventilator at a later stage on outpatient basis regarding his chronic hypercapnic respiratory failure. On 03/14/2018 the patient continues to show ongoing signs of improvement and the patient is less short of breath. Note that the blood gases from yesterday showed improvement in the acid base status. Currently set at 5 L and the pulse ox is around 94%. It bronchus spastic and wheezy. He is diuresing and he is in a negative fluid balance. #2 pleural effusion, the patient is status post initial thoracentesis and following that the patient had a small bore chest tube inserted and evacuation of more than 2 L of bloody pleural effusion which is most likely related to vigorous coughing. The patient had a pleural effusion that was bloody and the right-sided rib fractures. The fluid analysis showed no evidence of malignancy. The most recent CAT scan shows a small right-sided pleural effusion and the right hemidiaphragm remains elevated and there is no indication of an underlying pneumonia #3 fracture multiple ribs on the right 6 -9 likely secondary to vigorous cough , with secondary pain on the right side of the chest #4 Hepatitis C secondary to remote history of IV drug abuse. #5 COPD CVA with an FEV1 of 27% of predicted maintained on a combination of Symbicort Spiriva on outpatient basis #6 History of hyperlipidemia. #7 Hypertension. #8 Gastroesophageal reflux disease. #9 Morbid obesity with suspected obesity/hypoventilation syndrome. Possible obstructive sleep apnea. #10 chronic hypoxic respiratory failure maintained on O2, 2 or 3 L/m nasal cannula #11 chronic smoker #12 chronic right hemidiaphragmatic elevation, likely a underlying paralysis/ unilateral. #13 severe symptomatically obstructive sleep apnea with an AHI of 62.4 with severe nocturnal oxygen desaturation. #14 altered mentation episodic, possible CO2 narcosis due to combination of COPD and obstructive sleep apnea and chronic right hemidiaphragmatic paralysis/ elevation. The patient was treated with BiPAP and bronchodilators and steroids and there is improvement in the acid base status with a drop in the pCO2 down to 65 and the patient is been much more awake and alert on today's evaluation. #15, troponin leak Plan We will repeat chest x-ray today, encouraging incentive spirometry, we will switch the IV Lasix to oral Lasix, decreased IV Solu-Medrol to 40 mg every 12 hours. Trilogy ventilator is being arranged by discharge liquor department manager. Patient's settings will include max IPAP of 20 cm, max pressure-support of 10, with a minimal pressure-support of 4, a targeted tidal volume of 400. Increase activity as tolerated, continue with nebulized treatments. Anticipate discharge home in the next 24 hours. Need follow-up with Dr. Farnsworth in the office in 7-10 days I performed a history & physical examination of the patient and discussed their management with my nurse practitioner, Asia Peraza. I reviewed the nurse practitioner's note and agree with the documented findings and plan of care. Lung sounds are positive for diffuse wheezes throughout the lung contreras. The findings and the impression was discussed with the patient. I attest to the documentation by the nurse practitioner. Time with Patient: Less than 30
[2018-03-15] MEDS: FUROSEMIDE 40 MG TAB PO SCH (15:48)
--- NOTE | 2018-03-15 16:07 | P.PN ---
Subjective Progress Note Date: 03/15/18 Principal diagnosis: SOB and cp No overnight issues. Objective - Vital Signs Vital signs: Vital Signs Temp 98.2 F 03/14/18 20:00 Pulse 96 03/15/18 15:50 Resp 18 03/15/18 12:00 BP 118/74 03/15/18 12:00 Pulse Ox 90 L 03/15/18 12:00 Intake & Output 03/14/18 03/15/18 03/15/18 18:59 06:59 18:59 Intake Total 720 960 720 Output Total 600 950 Balance 120 10 720 Weight 120 kg Intake: Oral 720 960 720 Output: Urine 600 950 Other: Voiding Method Urinal # Voids 0 2 - Exam Constitutional: No acute distress, conversant, pleasant Eyes:Anicteric sclerae, moist conjunctiva, no lid-lag, PERRLA, ENMT: Oropharynx clear, no erythema, exudates Neck: Supple, FROM, no masses, or JVD, No carotid bruits, No thyromegaly Lungs: Very diminished breath sounds bilaterally, Clear to percussion, Normal respiratory effort, no accessory muscle use Cardiovascular: Heart regular in rate and rhythm, No murmurs, gallops, or rubs, No peripheral edema Abdominal: Soft, right upper and left upper quadrant tenderness, no guarding, rebound or rigidity, Normoactive bowel sounds, No hepatomegaly, No splenomegaly , No palpable mass Skin: Normal temperature, tone, texture, turgor, no induration, No subcutaneous nodules, No rash, lesions, No ulcers Extremities: No digital cyanosis, No clubbing, Pedal pulses intact and symmetrical, Radial pulses intact and symmetrical, No calf tenderness Psychiatric: Alert and oriented to person, place and time, appropriate affect, intact judgement Neuro: Gen. weakness, no focal sensory deficits - Labs CBC & Chem 7: 03/15/18 06:25 03/15/18 06:25 Labs: Abnormal Lab Results - Last 24 Hours (Table) 03/12/18 03/13/18 03/14/18 Range/Units 04:59 11:53 16:44 WBC (3.8-10.6) k/uL Neutrophils # (1.3-7.7) k/uL Lymphocytes # (1.0-4.8) k/uL ABG pCO2 90 H* (35-45) mmHg ABG HCO3 44 H* 44 H* (21-25) mmol/L Sodium (137-145) mmol/L Chloride (98-107) mmol/L Carbon Dioxide (22-30) mmol/L BUN (9-20) mg/dL Glucose (74-99) mg/dL POC Glucose (mg/dL) 143 H (75-99) mg/dL Phosphorus (2.5-4.5) mg/dL Magnesium (1.6-2.3) mg/dL 03/14/18 03/15/18 03/15/18 Range/Units 21:01 06:25 06:25 WBC 12.2 H (3.8-10.6) k/uL Neutrophils # 11.2 H (1.3-7.7) k/uL Lymphocytes # 0.4 L (1.0-4.8) k/uL ABG pCO2 (35-45) mmHg ABG HCO3 (21-25) mmol/L Sodium 135 L (137-145) mmol/L Chloride 88 L (98-107) mmol/L Carbon Dioxide 42 H* (22-30) mmol/L BUN 22 H (9-20) mg/dL Glucose 101 H (74-99) mg/dL POC Glucose (mg/dL) 253 H (75-99) mg/dL Phosphorus 4.6 H (2.5-4.5) mg/dL Magnesium 2.4 H (1.6-2.3) mg/dL 03/15/18 Range/Units 06:27 WBC (3.8-10.6) k/uL Neutrophils # (1.3-7.7) k/uL Lymphocytes # (1.0-4.8) k/uL ABG pCO2 (35-45) mmHg ABG HCO3 (21-25) mmol/L Sodium (137-145) mmol/L Chloride (98-107) mmol/L Carbon Dioxide (22-30) mmol/L BUN (9-20) mg/dL Glucose (74-99) mg/dL POC Glucose (mg/dL) 103 H (75-99) mg/dL Phosphorus (2.5-4.5) mg/dL Magnesium (1.6-2.3) mg/dL Microbiology - Last 24 Hours (Table) 03/11/18 12:02 Blood Culture - Preliminary Blood No Growth after 96 hours Assessment and Plan Plan: Acute hypoxic and hypercarbic respiratory failure/acute exacerbation of COPD/ likely component of obstructive sleep apnea as well Improving Reqiuring BiPAP on and off, we'll continue. Care management to arrange for outpatient Trilogy ventilator, D/W healthcare interpreter. Continue eliquis Wean down solu-Medrol Continue DuoNeb's Right-sided pleural effusion Patient has chronic elevation of right hemidiaphragm Not a candidate for thoracentesis per pulmonary as the size of the effusion is small Troponin elevation Likely nonspecific, secondary to #1 EKG reviewed, nothing acute Cardiology following, input appreciated, patient was started on aspirin, metoprolol and statin Bipolar disorder, GERD/Reflux, Hyperlipidemia, Hypertension: All stable Resume home meds DVT prophylaxis On AC
[2018-03-15 20:05] LABS: Glucose,Whole Blood 165 mg/dL (75-99)
[2018-03-15] MEDS: traZODone HCL 50 MG TAB PO SCH (21:02)
[2018-03-15] MEDS: OLANZapine 10 MG TAB PO SCH (21:02)
[2018-03-16] MEDS: MORPHINE SULFATE 2 MG/ML SYRINGE IV PRN ×4 (01:08→16:06)
[2018-03-16 06:16] LABS: Glucose,Whole Blood 141 mg/dL (75-99)
[2018-03-16] MEDS: PANTOPRAZOLE 40 MG TABLET PO SCH (06:37)
[2018-03-16 07:20] LABS: Anion Gap 6 mmol/L; Blood Urea Nitrogen 23 mg/dL (9-20); Calcium 8.8 mg/dL (8.4-10.2); Chloride 88 mmol/L (98-107); Glucose 156 mg/dL (74-99); Magnesium 2.5 mg/dL (1.6-2.3); Phosphorus 4.6 mg/dL (2.5-4.5); Potassium 4.9 mmol/L (3.5-5.1); Sodium 134 mmol/L (137-145)
[2018-03-16 07:25] LABS: Basophils % (A) 0 %; Eosinophils % (A) 0 %; HCT 46.1 % (39.0-53.0); HGB 14.3 gm/dL (13.0-17.5); Hypochromasia Moderate; Lymphocytes # (A) 0.3 k/uL (1.0-4.8); Lymphocytes % (A) 3 %; MCV 96.8 fL (80.0-100.0); Mean Platelet Volume 7.2; Monocytes # (A) 0.3 k/uL (0-1.0); Monocytes % (A) 3 %; Neutrophils # (A) 9.3 k/uL (1.3-7.7); Neutrophils % (A) 93 %; Platelet Count 251 k/uL (150-450); RBC 4.76 m/uL (4.30-5.90); RDW 15.4 % (11.5-15.5)
[2018-03-16 07:28] LABS: Carbon Dioxide 40 mmol/L (22-30)
[2018-03-16] MEDS: methylPREDNISolone SOD SUCCI 40 MG/ML 1 ML VIAL IV SCH (08:26)
[2018-03-16] MEDS: ESCITALOPRAM 10 MG TAB PO SCH (08:28)
[2018-03-16] MEDS: ATORVASTATIN 40 MG TAB PO SCH (08:28)
[2018-03-16] MEDS: ASPIRIN 81 MG PO SCH (08:28)
[2018-03-16] MEDS: LOSARTAN 25 MG TAB PO SCH (08:28)
[2018-03-16] MEDS: METOPROLOL TARTRATE 12.5 MG TAB PO SCH (08:28)
[2018-03-16] MEDS: FUROSEMIDE 40 MG TAB PO SCH ×2 (08:28→16:09)
[2018-03-16] MEDS: APIXABAN 5 MG TAB PO SCH (08:28)
[2018-03-16] MEDS: SYMBICORT 160-4.5 MCG INHALER INHALATION SCH ×2 (08:38→08:44)
[2018-03-16] MEDS: IPRATROPIUM-ALBUTEROL 3 ML NEB INHALATION SCH ×4 (08:38→15:43)
[2018-03-16 11:34] VITALS: BP 135/85; RESP 20; TEMP 98.6
[2018-03-16 11:53] LABS: Glucose,Whole Blood 111 mg/dL (75-99)
--- NOTE | 2018-03-16 12:05 | P.PN ---
Subjective Progress Note Date: 03/16/18 Principal diagnosis: Acute on chronic hypercapnic respiratory failure secondary to acute exacerbation of chronic obstructive pulmonary disease, severe obstructive sleep apnea and a right brittany-diaphragmatic elevation. This is a 57-year-old male patient who presented to the burst department with two-day history of worsening shortness of breath and pain across his chest with deep breathing. A CT angios the chest was done in the emergency department and the patient was found to have respiratory motion artifact, multiple areas of suspected subsegmental filling defects and few segmental defects in the left basilar pulmonary artery raising the suspicion for pulmonary embolism. No evidence of any right heart strain pattern. There was a right-sided pleural effusion that was small and the patient has multiple displaced right lateral nonunited rib fractures ribs 6 through 9. There was some also interstitial edema and signs of fluid overload This patient is known to me. The patient was in the hospital back in January 2018. The patient has a known history of COPD with an FEV1 of 26% of predicted , in addition to hepatitis C, history of IVDA, hypertension, hyperlipidemia and acid reflux. The patient is also obese.. The patient was having increased cough and and he was admitted to the hospital with vigorous cough, pain along the right side of the chest and a right lung opacity. Upon further investigation the patient was found to have a moderate-sized right-sided pleural effusion. Initially, a thoracentesis was done and approximately 1.3 L of fluid was aspirated from the right lung. The procedure itself did result in significant right lung reexpansion. Based on that, a CAT scan of the chest was ordered and the patient was found to have evidence of bilateral the fracture and there was a right-sided pleural effusion and compressive atelectasis of the right lung base. At that point, a pigtail catheter/chest tube was inserted and the residual pleural effusion was drained. Another 2 L of pleural fluid was aspirated. Ultimately the patient accidentally lost the tube and the tube was not reinserted as the patient's chest x-ray showed improved aeration reexpansion of the right lung. There may be some eventration of right hemidiaphragm/right hemidiaphragmatic paralysis as the right hemidiaphragm remains to be elevated. He was discharged home on oxygen. The patient is a chronic smoker. The patient has smoked for more than 40 years and he has not smoked for the past 2 weeks. He is on a combination of Spiriva, Symbicort and Proventil rescue inhaler. He also has an oxygen concentrator at home. In the interim the patient was readmitted to the hospital back in 03/03/2018 and it was suspected the patient was having a pneumonia. CT angios the chest was done on 03/03 and there was no evidence of any pulmonary embolism. The CAT scan showed elevation of the right hemidiaphragm and there is some limited the right basilar atelectatic changes/infiltration and the patient was assumed to have an underlying pneumonia and he was treated with broad-spectrum antibiotics including a combination of Zosyn and vancomycin ultimately the patient was discharged home on a prednisone burst taper and Levaquin. No pulmonate consultation was requested at that time. Also, on 02/16/2018, the patient was diagnosed having severe obstructive sleep apnea an AHI of 62.4 worsening a by body position and the patient also demonstrates severe nocturnal oxygen desaturations. He was supposed to undergo a CPAP/BiPAP titration at a later stage. Today's evaluation of 03/12/2018 the patient is a bit more awake compared to yesterday. Note that after my initial evaluation blood gases was done and the patient was found to be in acute on top of chronic hypercapnic respiratory failure with a pCO2 in the high 80s. Overnight the patient was laced on a BiPAP initially at a pressure of 10/5 and subsequently at a pressure of 12/5 cm of water and FiO2 was being adjusted to maintain a saturation above 88%. This morning he seems to be much more alert and awake. I tried him on oxygen by nasal cannula however he was unable to tolerate and he desaturated and based on that he was placed back on the BiPAP. Currently his acute hypoxic and hypercapnic respiratory failure is felt to be related to COPD exacerbation, right hemidiaphragmatic paralysis, and severe obstructive sleep apnea. Underlying pulmonary embolism is felt to be less likely. The pleural effusion on the right is small at this point in time. There is troponin leak. I give him IV heparin for the past 24 hours and going to switch this patient to oral Eliquis. I doubt the possibility of pulmonary embolism as mentioned earlier and the patient had Doppler of the lower extremity that came back negative for any DVTs. white cell count is at 13.2. The morning blood gases showed a pH of 7.3 with a pCO2 of 90 and pO2 of 81 and this was done and FiO2 of 60%. On 03/13/2018 I'm seeing this patient for a follow-up. The patient has done significant amount of progress over the past 24 hours. He is breathing easier and he is not having any shortness of breath at rest. He was using the BiPAP throughout the night and the morning blood gases from today showed improvement in his acid base status. Noted that his pH is at 7.44 and the pCO2 is down to 65. He is still hypoxic with a pO2 of 53 and this was done on 5 L of oxygen by nasal cannula. He remains on bronchodilators. He remains on systemic steroids. He remains on IV Solu-Medrol 60 mg every 6 hours. Chest x-ray from today shows some ongoing pulmonary edema. There is also right-sided pleural effusion and right basilar airspace disease. Possibly small left-sided pleural effusion is also present. Otherwise, his hemoglobin is stable at 14.7. The possibility of pulmonary embolism is felt to be less likely. The patient was given Eliquis based on the most recent CAT scan findings. I am quite impressed by his neurologic recovery as the patient is much more lucid and awake and interactive on today's evaluation and his signs and symptoms is a CO2 narcosis is improved. The patient would likely need a noninvasive positive pressure ventilation treatment on outpatient basis. We'll try to arrange for trilogy machine. He has obstructive sleep apnea and he will undergo a CPAP titration for the appropriate vent setting changes. On 03/14/2018, I'm seeing this patient for a follow-up. He is awake alert and conscious and communicating. Less short of breath. He is diuresing well. Less shortness of breath in general. Still on 5 L of oxygen by nasal cannula and a pulse ox of 94%. Hemodynamically stable. We'll try to arrange this patient to have a trilogy ventilator on outpatient basis. Meanwhile we'll continue the bronchodilators and will continue the systemic steroids. On 03/15/2018 patient seen in follow-up on selective care unit. He is awake and alert, and responding to questions appropriately, denies worsening dyspnea, still has mild to moderate degree of right lower chest wall discomfort which is worse with deep inspiration, and this is due to history of rib fractures. He is able to achieve 1850 ML on his incentive spirometry. He did wear his BiPAP support at night, with pressures of 12/5, FiO2 55%, his currently on 5 L per nasal cannula, and a pulse ox between 90-93%. Normally he wears 3 L of oxygen at home, however yesterday with ambulation patient's O2 saturation was only 90 5 L per nasal cannula. Lung sounds are diminished, no wheezes no rhonchi no rales noted on today's exam. Trilogy ventilator is being arranged. Cultures remain negative, patient is afebrile. The patient was seen again today 03/16/2018 in follow-up on the selective care unit. He is resting quite comfortably in bed. He is awake and alert in no acute distress. He is anxious to go home. He is maintaining good O2 saturations in the 90s on 3 L/m per nasal cannula. He is afebrile. Hemodynamically stable. He is anxious to go home. He will be set up for a Trilogy AVAPS machine. Objective - Vital Signs Vital signs: Vital Signs Temp 98.6 F 03/16/18 11:32 Pulse 89 03/16/18 11:41 Resp 20 03/16/18 11:41 BP 135/85 03/16/18 11:32 Pulse Ox 93 L 03/16/18 11:32 Intake & Output 03/15/18 03/16/18 03/16/18 18:59 06:59 18:59 Intake Total 720 Output Total 300 354 Balance 420 -354 Weight 119.4 kg Intake: Oral 720 Output: Urine 300 354 Other: Voiding Method Urinal Urinal # Voids 2 1 - Exam GENERAL EXAM: Obese. Alert, active, comfortable in no apparent distress. HEAD: Normocephalic. EYES: Normal reaction of pupils, equal size. NOSE: Clear with pink turbinates. THROAT: There is crowding the posterior pharynx. No erythema or exudates. NECK: Short. No masses, no JVD. CHEST: No chest wall deformity. LUNGS: Equal air entry with no crackles, wheeze, rhonchi or dullness. Diminished. CVS: S1 and S2 normal with no audible murmur, regular rhythm. ABDOMEN: No hepatosplenomegaly, normal bowel sounds, no guarding or rigidity. SPINE: No scoliosis or deformity SKIN: No rashes CENTRAL NERVOUS SYSTEM: No focal deficits, tone is normal in all 4 extremities. EXTREMITIES: There is no peripheral edema. No clubbing, no cyanosis. Peripheral pulses are intact. - Labs CBC & Chem 7: 03/16/18 06:02 03/16/18 06:02 Labs: Abnormal Lab Results - Last 24 Hours (Table) 03/15/18 03/16/18 03/16/18 Range/Units 20:03 06:02 06:02 Neutrophils # 9.3 H (1.3-7.7) k/uL Lymphocytes # 0.3 L (1.0-4.8) k/uL Sodium 134 L (137-145) mmol/L Chloride 88 L (98-107) mmol/L Carbon Dioxide 40 H* (22-30) mmol/L BUN 23 H (9-20) mg/dL Glucose 156 H (74-99) mg/dL POC Glucose (mg/dL) 165 H (75-99) mg/dL Phosphorus 4.6 H (2.5-4.5) mg/dL Magnesium 2.5 H (1.6-2.3) mg/dL 03/16/18 03/16/18 Range/Units 06:15 11:44 Neutrophils # (1.3-7.7) k/uL Lymphocytes # (1.0-4.8) k/uL Sodium (137-145) mmol/L Chloride (98-107) mmol/L Carbon Dioxide (22-30) mmol/L BUN (9-20) mg/dL Glucose (74-99) mg/dL POC Glucose (mg/dL) 141 H 111 H (75-99) mg/dL Phosphorus (2.5-4.5) mg/dL Magnesium (1.6-2.3) mg/dL Microbiology - Last 24 Hours (Table) 03/11/18 12:02 Blood Culture - Preliminary Blood No Growth after 96 hours Assessment and Plan Assessment: Assessment: #1 . acute/chronic chest pain/shortness of breath with acute on chronic hypercapnic respiratory failure and acute hypoxic arrest 30 failure. The patient's respiratory failure is essentially due to COPD exacerbation and right hemidiaphragmatic elevation and severe obstructive sleep apnea. The pleural effusion is small and probably not contributing to respiratory failure. I doubt the possibility of pulmonary embolism although the CAT scan of the chest has revealed some questionable segmental and subsegmental filling defects in the lower lobe pulmonary artery branch. Treated with with BiPAP, bronchodilators and steroids. We'll offer this patient some diuretics and will continue the anticoagulation. #2 pleural effusion, the patient is status post initial thoracentesis and following that the patient had a small bore chest tube inserted and evacuation of more than 2 L of bloody pleural effusion which is most likely related to vigorous coughing. The patient had a pleural effusion that was bloody and the right-sided rib fractures. The fluid analysis showed no evidence of malignancy. The most recent CAT scan shows a small right-sided pleural effusion and the right hemidiaphragm remains elevated and there is no indication of an underlying pneumonia #3 fracture multiple ribs on the right 6 -9 likely secondary to vigorous cough , with secondary pain on the right side of the chest #4 Hepatitis C secondary to remote history of IV drug abuse. #5 COPD CVA with an FEV1 of 27% of predicted maintained on a combination of Symbicort Spiriva on outpatient basis #6 History of hyperlipidemia. #7 Hypertension. #8 Gastroesophageal reflux disease. #9 Morbid obesity with suspected obesity/hypoventilation syndrome. Possible obstructive sleep apnea. #10 chronic hypoxic respiratory failure maintained on O2, 2 or 3 L/m nasal cannula #11 chronic smoker #12 chronic right hemidiaphragmatic elevation, likely a underlying paralysis/ unilateral. #13 severe symptomatically obstructive sleep apnea with an AHI of 62.4 with severe nocturnal oxygen desaturation. Plan: The patient was seen and evaluated by Dr. Madrigal. He is stable from the pulmonary standpoint. We've arranged for a total bili machine to be delivered to his home today. Continue with his pulmonary medications. He is educated regarding the importance of medication and follow-up compliance. He is educated regarding the importance of complete smoking cessation. He'll be seen in our office in 1-2 weeks' time. He and his human resources operations coordinator both encouraged to call sooner with any recurrence of symptoms or other questions or concerns. I, the cosigning physician, performed a history & physical examination of the patient. Lungs sounds are clear. Diminished. Maintaining good O2 saturations in the 90s on 3 L/m per nasal cannula.. I discussed the assessment and plan of care with my nurse practitioner, Marixa Carty. I attest to the above note as dictated by her.
--- NOTE | 2018-03-16 14:28 | P.DS ---
Providers Date of admission: 03/11/18 11:24 Expected date of discharge: 03/16/18 Attending physician: Nimo Nuno DO Consults: 03/11/18 11:24 Consult Physician Stat Consulting Provider: Porsche Farnsworth Consult Reason/Comments: PE, pneumothorax congestive heart failure Do you want consulting provider notified?: Yes Consult Physician Stat Consulting Provider: Eduar Culp Consult Reason/Comments: Chest heart failure, elevated troponin Do you want consulting provider notified?: Yes Primary care physician: Hina Rojas MD Hospital Course: 57-year-old male with history of COPD on home oxygen of 2-3 L and hepatitis C presented to the hospital with progressively worsening shortness of breath, cough productive of white phlegm, no hemoptysis as well as right upper back pleuritic chest pain. Also mentioned subjective fevers & chills. He has not been eating for the last 3 days because he has been feeling nauseous and having abdominal pain as well. He has been feeling generally weak. He has been using his nebulizers but they haven't been doing much for him. Patient has been in and out of the hospital over the last several months. He feels he was discharged from the hospital early last time. Last time his main diagnosis was COPD exacerbation, upon discharge he was given levaquin and prednisone taper. The hospitalization before that was for rib fracture and hemothorax. He had thoracentesis done on the right side at that time. He denies any leg swelling. Patient used to smoke 2 packs a day however he quit recently. In the emergency department she was found to be tachycardic, he had a CT angiogram of the chest that was positive for PE, he was started on heparin drip and admitted to the hospital for further evaluation and management. She was subsequently admitted to the hospital, laboratory testing revealed evidence of leukocytosis in addition to slightly elevated troponin at 0.16. Patient was seen by cardiology who thought that the troponin elevation is likely nonspecific. However his chest x-ray did show some pulmonary vascular congestion, BNP was 2000. He was started on Lasix, aspirin and metoprolol by cardiology. She was also treated for severe COPD exacerbation, was evaluated by pulmonary service. Initially in the admission he was retaining CO2, his ABG was consistent with hypercarbia with CO2 level of 88. With that PH was 7.30. Patient was treated with steroids, DuoNeb's and BiPAP and pulmonary recommended discharging him on Trilogy ventilator. That was discussed with child care center assistant director who arranged to order it for the patient. Patient improved significantly with the above treatment. Currently he is ready for discharge. Patient will be discharged home in a stable condition. Discharge diagnoses Acute pulmonary embolus Acute exacerbation of COPD Acute hypercarbic hypoxic respiratory failure, resolved Plan - Discharge Summary Discharge Rx Participant: Yes New Discharge Prescriptions: New Acetaminophen Tab [Tylenol] 650 mg PO Q4HR PRN tab PRN Reason: Fever And/Or Mild Pain Apixaban [Eliquis] 5 mg PO BID #60 tab Aspirin 81 mg PO DAILY chew predniSONE 10 mg PO DAILY #30 tab Furosemide [Lasix] 40 mg PO DAILY #30 tab Metoprolol Tartrate [Lopressor] 12.5 mg PO BID #60 tab Continue OLANZapine [ZyPREXA] 20 mg PO HS Tiotropium Victoria [Spiriva] 1 cap INHALATION RT-DAILY Escitalopram [Lexapro] 10 mg PO DAILY Albuterol Nebulized [Ventolin Nebulized] 2.5 mg INHALATION RT-Q4H PRN PRN Reason: Shortness Of Breath traZODone HCL 50 mg PO HS Budesonide/Formoterol Fumarate [Symbicort 160-4.5 Mcg Inhaler] 2 puff INHALATION RT-BID Albuterol Sulfate [Proair Hfa] 2 puff INHALATION RT-Q4H PRN PRN Reason: Shortness Of Breath Omeprazole 40 mg PO DAILY Atorvastatin [Lipitor] 40 mg PO DAILY Losartan [Cozaar] 25 mg PO DAILY Acetaminophen Tab [Tylenol] 650 mg PO Q6HR PRN #28 tab PRN Reason: Mild Pain Or Fever > 100.5 Discontinued Levofloxacin [Levaquin] 750 mg PO DAILY #5 tab predniSONE 40 mg PO DAILY #5 tab Discharge Medication List OLANZapine [ZyPREXA] 20 mg PO HS 02/28/16 [History] Tiotropium Victoria [Spiriva] 1 cap INHALATION RT-DAILY 04/17/16 [History] Albuterol Nebulized [Ventolin Nebulized] 2.5 mg INHALATION RT-Q4H PRN 01/22/18 [ History] Albuterol Sulfate [Proair Hfa] 2 puff INHALATION RT-Q4H PRN 01/22/18 [History] Budesonide/Formoterol Fumarate [Symbicort 160-4.5 Mcg Inhaler] 2 puff INHALATION RT-BID 01/22/18 [History] Escitalopram [Lexapro] 10 mg PO DAILY 01/22/18 [History] Omeprazole 40 mg PO DAILY 01/22/18 [History] traZODone HCL 50 mg PO HS 01/22/18 [History] Atorvastatin [Lipitor] 40 mg PO DAILY 03/04/18 [History] Losartan [Cozaar] 25 mg PO DAILY 03/04/18 [History] Acetaminophen Tab [Tylenol] 650 mg PO Q6HR PRN #28 tab 03/05/18 [Rx] Acetaminophen Tab [Tylenol] 650 mg PO Q4HR PRN tab 03/16/18 [Rx] Apixaban [Eliquis] 5 mg PO BID #60 tab 03/16/18 [Rx] Aspirin 81 mg PO DAILY chew 03/16/18 [Rx] Furosemide [Lasix] 40 mg PO DAILY #30 tab 03/16/18 [Rx] Metoprolol Tartrate [Lopressor] 12.5 mg PO BID #60 tab 03/16/18 [Rx] predniSONE 10 mg PO DAILY #30 tab 03/16/18 [Rx] Follow up Appointment(s)/Referral(s): Eduar Culp MD [STAFF PHYSICIAN] - 4 Weeks Hina Rojas MD [Primary Care Provider] - 03/23/18 4:40 pm (Thursday) Porsche Farnsworth MD [STAFF PHYSICIAN] - 1 Week
[2018-03-16 17:01] VITALS: PULSE 89
--- NOTE | 2018-03-17 14:02 | CDI ---
Last Revision, July 2017 Documentation Clarification Form Date: 03/17/18 From: Hina Hemphill Phone: If you have a question regarding this query, please contact Roxanna Wheeler at [phone] between 8am and 5pm. Admit Date: 03/11/2018 11:24:00 AM Patient Name: Williams Angulo Visit Number: [id number] Discharge Date: 03/16/18 ATTENTION: The Clinical Documentation Specialists (CDI) and [facility] Coding Staff appreciate your assistance in clarifying documentation. Please respond to the clarification below the line at the bottom and electronically sign. The CDI & [facility] Coding staff will review the response and follow-up if needed. Please note: Queries are made part of the Legal Health Record. If you have any questions, please contact the author of this message via ITS. Dr. Siri Murguia Pulmonary embolism is documented in the discharge summary. However, in Dr. Madrigal's and Dr. Juarez's progress notes documentation states that they doubt the possibility of pulmonary emoblism and the possibility of pulmonary embolism is felt to be less likely. Patient history/risk factors: Patient was admitted for acute on chronic hypoxic and hypercapnic respiratroy failure Clinical Indicators: Chest pain, shortness of breath and tachycardia. Lab findings: Radiology findings: Doppler of lower extremities negaitve for any DVTs. CT scan of the chest has revealed some questionable segmental and subsegmental filling defects in the lower lobe pulmonary artery branch. Treatment: Patient was given Eliquis In your professional opinion, can you please clarify if pulmonary embolism was? Ruled In Ruled Out Other, please specify Unable to determine PE ruled in. [facility]
== END 2018-03-16 16:54 | disposition home health service (06) | DRG 189 ==
LOC: EC 07:54 → 6ICU 11:24 → 6SEL 03-13 16:30
PROVIDERS: ADMIT Internal Medicine; ATTEND Internal Medicine
PROC: 5A09457 Assistance with Respiratory Ventilation, 24-96 Consecutive Hours, Continuous Positive Airway Pressure (ICD-10-PCS; principal; 2018-03-11)
DX: J96.21 Acute and chronic respiratory failure with hypoxia (principal); I50.31 Acute diastolic (congestive) heart failure; S27.2XXA Traumatic hemopneumothorax, initial encounter; I26.99 Other pulmonary embolism without acute cor pulmonale; J98.11 Atelectasis; J44.1 Chronic obstructive pulmonary disease with (acute) exacerbation; S22.41XA Multiple fractures of ribs, right side, initial encounter for closed fracture; J96.22 Acute and chronic respiratory failure with hypercapnia; B19.20 Unspecified viral hepatitis C without hepatic coma; E66.01 Morbid (severe) obesity due to excess calories; E78.5 Hyperlipidemia, unspecified; F17.210 Nicotine dependence, cigarettes, uncomplicated; F31.9 Bipolar disorder, unspecified; G47.33 Obstructive sleep apnea (adult) (pediatric); G89.29 Other chronic pain; I11.0 Hypertensive heart disease with heart failure; J98.6 Disorders of diaphragm; K21.9 Gastro-esophageal reflux disease without esophagitis; R77.9 Abnormality of plasma protein, unspecified; Z68.35 Body mass index [BMI] 35.0-35.9, adult; Z79.51 Long term (current) use of inhaled steroids; Z79.899 Other long term (current) drug therapy; Z99.81 Dependence on supplemental oxygen; Z87.01 Personal history of pneumonia (recurrent); Z82.49 Family history of ischemic heart disease and other diseases of the circulatory system; Z82.5 Family history of asthma and other chronic lower respiratory diseases
CPT/HCPCS: 36415; 36600; 71045; 71046; 71275; 80048; 80053; 82550; 82553; 82805; 83036; 83605; 83735; 83880; 84100; 84484; 85025; 85379; 85610; 85730; 87040; 87086; 93005; 93306; 93970; 94640; 94660; 94760; 96361; 96365; 96366; 96375; 96376; 99291

== ENCOUNTER 2018-03-30 11:21 | Emergency (ER) | payer MEDICARE, OTHER ==
[2018-03-30 13:38] LABS: Basophils % (A) 0 %; Eosinophils # (A) 0.1 k/uL (0-0.7); Eosinophils % (A) 1 %; HCT 45.4 % (39.0-53.0); HGB 13.9 gm/dL (13.0-17.5); Lymphocytes # (A) 0.9 k/uL (1.0-4.8); Lymphocytes % (A) 12 %; MCH 28.3 pg (25.0-35.0); MCHC 30.7 g/dL (31.0-37.0); MCV 92.3 fL (80.0-100.0); Mean Platelet Volume 7.4; Monocytes # (A) 0.3 k/uL (0-1.0); Monocytes % (A) 4 %; Neutrophils # (A) 6.1 k/uL (1.3-7.7); Neutrophils % (A) 81 %; Platelet Count 196 k/uL (150-450); RBC 4.92 m/uL (4.30-5.90); RDW 14.9 % (11.5-15.5); WBC 7.6 k/uL (3.8-10.6)
[2018-03-30 13:43] LABS: ALT 43 U/L (21-72); AST 25 U/L (17-59); Albumin 3.9 g/dL (3.5-5.0); Alkaline Phosphatase 64 U/L (38-126); Anion Gap 7 mmol/L; Blood Urea Nitrogen 17 mg/dL (9-20); Calcium 8.8 mg/dL (8.4-10.2); Carbon Dioxide 31 mmol/L (22-30); Chloride 99 mmol/L (98-107); Glucose 109 mg/dL (74-99); Potassium 4.4 mmol/L (3.5-5.1); Sodium 137 mmol/L (137-145); Total Bilirubin 0.2 mg/dL (0.2-1.3); Total Protein 6.1 g/dL (6.3-8.2)
--- NOTE | 2018-03-30 13:47 | XR ---
EXAMINATION TYPE: XR chest 2V DATE OF EXAM: 03/30/2018 COMPARISON: 03/24/2018 TECHNIQUE: PA and lateral views submitted. HISTORY: Difficulty breathing FINDINGS: Subsegmental consolidation at both lung bases. No overt failure or pneumothorax. Underlying COPD and hypertension relation suggested. Degenerative change of the spine. Elevated right hemidiaphragm stabl e. Rib deformities with areas of density are suggestive of previous trauma. IMPRESSION: 1. Correlate for COPD with basilar atelectasis or early infiltrate.
[2018-03-30 13:54] LABS: INR 0.9 (<1.2); Prothrombin Time 9.3 sec (9.0-12.0)
[2018-03-30 13:58] LABS: Partial Thromboplastin Time 21.8 sec (22.0-30.0)
[2018-03-30 14:09] LABS: Creatine Kinase 58 U/L (55-170)
[2018-03-30 14:22] LABS: Troponin I <0.012 ng/mL (0.000-0.034)
[2018-03-30 14:26] LABS: Creatine Kinase MB 3.1 ng/mL (0.0-2.4)
--- NOTE | 2018-03-30 14:32 | ED ---
General Adult HPI - General Chief complaint: Shortness of Breath Stated complaint: Cough Source: patient Mode of arrival: ambulatory Limitations: no limitations - History of Present Illness Initial comments: Dictation was produced using [employer] dictation software. please excuse any grammatical, word or spelling errors. Chief Complaint: 57-year-old male past medical history of COPD on home oxygen, hepatitis C presents with coughing of black sputum. History of Present Illness: 57-year-old male past medical history of COPD on home oxygen, hepatitis C presents with coughing of black sputum. Patient states he was recently started on a close. Patient has extensive history of pneumonia and pleural fluid requiring drainage. Patient states that over the past day he has been coughing up black-appearing sputum. Patient has extensive history of tobacco abuse however he states he had not had a cigarette in 2 months. Patient was recently admitted earlier this month for acute pulmonary embolus, CT OPD exacerbation and hypercarbic respiratory failure. Since being discharged approximately 12 days ago he has otherwise felt well. Denies any fever, chills or night sweats The ROS documented in this emergency department record has been reviewed and confirmed by me. Those systems with pertinent positive or negative responses have been documented in the HPI. All other systems are other negative and/or noncontributory. - Related Data Home Medications Medication Instructions Recorded Confirmed OLANZapine [ZyPREXA] 20 mg PO HS 02/28/16 03/30/18 Tiotropium [place] [Spiriva] 1 cap INHALATION RT-DAILY 04/17/16 03/30/18 Albuterol Nebulized [Ventolin 2.5 mg INHALATION RT-Q4H PRN 01/22/18 03/30/18 Nebulized] Albuterol Sulfate [Proair Hfa] 2 puff INHALATION RT-Q4H PRN 01/22/18 03/30/18 Budesonide/Formoterol Fumarate 2 puff INHALATION RT-BID 01/22/18 03/30/18 [Symbicort 160-4.5 Mcg Inhaler] Escitalopram [Lexapro] 10 mg PO DAILY 01/22/18 03/30/18 Omeprazole 40 mg PO DAILY 01/22/18 03/30/18 traZODone HCL 50 mg PO HS 01/22/18 03/30/18 Atorvastatin [Lipitor] 40 mg PO DAILY 03/04/18 03/30/18 Losartan [Cozaar] 25 mg PO DAILY 03/04/18 03/30/18 Previous Rx's Medication Instructions Recorded Acetaminophen Tab [Tylenol] 650 mg PO Q4HR PRN tab 03/16/18 Apixaban [Eliquis] 5 mg PO BID #60 tab 03/16/18 Aspirin 81 mg PO DAILY chew 03/16/18 Furosemide [Lasix] 40 mg PO DAILY #30 tab 03/16/18 Metoprolol Tartrate [Lopressor] 12.5 mg PO BID #60 tab 03/16/18 Allergies Allergy/AdvReac Type Severity Reaction Status Date / Time No Known Allergies Allergy Verified 03/30/18 12:26 Review of Systems ROS Statement: Those systems with pertinent positive or pertinent negative responses have been documented in the HPI. ROS Other: All systems not noted in ROS Statement are negative. Past Medical History Past Medical History: Asthma, COPD, GERD/Reflux, Hyperlipidemia, Hypertension, Pneumonia Additional Past Medical History / Comment(s): hep C past iv heroin use in the , home 02 2.5 liters n/c pt stated he had a pne vacine less than 5 years ago not sure of date, unable to verify at time of this admit. History of Any Multi-Drug Resistant Organisms: None Reported Past Surgical History: Adenoidectomy, Tonsillectomy Past Anesthesia/Blood Transfusion Reactions: No Reported Reaction Past Psychological History: No Psychological Hx Reported Smoking Status: Former smoker Past Alcohol Use History: None Reported Past Drug Use History: Heroin, Marijuana - Past Family History Father Family Medical History: Myocardial Infarction ([place]) Additional Family Medical History / Comment(s): from [place] Mother Family Medical History: COPD Additional Family Medical History / Comment(s): still living General Exam - General Exam Comments Initial Comments: PHYSICAL EXAM: General Impression: Alert and oriented x3, not in acute distress HEENT: Normocephalic atraumatic, extra-ocular movements intact, pupils equal and reactive to light bilaterally, mucous membranes moist. Cardiovascular: Heart regular rate and rhythm, S1&S2 audible, no murmurs, rubs or gallops Chest: Lungs clear to auscultation bilaterally, no rhonchi, no wheeze, no rales Abdomen: Bowel sounds present, abdomen soft, non-tender, non-distended, no organomegaly Musculoskeletal: Pulses present and equal in all extremities, no peripheral edema Motor: Power 5/5 bilaterally, no focal deficits noted Neurological: CN II-XII grossly intact, no focal motor or sensory deficits noted Skin: Intact with no visualized rashes Psych: Normal affect and mood Limitations: no limitations Course Vital Signs 03/30/18 03/30/18 03/30/18 11:40 11:51 14:43 Temperature 98.3 F 99.3 F Pulse Rate 99 86 Respiratory 20 21 19 Rate Blood Pressure 160/93 161/102 O2 Sat by Pulse 92 L Oximetry Medical Decision Making - Medical Decision Making ED course: 57-year-old male presents with clinical presentation concerning for hemoptysis. Patient appears well at this time. He hasn't been coughing while in the emergency department. Black sputum is likely old blood. Vital signs upon arrival are within acceptable limits. The concern of acute pulmonary infectious process at this time.Laboratory evaluation obtained. Hemoglobin stable at 13.9. Coag panel is unremarkable. Metabolic panel is unremarkable. Cardiac enzymes are negative. X-rays obtained showing COPD or early infiltrate. Patient is more concerned with the hemoptysis. He is observed in the emergency room for several hours without any episodes of coughing of black sputum. Likely secondary to coughing old blood. Patient hemodynamically stable. She be discharge with she should follow-up with primary care physician upon discharge. Patient given strict return precautions should he develop worsening cough with bright red blood or increased sputum production. Patient denies any fevers. There is no clinical suspicion that symptoms represent pneumonia, no indication for advice at this time. Patient is understandable and agreeable to disposition. EKG Interpretation: A 12 lead EKG was obtained. It was interpreted by myself and attending physician. There is a P wave before every QRS complex. Rate is 91. Rhythm is normal sinus rhythm, LA interval 142, QRS 94, QTC 432. QT is not prolonged. No ST segment depression or elevation. . Overall, this EKG is unremarkable - Lab Data Result diagrams: 03/30/18 12:08 03/30/18 12:08 Lab Results 03/30/18 03/30/18 03/30/18 Range/Units 12:08 12:08 12:08 WBC 7.6 (3.8-10.6) k/uL RBC 4.92 (4.30-5.90) m/uL Hgb 13.9 (13.0-17.5) gm/dL Hct 45.4 (39.0-53.0) % MCV 92.3 (80.0-100.0) fL MCH 28.3 (25.0-35.0) pg MCHC 30.7 L (31.0-37.0) g/dL RDW 14.9 (11.5-15.5) % Plt Count 196 (150-450) k/uL Neutrophils % 81 % Lymphocytes % 12 % Monocytes % 4 % Eosinophils % 1 % Basophils % 0 % Neutrophils # 6.1 (1.3-7.7) k/uL Lymphocytes # 0.9 L (1.0-4.8) k/uL Monocytes # 0.3 (0-1.0) k/uL Eosinophils # 0.1 (0-0.7) k/uL Basophils # 0.0 (0-0.2) k/uL PT (9.0-12.0) sec INR (<1.2) APTT (22.0-30.0) sec Sodium 137 (137-145) mmol/L Potassium 4.4 (3.5-5.1) mmol/L Chloride 99 (98-107) mmol/L Carbon Dioxide 31 H (22-30) mmol/L Anion Gap 7 mmol/L BUN 17 (9-20) mg/dL Creatinine 0.74 (0.66-1.25) mg/dL Est GFR (CKD-EPI)AfAm >90 (>60 ml/min/1.73 sqM) Est GFR (CKD-EPI)NonAf >90 (>60 ml/min/1.73 sqM) Glucose 109 H (74-99) mg/dL Calcium 8.8 (8.4-10.2) mg/dL Total Bilirubin 0.2 (0.2-1.3) mg/dL AST 25 (17-59) U/L ALT 43 (21-72) U/L Alkaline Phosphatase 64 (38-126) U/L Total Creatine Kinase 58 (55-170) U/L CK-MB (CK-2) 3.1 H* (0.0-2.4) ng/mL CK-MB (CK-2) Rel Index 5.3 Troponin I <0.012 (0.000-0.034) ng/mL Total Protein 6.1 L (6.3-8.2) g/dL Albumin 3.9 (3.5-5.0) g/dL 03/30/18 Range/Units 12:08 WBC (3.8-10.6) k/uL RBC (4.30-5.90) m/uL Hgb (13.0-17.5) gm/dL Hct (39.0-53.0) % MCV (80.0-100.0) fL MCH (25.0-35.0) pg MCHC (31.0-37.0) g/dL RDW (11.5-15.5) % Plt Count (150-450) k/uL Neutrophils % % Lymphocytes % % Monocytes % % Eosinophils % % Basophils % % Neutrophils # (1.3-7.7) k/uL Lymphocytes # (1.0-4.8) k/uL Monocytes # (0-1.0) k/uL Eosinophils # (0-0.7) k/uL Basophils # (0-0.2) k/uL PT 9.3 (9.0-12.0) sec INR 0.9 (<1.2) APTT 21.8 L (22.0-30.0) sec Sodium (137-145) mmol/L Potassium (3.5-5.1) mmol/L Chloride (98-107) mmol/L Carbon Dioxide (22-30) mmol/L Anion Gap mmol/L BUN (9-20) mg/dL Creatinine (0.66-1.25) mg/dL Est GFR (CKD-EPI)AfAm (>60 ml/min/1.73 sqM) Est GFR (CKD-EPI)NonAf (>60 ml/min/1.73 sqM) Glucose (74-99) mg/dL Calcium (8.4-10.2) mg/dL Total Bilirubin (0.2-1.3) mg/dL AST (17-59) U/L ALT (21-72) U/L Alkaline Phosphatase (38-126) U/L Total Creatine Kinase (55-170) U/L CK-MB (CK-2) (0.0-2.4) ng/mL CK-MB (CK-2) Rel Index Troponin I (0.000-0.034) ng/mL Total Protein (6.3-8.2) g/dL Albumin (3.5-5.0) g/dL Disposition Clinical Impression: Hemoptysis, unspecified Disposition: HOME SELF-CARE Condition: Fair Instructions: Hemoptysis (ED) Is patient prescribed a controlled substance at d/c from ED?: No Referrals: Hina Rojas MD [Primary Care Provider] - 1-2 days Time of Disposition: 14:52
[2018-03-30 15:13] VITALS: BP 147/97; PULSE 85; RESP 16; TEMP 98.1
== END 2018-03-30 15:13 | disposition home or self-care (01) ==
LOC: EC 11:21
DX: R04.2 Hemoptysis (principal); J44.9 Chronic obstructive pulmonary disease, unspecified; E78.5 Hyperlipidemia, unspecified; I10 Essential (primary) hypertension; K21.9 Gastro-esophageal reflux disease without esophagitis; Z87.891 Personal history of nicotine dependence; Z79.51 Long term (current) use of inhaled steroids; Z79.899 Other long term (current) drug therapy; Z99.81 Dependence on supplemental oxygen; Z90.89 Acquired absence of other organs; Z82.5 Family history of asthma and other chronic lower respiratory diseases
CPT/HCPCS: 36415; 71046; 80053; 82550; 82553; 84484; 85025; 85610; 85730; 93005; 99285

== ENCOUNTER → 2018-06-08 | Outpatient (CLI) | payer MEDICARE, OTHER ==
[2018-06-09 15:54] LABS: HCV Quant Log <1.08 (<1.08); HCV Quantitative Result <12 IU/mL (<12)
== END | disposition home or self-care (01) ==
LOC: LABWHC1 11:43
PROVIDERS: ATTEND Physician Assistant
DX: R76.8 Other specified abnormal immunological findings in serum (principal)
CPT/HCPCS: 36415; 87522

== ENCOUNTER 2018-08-13 08:16 | Inpatient (IN) | payer MEDICARE, OTHER ==
[2018-08-13] MEDS ORDERED: IPRATROPIUM-ALBUTEROL 3 ML NEB INHALATION STA (08:28)
--- NOTE | 2018-08-13 08:31 | ED ---
General Adult HPI - General Chief complaint: Recheck/Abnormal Lab/Rx Stated complaint: not feeling right Time Seen by Provider: 08/13/18 08:24 Source: patient, RN notes reviewed Mode of arrival: ambulatory Limitations: no limitations - History of Present Illness Initial comments: Patient is a pleasant 57-year-old male presenting to the emergency department for not feeling right. Patient complains of feeling shaky. Onset of symptoms was this morning. Patient did not sleep well last night. Patient feels his eyes look different. Patient denies any eye discomfort. No visual problems. Patient does have mild cough and mild difficulty breathing which reproduces chronic COPD. No chest pain. No isolated area of weakness. No confusion. - Related Data Home Medications Medication Instructions Recorded Confirmed OLANZapine [ZyPREXA] 20 mg PO HS 02/28/16 08/13/18 Albuterol Nebulized [Ventolin 2.5 mg INHALATION RT-Q4H PRN 01/22/18 08/13/18 Nebulized] Escitalopram [Lexapro] 10 mg PO DAILY 01/22/18 08/13/18 Omeprazole 40 mg PO DAILY 01/22/18 08/13/18 Losartan [Cozaar] 25 mg PO DAILY 03/04/18 08/13/18 Ipratropium/Albuterol Sulfate 2 puff INHALATION RT-QID 08/13/18 08/13/18 [Combivent Respimat Inhaler] traZODone HCL [Desyrel] 100 mg PO HS 08/13/18 08/13/18 Previous Rx's Medication Instructions Recorded Furosemide [Lasix] 40 mg PO DAILY #30 tab 03/16/18 Allergies Allergy/AdvReac Type Severity Reaction Status Date / Time No Known Allergies Allergy Verified 08/13/18 08:38 Review of Systems ROS Statement: Those systems with pertinent positive or pertinent negative responses have been documented in the HPI. ROS Other: All systems not noted in ROS Statement are negative. Constitutional: Denies: fever Eyes: Denies: eye pain, eye discharge, vision change ENT: Denies: ear pain Respiratory: Reports: cough, dyspnea Cardiovascular: Denies: chest pain Endocrine: Denies: fatigue Gastrointestinal: Denies: abdominal pain Genitourinary: Denies: dysuria Musculoskeletal: Denies: back pain Skin: Denies: rash Neurological: Denies: weakness Past Medical History Past Medical History: Asthma, COPD, GERD/Reflux, Hyperlipidemia, Hypertension, Pneumonia Additional Past Medical History / Comment(s): hep C past iv heroin use in the , home 02 2.5 liters n/c pt stated he had a pne vacine less than 5 years ago not sure of date, unable to verify at time of this admit. History of Any Multi-Drug Resistant Organisms: None Reported Past Surgical History: Adenoidectomy, Tonsillectomy Past Anesthesia/Blood Transfusion Reactions: No Reported Reaction Past Psychological History: No Psychological Hx Reported Smoking Status: Former smoker Past Alcohol Use History: None Reported Past Drug Use History: Heroin, Marijuana - Past Family History Father Family Medical History: Myocardial Infarction ([place]) Additional Family Medical History / Comment(s): [place] Mother Family Medical History: COPD Additional Family Medical History / Comment(s): still living General Exam Limitations: no limitations General appearance: alert, in no apparent distress Head exam: Present: atraumatic Eye exam: Present: normal appearance, PERRL, EOMI. Absent: nystagmus ENT exam: Present: normal oropharynx Neck exam: Present: normal inspection Respiratory exam: Present: normal lung sounds bilaterally. Absent: respiratory distress Cardiovascular Exam: Present: regular rate, normal rhythm GI/Abdominal exam: Present: soft. Absent: tenderness Extremities exam: Present: normal inspection. Absent: pedal edema, calf tenderness Neurological exam: Present: alert Psychiatric exam: Present: normal affect, normal mood Skin exam: Present: normal color Course Vital Signs 08/13/18 08/13/18 08/13/18 08:19 08:45 08:49 Temperature 98.7 F Pulse Rate 114 H 114 H 108 H Respiratory 20 Rate Blood Pressure 148/94 O2 Sat by Pulse 91 L Oximetry 08/13/18 09:46 Temperature Pulse Rate 108 H Respiratory 20 Rate Blood Pressure 147/107 O2 Sat by Pulse 94 L Oximetry EKG Findings - EKG Comments: EKG Findings:: Normal sinus rhythm 97. IL 134. QRS 96. QT 334. QTC 424. Normal axis. Normal QRS. No acute ST change. Medical Decision Making - Medical Decision Making Patient reevaluated and resting comfortably in bed. Heart rate 108. Pulse ox 94% on 5 L. Patient states he normally is on 2 L of oxygen at home. Patient updated on results and plan. Case was discussed in detail with Dr. Lazo, who will admit for Dr. Rojas. Vital signs abnormality is felt to be related to COPD and patient does not meet sepsis criteria. Patient will be covered with antibiotics for questionable infiltrate. - Lab Data Result diagrams: 08/13/18 08:43 08/13/18 08:43 Lab Results 08/13/18 08/13/18 08/13/18 Range/Units 08:43 08:43 08:43 WBC 12.4 H (3.8-10.6) k/uL RBC 6.05 H (4.30-5.90) m/uL Hgb 17.5 (13.0-17.5) gm/dL Hct 54.9 H (39.0-53.0) % MCV 90.8 (80.0-100.0) fL MCH 28.9 (25.0-35.0) pg MCHC 31.8 (31.0-37.0) g/dL RDW 14.1 (11.5-15.5) % Plt Count 344 (150-450) k/uL Neutrophils % 79 % Lymphocytes % 12 % Monocytes % 7 % Eosinophils % 1 % Basophils % 0 % Neutrophils # 9.8 H (1.3-7.7) k/uL Lymphocytes # 1.5 (1.0-4.8) k/uL Monocytes # 0.8 (0-1.0) k/uL Eosinophils # 0.1 (0-0.7) k/uL Basophils # 0.1 (0-0.2) k/uL D-Dimer 0.39 (<0.60) mg/L FEU Sodium 139 (137-145) mmol/L Potassium 4.8 (3.5-5.1) mmol/L Chloride 95 L (98-107) mmol/L Carbon Dioxide 32 H (22-30) mmol/L Anion Gap 12 mmol/L BUN 20 (9-20) mg/dL Creatinine 0.79 (0.66-1.25) mg/dL Est GFR (CKD-EPI)AfAm >90 (>60 ml/min/1.73 sqM) Est GFR (CKD-EPI)NonAf >90 (>60 ml/min/1.73 sqM) Glucose 158 H (74-99) mg/dL Calcium 9.8 (8.4-10.2) mg/dL Total Bilirubin 0.8 (0.2-1.3) mg/dL AST 38 (17-59) U/L ALT 33 (21-72) U/L Alkaline Phosphatase 50 (38-126) U/L Total Protein 7.9 (6.3-8.2) g/dL Albumin 4.8 (3.5-5.0) g/dL - Radiology Data Radiology results: image reviewed (Chest x-ray shows elevated right hemidiaphragm. Basilar atelectasis or infiltrate. Nodular density right midlung, probable healing fracture.) Disposition Clinical Impression: COPD (chronic obstructive pulmonary disease) Disposition: ADMITTED IP TO THIS HOSP Is patient prescribed a controlled substance at d/c from ED?: No Referrals: Hina Rojas MD [Primary Care Provider] - 1-2 days Decision Time: 10:15
[2018-08-13] MEDS ORDERED: LORazepam 2 MG/ML INJ IV STA (08:42)
[2018-08-13 09:13] LABS: ALT 33 U/L (21-72); AST 38 U/L (17-59); Albumin 4.8 g/dL (3.5-5.0); Alkaline Phosphatase 50 U/L (38-126); Anion Gap 12 mmol/L; Blood Urea Nitrogen 20 mg/dL (9-20); Calcium 9.8 mg/dL (8.4-10.2); Carbon Dioxide 32 mmol/L (22-30); Chloride 95 mmol/L (98-107); Glucose 158 mg/dL (74-99); Potassium 4.8 mmol/L (3.5-5.1); Sodium 139 mmol/L (137-145); Total Bilirubin 0.8 mg/dL (0.2-1.3); Total Protein 7.9 g/dL (6.3-8.2)
[2018-08-13 09:17] LABS: Basophils # (A) 0.1 k/uL (0-0.2); Basophils % (A) 0 %; Eosinophils # (A) 0.1 k/uL (0-0.7); Eosinophils % (A) 1 %; HCT 54.9 % (39.0-53.0); HGB 17.5 gm/dL (13.0-17.5); Lymphocytes # (A) 1.5 k/uL (1.0-4.8); Lymphocytes % (A) 12 %; MCH 28.9 pg (25.0-35.0); MCHC 31.8 g/dL (31.0-37.0); MCV 90.8 fL (80.0-100.0); Mean Platelet Volume 7.3; Monocytes # (A) 0.8 k/uL (0-1.0); Monocytes % (A) 7 %; Neutrophils # (A) 9.8 k/uL (1.3-7.7); Neutrophils % (A) 79 %; Platelet Count 344 k/uL (150-450); RBC 6.05 m/uL (4.30-5.90); RDW 14.1 % (11.5-15.5); WBC 12.4 k/uL (3.8-10.6)
--- NOTE | 2018-08-13 09:26 | XR ---
EXAMINATION TYPE: XR chest 2V DATE OF EXAM: 08/13/2018 COMPARISON: 06/28/2018 TECHNIQUE: PA and lateral views submitted. HISTORY: Pleural effusion FINDINGS: The lungs are clear and there is no pneumothorax, pleural effusion, or focal pneumonia. Chronic rib cage deformities again seen. Nodular density overlying the displaced fracture right upper lobe likel y related to a healing rib fracture. Underlying nodule not definitively excluded. Right hemidiaphragm is elevated there is right basilar subsegmental atelectasis or infiltrate. There is a catheter overl delilah the soft tissues the right neck correlate clinically. IMPRESSION: 1. Elevated right hemidiaphragm with basilar atelectasis or infiltrate and tiny effusion. 2. Chronic rib fractures. Nodular density overlying the right midlung may represent portions of a hea ling rib fracture. Pulmonary nodule not excluded.
[2018-08-13] MEDS ORDERED: methylPREDNISolone SOD SUCCI 125 MG/2 ML VIAL IV STA (10:16)
[2018-08-13] MEDS ORDERED: IPRATROPIUM-ALBUTEROL 3 ML NEB INHALATION PRN (10:16)
[2018-08-13] MEDS ORDERED: methylPREDNISolone SOD SUCCI 125 MG/2 ML VIAL IV SCH (12:00)
[2018-08-13] MEDS: IPRATROPIUM-ALBUTEROL 3 ML NEB INHALATION SCH ×3 (13:45→20:30)
[2018-08-13] MEDS ORDERED: ALBUTEROL NEBULIZED 2.5 MG/3 ML INHALATION PRN (15:35)
--- NOTE | 2018-08-13 15:47 | P.HPIM ---
History of Present Illness H&P Date: 08/13/18 This is a 57-year-old male with past medical history significant for severe COPD on home O2 who presented to the emergency room with nonspecific complaint of cough and not feeling well. Patient is a very poor historian. He is very nonspecific and his complaints. He said that at home he noted that there was something not right with his eyes. He described his eyes as being pinpoint. He told me that he does not take any pain medicine at home. He also said that he was feeling weird. He had that he was more short of breath than usual. Patient told me that he usually uses 5 L of oxygen at home but on his last discharge summary his oxygen requirement was documented as 2-3 L. He is having some chronic cough that is productive of white sputum. He denies any chest pain. No fevers or chills. No flulike symptoms. Patient was evaluated in the emergency room and a chest x-ray showed a chronic right hemidiaphragm elevation with bibasilar atelectasis. Patient was admitted to the hospital for further evaluation. He was up sitting at the side of the bed when I saw him. He told me that his sister is the one who told him to come into the emergency room. He is not sure why he came to the emergency room. Sister is not available at bedside at this time. Review of Systems Review of system: 14 points review of systems were obtained and were negative except to what were mentioned in the HPI. Past Medical History Past Medical History: Asthma, COPD, GERD/Reflux, Hyperlipidemia, Hypertension, Liver Disease, Pneumonia, Pulmonary Embolus (PE), Respiratory Disorder, Syncope Additional Past Medical History / Comment(s): R rib fractures with hemothorax/ thoracentesis/chest tube, chronic respiratory failure with home O2 at 5L/NC ATC , L pulmonary embolism, heroin abuse IV in the , hepatitis C. History of Any Multi-Drug Resistant Organisms: None Reported Past Surgical History: Adenoidectomy, Tonsillectomy Past Anesthesia/Blood Transfusion Reactions: No Reported Reaction Smoking Status: Former smoker - Past Family History Father Family Medical History: Myocardial Infarction ([place]) Additional Family Medical History / Comment(s): [place] the age of 75 or 76yrs. Mother Family Medical History: COPD Additional Family Medical History / Comment(s): Mother is 82 yrs old. Sister(s) Family Medical History: COPD Medications and Allergies Home Medications Medication Instructions Recorded Confirmed Type OLANZapine [ZyPREXA] 20 mg PO HS 02/28/16 08/13/18 History Albuterol Nebulized [Ventolin 2.5 mg INHALATION RT-Q4H PRN 01/22/18 08/13/18 History Nebulized] Escitalopram [Lexapro] 10 mg PO DAILY 01/22/18 08/13/18 History Omeprazole 40 mg PO DAILY 01/22/18 08/13/18 History Losartan [Cozaar] 25 mg PO DAILY 03/04/18 08/13/18 History Furosemide [Lasix] 40 mg PO DAILY #30 tab 03/16/18 08/13/18 Rx Ipratropium/Albuterol Sulfate 2 puff INHALATION RT-QID 08/13/18 08/13/18 History [Combivent Respimat Inhaler] traZODone HCL [Desyrel] 100 mg PO HS 08/13/18 08/13/18 History Allergies Allergy/AdvReac Type Severity Reaction Status Date / Time No Known Allergies Allergy Verified 08/13/18 08:38 Physical Exam Vitals: Vital Signs Temp Pulse Resp BP Pulse Ox 08/13/18 14:51 98.1 F 92 22 124/98 93 L 08/13/18 12:15 89 22 114/77 93 L 08/13/18 11:15 98.3 F 104 H 22 139/87 92 L 08/13/18 10:38 104 H 20 136/85 95 08/13/18 09:46 108 H 20 147/107 94 L 08/13/18 08:49 108 H 08/13/18 08:45 114 H 08/13/18 08:19 98.7 F 114 H 20 148/94 91 L Intake and Output 08/13/18 08/13/18 08/13/18 06:59 14:59 22:59 Other: Voiding Method Toilet Urinal Weight 121.563 kg General: The patient is awake and alert, in no distress Eye: there is normal conjunctiva bilaterally. Cardiovascular: Normal S1-S2, no S3-S4, no murmurs. Respiratory: Lungs are diminished all over the chest with no end expiratory wheezing Gastrointestinal: Abdomen is soft, nontender Musculoskeletal: There is no pedal edema. Neurological:. Speech is normal. Skin: Skin is warm and dry Results CBC & Chem 7: 08/13/18 08:43 08/13/18 08:43 Labs: Abnormal Lab Results - Last 24 Hours (Table) 08/13/18 08/13/18 Range/Units 08:43 08:43 WBC 12.4 H (3.8-10.6) k/uL RBC 6.05 H (4.30-5.90) m/uL Hct 54.9 H (39.0-53.0) % Neutrophils # 9.8 H (1.3-7.7) k/uL Chloride 95 L (98-107) mmol/L Carbon Dioxide 32 H (22-30) mmol/L Glucose 158 H (74-99) mg/dL Thrombosis Risk Factor Assmnt - Choose All That Apply Any of the Below Risk Factors Present?: Yes Each Factor Represents 1 point: Abnormal pulmonary function (COPD), Age 41-60 years, Obesity (BMI >25), Serious lung disease incl. pneumonia (< 1month) Other Risk Factors: Yes Each Risk Factor Represents 3 Points: History of DVT/PE Other congenital or acquired thrombophilia - If yes, enter type in comment: No Thrombosis Risk Factor Assessment Total Risk Factor Score: 7 Thrombosis Risk Factor Assessment Level: High Risk Assessment and Plan Assessment: 1. Mild COPD exacerbation, patient was given one-time dose of IV Solu-Medrol 125 mg in the emergency room. Continue prednisone 40 mg daily. Bronchodilators. 2. Bibasilar atelectasis, noted on chest x-ray. Incentive spirometer ordered at bedside. 3. Chronic hypoxic respiratory failure on 3-5 L of oxygen at home 4. Chronic right hemidiaphragm paralysis 5. Chronic hepatitis C and history of polysubstance abuse now in remission Today, I reviewed his medication list and lab work results. Continue current regimen. Repeat chest x-ray tomorrow.
[2018-08-13] MEDS ORDERED: NON-FORMULARY DRUG (Ipratropium/Albuterol Sulfate [Combivent Respimat Inhaler] 2 PUFF) INHALATION SCH (16:00)
[2018-08-13 19:54] LABS: Glucose,Whole Blood 166 mg/dL (75-99)
[2018-08-13 20:50] LABS: ABG HCO3 17 mmol/L (21-25); ABG PCO2 87 mmHg (35-45); ABG PH 7.27 (7.35-7.45); ABG PO2 82 mmHg (83-108)
[2018-08-13 20:51] LABS: ABG Base Excess 7.3 mmol/L
[2018-08-13 20:53] LABS: ABG TCO2 22 mmol/L (19-24)
[2018-08-13] MEDS: CEFDINIR 300 MG CAP PO SCH (21:24)
[2018-08-13] MEDS: OLANZapine 10 MG TAB PO SCH (21:24)
[2018-08-13] MEDS: traZODone HCL 100 MG TAB PO SCH (21:26)
--- NOTE | 2018-08-14 07:17 | XR ---
EXAMINATION TYPE: XR chest 2V DATE OF EXAM: 08/14/2018 HISTORY: f/u. REFERENCE: Previous study dated 08/13/2018. FINDINGS: There is chronic appearing elevation right hemidiaphragm. There are atelectatic changes pre sent at the right lung base. There is pleural thickening on the right related to old rib fractures. H eart size mildly prominent. There is mild vascular congestion and subtle interstitial change. IMPRESSION: I CANNOT EXCLUDE A MILD DEGREE OF HEART FAILURE.
[2018-08-14 07:20] LABS: Basophils % (A) 0 %; Eosinophils # (A) 0.1 k/uL (0-0.7); Eosinophils % (A) 1 %; HGB 16.9 gm/dL (13.0-17.5); Hypochromasia Slight; Lymphocytes # (A) 1.7 k/uL (1.0-4.8); Lymphocytes % (A) 13 %; MCH 30.3 pg (25.0-35.0); MCHC 32.4 g/dL (31.0-37.0); MCV 93.6 fL (80.0-100.0); Mean Platelet Volume 7.1; Monocytes # (A) 0.8 k/uL (0-1.0); Monocytes % (A) 6 %; Neutrophils # (A) 9.8 k/uL (1.3-7.7); Neutrophils % (A) 78 %; Platelet Count 262 k/uL (150-450); RBC 5.56 m/uL (4.30-5.90); WBC 12.6 k/uL (3.8-10.6)
[2018-08-14 07:30] LABS: Anion Gap 7 mmol/L; Blood Urea Nitrogen 27 mg/dL (9-20); Calcium 9.5 mg/dL (8.4-10.2); Carbon Dioxide 36 mmol/L (22-30); Chloride 96 mmol/L (98-107); Glucose 103 mg/dL (74-99); Sodium 139 mmol/L (137-145)
[2018-08-14] MEDS: IPRATROPIUM-ALBUTEROL 3 ML NEB INHALATION SCH ×4 (07:41→20:25)
[2018-08-14] MEDS: PANTOPRAZOLE 40 MG TABLET PO SCH (09:08)
[2018-08-14] MEDS: CEFDINIR 300 MG CAP PO SCH ×2 (09:08→20:16)
[2018-08-14] MEDS: ESCITALOPRAM 10 MG TAB PO SCH (09:08)
[2018-08-14] MEDS: predniSONE 20 MG TAB PO SCH (09:08)
[2018-08-14] MEDS ORDERED: FUROSEMIDE 10 MG/ML 4 ML VIAL IV STA (11:10)
--- NOTE | 2018-08-14 11:19 | P.CNPUL ---
History of Present Illness Consult date: 08/14/18 Requesting physician: Jossie Kendrick Reason for consult: dyspnea, obstructive sleep apnea Chief complaint: Altered mental status, visual disturbances History of present illness: This is a very pleasant 57-year-old gentleman who follows with Dr. Rojas as his primary care physician. He has a history of chronic hepatitis C, chronic esophageal reflux disease, schizophrenia, obesity, paralysis of the right diaphragm, multiple rib fractures on the right. He also has a history of chronic hypoxic and hypercapnic respiratory failure and follows with Dr. Farnsworth in our office for the same. He is maintained on home oxygen at 2 L/m per nasal cannula as well as an AVAPS in the outpatient setting with a tidal volume target of 400 with an EPAP minimum of 4 maximum of 16 and a pressure support minimum of 4 maximum of 10 with a maximum pressure of 20 cm of water. He does have a history of chronic tobacco dependence and COPD and is maintained on Symbicort and Spiriva and albuterol. He presented to the emergency room yesterday morning with complaints of slight disorientation, not feeling right, visual disturbances. Chest x-ray revealed chronic elevated right hemidiaphragm with some atelectatic changes and tiny effusions, chronic rib fractures, nodular density overlying the right midlung possible healing rib fracture versus pulmonary nodule. He was admitted for an acute exacerbation of COPD. Last evening he again developed altered mental status and became obtunded. Arterial blood gases were drawn on 40% FiO2 which revealed a PaO2 of 82, pCO2 of 87 and a pH of 7.27. He was placed on BiPAP which she wore throughout the night with settings of 14/8 and 40% FiO2. He is seen today in consultation on the regular medical floor. He is currently awake and alert in no acute distress. He states he is doing better compared to yesterday. He is oriented 3. He is maintaining O2 saturations in the 90s on 5 L/m per nasal cannula. He' s been afebrile. Hemodynamically stable. White count 12.6. Hemoglobin 16.9. Bicarb 36. Creatinine 0.81. Chest x-ray continues to show the chronic changes along with some mild vascular congestion. He is on DuoNeb inhalations, oral prednisone and empiric antibiotics in the form of Omnicef. Review of Systems Constitutional: Reports daytime sleepiness, Reports weakness Eyes: bilateral blurred vision Ears: deny: decreased hearing Ears, nose, mouth and throat: Denies headache, Denies sore throat Cardiovascular: Reports dyspnea on exertion, Reports shortness of breath Respiratory: Reports dyspnea, Reports home oxygen, Reports sleep apnea, Reports wheezing Gastrointestinal: Denies abdominal pain, Denies diarrhea, Denies nausea, Denies vomiting Genitourinary: Reports as per HPI Musculoskeletal: Denies myalgias Integumentary: Denies pruritus, Denies rash Neurological: Reports change in mentation, Reports confusion, Reports double vision Psychiatric: Reports anxiety, Reports disorientation Endocrine: Denies fatigue, Denies weight change Hematologic/Lymphatic: Reports as per HPI Allergic/Immunologic: Reports as per HPI Past Medical History Past Medical History: Asthma, COPD, GERD/Reflux, Hyperlipidemia, Hypertension, Liver Disease, Pneumonia, Pulmonary Embolus (PE), Respiratory Disorder, Syncope Additional Past Medical History / Comment(s): R rib fractures with hemothorax/ thoracentesis/chest tube, chronic respiratory failure with home O2 at 5L/NC ATC , L pulmonary embolism, heroin abuse IV in the , hepatitis C. History of Any Multi-Drug Resistant Organisms: None Reported Past Surgical History: Adenoidectomy, Tonsillectomy Past Anesthesia/Blood Transfusion Reactions: No Reported Reaction Smoking Status: Former smoker - Past Family History Father Family Medical History: Myocardial Infarction (PA) Additional Family Medical History / Comment(s): from [place] at the age of 75 or 76yrs. Mother Family Medical History: COPD Additional Family Medical History / Comment(s): Mother is 82 yrs old. Sister(s) Family Medical History: COPD Medications and Allergies Home Medications Medication Instructions Recorded Confirmed Type OLANZapine [ZyPREXA] 20 mg PO HS 02/28/16 08/13/18 History Albuterol Nebulized [Ventolin 2.5 mg INHALATION RT-Q4H PRN 01/22/18 08/13/18 History Nebulized] Escitalopram [Lexapro] 10 mg PO DAILY 01/22/18 08/13/18 History Omeprazole 40 mg PO DAILY 01/22/18 08/13/18 History Losartan [Cozaar] 25 mg PO DAILY 03/04/18 08/13/18 History Furosemide [Lasix] 40 mg PO DAILY #30 tab 03/16/18 08/13/18 Rx Ipratropium/Albuterol Sulfate 2 puff INHALATION RT-QID 08/13/18 08/13/18 History [Combivent Respimat Inhaler] traZODone HCL [Desyrel] 100 mg PO HS 08/13/18 08/13/18 History Allergies Allergy/AdvReac Type Severity Reaction Status Date / Time No Known Allergies Allergy Verified 08/13/18 08:38 Physical Exam Vitals: Vital Signs Temp Pulse Pulse Resp BP BP Pulse Ox 08/14/18 07:55 100 08/14/18 07:42 100 08/14/18 05:00 98.2 F 79 18 138/94 94 L 08/13/18 21:01 87 20 160/88 97 08/13/18 20:33 109 H 08/13/18 20:32 106 H 08/13/18 19:53 98 F 88 22 188/89 96 08/13/18 14:51 98.1 F 92 22 124/98 93 L 08/13/18 12:15 89 22 114/77 93 L 08/13/18 11:15 98.3 F 104 H 22 139/87 92 L Intake and Output 08/13/18 08/14/18 08/14/18 22:59 06:59 14:59 Intake Total 500 Balance 500 Intake: Oral 500 Other: Voiding Method Toilet # Voids 1 1 - Constitutional General appearance: disheveled, morbidly obese - EENT Eyes: EOMI, PERRLA ENT: hearing grossly normal Ears: bilateral: normal - Neck Neck: normal ROM Carotids: bilateral: upstroke normal Thyroid: bilateral: normal size - Respiratory Respiratory: right: diminished, bilateral: wheezing - Cardiovascular Rhythm: regular Heart sounds: normal: S1, S2 - Gastrointestinal General gastrointestinal: normal bowel sounds - Integumentary Integumentary: normal turgor - Neurologic Neurologic: CNII-XII intact - Musculoskeletal Musculoskeletal: generalized weakness - Psychiatric Psychiatric: A&O x's 3, appropriate affect, intact judgment & insight Results - Laboratory Findings CBC and BMP: 08/14/18 07:00 08/14/18 07:00 ABG ABG pH 7.27 (7.35-7.45) L 08/13/18 20:40 ABG pCO2 87 mmHg (35-45) H* 08/13/18 20:40 ABG pO2 82 mmHg (83-108) L 08/13/18 20:40 ABG O2 Saturation 94.0 % (94-97) 08/13/18 20:40 PT/INR, D-dimer D-Dimer 0.39 mg/L FEU (<0.60) 08/13/18 08:43 Abnormal lab findings: Abnormal Labs 08/13/18 08/13/18 08/13/18 08:43 08:43 19:51 WBC 12.4 H RBC 6.05 H Hct 54.9 H Neutrophils # 9.8 H ABG pH ABG pCO2 ABG pO2 ABG HCO3 Chloride 95 L Carbon Dioxide 32 H BUN Glucose 158 H POC Glucose (mg/dL) 166 H 08/13/18 08/14/18 08/14/18 20:40 07:00 07:00 WBC 12.6 H RBC Hct Neutrophils # 9.8 H ABG pH 7.27 L ABG pCO2 87 H* ABG pO2 82 L ABG HCO3 17 L Chloride 96 L Carbon Dioxide 36 H BUN 27 H Glucose 103 H POC Glucose (mg/dL) - Diagnostic Findings Chest x-ray: image reviewed Assessment and Plan Assessment: Impression: #1 Altered mental status secondary to acute on chronic hypercapnic respiratory failure along with an acute exacerbation of chronic obstructive pulmonary disease and acute exacerbation of mild chronic diastolic congestive heart failure. #2 Acute on chronic hypoxemic respiratory failure secondary to above as well as history of right lung volume loss secondary to right brittany-diaphragm paralysis. #3 Chronic hypoxemic/hypercapnic respiratory failure maintained on average volume assured pressure support (AVAPS) machine in the outpatient setting. #4 Acute exacerbation of chronic obstructive pulmonary disease. #5 History of chronic tobacco dependence of 48 years however quit in December 2017. #6 Morbid obesity. #7 History of right hemidiaphragm paralysis. #8 Schizophrenia. #9 History of multiple right-sided rib fractures and right pleural effusion. #10 Chronic hepatitis C Plan: The patient was seen and evaluated by Dr. Madrigal. Chest x-ray, labs and ABGs were reviewed. The patient will require BiPAP support 13/04 at 40% FiO2 throughout the night and during the day while napping. We'll continue with DuoNeb inhalations, prednisone, add Symbicort. Give Lasix 40 mg IVP 1 and resume his oral Lasix in the a.m. Empiric antibiotics in the form of Omnicef. We will increase his activity as tolerated. We'll continue to follow make further recommendations based on his clinical status. I, the cosigning physician, performed a history & physical examination of the patient. Lungs sounds with end expiratory wheeze few scattered rhonchi crackles in the right base. Maintaining good O2 saturations in the 90s on 5 L/m per nasal cannula alternating with BiPAP at 14/8 and 40% FiO2.. I discussed the assessment and plan of care with my nurse practitioner, Marixa Carty. I attest to the above consultation as dictated by her.
--- NOTE | 2018-08-14 11:36 | P.PN ---
Subjective Progress Note Date: 08/14/18 Patient is feeling better today. No acute events overnight reported by nursing staff. He was maintained on BiPAP overnight. Shortness of breath is improving. Objective - Vital Signs Vital signs: Vital Signs Temp 98.2 F 08/14/18 05:00 Pulse 79 08/14/18 08:20 Resp 18 08/14/18 08:20 BP 138/94 08/14/18 05:00 Pulse Ox 94 L 08/14/18 05:00 Intake & Output 08/13/18 08/14/18 08/14/18 18:59 06:59 18:59 Intake Total 500 Balance 500 Weight 121.563 kg Intake: Oral 500 Other: Voiding Method Toilet Toilet Toilet Urinal # Voids 1 - Exam General: The patient is awake and alert, in no distress Eye: there is normal conjunctiva bilaterally. Neck: The neck is supple, there is no JVD. Cardiovascular: Normal S1-S2, no S3-S4, no murmurs. Respiratory: Lung sounds are diminished all over the chest Gastrointestinal: Abdomen is soft, nontender Musculoskeletal: There is no pedal edema. Neurological:. Speech is normal. Skin: Skin is warm and dry - Labs CBC & Chem 7: 08/14/18 07:00 08/14/18 07:00 Labs: Abnormal Lab Results - Last 24 Hours (Table) 08/13/18 08/13/18 08/14/18 Range/Units 19:51 20:40 07:00 WBC 12.6 H (3.8-10.6) k/uL Neutrophils # 9.8 H (1.3-7.7) k/uL ABG pH 7.27 L (7.35-7.45) ABG pCO2 87 H* (35-45) mmHg ABG pO2 82 L (83-108) mmHg ABG HCO3 17 L (21-25) mmol/L Chloride (98-107) mmol/L Carbon Dioxide (22-30) mmol/L BUN (9-20) mg/dL Glucose (74-99) mg/dL POC Glucose (mg/dL) 166 H (75-99) mg/dL 08/14/18 Range/Units 07:00 WBC (3.8-10.6) k/uL Neutrophils # (1.3-7.7) k/uL ABG pH (7.35-7.45) ABG pCO2 (35-45) mmHg ABG pO2 (83-108) mmHg ABG HCO3 (21-25) mmol/L Chloride 96 L (98-107) mmol/L Carbon Dioxide 36 H (22-30) mmol/L BUN 27 H (9-20) mg/dL Glucose 103 H (74-99) mg/dL POC Glucose (mg/dL) (75-99) mg/dL Assessment and Plan Assessment: 1. Acute COPD exacerbation, patient was given one-time dose of IV Solu-Medrol 125 mg in the emergency room. Continue prednisone 40 mg daily. Bronchodilators. 2. Acute hypercapnic respiratory failure with respiratory acidosis on presentation, continue BiPAP use at night. Pulmonology consulted. Appreciate recommendations. 3. Acute bacterial bronchitis: Will finish 5 days course of antibiotic as ordered. 4. Bibasilar atelectasis, noted on chest x-ray. Incentive spirometer ordered at bedside. 5. Chronic hypoxic respiratory failure on 3-5 L of oxygen at home. Wean off O2 as tolerated for O2 sats greater than 88% 6. Chronic right hemidiaphragm paralysis 7. Chronic hepatitis C and history of polysubstance abuse now in remission Today, I reviewed his medication list and lab work results. Continue current regimen. Repeat chest x-ray tomorrow.
[2018-08-14] MEDS: traZODone HCL 100 MG TAB PO SCH (20:15)
[2018-08-14] MEDS: OLANZapine 10 MG TAB PO SCH (20:15)
[2018-08-15 05:25] VITALS: BP 151/67; RESP 18; TEMP 97.7
[2018-08-15] MEDS: IPRATROPIUM-ALBUTEROL 3 ML NEB INHALATION SCH ×3 (07:58→15:33)
[2018-08-15 08:02] LABS: Anion Gap 4 mmol/L; Blood Urea Nitrogen 20 mg/dL (9-20); Calcium 9.1 mg/dL (8.4-10.2); Carbon Dioxide 38 mmol/L (22-30); Chloride 96 mmol/L (98-107); Glucose 102 mg/dL (74-99); Potassium 4.3 mmol/L (3.5-5.1); Sodium 138 mmol/L (137-145)
[2018-08-15 08:04] LABS: Basophils % (A) 0 %; Eosinophils # (A) 0.1 k/uL (0-0.7); Eosinophils % (A) 1 %; HCT 47.4 % (39.0-53.0); HGB 14.5 gm/dL (13.0-17.5); Hypochromasia Slight; Lymphocytes # (A) 2.3 k/uL (1.0-4.8); Lymphocytes % (A) 22 %; MCH 28.6 pg (25.0-35.0); MCHC 30.6 g/dL (31.0-37.0); MCV 93.6 fL (80.0-100.0); Mean Platelet Volume 7.6; Monocytes # (A) 0.6 k/uL (0-1.0); Monocytes % (A) 6 %; Neutrophils # (A) 7.4 k/uL (1.3-7.7); Neutrophils % (A) 69 %; Platelet Count 238 k/uL (150-450); RBC 5.07 m/uL (4.30-5.90); RDW 14.3 % (11.5-15.5); WBC 10.7 k/uL (3.8-10.6)
[2018-08-15] MEDS ORDERED: FUROSEMIDE 40 MG TAB PO SCH (09:00)
[2018-08-15] MEDS: predniSONE 20 MG TAB PO SCH (11:19)
[2018-08-15] MEDS: PANTOPRAZOLE 40 MG TABLET PO SCH (11:19)
[2018-08-15] MEDS: ESCITALOPRAM 10 MG TAB PO SCH (11:22)
[2018-08-15] MEDS: CEFDINIR 300 MG CAP PO SCH (11:22)
--- NOTE | 2018-08-15 13:00 | P.DS ---
Providers Date of admission: 08/13/18 10:16 Expected date of discharge: 08/15/18 Attending physician: Jossie Kendrick MD Consults: 08/14/18 08:16 Consult Physician Routine Consulting Provider: Nathan Madrigal Consult Reason/Comments: COPD Do you want consulting provider notified?: Yes Primary care physician: Hina Rojas MD Hospital Course: This is a 57-year-old male with past medical history noted below who presented to the emergency room with worsening shortness of breath and cough. Patient was evaluated and was admitted to the hospital for further evaluation. His overall condition improved significantly throughout his hospital stay. He will be discharged home in a stable condition. Below is the least of his medical problems addressed during this hospitalization. 1. Acute COPD exacerbation, patient was given one-time dose of IV Solu-Medrol 125 mg in the emergency room. Continue prednisone 40 mg daily for 3 more days. Bronchodilators. 2. Acute hypercapnic respiratory failure with respiratory acidosis on presentation, continue BiPAP use at night. Patient was seen and evaluated by pulmonology 3. Acute bacterial bronchitis: Will finish 5 days course of antibiotic as ordered. 4. Bibasilar atelectasis, noted on chest x-ray. Incentive spirometer ordered at bedside. 5. Chronic hypoxic respiratory failure on 3-5 L of oxygen at home. 6. Chronic right hemidiaphragm paralysis 7. Chronic hepatitis C and history of polysubstance abuse now in remission Plan - Discharge Summary Discharge Rx Participant: No New Discharge Prescriptions: New Cefdinir [Omnicef] 300 mg PO BID #6 cap predniSONE 40 mg PO DAILY #6 tab Continue OLANZapine [ZyPREXA] 20 mg PO HS Escitalopram [Lexapro] 10 mg PO DAILY Albuterol Nebulized [Ventolin Nebulized] 2.5 mg INHALATION RT-Q4H PRN PRN Reason: Shortness Of Breath Omeprazole 40 mg PO DAILY Losartan [Cozaar] 25 mg PO DAILY Furosemide [Lasix] 40 mg PO DAILY #30 tab Ipratropium/Albuterol Sulfate [Combivent Respimat Inhaler] 2 puff INHALATION RT-QID traZODone HCL [Desyrel] 100 mg PO HS Discharge Medication List OLANZapine [ZyPREXA] 20 mg PO HS 02/28/16 [History] Albuterol Nebulized [Ventolin Nebulized] 2.5 mg INHALATION RT-Q4H PRN 01/22/18 [ History] Escitalopram [Lexapro] 10 mg PO DAILY 01/22/18 [History] Omeprazole 40 mg PO DAILY 01/22/18 [History] Losartan [Cozaar] 25 mg PO DAILY 03/04/18 [History] Furosemide [Lasix] 40 mg PO DAILY #30 tab 03/16/18 [Rx] Ipratropium/Albuterol Sulfate [Combivent Respimat Inhaler] 2 puff INHALATION RT- QID 08/13/18 [History] traZODone HCL [Desyrel] 100 mg PO HS 08/13/18 [History] Cefdinir [Omnicef] 300 mg PO BID #6 cap 08/15/18 [Rx] predniSONE 40 mg PO DAILY #6 tab 08/15/18 [Rx] Follow up Appointment(s)/Referral(s): Hina Rojas MD [Primary Care Provider] - 1-2 days Discharge Disposition: HOME SELF-CARE
[2018-08-15 13:06] VITALS: PULSE 82
--- NOTE | 2018-08-15 15:09 | P.PN ---
Subjective Progress Note Date: 08/15/18 Principal diagnosis: Acute on chronic hypercapnic respiratory failure secondary to COPD exacerbation and acute on chronic mild diastolic congestive heart failure This is a very pleasant 57-year-old gentleman who follows with Dr. Rojas as his primary care physician. He has a history of chronic hepatitis C, chronic esophageal reflux disease, schizophrenia, obesity, paralysis of the right diaphragm, multiple rib fractures on the right. He also has a history of chronic hypoxic and hypercapnic respiratory failure and follows with Dr. Farnsworth in our office for the same. He is maintained on home oxygen at 2 L/m per nasal cannula as well as an AVAPS in the outpatient setting with a tidal volume target of 400 with an EPAP minimum of 4 maximum of 16 and a pressure support minimum of 4 maximum of 10 with a maximum pressure of 20 cm of water. He does have a history of chronic tobacco dependence and COPD and is maintained on Symbicort and Spiriva and albuterol. He presented to the emergency room yesterday morning with complaints of slight disorientation, not feeling right, visual disturbances. Chest x-ray revealed chronic elevated right hemidiaphragm with some atelectatic changes and tiny effusions, chronic rib fractures, nodular density overlying the right midlung possible healing rib fracture versus pulmonary nodule. He was admitted for an acute exacerbation of COPD. Last evening he again developed altered mental status and became obtunded. Arterial blood gases were drawn on 40% FiO2 which revealed a PaO2 of 82, pCO2 of 87 and a pH of 7.27. He was placed on BiPAP which she wore throughout the night with settings of 14/8 and 40% FiO2. He is seen today in consultation on the regular medical floor. He is currently awake and alert in no acute distress. He states he is doing better compared to yesterday. He is oriented 3. He is maintaining O2 saturations in the 90s on 5 L/m per nasal cannula. He' s been afebrile. Hemodynamically stable. White count 12.6. Hemoglobin 16.9. Bicarb 36. Creatinine 0.81. Chest x-ray continues to show the chronic changes along with some mild vascular congestion. He is on DuoNeb inhalations, oral prednisone and empiric antibiotics in the form of Omnicef. Reevaluated today on 08/15/2018, patient is feeling better today, he was asking if he could be discharged home. However looking at his initial presentation, his ABG was quite concerning, but his clinical exam did not correlate with his ABG findings. Patient seems to be doing well, he is very comfortable, denies being short of breath at present. Chest x-ray did show evidence of chronic changes along with some vascular congestion. Patient remains on multiple bronchodilators, he is also on oral prednisone, and empirically on antibiotics. CBC was noted to be relatively normal, and lites are normal, bicarb is 38 and that is expected considering the patient has chronic hypercapnic respiratory failure his baseline pCO2 is probably in the high 70s or low 80s. Objective - Vital Signs Vital signs: Vital Signs Temp 97.7 F 08/15/18 05:00 Pulse 80 08/15/18 11:43 Resp 18 08/15/18 08:40 BP 151/67 08/15/18 05:00 Pulse Ox 91 L 08/15/18 05:00 Intake & Output 08/14/18 08/15/18 08/15/18 18:59 06:59 18:59 Intake Total 240 850 Balance 240 850 Intake: Oral 240 850 Other: Voiding Method Toilet Toilet Toilet # Voids 3 1 - Exam Physical Exam: Revealed a 57-year-old white male in no distress. Head: Atraumatic normocephalic. HEENT:[Neck is supple.] [No neck masses.] [No thyromegaly.] [No JVD.] Chest: [Diminished breath sounds no crackles or rhonchi or wheezes Cardiac Exam: [Normal S1 and S2, no S3 gallop, no murmur.] Abdomen: [Soft, nontender, no megaly, no rebound, no guarding, normal bowel sounds.] Extremities: [No clubbing, no edema, no cyanosis.] Neurological Exam: [No focal neurologic deficit.] - Labs CBC & Chem 7: 08/15/18 07:07 08/15/18 07:07 Labs: Abnormal Lab Results - Last 24 Hours (Table) 08/15/18 08/15/18 Range/Units 07:07 07:07 WBC 10.7 H (3.8-10.6) k/uL MCHC 30.6 L (31.0-37.0) g/dL Chloride 96 L (98-107) mmol/L Carbon Dioxide 38 H (22-30) mmol/L Glucose 102 H (74-99) mg/dL Microbiology - Last 24 Hours (Table) 08/13/18 10:40 Blood Culture - Preliminary Blood No Growth after 48 hours Assessment and Plan Assessment: #1 Altered mental status secondary to acute on chronic hypercapnic respiratory failure along with an acute exacerbation of chronic obstructive pulmonary disease and acute exacerbation of mild chronic diastolic congestive heart failure. #2 Acute on chronic hypoxemic respiratory failure secondary to above as well as history of right lung volume loss secondary to right brittany-diaphragm paralysis. #3 Chronic hypoxemic/hypercapnic respiratory failure maintained on average volume assured pressure support (AVAPS) machine in the outpatient setting. #4 Acute exacerbation of chronic obstructive pulmonary disease. #5 History of chronic tobacco dependence of 48 years however quit in December 2017. #6 Morbid obesity. #7 History of right hemidiaphragm paralysis. #8 Schizophrenia. #9 History of multiple right-sided rib fractures and right pleural effusion. #10 Chronic hepatitis C Recommendation: Continue present supportive care measures, continue antibiotics , bronchodilators, steroids, based on his clinical findings, I see no problem for the patient to be discharged home, and follow-up on outpatient basis. Time with Patient: Less than 30
== END 2018-08-15 15:20 | disposition home or self-care (01) | DRG 190 ==
LOC: EC 08:16 → 3NMEDONC 10:16
PROVIDERS: ADMIT Family Medicine; ATTEND Family Medicine
PROC: 5A09457 Assistance with Respiratory Ventilation, 24-96 Consecutive Hours, Continuous Positive Airway Pressure (ICD-10-PCS; principal; 2018-08-13)
DX: J44.0 Chronic obstructive pulmonary disease with (acute) lower respiratory infection (principal); J96.21 Acute and chronic respiratory failure with hypoxia; J96.22 Acute and chronic respiratory failure with hypercapnia; I50.33 Acute on chronic diastolic (congestive) heart failure; J98.11 Atelectasis; E87.2 Acidosis; J44.1 Chronic obstructive pulmonary disease with (acute) exacerbation; I11.0 Hypertensive heart disease with heart failure; E66.01 Morbid (severe) obesity due to excess calories; J98.6 Disorders of diaphragm; F20.9 Schizophrenia, unspecified; J20.9 Acute bronchitis, unspecified; G47.33 Obstructive sleep apnea (adult) (pediatric); K21.9 Gastro-esophageal reflux disease without esophagitis; E78.5 Hyperlipidemia, unspecified; B18.2 Chronic viral hepatitis C; F11.11 Opioid abuse, in remission; Z99.81 Dependence on supplemental oxygen; Z68.36 Body mass index [BMI] 36.0-36.9, adult; Z79.899 Other long term (current) drug therapy; Z87.891 Personal history of nicotine dependence; Z86.711 Personal history of pulmonary embolism; Z87.81 Personal history of (healed) traumatic fracture; Z87.01 Personal history of pneumonia (recurrent); Z82.49 Family history of ischemic heart disease and other diseases of the circulatory system; Z82.5 Family history of asthma and other chronic lower respiratory diseases
CPT/HCPCS: 36415; 71046; 80048; 80053; 82805; 83605; 83880; 85025; 85379; 87040; 93005; 94640; 94660; 94760; 96374; 96375; 99284

== ENCOUNTER 2018-09-06 10:33 | Inpatient (IN) | payer MEDICARE, OTHER ==
[2018-09-06] MEDS ORDERED: IPRATROPIUM-ALBUTEROL 3 ML NEB INHALATION STA (10:45)
[2018-09-06] MEDS ORDERED: methylPREDNISolone SOD SUCCI 125 MG/2 ML VIAL IV STA (10:45)
[2018-09-06] MEDS ORDERED: SODIUM CHLORIDE 0.9% 1,000 ML IV STA (10:45)
--- NOTE | 2018-09-06 10:50 | ED ---
SOB HPI - General Source: RN notes reviewed, old records reviewed <Deisy Jennings - Last Filed: 09/06/18 12:12> <Randall Lambert - Last Filed: 09/06/18 12:29> - General Chief Complaint: Shortness of Breath Stated Complaint: Chest Pain Time Seen by Provider: 09/06/18 10:36 - History of Present Illness Initial Comments: Patient is a 57-year-old male who presents the emergency department today with complaints of difficulty in breathing for the past 2 days. Patient states that his history of CHF, so COPD. He reports that he quit smoking a few months ago. He states that he has had increasing problems since he feels like his quit smoking. He does follow with Dr. Farnsworth. He's been using his inhalers as directed. He states that this morning he did have an episode of right-sided chest pain but seemed to go away. Patient complains of increased wheezing and a productive cough. Patient states that his cough has had black tinged sputum. He also complains of bilateral leg swelling, but states that his right leg seems to be somewhat worse. Patient states that he has had no fevers or chills. He denies abdominal pain. (Deisy Jennings) - Related Data Home Medications Medication Instructions Recorded Confirmed OLANZapine [ZyPREXA] 20 mg PO HS 02/28/16 09/06/18 Escitalopram [Lexapro] 15 mg PO DAILY 01/22/18 09/06/18 Omeprazole 40 mg PO DAILY 01/22/18 09/06/18 traZODone HCL [Desyrel] 200 mg PO HS 08/13/18 09/06/18 Aspirin EC [Ecotrin] 325 mg PO DAILY 09/06/18 09/06/18 Atorvastatin [Lipitor] 40 mg PO HS 09/06/18 09/06/18 Budesonide/Formoterol Fumarate 2 puff INHALATION RT-BID 09/06/18 09/06/18 [Symbicort 160-4.5 Mcg Inhaler] Losartan [Cozaar] 50 mg PO DAILY 09/06/18 09/06/18 Tiotropium 18 Mcg/Puff [Spiriva] 1 puff INHALATION RT-DAILY 09/06/18 09/06/18 Previous Rx's Medication Instructions Recorded Furosemide [Lasix] 40 mg PO DAILY #30 tab 03/16/18 Allergies Allergy/AdvReac Type Severity Reaction Status Date / Time No Known Allergies Allergy Verified 09/06/18 11:01 Review of Systems ROS Other: All systems not noted in ROS Statement are negative. <Deisy Jennings - Last Filed: 09/06/18 12:12> ROS Other: All systems not noted in ROS Statement are negative. <Randall Lambert - Last Filed: 09/06/18 12:29> ROS Statement: Those systems with pertinent positive or pertinent negative responses have been documented in the HPI. Past Medical History Past Medical History: Asthma, COPD, GERD/Reflux, Hyperlipidemia, Hypertension, Liver Disease, Pneumonia, Pulmonary Embolus (PE), Respiratory Disorder, Syncope Additional Past Medical History / Comment(s): R rib fractures with hemothorax/ thoracentesis/chest tube, chronic respiratory failure with home O2 at 5L/NC ATC , L pulmonary embolism, heroin abuse IV in the , hepatitis C. History of Any Multi-Drug Resistant Organisms: None Reported Past Surgical History: Adenoidectomy, Tonsillectomy Past Anesthesia/Blood Transfusion Reactions: No Reported Reaction Smoking Status: Former smoker - Past Family History Father Family Medical History: Myocardial Infarction ([place]) Additional Family Medical History / Comment(s): from [place] at the age of 75 or 76yrs. Mother Family Medical History: COPD Additional Family Medical History / Comment(s): Mother is 82 yrs old. Sister(s) Family Medical History: COPD <eDisy Jennings - Last Filed: 09/06/18 12:12> General Exam General appearance: alert, in no apparent distress Head exam: Present: atraumatic, normocephalic, normal inspection Eye exam: Present: normal appearance, PERRL, EOMI. Absent: scleral icterus, conjunctival injection, periorbital swelling ENT exam: Present: normal exam, mucous membranes moist Neck exam: Present: normal inspection. Absent: tenderness, meningismus, lymphadenopathy Respiratory exam: Present: wheezes (Patient has wheezing throughout entire bilateral lung field.), decreased breath sounds. Absent: normal lung sounds bilaterally, respiratory distress, rales, rhonchi, stridor Cardiovascular Exam: Present: regular rate, normal rhythm, normal heart sounds. Absent: systolic murmur, diastolic murmur, rubs, gallop, clicks GI/Abdominal exam: Present: soft, normal bowel sounds. Absent: distended, tenderness, guarding, rebound, rigid Extremities exam: Present: normal inspection, full ROM, normal capillary refill. Absent: tenderness, pedal edema, joint swelling, calf tenderness Back exam: Present: normal inspection Neurological exam: Present: alert, oriented X3, CN II-XII intact Psychiatric exam: Present: normal affect, normal mood Skin exam: Present: warm, dry, intact, normal color. Absent: rash <Deiys Jennings - Last Filed: 09/06/18 12:12> <Randall Lambert - Last Filed: 09/06/18 12:29> - General Exam Comments Initial Comments: 57-year-old male. Alert and oriented. No significant distress. He does wear oxygen at all times. On 2 L nasal cannula. Oxygen saturation 90% on room air. (Deisy Jennings) Vital Signs 09/06/18 09/06/18 09/06/18 10:42 11:40 11:51 Temperature 97.7 F Pulse Rate 81 86 87 Respiratory 18 Rate Blood Pressure 164/94 O2 Sat by Pulse 90 L Oximetry Medical Decision Making - Lab Data Result diagrams: 09/06/18 10:44 09/06/18 10:44 - Radiology Data Radiology results: report reviewed <Deisy Jennings - Last Filed: 09/06/18 12:12> - Lab Data Result diagrams: 09/06/18 10:44 09/06/18 10:44 <Randall Lambert - Last Filed: 09/06/18 12:29> - Medical Decision Making 57-year-old male who presents for his first today with complaints of increased shortness of breath. Patient does have a history of COPD. He follows with Dr. Farnsworth. After double DuoNeb treatment Patient continues to have some pursed lip breathing tripoding in having low oxygen saturation 90% 2 L of oxygen. Patient has had worsening productive cough. He does state that he feels like his feet are swollen. This was significant pitting edema. He has no calf tenderness. D-dimer is negative. Troponin is negative. EKG was negative for any acute process. Chest x-ray does show some right-sided pulmonary infiltrate versus atelectasis. Patient will be started on Rocephin and azithromycin. Due to his difficulty breathing after the DuoNeb and Solu-Medrol will still continue to admit the Patient for repeat breathing treatments and evaluation by his account technician. Patient agrees to treatment plan will comply. (Deisy Jennings) Patient reexamined and reevaluated by myself, Dr. Lambert. I did review and agree with PA findings. This includes all diagnostic interpretations and treatment plan. Patient is increased respiratory effort. Patient has continued wheezing. Patient is updated on results and plan. Case was discussed in detail with Dr. Bro with sound physician who will admit, covering for Dr. Rojas. Patient does not meet sepsis criteria. (Randall Lambert) - Lab Data Lab Results 09/06/18 09/06/18 09/06/18 Range/Units 10:44 10:44 10:44 WBC 8.1 (3.8-10.6) k/uL RBC 4.67 (4.30-5.90) m/uL Hgb 13.2 (13.0-17.5) gm/dL Hct 42.9 (39.0-53.0) % MCV 91.9 (80.0-100.0) fL MCH 28.3 (25.0-35.0) pg MCHC 30.8 L (31.0-37.0) g/dL RDW 14.7 (11.5-15.5) % Plt Count 209 (150-450) k/uL Neutrophils % 67 % Lymphocytes % 21 % Monocytes % 6 % Eosinophils % 4 % Basophils % 0 % Neutrophils # 5.4 (1.3-7.7) k/uL Lymphocytes # 1.7 (1.0-4.8) k/uL Monocytes # 0.5 (0-1.0) k/uL Eosinophils # 0.3 (0-0.7) k/uL Basophils # 0.0 (0-0.2) k/uL PT (9.0-12.0) sec INR (<1.2) APTT (22.0-30.0) sec D-Dimer (<0.60) mg/L FEU Sodium 138 (137-145) mmol/L Potassium 4.7 (3.5-5.1) mmol/L Chloride 101 (98-107) mmol/L Carbon Dioxide 30 (22-30) mmol/L Anion Gap 7 mmol/L BUN 13 (9-20) mg/dL Creatinine 0.67 (0.66-1.25) mg/dL Est GFR (CKD-EPI)AfAm >90 (>60 ml/min/1.73 sqM) Est GFR (CKD-EPI)NonAf >90 (>60 ml/min/1.73 sqM) Glucose 115 H (74-99) mg/dL Calcium 8.6 (8.4-10.2) mg/dL Magnesium 2.0 (1.6-2.3) mg/dL Total Bilirubin 0.5 (0.2-1.3) mg/dL AST 29 (17-59) U/L ALT 36 (21-72) U/L Alkaline Phosphatase 41 (38-126) U/L Total Creatine Kinase 159 (55-170) U/L CK-MB (CK-2) 3.4 H (0.0-2.4) ng/mL CK-MB (CK-2) Rel Index 2.1 Troponin I <0.012 (0.000-0.034) ng/mL NT-Pro-B Natriuret Pep pg/mL Total Protein 6.0 L (6.3-8.2) g/dL Albumin 3.8 (3.5-5.0) g/dL 09/06/18 09/06/18 Range/Units 10:44 10:44 WBC (3.8-10.6) k/uL RBC (4.30-5.90) m/uL Hgb (13.0-17.5) gm/dL Hct (39.0-53.0) % MCV (80.0-100.0) fL MCH (25.0-35.0) pg MCHC (31.0-37.0) g/dL RDW (11.5-15.5) % Plt Count (150-450) k/uL Neutrophils % % Lymphocytes % % Monocytes % % Eosinophils % % Basophils % % Neutrophils # (1.3-7.7) k/uL Lymphocytes # (1.0-4.8) k/uL Monocytes # (0-1.0) k/uL Eosinophils # (0-0.7) k/uL Basophils # (0-0.2) k/uL PT 9.4 (9.0-12.0) sec INR 0.9 (<1.2) APTT 23.6 (22.0-30.0) sec D-Dimer 0.35 (<0.60) mg/L FEU Sodium (137-145) mmol/L Potassium (3.5-5.1) mmol/L Chloride (98-107) mmol/L Carbon Dioxide (22-30) mmol/L Anion Gap mmol/L BUN (9-20) mg/dL Creatinine (0.66-1.25) mg/dL Est GFR (CKD-EPI)AfAm (>60 ml/min/1.73 sqM) Est GFR (CKD-EPI)NonAf (>60 ml/min/1.73 sqM) Glucose (74-99) mg/dL Calcium (8.4-10.2) mg/dL Magnesium (1.6-2.3) mg/dL Total Bilirubin (0.2-1.3) mg/dL AST (17-59) U/L ALT (21-72) U/L Alkaline Phosphatase (38-126) U/L Total Creatine Kinase (55-170) U/L CK-MB (CK-2) (0.0-2.4) ng/mL CK-MB (CK-2) Rel Index Troponin I (0.000-0.034) ng/mL NT-Pro-B Natriuret Pep 61 pg/mL Total Protein (6.3-8.2) g/dL Albumin (3.5-5.0) g/dL 09/06/18 10:51 EKG shows normal sinus rhythm, normal EKG. Ventricular rate of 84 bpm.. Intervals 146 ms. QRS ration is 100 ms. QT QTc is 372/439 ms. No evidence of ST elevation. (Deisy Jennings) - Radiology Data Persistent elevated right hemidiaphragm with right-sided old rib fractures. Patchy right basilar acute atelectasis or infiltrate. There is left basilar linear atelectasis. (Deisy Jennings) Disposition Is patient prescribed a controlled substance at d/c from ED?: No Time of Disposition: 12:14 <Deisy Jennings - Last Filed: 09/06/18 12:12> <Randall Lambert - Last Filed: 09/06/18 12:29> Clinical Impression: Community acquired pneumonia, COPD (chronic obstructive pulmonary disease) Disposition: ADMITTED IP TO THIS HOSP Condition: Stable Referrals: Hina Rojas MD [Primary Care Provider] - 1-2 days
[2018-09-06 11:15] LABS: Basophils % (A) 0 %; Eosinophils # (A) 0.3 k/uL (0-0.7); Eosinophils % (A) 4 %; HCT 42.9 % (39.0-53.0); HGB 13.2 gm/dL (13.0-17.5); Lymphocytes # (A) 1.7 k/uL (1.0-4.8); Lymphocytes % (A) 21 %; MCH 28.3 pg (25.0-35.0); MCHC 30.8 g/dL (31.0-37.0); MCV 91.9 fL (80.0-100.0); Mean Platelet Volume 7.7; Monocytes # (A) 0.5 k/uL (0-1.0); Monocytes % (A) 6 %; Neutrophils # (A) 5.4 k/uL (1.3-7.7); Neutrophils % (A) 67 %; Platelet Count 209 k/uL (150-450); RBC 4.67 m/uL (4.30-5.90); RDW 14.7 % (11.5-15.5); WBC 8.1 k/uL (3.8-10.6)
[2018-09-06 11:26] LABS: ALT 36 U/L (21-72); AST 29 U/L (17-59); Albumin 3.8 g/dL (3.5-5.0); Alkaline Phosphatase 41 U/L (38-126); Anion Gap 7 mmol/L; Blood Urea Nitrogen 13 mg/dL (9-20); Calcium 8.6 mg/dL (8.4-10.2); Carbon Dioxide 30 mmol/L (22-30); Chloride 101 mmol/L (98-107); Glucose 115 mg/dL (74-99); Potassium 4.7 mmol/L (3.5-5.1); Sodium 138 mmol/L (137-145); Total Bilirubin 0.5 mg/dL (0.2-1.3)
[2018-09-06 11:43] LABS: Creatine Kinase 159 U/L (55-170)
--- NOTE | 2018-09-06 11:45 | XR ---
EXAMINATION TYPE: XR chest 2V DATE OF EXAM: 09/06/2018 COMPARISON: Chest x-ray August 14, 2018 and older chest x-rays. CTA chest March 11, 2018. HISTORY: Right-sided chest pain and shortness of breath. TECHNIQUE: Frontal and lateral views of the chest are obtained. FINDINGS: There is persistent elevated and eventrated anterior aspect right hemidiaphragm. There are several old right-sided rib fractures redemonstrated. There is persistent right basilar opacity on b ackground of chronic emphysematous change. There is left basilar linear atelectasis. Cardiac silhouet te size is stable and within normal limits. No significant pleural effusion or pneumothorax is eviden t on current study. IMPRESSION: Persistent elevated right hemidiaphragm and right-sided old rib fractures. There is patc hy right basilar acute atelectasis and/or infiltrate. There is left basilar linear atelectasis.
[2018-09-06 11:50] LABS: Creatine Kinase MB 3.4 ng/mL (0.0-2.4); Troponin I <0.012 ng/mL (0.000-0.034)
[2018-09-06 11:54] LABS: D-Dimer 0.35 mg/L FEU (<0.60); INR 0.9 (<1.2); Prothrombin Time 9.4 sec (9.0-12.0)
[2018-09-06 11:55] LABS: Partial Thromboplastin Time 23.6 sec (22.0-30.0)
[2018-09-06 13:34] LABS: Appearance,Urine Clear (Clear); Bilirubin,Urine Negative (Negative); Blood,Urine Negative (Negative); Color,Urine Light Yellow; Glucose,Urine (UA) Negative (Negative); Ketones,Urine Negative (Negative); Leukocyte Esterase,Urine Negative (Negative); Nitrite,Urine Negative (Negative); Protein,Urine Negative (Negative); Specific Gravity,Urine 1.003 (1.001-1.035); Urobilinogen,Urine <2.0 mg/dL (<2.0)
[2018-09-06] MEDS ORDERED: ACETAMINOPHEN TAB 325 MG TAB PO PRN (13:49)
--- NOTE | 2018-09-06 14:02 | P.HPIM ---
History of Present Illness H&P Date: 09/06/18 Chief Complaint: Pneumonia 57-year-old male with PMH of COPD, heart failure, pulmonary embolus presents the ED for cough and shortness of breath. Patient reports shortness of breath ongoing for a couple of days now. Shortness of breath is associated with cough of black sputum. Patient reports being short of breath on exertion and at rest. Patient states that he woke up this morning with chest pain was located in the epigastric region. Pain was 6-7 out of 10 in severity, sharp in nature. Pain is nonradiating. Patient was concerned of the following symptoms, prompting him to come to the ED. He denies smoking cigarettes or alcohol consumption. Denies any illicit drug use. He denies any headaches, nausea, vomiting, fever, palpitations, changes in urination or bowel habits. No changes in appetite or weight. In the ED, CBC and CMP were unremarkable. Initial troponin was less than 0.012 with EKG showing normal sinus rhythm. Chest x-ray shows elevated right hemidiaphragm with right-sided old rib fractures. Patient is admitted for COPD exacerbation, pulmonology on consult. Past Medical History Past Medical History: Asthma, COPD, GERD/Reflux, Hyperlipidemia, Hypertension, Liver Disease, Pneumonia, Pulmonary Embolus (PE), Respiratory Disorder, Syncope Additional Past Medical History / Comment(s): R rib fractures with hemothorax/ thoracentesis/chest tube, chronic respiratory failure with home O2 at 5L/NC ATC , L pulmonary embolism, heroin abuse IV in the , hepatitis C. History of Any Multi-Drug Resistant Organisms: None Reported Past Surgical History: Adenoidectomy, Tonsillectomy Past Anesthesia/Blood Transfusion Reactions: No Reported Reaction Smoking Status: Former smoker - Past Family History Father Family Medical History: Myocardial Infarction ([place]) Additional Family Medical History / Comment(s): from [place] at the age of 75 or 76yrs. Mother Family Medical History: COPD Additional Family Medical History / Comment(s): Mother is 82 yrs old. Sister(s) Family Medical History: COPD Medications and Allergies Home Medications Medication Instructions Recorded Confirmed Type OLANZapine [ZyPREXA] 20 mg PO HS 02/28/16 09/06/18 History Escitalopram [Lexapro] 15 mg PO DAILY 01/22/18 09/06/18 History Omeprazole 40 mg PO DAILY 01/22/18 09/06/18 History Furosemide [Lasix] 40 mg PO DAILY #30 tab 03/16/18 09/06/18 Rx traZODone HCL [Desyrel] 200 mg PO HS 08/13/18 09/06/18 History Aspirin EC [Ecotrin] 325 mg PO DAILY 09/06/18 09/06/18 History Atorvastatin [Lipitor] 40 mg PO HS 09/06/18 09/06/18 History Budesonide/Formoterol Fumarate 2 puff INHALATION RT-BID 09/06/18 09/06/18 History [Symbicort 160-4.5 Mcg Inhaler] Losartan [Cozaar] 50 mg PO DAILY 09/06/18 09/06/18 History Tiotropium 18 Mcg/Puff [Spiriva] 1 puff INHALATION RT-DAILY 09/06/18 09/06/18 History Allergies Allergy/AdvReac Type Severity Reaction Status Date / Time No Known Allergies Allergy Verified 09/06/18 11:01 Physical Exam Vitals: Vital Signs Temp Pulse Resp BP Pulse Ox 09/06/18 13:04 80 18 146/87 95 09/06/18 11:51 87 09/06/18 11:40 86 09/06/18 10:42 97.7 F 81 18 164/94 90 L Intake and Output 09/05/18 09/06/18 09/06/18 22:59 06:59 14:59 Other: Weight 127.006 kg General: [non toxic], [no distress], [appears at stated age] Derm: [warm], [dry] Head: [atraumatic], [normocephalic], [symmetric] Eyes: [EOMI], [no lid lag], [anicteric sclera] Mouth: [no lip lesion], [mucus membranes moist] Cardiovascular: [S1S2 reg], [no murmur], [positive DP pulse bilateral] Lungs: [Decreased breath sounds bilateral], [no rhonchi, no rales] , [no accessory muscle use] Abdominal: [soft], [ nontender to palpation], [no guarding], [no appreciable organomegaly] Ext: [no gross muscle atrophy], [no edema], [no contractures] Neuro: [no focal neuro deficits] Psych: [Alert], [oriented], [appropriate affect] Results CBC & Chem 7: 09/06/18 10:44 09/06/18 10:44 Labs: Abnormal Lab Results - Last 24 Hours (Table) 09/06/18 09/06/18 09/06/18 Range/Units 10:44 10:44 10:44 MCHC 30.8 L (31.0-37.0) g/dL Glucose 115 H (74-99) mg/dL CK-MB (CK-2) 3.4 H (0.0-2.4) ng/mL Total Protein 6.0 L (6.3-8.2) g/dL Thrombosis Risk Factor Assmnt - Choose All That Apply Any of the Below Risk Factors Present?: Yes Each Factor Represents 1 point: Abnormal pulmonary function (COPD), Age 41-60 years Thrombosis Risk Factor Assessment Total Risk Factor Score: 2 Thrombosis Risk Factor Assessment Level: Low Risk Assessment and Plan Assessment: Assessment and Plan Community-acquired pneumonia - Seen on chest x-ray. Patient is afebrile with no leukocytosis. Tylenol as needed for fever. Antibiotic coverage with azithromycin and ceftriaxone. Will add Mucinex. Oxygen per nasal cannula to maintain an oxygen saturation greater than 92%. Will follow pulmonary recommendations. COPD exacerbation - Likely secondary to pneumonia. Start Symbicort. Start DuoNeb scheduled and as needed. Start Solu-Medrol 60 mg IV every 6 hours. Will follow pulmonology recommendations. Hypertension -Stable. Continue losartan. Aspirin and Lipitor for ASCVD risk. Echocardiogram shows EF 65-70% with borderline LVH. Patient admitted for COPD exacerbation and treatment of community-acquired pneumonia. He is on 4 L at home. He sees Dr. Farnsworth outpatient. He is pending clinical improvement. DVT prophylaxis: [Heparin] Discussed with: [Patient] Anticipated discharge: [Tomorrow] Anticipated discharge place: [Home] A total of [30] minutes was spent on the care of this complex patient more than 50% of the time was spent in counseling and care coordination.
[2018-09-06] MEDS: IPRATROPIUM-ALBUTEROL 3 ML NEB INHALATION PRN (16:02)
[2018-09-06] MEDS: INSULIN ASPART 100 UNIT/ML 1 ML 10 ML VIAL SQ SCH ×3 (16:32→21:00)
[2018-09-06 16:44] LABS: Glucose,Whole Blood 125 mg/dL (75-99)
[2018-09-06] MEDS: AZITHROMYCIN 500 MG TAB PO SCH (17:46)
[2018-09-06] MEDS: methylPREDNISolone SOD SUCCI 125 MG/2 ML VIAL IV SCH ×2 (17:46→22:28)
[2018-09-06] MEDS: SYMBICORT 160-4.5 MCG INHALER INHALATION SCH (19:23)
[2018-09-06 20:15] LABS: Glucose,Whole Blood 172 mg/dL (75-99)
[2018-09-06] MEDS: ATORVASTATIN 40 MG TAB PO SCH (21:00)
[2018-09-06] MEDS: HEPARIN SODIUM,PORCINE 5,000 UNIT/ML 1 ML VIAL SQ SCH (21:00)
[2018-09-06] MEDS: guaiFENesin 600 MG TABLET.ER PO SCH (21:00)
[2018-09-06] MEDS: traZODone HCL 100 MG TAB PO SCH (22:26)
[2018-09-07 07:09] LABS: Glucose,Whole Blood 112 mg/dL (75-99)
[2018-09-07] MEDS: methylPREDNISolone SOD SUCCI 125 MG/2 ML VIAL IV SCH ×3 (07:31→17:04)
[2018-09-07] MEDS: INSULIN ASPART 100 UNIT/ML 1 ML 10 ML VIAL SQ SCH ×4 (07:38→20:57)
[2018-09-07] MEDS: HEPARIN SODIUM,PORCINE 5,000 UNIT/ML 1 ML VIAL SQ SCH ×2 (07:45→20:57)
[2018-09-07] MEDS: ASPIRIN 325 MG TAB PO SCH (07:45)
[2018-09-07] MEDS: LOSARTAN 50 MG TAB PO SCH (07:45)
[2018-09-07] MEDS: PANTOPRAZOLE 40 MG TABLET PO SCH (07:45)
[2018-09-07] MEDS: guaiFENesin 600 MG TABLET.ER PO SCH ×2 (07:45→20:57)
[2018-09-07] MEDS: FUROSEMIDE 40 MG TAB PO SCH (07:46)
[2018-09-07] MEDS: ESCITALOPRAM 5 MG TAB PO SCH (07:47)
[2018-09-07] MEDS: IPRATROPIUM-ALBUTEROL 3 ML NEB INHALATION PRN ×4 (07:53→20:01)
[2018-09-07] MEDS: SYMBICORT 160-4.5 MCG INHALER INHALATION SCH (07:53)
[2018-09-07 11:18] LABS: Glucose,Whole Blood 120 mg/dL (75-99)
[2018-09-07 11:43] VITALS: RESP 17
--- NOTE | 2018-09-07 12:10 | P.PN ---
Subjective Progress Note Date: 09/07/18 Principal diagnosis: COPD exacerbation Patient was seen and examined. No acute events overnight. Patient reports great improvement in his breathing. He continues to complain of cough, productive of brown sputum. He denies chest pain or palpitations. Objective - Vital Signs Vital signs: Vital Signs Temp 98 F 09/07/18 11:42 Pulse 80 09/07/18 11:59 Resp 17 09/07/18 11:42 BP 136/87 09/07/18 11:42 Pulse Ox 92 L 09/07/18 11:42 Intake & Output 09/06/18 09/07/18 09/07/18 18:59 06:59 18:59 Intake Total 1000 570 Balance 1000 570 Weight 127.006 kg Intake: Amount of Fluid Infused ( 1000 ml) Oral 570 Other: Voiding Method Toilet Toilet # Voids 1 - Exam General: [non toxic], [no distress], [appears at stated age] Derm: [warm], [dry] Head: [atraumatic], [normocephalic], [symmetric] Eyes: [EOMI], [no lid lag], [anicteric sclera] Mouth: [no lip lesion], [mucus membranes moist] Cardiovascular: [S1S2 reg], [no murmur], [positive DP pulse bilateral] Lungs: [Decreased breath sounds bilateral], [no rhonchi, no rales] , [no accessory muscle use] Abdominal: [soft], [ nontender to palpation], [no guarding], [no appreciable organomegaly] Ext: [no gross muscle atrophy], [no edema], [no contractures] Neuro: [no focal neuro deficits] Psych: [Alert], [oriented], [appropriate affect] - Labs CBC & Chem 7: 09/06/18 10:44 09/06/18 10:44 Labs: Abnormal Lab Results - Last 24 Hours (Table) 09/06/18 09/06/18 09/07/18 Range/Units 16:42 20:06 07:07 POC Glucose (mg/dL) 125 H 172 H 112 H (75-99) mg/dL 09/07/18 Range/Units 11:17 POC Glucose (mg/dL) 120 H (75-99) mg/dL Assessment and Plan Assessment: Assessment and Plan Community-acquired pneumonia - Seen on chest x-ray. Patient is afebrile with no leukocytosis. Tylenol as needed for fever. Antibiotic coverage with azithromycin and ceftriaxone. Continue Mucinex. Oxygen per nasal cannula to maintain an oxygen saturation greater than 92%. Will follow pulmonary recommendations. Follow up blood and sputum cultures. COPD exacerbation - Likely secondary to pneumonia. Continue Symbicort. Continue DuoNeb scheduled and as needed. Change Solu-Medrol 60 mg IV every 6 hours to every 8 hours. Will follow pulmonology recommendations. Hypertension - BP 136/87. Continue losartan. Aspirin and Lipitor for ASCVD risk. Echocardiogram shows EF 65-70% with borderline LVH. Patient admitted for COPD exacerbation and treatment of community-acquired pneumonia. He is on 4 L at home. He sees Dr. Farnsworth outpatient. As per Pulmonology, patient would benefit from one more additional day.
--- NOTE | 2018-09-07 14:14 | P.CNPUL ---
History of Present Illness Consult date: 09/07/18 Requesting physician: Jossie Kendrick Reason for consult: dyspnea, cough, COPD Chief complaint: Cough, shortness of breath, phlegm production, COPD History of present illness: This is a 57-year-old white male patient of Dr. Rojas with past medical history of oxygen dependent COPD on home oxygen at 2 L per nasal cannula. Patient is on AVAPS machine for his COPD and chronic hypercapnic respiratory failure related to advanced COPD and chronic right diaphragmatic paralysis. Patient may also have a component of chronic restrictive pulmonary defect related to his obesity. Patient has a baseline FEV1 of 1.02 L or 26% of predicted, and diffusion capacity of 35% of predicted, this is consistent with stage IV COPD. Other medical history includes GERD/reflux, hypertension, hyperlipidemia, chronic hepatitis C infection, previous episodes of pneumonia, history of pulmonary embolus, remote history of IV drug abuse, obesity, schizophrenia, nicotine dependence. Patient has history of multiple rib fractures on the right side of the chest related to vigorous coughing, and resultant hemothorax requiring thoracentesis would removal of 2 L of bloody pleural effusion in February 2018. Other history includes severe symptomatic obstructive sleep apnea AHI score of 62.4. Patient presents to the emergency department on 09/06/2018 for evaluation of difficulty breathing, cough, with production of very dark colored phlegm, patient describes it as almost black in color, wheezing, and increased swelling in lower extremities. Patient reports that he quit smoking a few months ago. He has been using his inhalers as directed, patient is on Combivent, Symbicort, nebulized treatments. Denied any fever or chills. No abdominal pain. No nausea, vomiting or diarrhea. Chest x- ray showed persistent elevated right hemidiaphragm and right-sided old rib fractures, patchy right basilar acute atelectasis and/or infiltrate. And left basilar linear atelectasis. Blood gases were obtained on admission, and showed pO2 of 82, pCO2 of 87, and pH of 7.27, consistent with acute on chronic hypoxemic and hypercapnic respiratory failure. No leukocytosis, d-dimer was within normal limits, electrolytes and a profile within normal limits, urinalysis negative. Troponins negative 1, proBNP within normal limits at 61. Review of Systems All systems: negative Constitutional: Denies chills, Denies fever Eyes: denies blurred vision, denies pain Ears, nose, mouth and throat: Denies headache, Denies sore throat Cardiovascular: Denies chest pain, Denies shortness of breath Respiratory: Reports congestion, Reports cough with sputum, Reports dyspnea, Reports home oxygen, Reports respiratory infections, Reports sleep apnea, Denies cough Gastrointestinal: Denies abdominal pain, Denies diarrhea, Denies nausea, Denies vomiting Musculoskeletal: Denies myalgias Integumentary: Denies pruritus, Denies rash Neurological: Denies numbness, Denies weakness Psychiatric: Denies anxiety, Denies depression Endocrine: Denies fatigue, Denies weight change Past Medical History Past Medical History: Asthma, COPD, GERD/Reflux, Hyperlipidemia, Hypertension, Liver Disease, Pneumonia, Pulmonary Embolus (PE), Respiratory Disorder, Syncope Additional Past Medical History / Comment(s): R rib fractures with hemothorax/ thoracentesis/chest tube, chronic respiratory failure with home O2 at 4L/NC ATC , L pulmonary embolism, heroin abuse IV in the , hepatitis C.pne vaccine less than 5 years ago,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 History of Any Multi-Drug Resistant Organisms: None Reported Past Surgical History: Adenoidectomy, Tonsillectomy Past Anesthesia/Blood Transfusion Reactions: No Reported Reaction Smoking Status: Former smoker - Past Family History Father Family Medical History: Myocardial Infarction ([place]) Additional Family Medical History / Comment(s): from [place] at the age of 75 or 76yrs. Mother Family Medical History: COPD Additional Family Medical History / Comment(s): Mother is 82 yrs old. Sister(s) Family Medical History: COPD Medications and Allergies Home Medications Medication Instructions Recorded Confirmed Type OLANZapine [ZyPREXA] 20 mg PO HS 02/28/16 09/06/18 History Escitalopram [Lexapro] 15 mg PO DAILY 01/22/18 09/06/18 History Omeprazole 40 mg PO DAILY 01/22/18 09/06/18 History Furosemide [Lasix] 40 mg PO DAILY #30 tab 03/16/18 09/06/18 Rx traZODone HCL [Desyrel] 200 mg PO HS 08/13/18 09/06/18 History Aspirin EC [Ecotrin] 325 mg PO DAILY 09/06/18 09/06/18 History Atorvastatin [Lipitor] 40 mg PO HS 09/06/18 09/06/18 History Budesonide/Formoterol Fumarate 2 puff INHALATION RT-BID 09/06/18 09/06/18 History [Symbicort 160-4.5 Mcg Inhaler] Losartan [Cozaar] 50 mg PO DAILY 09/06/18 09/06/18 History Tiotropium 18 Mcg/Puff [Spiriva] 1 puff INHALATION RT-DAILY 09/06/18 09/06/18 History Allergies Allergy/AdvReac Type Severity Reaction Status Date / Time No Known Allergies Allergy Verified 09/06/18 11:01 Physical Exam Vitals: Vital Signs Temp Pulse Pulse Resp BP BP BP 09/07/18 11:59 80 09/07/18 11:45 84 09/07/18 11:42 98 F 86 17 136/87 09/07/18 08:09 80 09/07/18 07:53 76 09/07/18 05:00 97.5 F L 18 146/95 09/07/18 00:00 10 L 18 09/06/18 21:00 97.1 F L 103 H 18 145/79 09/06/18 16:39 98.2 F 84 18 144/84 09/06/18 16:12 84 09/06/18 16:03 98.4 F 89 16 164/92 09/06/18 16:02 84 09/06/18 14:41 85 18 152/82 Pulse Ox 09/07/18 11:59 09/07/18 11:45 09/07/18 11:42 92 L 09/07/18 08:09 09/07/18 07:53 94 L 09/07/18 05:00 92 L 09/07/18 00:00 09/06/18 21:00 91 L 09/06/18 16:39 91 L 09/06/18 16:12 09/06/18 16:03 92 L 09/06/18 16:02 09/06/18 14:41 93 L Intake and Output 09/06/18 09/07/18 09/07/18 22:59 06:59 14:59 Intake Total 1000 570 Balance 1000 570 Intake: Amount of Fluid Infused ( 1000 ml) Oral 570 Other: Voiding Method Toilet Toilet # Voids 1 GENERAL EXAM: Alert, pleasant, 57-year-old obese white male in 2 L per nasal cannula HEAD: Normocephalic/atraumatic. EYES: Normal reaction of pupils, equal size. Conjunctiva pink, sclera white. NOSE: Clear with pink turbinates. THROAT: No erythema or exudates. NECK: No masses, no JVD, no thyroid enlargement, no adenopathy. CHEST: No chest wall deformity. Symmetrical expansion. LUNGS: Equal air entry with diminished breath sounds, prolongation of the expiratory phase CVS: Regular rate and rhythm, normal S1 and S2, no gallops, no murmurs, no rubs ABDOMEN: Soft, nontender. No hepatosplenomegaly, normal bowel sounds, no guarding or rigidity. EXTREMITIES: No clubbing, mild pedal edema, no cyanosis, 2+ pulses and upper and lower extremities. MUSCULOSKELETAL: Muscle strength and tone normal. SPINE: No scoliosis or deformity SKIN: No rashes CENTRAL NERVOUS SYSTEM: Alert and oriented -3. No focal deficits, tone is normal in all 4 extremities. PSYCHIATRIC: Alert and oriented -3. Appropriate affect. Intact judgment and insight. Results - Laboratory Findings CBC and BMP: 09/06/18 10:44 09/06/18 10:44 PT/INR, D-dimer PT 9.4 sec (9.0-12.0) 09/06/18 10:44 INR 0.9 (<1.2) 09/06/18 10:44 D-Dimer 0.35 mg/L FEU (<0.60) 09/06/18 10:44 Abnormal lab findings: Abnormal Labs 09/06/18 09/06/18 09/06/18 10:44 10:44 10:44 MCHC 30.8 L Glucose 115 H POC Glucose (mg/dL) CK-MB (CK-2) 3.4 H Total Protein 6.0 L 09/06/18 09/06/18 09/07/18 16:42 20:06 07:07 MCHC Glucose POC Glucose (mg/dL) 125 H 172 H 112 H CK-MB (CK-2) Total Protein 09/07/18 11:17 MCHC Glucose POC Glucose (mg/dL) 120 H CK-MB (CK-2) Total Protein - Diagnostic Findings Chest x-ray: report reviewed, image reviewed Additional studies: EKG reviewed Assessment and Plan Plan: Assessment: #1. Acute on chronic hypoxemic and hypercapnic respiratory failure related to acute exacerbation of chronic obstructive pulmonary disease with tracheobronchitis. Chest x-ray showed chronic elevation of the right hemidiaphragm previously ordered on previous chest x-rays and CAT scans, old right-sided rib fractures, patchy right basilar atelectasis and linear left basilar atelectasis, no clear evidence of pneumonia #2. Chronic hypoxemic and hypercapnic respiratory failure related to advanced COPD, stage IV, with baseline FEV1 of 1.02 L or 26% predicted, and diffusion capacity 55% of predicted. He also has a component of restriction related to obesity. Patient is on AVAPS at home #3. Chronic paralysis of right hemidiaphragm #4. Multiple old right-sided fractures with history of hemothorax requiring right-sided thoracentesis in February 2018 #5. GERD #6. Morbid obesity #7. Chronic hepatitis C #8. Schizophrenia #9. Obstructive sleep apnea with AHI of 62 #10. History of chronic tobacco dependence Plan: Chest x-ray was reviewed with Dr. Hernandez, did not show any clear evidence of pneumonia, bibasilar atelectasis, old right-sided rib fractures, and chronic elevation of the right hemidiaphragm. Continue the IV steroids, but nebulized bronchodilators, antibiotics, sputum culture. The patient has already reported improvement with his breathing, is less bronchospastic and congested. Patient can use his AVAPS machine at his home settings, normally he is on a tidal volume target of 400 with the EPAP minimum of 4 maximum of 16, and a pressure support minimum of 4 maximum of 10 with a maximum pressure of 20 cm of water. If not patient can use BiPAP with settings of 14/8, and FiO2 of 40% throughout the night and during the day as needed. Anticipate further improvement, and possible discharge home tomorrow. I performed a history & physical examination of the patient and discussed their management with my nurse practitioner, Asia Peraza. I reviewed the nurse practitioner's note and agree with the documented findings and plan of care. Lung sounds are positive for diminished breath sounds with prolongation of the exp phase. The findings and the impression was discussed with the patient. I attest to the documentation by the nurse practitioner. Time with Patient: Greater than 30
[2018-09-07 17:01] LABS: Glucose,Whole Blood 176 mg/dL (75-99)
[2018-09-07] MEDS: AZITHROMYCIN 500 MG TAB PO SCH (17:03)
[2018-09-07] MEDS: BUDESONIDE 1 MG/2 ML NEBU INHALATION SCH (20:01)
[2018-09-07] MEDS: FORMOTEROL FUMARATE 20 MCG/2 ML NEBU INHALATION SCH (20:01)
[2018-09-07 20:51] LABS: Glucose,Whole Blood 133 mg/dL (75-99)
[2018-09-07] MEDS: ATORVASTATIN 40 MG TAB PO SCH (20:57)
[2018-09-07] MEDS: traZODone HCL 100 MG TAB PO SCH (20:58)
[2018-09-08 05:21] VITALS: BP 147/74; TEMP 97.6
[2018-09-08] MEDS: methylPREDNISolone SOD SUCCI 125 MG/2 ML VIAL IV SCH ×2 (05:25→08:20)
[2018-09-08] MEDS: BUDESONIDE 1 MG/2 ML NEBU INHALATION SCH (07:17)
[2018-09-08] MEDS: FORMOTEROL FUMARATE 20 MCG/2 ML NEBU INHALATION SCH (07:17)
[2018-09-08] MEDS: IPRATROPIUM-ALBUTEROL 3 ML NEB INHALATION PRN ×2 (07:17→11:00)
[2018-09-08 07:24] LABS: Glucose,Whole Blood 130 mg/dL (75-99)
[2018-09-08] MEDS: INSULIN ASPART 100 UNIT/ML 1 ML 10 ML VIAL SQ SCH ×2 (07:29→11:38)
[2018-09-08] MEDS: ESCITALOPRAM 5 MG TAB PO SCH (08:18)
[2018-09-08] MEDS: PANTOPRAZOLE 40 MG TABLET PO SCH (08:18)
[2018-09-08] MEDS: LOSARTAN 50 MG TAB PO SCH (08:18)
[2018-09-08] MEDS: guaiFENesin 600 MG TABLET.ER PO SCH (08:19)
[2018-09-08] MEDS: HEPARIN SODIUM,PORCINE 5,000 UNIT/ML 1 ML VIAL SQ SCH (08:19)
[2018-09-08] MEDS: ASPIRIN 325 MG TAB PO SCH (08:19)
[2018-09-08] MEDS: FUROSEMIDE 40 MG TAB PO SCH (08:21)
--- NOTE | 2018-09-08 10:45 | P.DS ---
Providers Date of admission: 09/06/18 12:29 Expected date of discharge: 09/08/18 Attending physician: Jossie Kendrick MD Consults: 09/06/18 13:55 Consult Physician Urgent Consulting Provider: Nathan Madrigal Consult Reason/Comments: COPD exacerbation Do you want consulting provider notified?: Yes Primary care physician: Hina Rojas MD - Discharge Diagnosis(es) (1) COPD (chronic obstructive pulmonary disease) Current Visit: Yes Status: Acute (2) Community acquired pneumonia Current Visit: Yes Status: Acute (3) Essential hypertension Current Visit: No Status: Acute Hospital Course: 57-year-old male with PMH of COPD, heart failure, pulmonary embolus presents the ED for cough and shortness of breath. Patient reports shortness of breath ongoing for a couple of days now. Shortness of breath is associated with cough of black sputum. Patient reports being short of breath on exertion and at rest. Patient states that he woke up this morning with chest pain was located in the epigastric region. Pain was 6-7 out of 10 in severity, sharp in nature. Pain is nonradiating. Patient was concerned of the following symptoms, prompting him to come to the ED. He denies smoking cigarettes or alcohol consumption. Denies any illicit drug use. He denies any headaches, nausea, vomiting, fever, palpitations, changes in urination or bowel habits. No changes in appetite or weight. In the ED, CBC and CMP were unremarkable. Initial troponin was less than 0.012 with EKG showing normal sinus rhythm. Chest x-ray shows elevated right hemidiaphragm with right-sided old rib fractures. There was concern for community-acquired pneumonia as seen on chest x-ray. Patient was afebrile with no leukocytosis on admission. He was given antibiotic coverage with Zosyn and azithromycin and ceftriaxone which was discontinued on discharge. He was given Tylenol for fever and oxygen per nasal cannula to maintain an oxygen saturation greater than 92%. Pulmonology was consulted and recommended continued treatment, clearing patient for discharge. Patient's home medications were resumed for his COPD exacerbation. This included Symbicort and DuoNeb scheduled and as needed. Patient was initially started on Solu-Medrol which was transitioned to prednisone on discharge. His home medication of losartan was resumed for hypertension. Patient seen and examined prior to discharge. No acute events overnight. Patient reports great improvement in his breathing, states he is back to baseline. His sister is at bedside, looking for to going home. He denies any shortness of breath, cough or chest pain. He is on 4 L of oxygen at home. Requesting Zyprexa prescription on discharge. General: [non toxic], [no distress], [appears at stated age] Derm: [warm], [dry] Head: [atraumatic], [normocephalic], [symmetric] Eyes: [EOMI], [no lid lag], [anicteric sclera] Mouth: [no lip lesion], [mucus membranes moist] Cardiovascular: [S1S2 reg], [no murmur], [positive DP pulse bilateral] Lungs: [Decreased breath sounds bilateral], [no rhonchi, no rales] , [no accessory muscle use] Abdominal: [soft], [ nontender to palpation], [no guarding], [no appreciable organomegaly] Ext: [no gross muscle atrophy], [no edema], [no contractures] Neuro: [no focal neuro deficits] Psych: [Alert], [oriented], [appropriate affect] Assessment and Plan Community-acquired pneumonia - Seen on chest x-ray. Patient is afebrile with no leukocytosis. Tylenol as needed for fever. Azithromycin ceftriaxone discontinued by pulmonology. Continue Mucinex. Oxygen per nasal cannula to maintain an oxygen saturation greater than 92%. Will follow pulmonary recommendations. Sputum cultures and blood cultures prelim negative at the time of discharge. COPD exacerbation - Likely secondary to pneumonia. Continue Symbicort. Continue DuoNeb scheduled and as needed. Change Solu-Medrol to prednisone by mouth. Will follow pulmonology recommendations. Hypertension - BP 164/92. Continue losartan. Aspirin and Lipitor for ASCVD risk. Echocardiogram shows EF 65-70% with borderline LVH. Patient is follow-up with primary care provider within 1-2 days of discharge. Patient advised follow-up with pulmonology Dr. Farnsworth within 1 week of discharge. This discharge took > 35 minutes. Pertinent Studies: Chest x-ray Patient Condition at Discharge: Stable Plan - Discharge Summary Discharge Rx Participant: No New Discharge Prescriptions: New Ipratropium-Albuterol Nebulize [Duoneb 0.5 mg-3 mg/3 ml Soln] 3 ml INHALATION RT-Q4H PRN ampul.neb PRN Reason: Shortness Of Breath Or Wheezing OLANZapine [ZyPREXA] 20 mg PO HS #30 tablet Continue OLANZapine [ZyPREXA] 20 mg PO HS Escitalopram [Lexapro] 15 mg PO DAILY Omeprazole 40 mg PO DAILY Furosemide [Lasix] 40 mg PO DAILY #30 tab traZODone HCL [Desyrel] 200 mg PO HS Aspirin EC [Ecotrin] 325 mg PO DAILY Atorvastatin [Lipitor] 40 mg PO HS Budesonide/Formoterol Fumarate [Symbicort 160-4.5 Mcg Inhaler] 2 puff INHALATION RT-BID Losartan [Cozaar] 50 mg PO DAILY Tiotropium 18 Mcg/Puff [Spiriva] 1 puff INHALATION RT-DAILY Discharge Medication List OLANZapine [ZyPREXA] 20 mg PO HS 02/28/16 [History] Escitalopram [Lexapro] 15 mg PO DAILY 01/22/18 [History] Omeprazole 40 mg PO DAILY 01/22/18 [History] Furosemide [Lasix] 40 mg PO DAILY #30 tab 03/16/18 [Rx] traZODone HCL [Desyrel] 200 mg PO HS 08/13/18 [History] Aspirin EC [Ecotrin] 325 mg PO DAILY 09/06/18 [History] Atorvastatin [Lipitor] 40 mg PO HS 09/06/18 [History] Budesonide/Formoterol Fumarate [Symbicort 160-4.5 Mcg Inhaler] 2 puff INHALATION RT-BID 09/06/18 [History] Losartan [Cozaar] 50 mg PO DAILY 09/06/18 [History] Tiotropium 18 Mcg/Puff [Spiriva] 1 puff INHALATION RT-DAILY 09/06/18 [History] Ipratropium-Albuterol Nebulize [Duoneb 0.5 mg-3 mg/3 ml Soln] 3 ml INHALATION RT -Q4H PRN ampul.neb 09/08/18 [Rx] OLANZapine [ZyPREXA] 20 mg PO HS #30 tablet 09/08/18 [Rx] Follow up Appointment(s)/Referral(s): Hina Rojas MD [Primary Care Provider] - 1-2 days Porsche Farnsworth MD [STAFF PHYSICIAN] - 1 Week Activity/Diet/Wound Care/Special Instructions: Diet: Diabetic diet, HEART healthy Please follow up with your primary care provider within 1-2 days of discharge. Please follow up with your door attendant Dr. Farnsworth within 1 week of discharge. Please take all medications as advised. Discharge Disposition: HOME SELF-CARE
[2018-09-08 11:17] VITALS: PULSE 74
[2018-09-08 11:32] LABS: Glucose,Whole Blood 101 mg/dL (75-99)
--- NOTE | 2018-09-08 12:14 | P.PN ---
Subjective Progress Note Date: 09/08/18 Principal diagnosis: Cough, shortness of breath, phlegm production, acute COPD exacerbation This is a 57-year-old white male patient of Dr. Rojas with past medical history of oxygen dependent COPD on home oxygen at 2 L per nasal cannula. Patient is on AVAPS machine for his COPD and chronic hypercapnic respiratory failure related to advanced COPD and chronic right diaphragmatic paralysis. Patient may also have a component of chronic restrictive pulmonary defect related to his obesity. Patient has a baseline FEV1 of 1.02 L or 26% of predicted, and diffusion capacity of 35% of predicted, this is consistent with stage IV COPD. Other medical history includes GERD/reflux, hypertension, hyperlipidemia, chronic hepatitis C infection, previous episodes of pneumonia, history of pulmonary embolus, remote history of IV drug abuse, obesity, schizophrenia, nicotine dependence. Patient has history of multiple rib fractures on the right side of the chest related to vigorous coughing, and resultant hemothorax requiring thoracentesis would removal of 2 L of bloody pleural effusion in February 2018. Other history includes severe symptomatic obstructive sleep apnea AHI score of 62.4. Patient presents to the emergency department on 09/06/2018 for evaluation of difficulty breathing, cough, with production of very dark colored phlegm, patient describes it as almost black in color, wheezing, and increased swelling in lower extremities. Patient reports that he quit smoking a few months ago. He has been using his inhalers as directed, patient is on Combivent, Symbicort, nebulized treatments. Denied any fever or chills. No abdominal pain. No nausea, vomiting or diarrhea. Chest x- ray showed persistent elevated right hemidiaphragm and right-sided old rib fractures, patchy right basilar acute atelectasis and/or infiltrate. And left basilar linear atelectasis. Blood gases were obtained on admission, and showed pO2 of 82, pCO2 of 87, and pH of 7.27, consistent with acute on chronic hypoxemic and hypercapnic respiratory failure. No leukocytosis, d-dimer was within normal limits, electrolytes and a profile within normal limits, urinalysis negative. Troponins negative 1, proBNP within normal limits at 61. On 09/08/2018 patient seen in follow-up on medical surgical floor. He sitting up in bed, in no acute distress, no wheezing, no rhonchi, breathing much easier , significantly improved since admission, currently on 4 L per nasal cannula and his pulse ox is between 91-93%, afebrile, patient is on Zithromax for abiotic coverage, he is on nebulized bronchodilators, Mucinex, oral Lasix, and IV steroids, bilateral lower extremity swelling is much improved. Anticipate discharge home today. Objective - Vital Signs Vital signs: Vital Signs Temp 97.6 F 09/08/18 05:00 Pulse 74 09/08/18 11:15 Resp 17 09/08/18 05:00 BP 147/74 09/08/18 05:00 Pulse Ox 91 L 09/08/18 07:17 Intake & Output 09/07/18 09/08/18 09/08/18 18:59 06:59 18:59 Intake Total 160 1630 Balance 160 1630 Intake: Intake, IV Titration 160 Amount Sodium Chloride 0.9% 1, 160 000 ml @ 20 mls/hr IV . Q24H STA Rx#:[id number] Oral 1630 Other: Voiding Method Toilet Toilet Toilet # Voids 2 - Exam GENERAL EXAM: Alert, pleasant, 57-year-old obese white male in 4 L per nasal cannula HEAD: Normocephalic/atraumatic. EYES: Normal reaction of pupils, equal size. Conjunctiva pink, sclera white. NOSE: Clear with pink turbinates. THROAT: No erythema or exudates. NECK: No masses, no JVD, no thyroid enlargement, no adenopathy. CHEST: No chest wall deformity. Symmetrical expansion. LUNGS: Equal air entry with diminished breath sounds CVS: Regular rate and rhythm, normal S1 and S2, no gallops, no murmurs, no rubs ABDOMEN: Soft, nontender. No hepatosplenomegaly, normal bowel sounds, no guarding or rigidity. EXTREMITIES: No clubbing, mild pedal edema, no cyanosis, 2+ pulses and upper and lower extremities. MUSCULOSKELETAL: Muscle strength and tone normal. SPINE: No scoliosis or deformity SKIN: No rashes CENTRAL NERVOUS SYSTEM: Alert and oriented -3. No focal deficits, tone is normal in all 4 extremities. PSYCHIATRIC: Alert and oriented -3. Appropriate affect. Intact judgment and insight. - Labs CBC & Chem 7: 09/06/18 10:44 09/06/18 10:44 Labs: Abnormal Lab Results - Last 24 Hours (Table) 09/07/18 09/07/18 09/08/18 Range/Units 16:59 20:48 07:22 POC Glucose (mg/dL) 176 H 133 H 130 H (75-99) mg/dL 09/08/18 Range/Units 11:31 POC Glucose (mg/dL) 101 H (75-99) mg/dL Microbiology - Last 24 Hours (Table) 09/07/18 15:47 Gram Stain - Preliminary Sputum 09/06/18 11:15 Blood Culture - Preliminary Blood No Growth after 24 hours Assessment and Plan Plan: Assessment: #1. Acute on chronic hypoxemic and hypercapnic respiratory failure related to acute exacerbation of chronic obstructive pulmonary disease with tracheobronchitis. Chest x-ray showed chronic elevation of the right hemidiaphragm previously ordered on previous chest x-rays and CAT scans, old right-sided rib fractures, patchy right basilar atelectasis and linear left basilar atelectasis, no clear evidence of pneumonia #2. Chronic hypoxemic and hypercapnic respiratory failure related to advanced COPD, stage IV, with baseline FEV1 of 1.02 L or 26% predicted, and diffusion capacity 55% of predicted. He also has a component of restriction related to obesity. Patient is on AVAPS at home #3. Chronic paralysis of right hemidiaphragm #4. Multiple old right-sided fractures with history of hemothorax requiring right-sided thoracentesis in February 2018 #5. GERD #6. Morbid obesity #7. Chronic hepatitis C #8. Schizophrenia #9. Obstructive sleep apnea with AHI of 62 #10. History of chronic tobacco dependence Plan: Patient is stable, continues to improve, hardly any wheezing today, essentially clear on today's exam. Vital signs are stable, no fever no chills, lower extremity edema is improving, from pulmonary perspective patient is stable for discharge home today on the oral course of Zithromax, prednisone taper, and patient can resume his home inhalers and nebulized treatments, follow up with Dr. Farnsworth in the office in 7-10 days. I performed a history & physical examination of the patient and discussed their management with my nurse practitioner, Asia Peraza. I reviewed the nurse practitioner's note and agree with the documented findings and plan of care. Lung sounds are positive for diminished breath sounds with prolongation of the exp phase. The findings and the impression was discussed with the patient. I attest to the documentation by the nurse practitioner. Time with Patient: Less than 30
== END 2018-09-08 12:45 | disposition home health service (06) | DRG 193 ==
LOC: EC 10:33 → 4MS4W 12:29 → 3NMEDONC 15:49
PROVIDERS: ADMIT Family Medicine; ATTEND Family Medicine
DX: J18.9 Pneumonia, unspecified organism (principal); J96.21 Acute and chronic respiratory failure with hypoxia; J96.22 Acute and chronic respiratory failure with hypercapnia; J44.0 Chronic obstructive pulmonary disease with (acute) lower respiratory infection; J98.11 Atelectasis; J44.1 Chronic obstructive pulmonary disease with (acute) exacerbation; I11.0 Hypertensive heart disease with heart failure; I50.9 Heart failure, unspecified; E66.01 Morbid (severe) obesity due to excess calories; J98.6 Disorders of diaphragm; F20.9 Schizophrenia, unspecified; G47.33 Obstructive sleep apnea (adult) (pediatric); E78.5 Hyperlipidemia, unspecified; B18.2 Chronic viral hepatitis C; K21.9 Gastro-esophageal reflux disease without esophagitis; F11.11 Opioid abuse, in remission; Z68.38 Body mass index [BMI] 38.0-38.9, adult; Z71.3 Dietary counseling and surveillance; Z99.81 Dependence on supplemental oxygen; Z79.82 Long term (current) use of aspirin; Z79.51 Long term (current) use of inhaled steroids; Z79.899 Other long term (current) drug therapy; Z86.711 Personal history of pulmonary embolism; Z87.81 Personal history of (healed) traumatic fracture; Z87.891 Personal history of nicotine dependence; Z82.49 Family history of ischemic heart disease and other diseases of the circulatory system; Z82.5 Family history of asthma and other chronic lower respiratory diseases
CPT/HCPCS: 36415; 71046; 80053; 81003; 82550; 82553; 83735; 83880; 84484; 85025; 85379; 85610; 85730; 87040; 87070; 87205; 93005; 94640; 94660; 94760; 96365; 96375; 99285

== ENCOUNTER 2018-10-04 13:20 | Inpatient (IN) | payer MEDICARE, OTHER ==
[2018-10-04] MEDS ORDERED: ACETAMINOPHEN TAB 500 MG TAB PO STA (14:06)
[2018-10-04] MEDS ORDERED: IPRATROPIUM-ALBUTEROL 3 ML NEB INHALATION STA ×2 (14:07→15:28)
--- NOTE | 2018-10-04 14:18 | ED ---
General Adult HPI - General Chief complaint: Shortness of Breath Stated complaint: Dyspnea Time Seen by Provider: 10/04/18 14:02 Source: patient, RN notes reviewed Mode of arrival: ambulatory Limitations: no limitations - History of Present Illness Initial comments: Patient is a pleasant 57-year-old male presenting to emergency Department with complaints of difficulty in breathing. Symptoms have progressed over the past week 2 weeks. Patient does have cough with dark sputum. No chest pain. No fevers. Symptoms are similar to previous COPD. Patient does admit to having some right leg swelling however denies any calf pain. Patient did go to urgent care who did chest x-ray. Chest x-ray report had suspicion for atelectasis versus infiltrate versus fluid overload. - Related Data Home Medications Medication Instructions Recorded Confirmed Escitalopram [Lexapro] 10 mg PO DAILY 01/22/18 10/04/18 Omeprazole 40 mg PO DAILY 01/22/18 10/04/18 traZODone HCL [Desyrel] 200 mg PO HS 08/13/18 10/04/18 Atorvastatin [Lipitor] 40 mg PO HS 09/06/18 10/04/18 Budesonide/Formoterol Fumarate 2 puff INHALATION RT-BID 09/06/18 10/04/18 [Symbicort 160-4.5 Mcg Inhaler] Losartan [Cozaar] 50 mg PO DAILY 09/06/18 10/04/18 Tiotropium 18 Mcg/Puff [Spiriva] 1 puff INHALATION RT-DAILY 09/06/18 10/04/18 Apixaban [Eliquis] 5 mg PO BID 10/04/18 10/04/18 Aspirin [[place] Aspirin EC] 81 mg PO DAILY 10/04/18 10/04/18 Metoprolol Tartrate 25 mg PO BID 10/04/18 10/04/18 Previous Rx's Medication Instructions Recorded Furosemide [Lasix] 40 mg PO DAILY #30 tab 03/16/18 Ipratropium-Albuterol Nebulize 3 ml INHALATION RT-Q4H PRN 09/08/18 [Duoneb 0.5 mg-3 mg/3 ml Soln] ampul.neb OLANZapine [ZyPREXA] 20 mg PO HS #30 tablet 09/08/18 Allergies Allergy/AdvReac Type Severity Reaction Status Date / Time No Known Allergies Allergy Verified 10/04/18 15:00 Review of Systems ROS Statement: Those systems with pertinent positive or pertinent negative responses have been documented in the HPI. ROS Other: All systems not noted in ROS Statement are negative. Constitutional: Denies: fever Eyes: Denies: eye pain ENT: Denies: ear pain Respiratory: Reports: cough, dyspnea Cardiovascular: Denies: chest pain Endocrine: Denies: fatigue Gastrointestinal: Denies: abdominal pain Genitourinary: Denies: dysuria Musculoskeletal: Denies: back pain Skin: Denies: rash Neurological: Denies: weakness Past Medical History Past Medical History: Asthma, COPD, GERD/Reflux, Hyperlipidemia, Hypertension, Liver Disease, Pneumonia, Pulmonary Embolus (PE), Respiratory Disorder, Syncope Additional Past Medical History / Comment(s): R rib fractures with hemothorax/ thoracentesis/chest tube, chronic respiratory failure with home O2 at 4L/NC ATC , L pulmonary embolism, heroin abuse IV in the , hepatitis C.pne vaccine less than 5 years ago,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 History of Any Multi-Drug Resistant Organisms: None Reported Past Surgical History: Adenoidectomy, Tonsillectomy Past Anesthesia/Blood Transfusion Reactions: No Reported Reaction Past Psychological History: No Psychological Hx Reported Smoking Status: Former smoker - Past Family History Father Family Medical History: Myocardial Infarction (SD) Additional Family Medical History / Comment(s): from mi at the age of 75 or 76yrs. Mother Family Medical History: COPD Additional Family Medical History / Comment(s): Mother is 82 yrs old. Sister(s) Family Medical History: COPD General Exam Limitations: no limitations General appearance: alert Head exam: Present: atraumatic Eye exam: Present: normal appearance, PERRL ENT exam: Present: normal oropharynx Neck exam: Present: normal inspection Respiratory exam: Present: wheezes (Mild expiratory), decreased breath sounds Cardiovascular Exam: Present: tachycardia GI/Abdominal exam: Present: soft. Absent: tenderness Extremities exam: Present: normal inspection. Absent: pedal edema, calf tenderness Neurological exam: Present: alert Psychiatric exam: Present: normal affect, normal mood Skin exam: Present: normal color Course Vital Signs 10/04/18 10/04/18 10/04/18 13:47 14:05 14:12 Temperature 98.3 F 99.1 F Pulse Rate 114 H 108 H 106 H Pulse Rate [ Bilateral Radial] Respiratory 24 20 Rate Blood Pressure O2 Sat by Pulse 85 L Oximetry 10/04/18 10/04/18 10/04/18 14:19 14:28 14:30 Temperature Pulse Rate 106 H Pulse Rate [ 108 H Bilateral Radial] Respiratory 22 Rate Blood Pressure O2 Sat by Pulse Oximetry 10/04/18 10/04/18 10/04/18 15:31 15:43 15:51 Temperature Pulse Rate 105 H 99 100 Pulse Rate [ Bilateral Radial] Respiratory 24 Rate Blood Pressure 150/88 O2 Sat by Pulse 87 L Oximetry EKG Findings - EKG Comments: EKG Findings:: Sinus tachycardia 105. [place] 136. QRS 106. QT 338. QTC 446. Normal axis. Incomplete right bundle-branch block. No acute ST change. Medical Decision Making - Medical Decision Making Patient did get worse following initial presentation. Patient was placed on BiPAP with significant improvement of symptoms. Patient reevaluated. Patient updated on results and plan. Case was discussed in detail with Dr. Bro, covering for Dr. Rojas, who will admit. - Lab Data Result diagrams: 10/04/18 14:05 10/04/18 14:05 Lab Results 10/04/18 10/04/18 10/04/18 Range/Units 14:05 14:05 14:05 WBC 9.5 (3.8-10.6) k/uL RBC 4.80 (4.30-5.90) m/uL Hgb 13.7 (13.0-17.5) gm/dL Hct 42.9 (39.0-53.0) % MCV 89.4 (80.0-100.0) fL MCH 28.6 (25.0-35.0) pg MCHC 32.0 (31.0-37.0) g/dL RDW 15.1 (11.5-15.5) % Plt Count 224 (150-450) k/uL Neutrophils % 64 % Lymphocytes % 24 % Monocytes % 8 % Eosinophils % 3 % Basophils % 0 % Neutrophils # 6.1 (1.3-7.7) k/uL Lymphocytes # 2.2 (1.0-4.8) k/uL Monocytes # 0.8 (0-1.0) k/uL Eosinophils # 0.3 (0-0.7) k/uL Basophils # 0.0 (0-0.2) k/uL PT (9.0-12.0) sec INR (<1.2) APTT (22.0-30.0) sec Sodium 138 (137-145) mmol/L Potassium 3.9 (3.5-5.1) mmol/L Chloride 101 (98-107) mmol/L Carbon Dioxide 27 (22-30) mmol/L Anion Gap 10 mmol/L BUN 14 (9-20) mg/dL Creatinine 0.83 (0.66-1.25) mg/dL Est GFR (CKD-EPI)AfAm >90 (>60 ml/min/1.73 sqM) Est GFR (CKD-EPI)NonAf >90 (>60 ml/min/1.73 sqM) Glucose 132 H (74-99) mg/dL Plasma Lactic Acid Vu (0.7-2.0) mmol/L Calcium 9.0 (8.4-10.2) mg/dL Total Bilirubin 0.6 (0.2-1.3) mg/dL AST 48 (17-59) U/L ALT 39 (21-72) U/L Alkaline Phosphatase 55 (38-126) U/L Total Creatine Kinase 536 H (55-170) U/L CK-MB (CK-2) 4.7 H (0.0-2.4) ng/mL CK-MB (CK-2) Rel Index 0.9 Troponin I <0.012 (0.000-0.034) ng/mL NT-Pro-B Natriuret Pep pg/mL Total Protein 6.7 (6.3-8.2) g/dL Albumin 4.3 (3.5-5.0) g/dL Urine Color Urine Appearance (Clear) Urine pH (5.0-8.0) Ur Specific Woodrow (1.001-1.035) Urine Protein (Negative) Urine Glucose (UA) (Negative) Urine Ketones (Negative) Urine Blood (Negative) Urine Nitrite (Negative) Urine Bilirubin (Negative) Urine Urobilinogen (<2.0) mg/dL Ur Leukocyte Esterase (Negative) Urine RBC (0-5) /hpf Urine WBC (0-5) /hpf Urine Mucus (None) /hpf Influenza Type A RNA (Not Detectd) Influenza Type B (PCR) (Not Detectd) 10/04/18 10/04/18 10/04/18 Range/Units 14:05 14:05 14:05 WBC (3.8-10.6) k/uL RBC (4.30-5.90) m/uL Hgb (13.0-17.5) gm/dL Hct (39.0-53.0) % MCV (80.0-100.0) fL MCH (25.0-35.0) pg MCHC (31.0-37.0) g/dL RDW (11.5-15.5) % Plt Count (150-450) k/uL Neutrophils % % Lymphocytes % % Monocytes % % Eosinophils % % Basophils % % Neutrophils # (1.3-7.7) k/uL Lymphocytes # (1.0-4.8) k/uL Monocytes # (0-1.0) k/uL Eosinophils # (0-0.7) k/uL Basophils # (0-0.2) k/uL PT 9.5 (9.0-12.0) sec INR 0.9 (<1.2) APTT 24.1 (22.0-30.0) sec Sodium (137-145) mmol/L Potassium (3.5-5.1) mmol/L Chloride (98-107) mmol/L Carbon Dioxide (22-30) mmol/L Anion Gap mmol/L BUN (9-20) mg/dL Creatinine (0.66-1.25) mg/dL Est GFR (CKD-EPI)AfAm (>60 ml/min/1.73 sqM) Est GFR (CKD-EPI)NonAf (>60 ml/min/1.73 sqM) Glucose (74-99) mg/dL Plasma Lactic Acid Vu 2.4 H* (0.7-2.0) mmol/L Calcium (8.4-10.2) mg/dL Total Bilirubin (0.2-1.3) mg/dL AST (17-59) U/L ALT (21-72) U/L Alkaline Phosphatase (38-126) U/L Total Creatine Kinase (55-170) U/L CK-MB (CK-2) (0.0-2.4) ng/mL CK-MB (CK-2) Rel Index Troponin I (0.000-0.034) ng/mL NT-Pro-B Natriuret Pep 57 pg/mL Total Protein (6.3-8.2) g/dL Albumin (3.5-5.0) g/dL Urine Color Urine Appearance (Clear) Urine pH (5.0-8.0) Ur Specific [place]row (1.001-1.035) Urine Protein (Negative) Urine Glucose (UA) (Negative) Urine Ketones (Negative) Urine Blood (Negative) Urine Nitrite (Negative) Urine Bilirubin (Negative) Urine Urobilinogen (<2.0) mg/dL Ur Leukocyte Esterase (Negative) Urine RBC (0-5) /hpf Urine WBC (0-5) /hpf Urine Mucus (None) /hpf Influenza Type A RNA (Not Detectd) Influenza Type B (PCR) (Not Detectd) 10/04/18 10/04/18 Range/Units 14:58 15:13 WBC (3.8-10.6) k/uL RBC (4.30-5.90) m/uL Hgb (13.0-17.5) gm/dL Hct (39.0-53.0) % MCV (80.0-100.0) fL MCH (25.0-35.0) pg MCHC (31.0-37.0) g/dL RDW (11.5-15.5) % Plt Count (150-450) k/uL Neutrophils % % Lymphocytes % % Monocytes % % Eosinophils % % Basophils % % Neutrophils # (1.3-7.7) k/uL Lymphocytes # (1.0-4.8) k/uL Monocytes # (0-1.0) k/uL Eosinophils # (0-0.7) k/uL Basophils # (0-0.2) k/uL PT (9.0-12.0) sec INR (<1.2) APTT (22.0-30.0) sec Sodium (137-145) mmol/L Potassium (3.5-5.1) mmol/L Chloride (98-107) mmol/L Carbon Dioxide (22-30) mmol/L Anion Gap mmol/L BUN (9-20) mg/dL Creatinine (0.66-1.25) mg/dL Est GFR (CKD-EPI)AfAm (>60 ml/min/1.73 sqM) Est GFR (CKD-EPI)NonAf (>60 ml/min/1.73 sqM) Glucose (74-99) mg/dL Plasma Lactic Acid Vu (0.7-2.0) mmol/L Calcium (8.4-10.2) mg/dL Total Bilirubin (0.2-1.3) mg/dL AST (17-59) U/L ALT (21-72) U/L Alkaline Phosphatase (38-126) U/L Total Creatine Kinase (55-170) U/L CK-MB (CK-2) (0.0-2.4) ng/mL CK-MB (CK-2) Rel Index Troponin I (0.000-0.034) ng/mL NT-Pro-B Natriuret Pep pg/mL Total Protein (6.3-8.2) g/dL Albumin (3.5-5.0) g/dL Urine Color Yellow Urine Appearance Clear (Clear) Urine pH 5.0 (5.0-8.0) Ur Specific [place]row 1.009 (1.001-1.035) Urine Protein Negative (Negative) Urine Glucose (UA) Negative (Negative) Urine Ketones Negative (Negative) Urine Blood Negative (Negative) Urine Nitrite Negative (Negative) Urine Bilirubin Negative (Negative) Urine Urobilinogen <2.0 (<2.0) mg/dL Ur Leukocyte Esterase Trace H (Negative) Urine RBC <1 (0-5) /hpf Urine WBC 4 (0-5) /hpf Urine Mucus Rare H (None) /hpf Influenza Type A RNA Not Detected (Not Detectd) Influenza Type B (PCR) Not Detected (Not Detectd) - Radiology Data Radiology results: report reviewed (Ultrasound negative for DVT, there is a Mobley's cyst.), image reviewed (Chest x-ray shows no acute process) Critical Care Time Critical Care Time: Yes Total Critical Care Time: 33 Disposition Clinical Impression: Acute exacerbation of chronic obstructive airways disease, Acute respiratory failure Disposition: ADMITTED IP TO THIS HOSP Condition: Serious Is patient prescribed a controlled substance at d/c from ED?: No Referrals: Hina Rojas MD [Primary Care Provider] - 1-2 days Decision Time: 17:07
--- NOTE | 2018-10-04 14:41 | XR ---
EXAMINATION TYPE: XR chest 2V DATE OF EXAM: 10/04/2018 COMPARISON: 09/06/2018 HISTORY: Chest pain TECHNIQUE: Frontal and lateral views of the chest are obtained. FINDINGS: The lungs are hypoventilatory in comparison the prior with persistent right hemidiaphragm elevation. The previously seen old right rib fractures are less conspicuous on today's examination. C ardiomediastinal silhouette is mildly enlarged. No new focal consolidation, pleural effusion or pneum othorax. IMPRESSION: Hypoventilatory lungs, otherwise no acute cardiopulmonary process.
[2018-10-04 14:55] LABS: Basophils % (A) 0 %; Eosinophils # (A) 0.3 k/uL (0-0.7); Eosinophils % (A) 3 %; HCT 42.9 % (39.0-53.0); HGB 13.7 gm/dL (13.0-17.5); Lymphocytes # (A) 2.2 k/uL (1.0-4.8); Lymphocytes % (A) 24 %; MCH 28.6 pg (25.0-35.0); MCV 89.4 fL (80.0-100.0); Mean Platelet Volume 7.8; Monocytes # (A) 0.8 k/uL (0-1.0); Monocytes % (A) 8 %; Neutrophils # (A) 6.1 k/uL (1.3-7.7); Neutrophils % (A) 64 %; Platelet Count 224 k/uL (150-450); RDW 15.1 % (11.5-15.5); WBC 9.5 k/uL (3.8-10.6)
[2018-10-04 14:59] LABS: INR 0.9 (<1.2); Partial Thromboplastin Time 24.1 sec (22.0-30.0); Prothrombin Time 9.5 sec (9.0-12.0)
[2018-10-04 15:12] LABS: ALT 39 U/L (21-72); AST 48 U/L (17-59); Albumin 4.3 g/dL (3.5-5.0); Alkaline Phosphatase 55 U/L (38-126); Anion Gap 10 mmol/L; Blood Urea Nitrogen 14 mg/dL (9-20); Carbon Dioxide 27 mmol/L (22-30); Chloride 101 mmol/L (98-107); Glucose 132 mg/dL (74-99); Potassium 3.9 mmol/L (3.5-5.1); Sodium 138 mmol/L (137-145); Total Bilirubin 0.6 mg/dL (0.2-1.3); Total Protein 6.7 g/dL (6.3-8.2)
[2018-10-04 15:15] LABS: Creatine Kinase 536 U/L (55-170)
[2018-10-04 15:28] LABS: Creatine Kinase MB 4.7 ng/mL (0.0-2.4); Troponin I <0.012 ng/mL (0.000-0.034)
[2018-10-04 15:29] LABS: Appearance,Urine Clear (Clear); Bilirubin,Urine Negative (Negative); Blood,Urine Negative (Negative); Color,Urine Yellow; Glucose,Urine (UA) Negative (Negative); Ketones,Urine Negative (Negative); Leukocyte Esterase,Urine Trace (Negative); Mucus,Urine Rare /hpf; Nitrite,Urine Negative (Negative); Protein,Urine Negative (Negative); RBC,Urine <1 /hpf (0-5); Specific Gravity,Urine 1.009 (1.001-1.035); Urobilinogen,Urine <2.0 mg/dL (<2.0); WBC,Urine 4 /hpf (0-5)
--- NOTE | 2018-10-04 15:56 | US ---
EXAMINATION TYPE: US venous doppler duplex LE RT DATE OF EXAM: 10/04/2018 3:35 PM COMPARISON: Prior bilateral venous ultrasound March 11, 2018 CLINICAL HISTORY: Pain. Edema right foot, history of PE SIDE PERFORMED: right TECHNIQUE: The lower extremity deep venous system is examined utilizing real time linear array sonog brice with graded compression, doppler sonography and color-flow sonography. VESSELS IMAGED: External Iliac Vein (EIV) Common Femoral Vein Deep Femoral Vein Greater Saphenous Vein * Femoral Vein Popliteal Vein Small Saphenous Vein * Proximal Calf Veins (* superficial vessels) Right Leg: No evidence of DVT as visualized. Technical limitations due to patient's body habitus. Co mplex anechoic area right popliteal fossa = 4.5 x 1.0 x 2.7cm, Mobley's cyst Grayscale, color doppler, spectral doppler imaging performed of the deep veins of the right lower ext remity. There is normal flow, compressibility, vascular waveforms. IMPRESSION: No ultrasound evidence for acute DVT in the right lower extremity. Small to moderate-siz ed Mobley cyst noted towards end of study.
[2018-10-04] MEDS ORDERED: methylPREDNISolone SOD SUCCI 125 MG/2 ML VIAL IV STA (17:08)
[2018-10-04] MEDS ORDERED: IPRATROPIUM-ALBUTEROL 3 ML NEB INHALATION PRN (17:08)
--- NOTE | 2018-10-04 17:59 | P.HPIM ---
History of Present Illness H&P Date: 10/04/18 Chief Complaint: COPD exacerbation 57-year-old male with PMHof asthma/COPD, hypertension, hyperlipidemia, history of PE, hepatitis C presents the ED for shortness of breath, wheezing and cough. Patient states that he always feels short of breath but over the last few weeks has been coughing up black and moya sputum. Patient reports dyspnea on exertion and at rest. Patient complains of chest pain, left-sided, pinpoint, only when he coughs. He denies any PND or orthopnea. He denies any headaches, nausea, vomiting, fever, chest pain, palpitations, changes in urination or bowel habits. No changes in appetite or weight. In the ED, CBC and coagulation panel was negative. CMP showed a glucose of 132. CPK was elevated at 536. Lactic acid was 2.4. Initial troponin was less than 0.012, EKG showing sinus tachycardia with incomplete RBBB. BNP was 57. Chest x-ray showed hypoventilatory lungs. Patient was tachycardic to 114 and hypoxic to 87% on 5 L. He was initially placed on BiPAP in the ED and was able to be weaned off. Patient is admitted for COPD exacerbation. 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 History of Any Multi-Drug Resistant Organisms: None Reported Past Surgical History: Adenoidectomy, Tonsillectomy Past Anesthesia/Blood Transfusion Reactions: No Reported Reaction Past Psychological History: No Psychological Hx Reported Smoking Status: Former smoker - Past Family History Father Family Medical History: Myocardial Infarction (CT) Additional Family Medical History / Comment(s): from mi at the age of 75 or 76yrs. Mother Family Medical History: COPD Additional Family Medical History / Comment(s): Mother is 82 yrs old. Sister(s) Family Medical History: COPD Medications and Allergies Home Medications Medication Instructions Recorded Confirmed Type Escitalopram [Lexapro] 10 mg PO DAILY 01/22/18 10/04/18 History Omeprazole 40 mg PO DAILY 01/22/18 10/04/18 History Furosemide [Lasix] 40 mg PO DAILY #30 tab 03/16/18 10/04/18 Rx traZODone HCL [Desyrel] 200 mg PO HS 08/13/18 10/04/18 History Atorvastatin [Lipitor] 40 mg PO HS 09/06/18 10/04/18 History Budesonide/Formoterol Fumarate 2 puff INHALATION RT-BID 09/06/18 10/04/18 History [Symbicort 160-4.5 Mcg Inhaler] Losartan [Cozaar] 50 mg PO DAILY 09/06/18 10/04/18 History Tiotropium 18 Mcg/Puff [Spiriva] 1 puff INHALATION RT-DAILY 09/06/18 10/04/18 History Ipratropium-Albuterol Nebulize 3 ml INHALATION RT-Q4H PRN 09/08/18 10/04/18 Rx [Duoneb 0.5 mg-3 mg/3 ml Soln] ampul.neb OLANZapine [ZyPREXA] 20 mg PO HS #30 tablet 09/08/18 10/04/18 Rx Apixaban [Eliquis] 5 mg PO BID 10/04/18 10/04/18 History Aspirin [[place] Aspirin EC] 81 mg PO DAILY 10/04/18 10/04/18 History Metoprolol Tartrate 25 mg PO BID 10/04/18 10/04/18 History Allergies Allergy/AdvReac Type Severity Reaction Status Date / Time No Known Allergies Allergy Verified 10/04/18 15:00 Physical Exam Vitals: Vital Signs Temp Pulse Pulse Resp BP Pulse Ox 10/04/18 15:51 100 10/04/18 15:43 99 10/04/18 15:31 105 H 24 150/88 87 L 10/04/18 14:30 108 H 10/04/18 14:28 22 10/04/18 14:19 106 H 10/04/18 14:12 106 H 10/04/18 14:05 99.1 F 108 H 20 10/04/18 13:47 98.3 F 114 H 24 85 L Intake and Output 10/04/18 10/04/1819 06:59 14:59 22:59 Other: Weight 138.346 kg General: [non toxic], [no distress], [appears at stated age] Derm: [warm], [dry] Head: [atraumatic], [normocephalic], [symmetric] Eyes: [EOMI], [no lid lag], [anicteric sclera] Mouth: [no lip lesion], [mucus membranes moist] Cardiovascular: [S1S2 reg], [no murmur], [positive posterior tibial pulse bilateral], Lungs: [decreased breath sounds bilateralwith and expiratory wheezing], [no rhonchi, no rales] , [no accessory muscle use] Abdominal: [soft], [ nontender to palpation], [no guarding], [no appreciable organomegaly] Ext: [no gross muscle atrophy], [1+ right lower extremity edema], [no contractures] Neuro: [ CN II-XI grossly intact], [no focal neuro deficits] Psych: [Alert], [oriented], [appropriate affect] Results CBC & Chem 7: 10/04/18 14:05 10/04/18 14:05 Labs: Abnormal Lab Results - Last 24 Hours (Table) 10/04/18 10/04/18 10/04/18 Range/Units 14:05 14:05 14:05 Glucose 132 H (74-99) mg/dL Plasma Lactic Acid Vu 2.4 H* (0.7-2.0) mmol/L Total Creatine Kinase 536 H (55-170) U/L CK-MB (CK-2) 4.7 H (0.0-2.4) ng/mL Ur Leukocyte Esterase (Negative) Urine Mucus (None) /hpf 10/04/18 Range/Units 14:58 Glucose (74-99) mg/dL Plasma Lactic Acid Vu (0.7-2.0) mmol/L Total Creatine Kinase (55-170) U/L CK-MB (CK-2) (0.0-2.4) ng/mL Ur Leukocyte Esterase Trace H (Negative) Urine Mucus Rare H (None) /hpf Thrombosis Risk Factor Assmnt - Choose All That Apply Any of the Below Risk Factors Present?: Yes Each Factor Represents 1 point: Age 41-60 years Thrombosis Risk Factor Assessment Total Risk Factor Score: 1 Thrombosis Risk Factor Assessment Level: Low Risk Assessment and Plan Assessment: Assessment and Plan 1. Acute hypoxic respiratory failure 2. COPD exacerbation 3. History of PE 4. Hypertension 5. Lactic acidosis 6. Elevated CPK 7. Depression and Psych 1. Likely COPD exacerbation secondary to a viral trigger.troponin is less than 0.012, EKG showing sinus tachycardia with incomplete RBBB. BNP is 57, February 2018 echocardiogram shows EF 65-70% with borderline LVH. Oxygen per nasal cannula to maintain an O2 saturation greater than 92%. BiPAP as needed. Optimize COPD medications. Trend 2 troponin to rule out acute coronary syndrome. 2. DuoNeb 4 times a day scheduled and as needed for shortness of breath and wheezing. Continue Solu-Medrol 60 mg IV every 6 hours. Continue Symbicort and Spiriva. Consult pulmonology. 3. Continue Eliquis 5 mg by mouth twice a day. 4. BP is 150/88. Continue metoprolol, losartan. Monitor vitals, adjust medications as necessary. 5. Lactic acid is 2.4. This is likely from dehydration. Encourage by mouth hydration. Normal saline at 75 mL per hour. Follow repeat in 4 hours. 6. CPK is 536. Encourage by mouth hydration. Normal saline at 75 mL per hour. 7. Continue olanzapine, trazodone and Lexapro. Patient is admitted for COPD exacerbation. Pulmonology is on consult. Ruling out acute coronary syndrome.
[2018-10-04] MEDS ORDERED: ACETAMINOPHEN TAB 325 MG TAB PO PRN (18:01)
[2018-10-04] MEDS: SODIUM CHLORIDE 0.9% 1,000 ML IV SCH (19:02)
[2018-10-04] MEDS: methylPREDNISolone SOD SUCCI 125 MG/2 ML VIAL IV SCH ×2 (19:03→23:17)
[2018-10-04] MEDS: HYDROcodone/APAP 5-325MG 1 EACH TAB PO PRN (19:03)
[2018-10-04] MEDS: SYMBICORT 160-4.5 MCG INHALER INHALATION SCH (19:20)
[2018-10-04] MEDS: IPRATROPIUM-ALBUTEROL 3 ML NEB INHALATION SCH (19:20)
[2018-10-04] MEDS: APIXABAN 5 MG TAB PO SCH (20:17)
[2018-10-04] MEDS: OLANZapine 10 MG TAB PO SCH (20:17)
[2018-10-04] MEDS: METOPROLOL TARTRATE 25 MG TAB PO SCH (20:18)
[2018-10-04] MEDS: traZODone HCL 100 MG TAB PO SCH (20:18)
[2018-10-04] MEDS: ATORVASTATIN 40 MG TAB PO SCH (20:18)
[2018-10-04 21:17] LABS: Glucose,Whole Blood 125 mg/dL (75-99)
[2018-10-04] MEDS: INSULIN ASPART 100 UNIT/ML 1 ML 10 ML VIAL SQ SCH (21:41)
[2018-10-05] MEDS: methylPREDNISolone SOD SUCCI 125 MG/2 ML VIAL IV SCH ×4 (05:57→23:04)
[2018-10-05 07:27] LABS: Glucose,Whole Blood 137 mg/dL (75-99)
[2018-10-05] MEDS ORDERED: IPRATROPIUM 0.5 MG/2.5 ML NEBU INHALATION SCH (08:00)
[2018-10-05] MEDS: SODIUM CHLORIDE 0.9% 1,000 ML IV SCH (08:10)
[2018-10-05] MEDS: INSULIN ASPART 100 UNIT/ML 1 ML 10 ML VIAL SQ SCH ×4 (08:11→21:59)
[2018-10-05] MEDS: ASPIRIN 81 MG PO SCH (08:11)
[2018-10-05] MEDS: ESCITALOPRAM 10 MG TAB PO SCH (08:11)
[2018-10-05] MEDS: APIXABAN 5 MG TAB PO SCH ×2 (08:11→21:59)
[2018-10-05] MEDS: METOPROLOL TARTRATE 25 MG TAB PO SCH ×2 (08:12→21:58)
[2018-10-05] MEDS: FUROSEMIDE 40 MG TAB PO SCH (08:12)
[2018-10-05] MEDS: LOSARTAN 50 MG TAB PO SCH (08:12)
[2018-10-05] MEDS: IPRATROPIUM-ALBUTEROL 3 ML NEB INHALATION SCH ×4 (08:17→21:24)
[2018-10-05] MEDS: SYMBICORT 160-4.5 MCG INHALER INHALATION SCH ×2 (08:17→21:23)
--- NOTE | 2018-10-05 12:00 | P.PN ---
Subjective Progress Note Date: 10/05/18 Patient with history of COPD reports to have chronic respiratory failure wears approximately 5 L by nasal cannula at baseline. Complaining of pleuritic chest discomfort on the left lung base today, reports his breathing is improved. Oxygen sats have improved 90-92% on 5 L. Objective - Vital Signs Vital signs: Vital Signs Temp 97.8 F 10/05/18 05:28 Pulse 100 10/05/18 08:34 Resp 18 10/05/18 05:28 BP 147/96 10/05/18 05:28 Pulse Ox 90 L 10/05/18 05:28 Intake & Output 10/04/18 10/05/18 10/05/18 18:59 06:59 18:59 Intake Total 400 Balance 400 Weight 138.346 kg Intake: Oral 400 Other: Voiding Method Toilet # Voids 1 - Exam Constitutional: No acute distress, conversant, pleasant Eyes: Anicteric sclerae, moist conjunctiva, no lid-lag, PERRLA ENMT: NC/AT,Oropharynx clear, no erythema, exudates Neck:Supple, FROM, no masses, or JVD, No carotid bruits; No thyromegaly Lungs: Faint expiratory wheezes improved aeration, Clear to percussion, Normal respiratory effort, no accessory muscle use on 5 L is Cardiovascular: Heart regular in rate and rhythm, No murmurs, gallops, or rubs no peripheral edema Abdominal: Soft Nontender, nom distended, no guarding, no rebound or rigidity, Normoactive bowel sounds No hepatomegaly, No splenomegaly, No palpable mass No abdominal wall hernia noted Skin: Normal temperature, tone, texture, turgor, No induration No subcutaneous nodules, No rash, lesions, No ulcers Extremities:No digital cyanosis No clubbing, Pedal pulses intact and symmetrical Radial pulses intact and symmetrical Normal gait and station, No calf tenderness Psychiatric: Alert and oriented to person, place and time, Appropriate affect Intact judgement Neuro: Muscles Strength 5/5 in all 4 extremities, Sensation to light touch grossly present throughout, Cranial nerves II-XII grossly intact. No focal sensory deficits - Labs CBC & Chem 7: 10/04/18 14:05 10/04/18 14:05 Labs: Abnormal Lab Results - Last 24 Hours (Table) 10/04/18 10/04/18 10/04/18 Range/Units 14:05 14:05 14:05 Glucose 132 H (74-99) mg/dL POC Glucose (mg/dL) (75-99) mg/dL Plasma Lactic Acid Vu 2.4 H* (0.7-2.0) mmol/L Total Creatine Kinase 536 H (55-170) U/L CK-MB (CK-2) 4.7 H (0.0-2.4) ng/mL Ur Leukocyte Esterase (Negative) Urine Mucus (None) /hpf 10/04/18 10/04/18 10/05/18 Range/Units 14:58 21:12 07:24 Glucose (74-99) mg/dL POC Glucose (mg/dL) 125 H 137 H (75-99) mg/dL Plasma Lactic Acid Vu (0.7-2.0) mmol/L Total Creatine Kinase (55-170) U/L CK-MB (CK-2) (0.0-2.4) ng/mL Ur Leukocyte Esterase Trace H (Negative) Urine Mucus Rare H (None) /hpf Microbiology - Last 24 Hours (Table) 10/04/18 14:58 Urine Culture - Preliminary Urine,Clean Catch Assessment and Plan (1) Acute on chronic respiratory failure with hypoxia Narrative/Plan: * Secondary to acute COPD exacerbation now back down to 5 L nasal via nasal cannula * Continue with supplemental oxygen * Pulmonary consulted * D-dimer pending, currently on anticoagulation with Eliquis due to history of PE Current Visit: No Status: Acute Code(s): J96.21 - ACUTE AND CHRONIC RESPIRATORY FAILURE WITH HYPOXIA SNOMED Code(s): 92433645 (2) Acute exacerbation of chronic obstructive airways disease Narrative/Plan: * Continue systemic steroids with Solu-Medrol 60 mg IV every 6, continue Symbicort with nebulized bronchodilator breathing treatments Current Visit: Yes Status: Acute Code(s): J44.1 - CHRONIC OBSTRUCTIVE PULMONARY DISEASE W (ACUTE) EXACERBATION SNOMED Code(s): 068899580 (3) Congestive heart failure Narrative/Plan: * Unknown type * Clinically euvolemic and stable without acute exacerbation * Continue maintenance Lasix 40 mg qday, metoprolol 25 mg twice a day and Cozaar 50 mg by mouth daily Current Visit: No Status: Chronic Code(s): I50.9 - HEART FAILURE, UNSPECIFIED SNOMED Code(s): 86756687 (4) Essential hypertension Narrative/Plan: * Blood pressure stable and controlled * Continue current regimen Current Visit: No Status: Acute Code(s): I10 - ESSENTIAL (PRIMARY) HYPERTENSION SNOMED Code(s): 09566350 Plan: Disposition * Continue treatment plan * Anticipated discharge 1-2 days
[2018-10-05 12:12] LABS: Glucose,Whole Blood 122 mg/dL (75-99)
[2018-10-05] MEDS: HYDROcodone/APAP 5-325MG 1 EACH TAB PO PRN ×3 (12:55→21:58)
[2018-10-05] MEDS ORDERED: traMADol 50 MG TAB PO SCH (16:00)
[2018-10-05 16:49] LABS: Hemoglobin A1C 6.5 % (4.0-6.0)
[2018-10-05 17:27] LABS: Glucose,Whole Blood 133 mg/dL (75-99)
[2018-10-05 20:30] LABS: Glucose,Whole Blood 174 mg/dL (75-99)
--- NOTE | 2018-10-05 21:31 | P.CNPUL ---
History of Present Illness Consult date: 10/05/18 Reason for consult: dyspnea History of present illness: This is a 57-year-old white male patient of Dr. Rojas with past medical history of oxygen dependent COPD on home oxygen at 2 L per nasal cannula. Patient is on AVAPS machine for his COPD and chronic hypercapnic respiratory failure related to advanced COPD and chronic right diaphragmatic paralysis. Patient may also have a component of chronic restrictive pulmonary defect related to his obesity. Patient has a baseline FEV1 of 1.02 L or 26% of predicted, and diffusion capacity of 35% of predicted, this is consistent with stage IV COPD. Other medical history includes GERD/reflux, hypertension, hyperlipidemia, chronic hepatitis C infection, previous episodes of pneumonia, history of pulmonary embolus, remote history of IV drug abuse, obesity, schizophrenia, nicotine dependence. Patient has history of multiple rib fractures on the right side of the chest related to vigorous coughing, and resultant hemothorax requiring thoracentesis would removal of 2 L of bloody pleural effusion in February 2018. Other history includes severe symptomatic obstructive sleep apnea AHI score of 62.4. He is currently using a AVAPS machine on outpatient basis with a tidal volume of 400, EPAP of 4 minimum and a maximum of 16 with a pressure support minimum of 4 and a maximum of 10. The patient has had multiple hospitalizations for the COPD exacerbation. He is currently coming into the hospital because of feeling shortness of breath over the past few weeks in addition to cough and also some colored mucus. He was having exertional dyspnea. His pain was essentially on the left side along the left chest wall especially when he coughs. No fever. No chills. No altered mentation. No nausea. No vomiting. No diarrhea. No abdominal pain. His initial troponin was 0.012 and EKG was showing a sinus mechanism with incomplete right bundle branch block pattern. BNP level is at 57. Chest x-ray shows smaller lung volumes. Otherwise no acute abnormalities noted. The patient was hypoxic at the time of arrival with a pulse of 77% 5 L of oxygen by nasal cannula. He was placed on BiPAP in the emergency department and subsequently was weaned off. He is currently being treated for an acute COPD exacerbation. His white cell count is not elevated. He is currently on a combination of DuoNeb nebulized treatments around the clock, Symbicort 2 puffs twice a day, IV Solu Medrol 60 mg every 6 hours. He is on 40 mg of Lasix orally. Review of Systems Constitutional: Denies chills, Denies fever Eyes: denies blurred vision, denies pain Ears, nose, mouth and throat: Denies headache, Denies sore throat Cardiovascular: Denies chest pain, Denies shortness of breath Respiratory: Reports congestion, Reports cough with sputum, Reports dyspnea, Reports home oxygen, Reports respiratory infections, Reports sleep apnea, Gastrointestinal: Denies abdominal pain, Denies diarrhea, Denies nausea, Denies vomiting Musculoskeletal: Denies myalgias Integumentary: Denies pruritus, Denies rash Neurological: Denies numbness, Denies weakness Psychiatric: Denies anxiety, Denies depression Endocrine: Denies fatigue, Denies weight change Past Medical History Past Medical History: Asthma, COPD, GERD/Reflux, Hyperlipidemia, Hypertension, Pneumonia, Pulmonary Embolus (PE), Respiratory Disorder, Syncope Additional Past Medical History / Comment(s): Morbid obesity, COPD with an FEV1 of 26% of predicted, chronic hypoxic respiratory failure, right hemidiaphragmatic paralysis, restrictive lung disease in addition to obstructive lung disease secondary to above-mentioned comorbidities, hypertension, hyperlipidemia, previous history of that to see, previous history of pulmonary embolism, remote history of IVDA, schizophrenia, history of smoking , history of multiple right-sided fractures related to vigorous cough and, previous history of pleural effusion that was bloody on the right where total of 2 L of fluid was removed from his right lung back in February 2018 History of Any Multi-Drug Resistant Organisms: None Reported Past Surgical History: Adenoidectomy, Tonsillectomy Additional Past Surgical History / Comment(s): Review thoracentesis of the right lung, previous pigtail catheter insertion for right-sided pleural effusion Past Anesthesia/Blood Transfusion Reactions: No Reported Reaction Past Psychological History: No Psychological Hx Reported Additional Psychological History / Comment(s): Pt resides alone with 1 cat. He has a nebulizer and home oxygen. He uses no assistive device. He does not drive, his sister drives him to appts and does his laundry and is his payee. Pt is interested in getting some home care established. Smoking Status: Former smoker Past Alcohol Use History: None Reported Additional Past Alcohol Use History / Comment(s): Pt started smoking at age 9 and quit smoking december 2017. He smoked 1 ppd. Pt states he also quit drinking alcohol in Dec, 2017. Past Drug Use History: Heroin, Marijuana Additional Drug Use History / Comment(s): Pt quit heroin use , no longer smokes marijuana - Past Family History Father Family Medical History: Myocardial Infarction ([place]) Additional Family Medical History / Comment(s): from [place] at the age of 75 or 76yrs. Mother Family Medical History: COPD Additional Family Medical History / Comment(s): Mother is 82 yrs old. Sister(s) Family Medical History: COPD Medications and Allergies Home Medications Medication Instructions Recorded Confirmed Type Escitalopram [Lexapro] 10 mg PO DAILY 01/22/18 10/04/18 History Omeprazole 40 mg PO DAILY 01/22/18 10/04/18 History Furosemide [Lasix] 40 mg PO DAILY #30 tab 03/16/18 10/04/18 Rx traZODone HCL [Desyrel] 200 mg PO HS 08/13/18 10/04/18 History Atorvastatin [Lipitor] 40 mg PO HS 09/06/18 10/04/18 History Budesonide/Formoterol Fumarate 2 puff INHALATION RT-BID 09/06/18 10/04/18 History [Symbicort 160-4.5 Mcg Inhaler] Losartan [Cozaar] 50 mg PO DAILY 09/06/18 10/04/18 History Tiotropium 18 Mcg/Puff [Spiriva] 1 puff INHALATION RT-DAILY 09/06/18 10/04/18 History Ipratropium-Albuterol Nebulize 3 ml INHALATION RT-Q4H PRN 09/08/18 10/04/18 Rx [Duoneb 0.5 mg-3 mg/3 ml Soln] ampul.neb OLANZapine [ZyPREXA] 20 mg PO HS #30 tablet 09/08/18 10/04/18 Rx Apixaban [Eliquis] 5 mg PO BID 10/04/18 10/04/18 History Aspirin [[place] Aspirin EC] 81 mg PO DAILY 10/04/18 10/04/18 History Metoprolol Tartrate 25 mg PO BID 10/04/18 10/04/18 History Allergies Allergy/AdvReac Type Severity Reaction Status Date / Time No Known Allergies Allergy Verified 10/04/18 15:00 Physical Exam Vitals: Vital Signs Temp Pulse Pulse Resp BP Pulse Ox 10/05/18 17:11 100 10/05/18 16:59 100 10/05/18 14:45 98.3 F 103 H 24 150/79 90 L 10/05/18 12:23 101 H 10/05/18 12:11 98 10/05/18 08:34 100 10/05/18 08:18 100 10/05/18 05:28 97.8 F 107 H 18 147/96 90 L 10/04/18 23:00 97.2 F L 98 21 148/98 91 L 10/04/18 22:17 16 Intake and Output 10/05/18 10/05/18 10/05/18 06:59 14:59 22:59 Intake Total 400 Balance 400 Intake: Oral 400 Other: # Voids 1 3 Appearance, comfortable not in acute distress HEAD: Normocephalic/atraumatic. EYES: Normal reaction of pupils, equal size. Conjunctiva pink, sclera white. NOSE: Clear with pink turbinates. THROAT: No erythema or exudates. NECK: No masses, no JVD, no thyroid enlargement, no adenopathy. CHEST: No chest wall deformity. Symmetrical expansion. LUNGS: Equal air entry with diminished breath sounds, prolongation of the expiratory phase CVS: Regular rate and rhythm, normal S1 and S2, no gallops, no murmurs, no rubs ABDOMEN: Soft, nontender. No hepatosplenomegaly, normal bowel sounds, no guarding or rigidity. EXTREMITIES: No clubbing, mild pedal edema, no cyanosis, 2+ pulses and upper and lower extremities. MUSCULOSKELETAL: Muscle strength and tone normal. SPINE: No scoliosis or deformity SKIN: No rashes CENTRAL NERVOUS SYSTEM: Alert and oriented -3. No focal deficits, tone is normal in all 4 extremities. PSYCHIATRIC: Alert and oriented -3. Appropriate affect. Intact judgment and insight. Results - Laboratory Findings CBC and BMP: 10/04/18 14:05 10/04/18 14:05 PT/INR, D-dimer PT 9.5 sec (9.0-12.0) 10/04/18 14:05 INR 0.9 (<1.2) 10/04/18 14:05 D-Dimer 0.31 mg/L FEU (<0.60) 10/05/18 12:01 Abnormal lab findings: Abnormal Labs 10/04/18 10/04/18 10/04/18 14:05 14:05 14:05 Glucose 132 H POC Glucose (mg/dL) Hemoglobin A1c Plasma Lactic Acid Vu 2.4 H* Total Creatine Kinase 536 H CK-MB (CK-2) 4.7 H Ur Leukocyte Esterase Urine Mucus 10/04/18 10/04/18 10/04/18 14:05 14:58 21:12 Glucose POC Glucose (mg/dL) 125 H Hemoglobin A1c 6.5 H Plasma Lactic Acid Vu Total Creatine Kinase CK-MB (CK-2) Ur Leukocyte Esterase Trace H Urine Mucus Rare H 10/05/18 10/05/18 10/05/18 07:24 12:10 17:13 Glucose POC Glucose (mg/dL) 137 H 122 H 133 H Hemoglobin A1c Plasma Lactic Acid Vu Total Creatine Kinase CK-MB (CK-2) Ur Leukocyte Esterase Urine Mucus - Diagnostic Findings Chest x-ray: image reviewed Assessment and Plan Plan: Assessment 1 shortness of breath secondary to acute COPD exacerbation. The patient has advanced stage IV COPD maintenance accommodation of Symbicort and Spiriva on outpatient basis. Chest x-rays not showing any acute pulmonary infiltration 2 chronic hypoxic respiratory failure. 3 chronic hypercapnic respiratory failure 4 chronic elevation of right hemidiaphragm, right hemidiaphragmatic paralysis 5 history of noninvasive positive pressure ventilation utilizing AVAPS machine on outpatient basis 6 severe COPD with a baseline FEV1 of 1.02 L which is 26% of predicted with a combination of Spiriva and Symbicort on outpatient basis 7 multiple right-sided rib fractures related to vigorous cough in addition to history of hemothorax involving the right sided back in February 2018 8 morbid obesity 9 history of hepatitis C viral infection of the liver 10 severe obstructive sleep apnea an AHI of 60 to 11 history of pulmonary embolism 12 history of smoking 13 history of acid reflux Plan Continue DuoNeb nebulized treatments around the clock. Continue IV Solu Medrol. Monitor the blood sugar and put the patient on sliding scale insulin for blood sugar control as the patient may have developed an underlying steroid- induced hyperglycemia. Continue oral Lasix. Continue Eliquis. Asked the patient to bring in his home ventilator from home. Otherwise he can support him with BiPAP overnight and the hospital preferably in the AVAPS modes
[2018-10-05] MEDS: traZODone HCL 100 MG TAB PO SCH (21:58)
[2018-10-05] MEDS: ATORVASTATIN 40 MG TAB PO SCH (21:59)
[2018-10-05] MEDS: OLANZapine 10 MG TAB PO SCH (21:59)
[2018-10-05 22:43] VITALS: RESP 18
[2018-10-06] MEDS: methylPREDNISolone SOD SUCCI 125 MG/2 ML VIAL IV SCH (05:27)
[2018-10-06 06:08] VITALS: BP 143/82; TEMP 97.7
[2018-10-06 07:31] LABS: Glucose,Whole Blood 141 mg/dL (75-99)
[2018-10-06] MEDS: SYMBICORT 160-4.5 MCG INHALER INHALATION SCH (07:37)
[2018-10-06] MEDS: IPRATROPIUM-ALBUTEROL 3 ML NEB INHALATION SCH ×2 (07:37→11:10)
[2018-10-06] MEDS: SODIUM CHLORIDE 0.9% 1,000 ML IV SCH (08:04)
[2018-10-06] MEDS: INSULIN ASPART 100 UNIT/ML 1 ML 10 ML VIAL SQ SCH (08:05)
[2018-10-06] MEDS: APIXABAN 5 MG TAB PO SCH (08:07)
[2018-10-06] MEDS: ESCITALOPRAM 10 MG TAB PO SCH (08:07)
[2018-10-06] MEDS: ASPIRIN 81 MG PO SCH (08:08)
[2018-10-06] MEDS: METOPROLOL TARTRATE 25 MG TAB PO SCH (08:08)
[2018-10-06] MEDS: FUROSEMIDE 40 MG TAB PO SCH (08:08)
[2018-10-06] MEDS: LOSARTAN 50 MG TAB PO SCH (08:08)
[2018-10-06] MEDS: HYDROcodone/APAP 5-325MG 1 EACH TAB PO PRN (08:10)
[2018-10-06] MEDS ORDERED: PANTOPRAZOLE 40 MG TABLET PO SCH (09:00)
--- NOTE | 2018-10-06 11:15 | P.DS ---
Providers Date of admission: 10/04/18 17:08 Expected date of discharge: 10/06/18 Attending physician: Jossie Kendrick MD Consults: 10/04/18 17:08 Consult Physician Routine Consulting Provider: Porsche Farnsworth Consult Reason/Comments: Dyspnea Do you want consulting provider notified?: Yes 10/04/18 17:56 Consult Physician Stat Consulting Provider: Porsche Farnsworth Consult Reason/Comments: COPD exacerbation Do you want consulting provider notified?: Yes Primary care physician: Hina Rojas MD - Discharge Diagnosis(es) (1) Acute on chronic respiratory failure with hypoxia Current Visit: No Status: Acute (2) Acute exacerbation of chronic obstructive airways disease Current Visit: Yes Status: Acute (3) Congestive heart failure Current Visit: No Status: Chronic (4) Essential hypertension Current Visit: No Status: Acute Hospital Course: The patient is a 57-year-old male with a past medical history of chronic right diaphragmatic paralysis, obstructive sleep apnea and advanced stage IV COPD and chronic hypoxic hypercapnic respiratory failure admitted with an acute on chronic respiratory failure due to acute COPD exacerbation after presenting with oximetry at 77% on 5 L nasal cannula, urgently placed on BiPAP in the ER and was gradually weaned off and back to his baseline O2 requirements , chest x-ray showed smaller lung volumes with no other abnormalities suggestive of infection. He was started on systemic steroids with Solu-Medrol, scheduled and prn albuterol Atrovent DuoNeb bronchodilator breathing treatments , continued on Symbicort and Spiriva which he takes as an outpatient basis. With treatment of the patient's wheezes subsided, he was covered with correctional scale insulin coverage for steroid-induced hyperglycemia. Patient was then subsequently discharged home on a prednisone taper in stable condition and instructed to continue to use his noninvasive positive pressure ventilation AVAPS machine at home. The patient instructed to follow-up with pulmonary Dr. Farnsworth in one week. This discharge process took approximately 35 minutes Focused exam Respiratory: Clear to auscultation bilaterally, unlabored, nondistressed on 5 Lnasal cannula Patient Condition at Discharge: Stable Plan - Discharge Summary Discharge Rx Participant: No New Discharge Prescriptions: Continue Escitalopram [Lexapro] 10 mg PO DAILY Omeprazole 40 mg PO DAILY Furosemide [Lasix] 40 mg PO DAILY #30 tab traZODone HCL [Desyrel] 200 mg PO HS Atorvastatin [Lipitor] 40 mg PO HS Budesonide/Formoterol Fumarate [Symbicort 160-4.5 Mcg Inhaler] 2 puff INHALATION RT-BID Losartan [Cozaar] 50 mg PO DAILY Tiotropium 18 Mcg/Puff [Spiriva] 1 puff INHALATION RT-DAILY Ipratropium-Albuterol Nebulize [Duoneb 0.5 mg-3 mg/3 ml Soln] 3 ml INHALATION RT-Q4H PRN ampul.neb PRN Reason: Shortness Of Breath Or Wheezing OLANZapine [ZyPREXA] 20 mg PO HS #30 tablet Aspirin [[place] Aspirin EC] 81 mg PO DAILY Apixaban [Eliquis] 5 mg PO BID Metoprolol Tartrate 25 mg PO BID Discharge Medication List Escitalopram [Lexapro] 10 mg PO DAILY 01/22/18 [History] Omeprazole 40 mg PO DAILY 01/22/18 [History] Furosemide [Lasix] 40 mg PO DAILY #30 tab 03/16/18 [Rx] traZODone HCL [Desyrel] 200 mg PO HS 08/13/18 [History] Atorvastatin [Lipitor] 40 mg PO HS 09/06/18 [History] Budesonide/Formoterol Fumarate [Symbicort 160-4.5 Mcg Inhaler] 2 puff INHALATION RT-BID 09/06/18 [History] Losartan [Cozaar] 50 mg PO DAILY 09/06/18 [History] Tiotropium 18 Mcg/Puff [Spiriva] 1 puff INHALATION RT-DAILY 09/06/18 [History] Ipratropium-Albuterol Nebulize [Duoneb 0.5 mg-3 mg/3 ml Soln] 3 ml INHALATION RT -Q4H PRN ampul.neb 09/08/18 [Rx] OLANZapine [ZyPREXA] 20 mg PO HS #30 tablet 09/08/18 [Rx] Apixaban [Eliquis] 5 mg PO BID 10/04/18 [History] Aspirin [[place] Aspirin EC] 81 mg PO DAILY 10/04/18 [History] Metoprolol Tartrate 25 mg PO BID 10/04/18 [History] Follow up Appointment(s)/Referral(s): Hina Rojas MD [Primary Care Provider] - 1-2 days (Office closed today due to weather, please call and schedule follow up appointment. ) [facility], [NON-STAFF] - Porsche Farnsworth MD [STAFF PHYSICIAN] - 1 Week (Office closed today due to weather. Please call tomorrow, to schedule follow up appointment. ) Patient Instructions/Handouts: COPD (Chronic Obstructive Pulmonary Disease) (DC ), Chronic Lung Disease and Infection Prevention (DC) Discharge Disposition: HOME SELF-CARE
[2018-10-06 11:23] VITALS: PULSE 96
[2018-10-06 11:45] LABS: Glucose,Whole Blood 135 mg/dL (75-99)
== END 2018-10-06 11:54 | disposition home health service (06) | DRG 190 ==
LOC: EC 13:20 → 4MS4W 16:00
PROVIDERS: ADMIT Family Medicine; ATTEND Family Medicine
PROC: 5A09357 Assistance with Respiratory Ventilation, Less than 24 Consecutive Hours, Continuous Positive Airway Pressure (ICD-10-PCS; principal; 2018-10-04)
DX: J44.1 Chronic obstructive pulmonary disease with (acute) exacerbation (principal); J96.21 Acute and chronic respiratory failure with hypoxia; J96.22 Acute and chronic respiratory failure with hypercapnia; E87.2 Acidosis; Z68.41 Body mass index [BMI] 40.0-44.9, adult; B18.2 Chronic viral hepatitis C; E66.01 Morbid (severe) obesity due to excess calories; E78.5 Hyperlipidemia, unspecified; E86.0 Dehydration; F20.9 Schizophrenia, unspecified; F32.9 Major depressive disorder, single episode, unspecified; G47.33 Obstructive sleep apnea (adult) (pediatric); I11.0 Hypertensive heart disease with heart failure; I45.10 Unspecified right bundle-branch block; I50.9 Heart failure, unspecified; J98.6 Disorders of diaphragm; K21.9 Gastro-esophageal reflux disease without esophagitis; Z79.01 Long term (current) use of anticoagulants; Z79.51 Long term (current) use of inhaled steroids; Z79.82 Long term (current) use of aspirin; Z79.899 Other long term (current) drug therapy; Z82.49 Family history of ischemic heart disease and other diseases of the circulatory system; Z82.5 Family history of asthma and other chronic lower respiratory diseases; Z86.711 Personal history of pulmonary embolism; Z87.891 Personal history of nicotine dependence; Z99.81 Dependence on supplemental oxygen; T38.0X5A Adverse effect of glucocorticoids and synthetic analogues, initial encounter; R73.9 Hyperglycemia, unspecified
CPT/HCPCS: 36415; 71046; 80053; 81001; 82550; 82553; 83036; 83605; 83880; 84484; 85025; 85379; 85610; 85730; 87040; 87086; 87502; 93005; 94640; 94660; 94760; 96374; 96376; 99291

== ENCOUNTER 2018-10-29 16:54 | Observation (INO) | payer MEDICARE, OTHER ==
--- NOTE | 2018-10-29 17:13 | ED ---
SOB HPI - General Chief Complaint: Shortness of Breath Stated Complaint: Vandana Time Seen by Provider: 10/29/18 16:54 Source: patient, RN notes reviewed Mode of arrival: EMS Limitations: no limitations - History of Present Illness Initial Comments: This is a 57-year-old male with a history of CHF and COPD who states he had the onset of difficulty breathing about one hour ago but he's been having difficult breathing for the last week he's had a cough with brown phlegm no fevers chills or sweats no overt chest pain.Peripheral edema. He was brought in by EMS he was given an updraft with some improvement in his breathing he states. No modifying factors at this time he is a former smoker. MD Complaint: shortness of breath, cough - Related Data Home Medications Medication Instructions Recorded Confirmed traZODone HCL [Desyrel] 200 mg PO HS 08/13/18 10/29/18 Budesonide/Formoterol Fumarate 2 puff INHALATION RT-BID 09/06/18 10/29/18 [Symbicort 160-4.5 Mcg Inhaler] Furosemide [Lasix] 40 mg PO DAILY 10/29/18 10/29/18 Ipratropium/Albuterol Sulfate 1 puff INHALATION RT-QID 10/29/18 10/29/18 [Combivent Respimat Inhaler] Previous Rx's Medication Instructions Recorded Ipratropium-Albuterol Nebulize 3 ml INHALATION RT-Q4H PRN 09/08/18 [Duoneb 0.5 mg-3 mg/3 ml Soln] ampul.neb OLANZapine [ZyPREXA] 20 mg PO HS #30 tablet 09/08/18 Allergies Allergy/AdvReac Type Severity Reaction Status Date / Time No Known Allergies Allergy Verified 10/29/18 17:21 Review of Systems ROS Statement: Those systems with pertinent positive or pertinent negative responses have been documented in the HPI. ROS Other: All systems not noted in ROS Statement are negative. Past Medical History Past Medical History: Asthma, COPD, GERD/Reflux, Hyperlipidemia, Hypertension, Pneumonia, Pulmonary Embolus (PE), Respiratory Disorder, Syncope Additional Past Medical History / Comment(s): Morbid obesity, COPD with an FEV1 of 26% of predicted, chronic hypoxic respiratory failure, right hemidiaphragmatic paralysis, restrictive lung disease in addition to obstructive lung disease secondary to above-mentioned comorbidities, hypertension, hyperlipidemia, previous history of that to see, previous history of pulmonary embolism, remote history of IVDA, schizophrenia, history of smoking , history of multiple right-sided fractures related to vigorous cough and, previous history of pleural effusion that was bloody on the right where total of 2 L of fluid was removed from his right lung back in February 2018 History of Any Multi-Drug Resistant Organisms: None Reported Past Surgical History: Adenoidectomy, Tonsillectomy Additional Past Surgical History / Comment(s): Review thoracentesis of the right lung, previous pigtail catheter insertion for right-sided pleural effusion Past Anesthesia/Blood Transfusion Reactions: No Reported Reaction Past Psychological History: No Psychological Hx Reported Smoking Status: Former smoker Past Alcohol Use History: Occasional Past Drug Use History: Marijuana - Past Family History Father Family Medical History: Myocardial Infarction ([place]) Additional Family Medical History / Comment(s): from [place] at the age of 75 or 76yrs. Mother Family Medical History: COPD Additional Family Medical History / Comment(s): Mother is 82 yrs old. Sister(s) Family Medical History: COPD General Exam - General Exam Comments Initial Comments: This is a well-developed well-nourished awake alert oriented times 3 male Limitations: no limitations General appearance: alert, anxious, in distress Head exam: Present: atraumatic, normocephalic, normal inspection Eye exam: Present: normal appearance, PERRL, EOMI. Absent: scleral icterus, conjunctival injection, periorbital swelling ENT exam: Present: normal exam, mucous membranes moist Neck exam: Present: normal inspection. Absent: tenderness, meningismus, lymphadenopathy Respiratory exam: Present: accessory muscle use, decreased breath sounds. Absent: respiratory distress, wheezes, rales, rhonchi, stridor Cardiovascular Exam: Present: regular rate, normal rhythm, normal heart sounds. Absent: systolic murmur, diastolic murmur, rubs, gallop, clicks GI/Abdominal exam: Present: soft, normal bowel sounds. Absent: distended, tenderness, guarding, rebound, rigid Extremities exam: Present: normal inspection, full ROM, normal capillary refill , pedal edema. Absent: tenderness, joint swelling, calf tenderness Back exam: Present: normal inspection Neurological exam: Present: alert, oriented X3, CN II-XII intact Psychiatric exam: Present: normal affect, normal mood Skin exam: Present: warm, dry, intact, normal color. Absent: rash Course Vital Signs 10/29/18 10/29/18 10/29/18 17:01 19:15 19:22 Temperature 98.3 F Pulse Rate 101 H 94 94 Respiratory 22 Rate Blood Pressure 131/75 O2 Sat by Pulse 93 L Oximetry - Reevaluation(s) Reevaluation #1: 10/29/18 18:50 Reevaluation patient reveals no improvement in his breathing at this time. Reevaluation #2: 10/29/18 19:28 Patient will require admission as there is minimal improvement thus far. Medical Decision Making - Lab Data Result diagrams: 10/29/18 17:00 10/29/18 17:00 Lab Results 10/29/18 10/29/18 10/29/18 Range/Units 17:00 17:00 17:00 WBC 9.4 (3.8-10.6) k/uL RBC 4.52 (4.30-5.90) m/uL Hgb 14.0 (13.0-17.5) gm/dL Hct 41.1 (39.0-53.0) % MCV 91.0 D (80.0-100.0) fL MCH 30.9 (25.0-35.0) pg MCHC 34.0 (31.0-37.0) g/dL RDW 14.9 (11.5-15.5) % Plt Count 206 (150-450) k/uL Neutrophils % 66 % Lymphocytes % 22 % Monocytes % 6 % Eosinophils % 4 % Basophils % 0 % Neutrophils # 6.2 (1.3-7.7) k/uL Lymphocytes # 2.0 (1.0-4.8) k/uL Monocytes # 0.6 (0-1.0) k/uL Eosinophils # 0.3 (0-0.7) k/uL Basophils # 0.0 (0-0.2) k/uL PT (9.0-12.0) sec INR (<1.2) APTT (22.0-30.0) sec Sodium 141 (137-145) mmol/L Potassium 4.5 (3.5-5.1) mmol/L Chloride 100 (98-107) mmol/L Carbon Dioxide 33 H (22-30) mmol/L Anion Gap 8 mmol/L BUN 15 (9-20) mg/dL Creatinine 0.75 (0.66-1.25) mg/dL Est GFR (CKD-EPI)AfAm >90 (>60 ml/min/1.73 sqM) Est GFR (CKD-EPI)NonAf >90 (>60 ml/min/1.73 sqM) Glucose 108 H (74-99) mg/dL Calcium 9.3 (8.4-10.2) mg/dL Magnesium 2.0 (1.6-2.3) mg/dL Total Bilirubin 0.4 (0.2-1.3) mg/dL AST 25 (17-59) U/L ALT 28 (21-72) U/L Alkaline Phosphatase 42 (38-126) U/L Troponin I (0.000-0.034) ng/mL NT-Pro-B Natriuret Pep 42 pg/mL Total Protein 6.4 (6.3-8.2) g/dL Albumin 4.0 (3.5-5.0) g/dL 10/29/18 10/29/18 Range/Units 17:00 17:00 WBC (3.8-10.6) k/uL RBC (4.30-5.90) m/uL Hgb (13.0-17.5) gm/dL Hct (39.0-53.0) % MCV (80.0-100.0) fL MCH (25.0-35.0) pg MCHC (31.0-37.0) g/dL RDW (11.5-15.5) % Plt Count (150-450) k/uL Neutrophils % % Lymphocytes % % Monocytes % % Eosinophils % % Basophils % % Neutrophils # (1.3-7.7) k/uL Lymphocytes # (1.0-4.8) k/uL Monocytes # (0-1.0) k/uL Eosinophils # (0-0.7) k/uL Basophils # (0-0.2) k/uL PT 9.4 (9.0-12.0) sec INR 0.8 (<1.2) APTT 22.3 (22.0-30.0) sec Sodium (137-145) mmol/L Potassium (3.5-5.1) mmol/L Chloride (98-107) mmol/L Carbon Dioxide (22-30) mmol/L Anion Gap mmol/L BUN (9-20) mg/dL Creatinine (0.66-1.25) mg/dL Est GFR (CKD-EPI)AfAm (>60 ml/min/1.73 sqM) Est GFR (CKD-EPI)NonAf (>60 ml/min/1.73 sqM) Glucose (74-99) mg/dL Calcium (8.4-10.2) mg/dL Magnesium (1.6-2.3) mg/dL Total Bilirubin (0.2-1.3) mg/dL AST (17-59) U/L ALT (21-72) U/L Alkaline Phosphatase (38-126) U/L Troponin I <0.012 (0.000-0.034) ng/mL NT-Pro-B Natriuret Pep pg/mL Total Protein (6.3-8.2) g/dL Albumin (3.5-5.0) g/dL - EKG Data -: EKG Interpreted by Ok EKG shows normal: sinus rhythm (Sinus rhythm rate 97 CO interval 142 QRS 102 QT since QTC 344/436 and complete right bundle-branch block no acute ST-T wave changes seen.) Critical Care Time Critical Care Time: Yes Critical Care Time: 37 minutes of critical care time which includes initial presentation with history physical labs x-rays discussed with paramedics. Reevaluation patient responsive therapy discussion with the admitting service, Loly Milian who is covering for Dr. Reddy. Admission orders and documentation of the above. Disposition Clinical Impression: Acute exacerbation of chronic obstructive airways disease, Adult respiratory distress syndrome Disposition: ADMITTED IP TO THIS HOSP Condition: Serious Referrals: None,Stated [REFERRING] - 1-2 days
[2018-10-29 17:19] LABS: Basophils % (A) 0 %; Eosinophils # (A) 0.3 k/uL (0-0.7); Eosinophils % (A) 4 %; HCT 41.1 % (39.0-53.0); Lymphocytes % (A) 22 %; MCH 30.9 pg (25.0-35.0); Mean Platelet Volume 7.6; Monocytes # (A) 0.6 k/uL (0-1.0); Monocytes % (A) 6 %; Neutrophils # (A) 6.2 k/uL (1.3-7.7); Neutrophils % (A) 66 %; Platelet Count 206 k/uL (150-450); RBC 4.52 m/uL (4.30-5.90); RDW 14.9 % (11.5-15.5); WBC 9.4 k/uL (3.8-10.6)
[2018-10-29 17:30] LABS: ALT 28 U/L (21-72); AST 25 U/L (17-59); Alkaline Phosphatase 42 U/L (38-126); Anion Gap 8 mmol/L; Blood Urea Nitrogen 15 mg/dL (9-20); Calcium 9.3 mg/dL (8.4-10.2); Carbon Dioxide 33 mmol/L (22-30); Chloride 100 mmol/L (98-107); Glucose 108 mg/dL (74-99); INR 0.8 (<1.2); Partial Thromboplastin Time 22.3 sec (22.0-30.0); Potassium 4.5 mmol/L (3.5-5.1); Prothrombin Time 9.4 sec (9.0-12.0); Sodium 141 mmol/L (137-145); Total Bilirubin 0.4 mg/dL (0.2-1.3); Total Protein 6.4 g/dL (6.3-8.2)
--- NOTE | 2018-10-29 17:51 | XR ---
EXAMINATION TYPE: XR chest 2V DATE OF EXAM: 10/29/2018 COMPARISON: October 04, 2018 HISTORY: Difficulty breathing TECHNIQUE: Frontal and lateral views of the chest are obtained. FINDINGS: There is patchy linear density at the lung bases. There is no heart failure. Heart size is normal. There are multiple posterior right-sided rib fractures. There is some callus formation. Thor acic spine appears intact. IMPRESSION: Patchy atelectasis at the lung bases. Healing right-sided rib fractures. No pneumothorax . Atelectasis appears increased slightly compared to last exam.
[2018-10-29] MEDS ORDERED: IPRATROPIUM-ALBUTEROL 3 ML NEB INHALATION STA ×2 (18:49→18:50)
[2018-10-29] MEDS ORDERED: methylPREDNISolone SOD SUCCI 125 MG/2 ML VIAL IV STA (18:49)
[2018-10-29] MEDS: IPRATROPIUM-ALBUTEROL 3 ML NEB INHALATION SCH ×2 (20:36→23:47)
[2018-10-29] MEDS: SODIUM CHLORIDE 0.9% 1,000 ML IV SCH (21:42)
[2018-10-29] MEDS: traZODone HCL 100 MG TAB PO SCH (23:11)
[2018-10-29] MEDS: OLANZapine 10 MG TAB PO SCH (23:12)
[2018-10-29] MEDS: methylPREDNISolone SOD SUCCI 125 MG/2 ML VIAL IV SCH (23:13)
[2018-10-30] MEDS: IPRATROPIUM-ALBUTEROL 3 ML NEB INHALATION SCH ×6 (03:44→23:47)
[2018-10-30] MEDS: methylPREDNISolone SOD SUCCI 125 MG/2 ML VIAL IV SCH ×4 (05:43→23:20)
[2018-10-30 06:54] LABS: Glucose,Whole Blood 135 mg/dL (75-99)
[2018-10-30] MEDS: INSULIN ASPART (NovoLOG) 100 UNIT/ML VIAL SQ SCH ×4 (07:58→21:29)
[2018-10-30] MEDS ORDERED: FUROSEMIDE 40 MG TAB PO SCH (09:00)
[2018-10-30 11:20] LABS: Glucose,Whole Blood 124 mg/dL (75-99)
--- NOTE | 2018-10-30 13:08 | P.CNPUL ---
History of Present Illness Consult date: 10/30/18 Reason for consult: dyspnea History of present illness: 57-year-old male patient well known to me from previous admissions. The patient has multiple medical problems and comorbidities. His underlying schizophrenia in addition. His caregiver has noted that the patient had some increased shortness of breath and wheezing for that reason the patient was brought into the hospital for further evaluation he was hospitalized for an acute COPD exacerbation. I think care of this patient in the past. He is known to have COPD with an FEV1 of 26% of predicted. He has chronic hypoxic respiratory failure and the patient has right hemidiaphragmatic elevation/ paralysis with underlying restrictive lung disease secondary to obesity and diaphragmatic disease. Among his comorbidities are hypertension, hyperlipidemia , remote history of pulmonary embolism and the patient has history of schizophrenia. I will also drain this patient's right lung in the past for a right-sided pleural effusion and this was back in February 2018. Back then he had vigorous cough and he also fractured some ribs on the right. In any rate, the patient is doing well. No pleurisy. No hemoptysis. No fever chills or night sweats. He is on DuoNeb nebulized treatments around the clock, oral Lasix and IV Solu-Medrol. No swelling lower extremities. No angina. No altered mentation. Review of Systems Constitutional: Denies chills, Denies fever Eyes: denies blurred vision, denies pain Ears, nose, mouth and throat: Denies headache, Denies sore throat Cardiovascular: Denies chest pain, Denies shortness of breath Respiratory: Reports congestion, Reports cough with sputum, Reports dyspnea, Reports home oxygen, Reports respiratory infections, Reports sleep apnea, Gastrointestinal: Denies abdominal pain, Denies diarrhea, Denies nausea, Denies vomiting Musculoskeletal: Denies myalgias Integumentary: Denies pruritus, Denies rash Neurological: Denies numbness, Denies weakness Psychiatric: Denies anxiety, Denies depression Endocrine: Denies fatigue, Denies weight change Past Medical History Past Medical History: Asthma, COPD, GERD/Reflux, Hyperlipidemia, Hypertension, Pneumonia, Pulmonary Embolus (PE), Respiratory Disorder, Syncope Additional Past Medical History / Comment(s): Morbid obesity, COPD with an FEV1 of 26% of predicted, chronic hypoxic respiratory failure, right hemidiaphragmatic paralysis, restrictive lung disease in addition to obstructive lung disease secondary to above-mentioned comorbidities, hypertension, hyperlipidemia, previous history of that to see, previous history of pulmonary embolism, remote history of IVDA, schizophrenia, history of smoking , history of multiple right-sided fractures related to vigorous cough and, previous history of pleural effusion that was bloody on the right where total of 2 L of fluid was removed from his right lung back in February 2018 History of Any Multi-Drug Resistant Organisms: None Reported Past Surgical History: Adenoidectomy, Tonsillectomy Additional Past Surgical History / Comment(s): Review thoracentesis of the right lung, previous pigtail catheter insertion for right-sided pleural effusion Past Anesthesia/Blood Transfusion Reactions: No Reported Reaction Past Psychological History: No Psychological Hx Reported Additional Psychological History / Comment(s): Pt resides alone with 1 cat. He has a nebulizer and home oxygen. He uses no assistive device. He does not drive, his sister drives him to appts and does his laundry and is his payee. Pt has home health nurse visiting 2x weekly, home PT 2x weekly. Smoking Status: Former smoker Past Alcohol Use History: Occasional Additional Past Alcohol Use History / Comment(s): Pt started smoking at age 9 and quit smoking december 2017. He smoked 1 ppd. Pt states he also quit drinking alcohol in Dec, 2017. Past Drug Use History: Marijuana Additional Drug Use History / Comment(s): Pt quit heroin use , no longer smokes marijuana - Past Family History Father Family Medical History: Myocardial Infarction ([place]) Additional Family Medical History / Comment(s): from [place] at the age of 75 or 76yrs. Mother Family Medical History: COPD Additional Family Medical History / Comment(s): Mother is 82 yrs old. Sister(s) Family Medical History: COPD Medications and Allergies Home Medications Medication Instructions Recorded Confirmed Type traZODone HCL [Desyrel] 200 mg PO HS 08/13/18 10/29/18 History Budesonide/Formoterol Fumarate 2 puff INHALATION RT-BID 09/06/18 10/29/18 History [Symbicort 160-4.5 Mcg Inhaler] Ipratropium-Albuterol Nebulize 3 ml INHALATION RT-Q4H PRN 09/08/18 10/29/18 Rx [Duoneb 0.5 mg-3 mg/3 ml Soln] ampul.neb OLANZapine [ZyPREXA] 20 mg PO HS #30 tablet 09/08/18 10/29/18 Rx Furosemide [Lasix] 40 mg PO DAILY 10/29/18 10/29/18 History Ipratropium/Albuterol Sulfate 1 puff INHALATION RT-QID 10/29/18 10/29/18 History [Combivent Respimat Inhaler] Omeprazole [PriLOSEC] 20 mg PO DAILY 10/30/18 10/30/18 History Allergies Allergy/AdvReac Type Severity Reaction Status Date / Time No Known Allergies Allergy Verified 10/29/18 17:21 Physical Exam Vitals: Vital Signs Temp Pulse Pulse Pulse Resp BP BP 10/30/18 11:59 101 H 10/30/18 11:51 99 10/30/18 11:49 97.9 F 85 16 148/74 10/30/18 08:35 109 H 10/30/18 08:27 112 H 10/30/18 04:24 97.8 F 117 H 18 154/84 10/30/18 00:00 92 18 10/29/18 20:48 98.5 F 94 18 113/72 10/29/18 19:30 97 20 142/90 10/29/18 19:22 94 10/29/18 19:15 94 10/29/18 19:00 97 20 144/87 10/29/18 18:00 99 20 113/74 10/29/18 17:30 100 22 114/66 10/29/18 17:01 98.3 F 101 H 22 131/75 Pulse Ox 10/30/18 11:59 10/30/18 11:51 10/30/18 11:49 93 L 10/30/18 08:35 10/30/18 08:27 93 L 10/30/18 04:24 90 L 10/30/18 00:00 10/29/18 20:48 91 L 10/29/18 19:30 93 L 10/29/18 19:22 10/29/18 19:15 10/29/18 19:00 93 L 10/29/18 18:00 91 L 10/29/18 17:30 93 L 10/29/18 17:01 93 L Intake and Output 10/29/18 10/30/18 10/30/18 22:59 06:59 14:59 Other: Voiding Method Toilet Toilet # Voids 1 2 Weight 142.882 kg 142.2 kg Appearance, comfortable not in acute distress HEAD: Normocephalic/atraumatic. EYES: Normal reaction of pupils, equal size. Conjunctiva pink, sclera white. NOSE: Clear with pink turbinates. THROAT: No erythema or exudates. NECK: No masses, no JVD, no thyroid enlargement, no adenopathy. CHEST: No chest wall deformity. Symmetrical expansion. LUNGS: Equal air entry with diminished breath sounds, prolongation of the expiratory phase CVS: Regular rate and rhythm, normal S1 and S2, no gallops, no murmurs, no rubs ABDOMEN: Soft, nontender. No hepatosplenomegaly, normal bowel sounds, no guarding or rigidity. EXTREMITIES: No clubbing, mild pedal edema, no cyanosis, 2+ pulses and upper and lower extremities. MUSCULOSKELETAL: Muscle strength and tone normal. SPINE: No scoliosis or deformity SKIN: No rashes CENTRAL NERVOUS SYSTEM: Alert and oriented -3. No focal deficits, tone is normal in all 4 extremities. PSYCHIATRIC: Alert and oriented -3. Appropriate affect. Intact judgment and insight. Results Assessment 1 shortness of breath secondary to acute COPD exacerbation. The patient has advanced stage IV COPD maintenance accommodation of Symbicort and Spiriva on outpatient basis. Chest x-rays not showing any acute pulmonary infiltration. Chest is history of any acute pulmonary infiltrates. 2 chronic hypoxic respiratory failure. The patient is currently on 5 L of oxygen by nasal cannula with pulse ox of 93% 3 chronic hypercapnic respiratory failure 4 chronic elevation of right hemidiaphragm, right hemidiaphragmatic paralysis 5 history of noninvasive positive pressure ventilation utilizing AVAPS machine on outpatient basis 6 severe COPD with a baseline FEV1 of 1.02 L which is 26% of predicted with a combination of Spiriva and Symbicort on outpatient basis 7 multiple right-sided rib fractures related to vigorous cough in addition to history of hemothorax involving the right sided back in February 2018 8 morbid obesity 9 history of hepatitis C viral infection of the liver 10 severe obstructive sleep apnea an AHI of 60 11 history of pulmonary embolism 12 history of smoking 13 history of acid reflux 14 schizophrenia Plan Allow the patient uses home AVAPS machine. Continue DuoNeb the right seems on the clock. IV Solu-Medrol 60 mg every 6 hours. No need for antibiotic treatment as there is no indication for an underlying respiratory tract infection or pneumonia. Resume oral Lasix 40 mg by mouth daily. Resume his home medications. DVT and GI prophylaxis. We'll continue to follow. Overall pulmonary status is stable for now. - Laboratory Findings CBC and BMP: 10/29/18 17:00 10/29/18 17:00 PT/INR, D-dimer PT 9.4 sec (9.0-12.0) 10/29/18 17:00 INR 0.8 (<1.2) 10/29/18 17:00 Abnormal lab findings: Abnormal Labs 10/29/18 10/30/18 10/30/18 17:00 06:52 11:19 Carbon Dioxide 33 H Glucose 108 H POC Glucose (mg/dL) 135 H 124 H - Diagnostic Findings Chest x-ray: image reviewed
--- NOTE | 2018-10-30 13:43 | P.HPIM ---
History of Present Illness H&P Date: 10/30/18 Chief Complaint: SOB This very pleasant 57-year-old male with a history of COPD on 5 L oxygen at home comes in with complaints of shortness of breath. Patient says that he's been having shortness of breath for the past few days. The home visiting nurse listened to him and said that he is to go to the ER as he was wheezing. The patient said that he is also coughing up brownish phlegm. He does not complain of any chest pain, no racing heart, no abdominal pain, nausea and vomiting, no diarrhea constipation, no tingling numbness on his extremities, and no itch or rash. ER course-patient's vitals were stable. Labwork was done which showed WBC 9.4 hemoglobin 14.0 platelets 206 sodium 141 potassium 4.5 bun 15 creatinine 0.75 GFR more than 90 magnesium 2.0 LFTs are normal. Patient apparently was wheezing in the ER. He was given breathing treatments, started on steroids and admitted to the hospitalist service for further evaluation and management Review of Systems All systems: negative Past Medical History Past Medical History: Asthma, COPD, GERD/Reflux, Hyperlipidemia, Hypertension, Pneumonia, Pulmonary Embolus (PE), Respiratory Disorder, Syncope Additional Past Medical History / Comment(s): Morbid obesity, COPD with an FEV1 of 26% of predicted, chronic hypoxic respiratory failure, right hemidiaphragmatic paralysis, restrictive lung disease in addition to obstructive lung disease secondary to above-mentioned comorbidities, hypertension, hyperlipidemia, previous history of that to see, previous history of pulmonary embolism, remote history of IVDA, schizophrenia, history of smoking , history of multiple right-sided fractures related to vigorous cough and, previous history of pleural effusion that was bloody on the right where total of 2 L of fluid was removed from his right lung back in February 2018 History of Any Multi-Drug Resistant Organisms: None Reported Past Surgical History: Adenoidectomy, Tonsillectomy Additional Past Surgical History / Comment(s): Review thoracentesis of the right lung, previous pigtail catheter insertion for right-sided pleural effusion Past Anesthesia/Blood Transfusion Reactions: No Reported Reaction Past Psychological History: No Psychological Hx Reported Additional Psychological History / Comment(s): Pt resides alone with 1 cat. He has a nebulizer and home oxygen. He uses no assistive device. He does not drive, his sister drives him to [email or web address] and does his laundry and is his payee. Pt has home health nurse visiting 2x weekly, home PT 2x weekly. Smoking Status: Former smoker Past Alcohol Use History: Occasional Additional Past Alcohol Use History / Comment(s): Pt started smoking at age 9 and quit smoking december 2017. He smoked 1 ppd. Pt states he also quit drinking alcohol in Dec, 2017. Past Drug Use History: Marijuana Additional Drug Use History / Comment(s): Pt quit heroin use , no longer smokes marijuana - Past Family History Father Family Medical History: Myocardial Infarction ([place]) Additional Family Medical History / Comment(s): from [place] at the age of 75 or 76yrs. Mother Family Medical History: COPD Additional Family Medical History / Comment(s): Mother is 82 yrs old. Sister(s) Family Medical History: COPD Medications and Allergies Home Medications Medication Instructions Recorded Confirmed Type traZODone HCL [Desyrel] 200 mg PO HS 08/13/18 10/29/18 History Budesonide/Formoterol Fumarate 2 puff INHALATION RT-BID 09/06/18 10/29/18 History [Symbicort 160-4.5 Mcg Inhaler] Ipratropium-Albuterol Nebulize 3 ml INHALATION RT-Q4H PRN 09/08/18 10/29/18 Rx [Duoneb 0.5 mg-3 mg/3 ml Soln] ampul.neb OLANZapine [ZyPREXA] 20 mg PO HS #30 tablet 09/08/18 10/29/18 Rx Furosemide [Lasix] 40 mg PO DAILY 10/29/18 10/29/18 History Ipratropium/Albuterol Sulfate 1 puff INHALATION RT-QID 10/29/18 10/29/18 History [Combivent Respimat Inhaler] Omeprazole [PriLOSEC] 20 mg PO DAILY 10/30/18 10/30/18 History Allergies Allergy/AdvReac Type Severity Reaction Status Date / Time No Known Allergies Allergy Verified 10/29/18 17:21 Physical Exam Vitals: Vital Signs Temp Pulse Pulse Pulse Resp BP BP 10/30/18 11:59 101 H 10/30/18 11:51 99 10/30/18 11:49 97.9 F 85 16 148/74 10/30/18 08:35 109 H 10/30/18 08:27 112 H 10/30/18 04:24 97.8 F 117 H 18 154/84 10/30/18 00:00 92 18 10/29/18 20:48 98.5 F 94 18 113/72 10/29/18 19:30 97 20 142/90 10/29/18 19:22 94 10/29/18 19:15 94 10/29/18 19:00 97 20 144/87 10/29/18 18:00 99 20 113/74 10/29/18 17:30 100 22 114/66 10/29/18 17:01 98.3 F 101 H 22 131/75 Pulse Ox 10/30/18 11:59 10/30/18 11:51 10/30/18 11:49 93 L 10/30/18 08:35 10/30/18 08:27 93 L 10/30/18 04:24 90 L 10/30/18 00:00 10/29/18 20:48 91 L 10/29/18 19:30 93 L 10/29/18 19:22 10/29/18 19:15 10/29/18 19:00 93 L 10/29/18 18:00 91 L 10/29/18 17:30 93 L 10/29/18 17:01 93 L Intake and Output 10/29/18 10/30/18 10/30/18 22:59 06:59 14:59 Other: Voiding Method Toilet Toilet # Voids 1 2 Weight 142.882 kg 142.2 kg On exam, alert and oriented x3. HEENT: Conjunctivae normal. eyes normal. NECK: No JVD. No thyroid enlargement. No LNs CARDIOVASCULAR: S1, S2 muffled. No murmur RESPIRATION: Breath sounds diminished in the bases. Mild wheezing appreciated bilaterally ABDOMEN: Soft, nontender . No guarding. no masses palpable. No ascites, No hepatosplenomegaly.Bowel sounds heard. LEGS: +2 pedal edema NERVOUS SYSTEM: Cranial N 2-12 grossly normal. Moves all 4 limbs. No focal deficits. No sensory deficit. No signs of cerebellar dysfucntion. Skin: no ulcer no rash Results CBC & Chem 7: 10/29/18 17:00 10/29/18 17:00 Labs: Abnormal Lab Results - Last 24 Hours (Table) 10/29/18 10/30/18 10/30/18 Range/Units 17:00 06:52 11:19 Carbon Dioxide 33 H (22-30) mmol/L Glucose 108 H (74-99) mg/dL POC Glucose (mg/dL) 135 H 124 H (75-99) mg/dL Thrombosis Risk Factor Assmnt - Choose All That Apply Any of the Below Risk Factors Present?: Yes Each Factor Represents 1 point: Abnormal pulmonary function (COPD), Age 41-60 years, Obesity (BMI >25) Other Risk Factors: Yes Each Risk Factor Represents 3 Points: History of DVT/PE Other congenital or acquired thrombophilia - If yes, enter type in comment: No Thrombosis Risk Factor Assessment Total Risk Factor Score: 6 Thrombosis Risk Factor Assessment Level: High Risk Assessment and Plan Assessment: - Acute respiratory distress - COPD exacerbation - CHF exacerbation - Hypertension - Hyperlipidemia - History of PE - History of CHUY Plan - Patient is admitted to [facility] with telemetry - Pulmonology consulted, appreciate the recommendations we'll continue the steroids and breathing treatments for now - We'll continue the patient on IV Lasix while in the hospital as he is having + 2 pedal edema he says that he has been given about 15 pounds the last few weeks. - We'll continue rest of the home medications - DVT and GI prophylaxis - We'll order for lab work in the morning - Expected length of stay is more than 2 midnights - Patient is full code Time with Patient: Greater than 30
[2018-10-30 17:07] LABS: Glucose,Whole Blood 178 mg/dL (75-99)
[2018-10-30] MEDS: HEPARIN SODIUM,PORCINE 5,000 UNIT/ML 1 ML VIAL SQ SCH ×2 (17:29→23:20)
[2018-10-30 20:38] LABS: Glucose,Whole Blood 167 mg/dL (75-99)
[2018-10-30] MEDS: SODIUM CHLORIDE 0.9% 1,000 ML IV SCH (21:21)
[2018-10-30] MEDS: OLANZapine 10 MG TAB PO SCH (21:29)
[2018-10-30] MEDS: traZODone HCL 100 MG TAB PO SCH (21:29)
[2018-10-31] MEDS: IPRATROPIUM-ALBUTEROL 3 ML NEB INHALATION SCH ×3 (02:52→11:22)
[2018-10-31] MEDS: methylPREDNISolone SOD SUCCI 125 MG/2 ML VIAL IV SCH ×2 (05:54→12:33)
[2018-10-31 06:56] LABS: Glucose,Whole Blood 131 mg/dL (75-99)
[2018-10-31] MEDS ORDERED: PANTOPRAZOLE 40 MG TABLET PO SCH (07:30)
[2018-10-31] MEDS: INSULIN ASPART (NovoLOG) 100 UNIT/ML VIAL SQ SCH ×2 (07:50→12:33)
[2018-10-31] MEDS: HEPARIN SODIUM,PORCINE 5,000 UNIT/ML 1 ML VIAL SQ SCH (07:51)
[2018-10-31] MEDS ORDERED: FUROSEMIDE 10 MG/ML 4 ML VIAL IV SCH (09:00)
--- NOTE | 2018-10-31 09:32 | P.PN ---
Subjective Progress Note Date: 10/31/18 57-year-old gentleman admitted for COPD exacerbation. He also has weight gain. 10/31/2018 Patient says that he is breathing better His wheezing is better, no chest pain or racing heart As swelling in his lower extremities left more than right Objective - Vital Signs Vital signs: Vital Signs Temp 97.6 F 10/31/18 05:00 Pulse 95 10/31/18 08:43 Resp 18 10/31/18 05:00 BP 150/77 10/31/18 05:00 Pulse Ox 93 L 10/31/18 08:35 Intake & Output 10/30/18 10/31/18 10/31/18 18:59 06:59 18:59 Intake Total 180 1090 Balance 180 1090 Weight 140 kg Intake: Intake, IV Titration 180 Amount Sodium Chloride 0.9% 1, 180 000 ml @ 20 mls/hr IV . Q24H [facility] Rx#:[id number] Oral 1090 Other: Voiding Method Toilet Toilet Toilet # Voids 1 - Exam On exam, alert and oriented x3. HEENT: Conjunctivae normal. eyes normal. NECK: No JVD. No thyroid enlargement. No LNs CARDIOVASCULAR: S1 and S2 heard RESPIRATION: Breath sounds diminished in the bases. No rhonchi or crackles. No bronchial breathing. ABDOMEN: Soft, nontender . No guarding. no masses palpable. No ascites, No hepatosplenomegaly.Bowel sounds heard. LEGS: +2 pedal edema in the left lower extremity, trace edema in the right lower extremity NERVOUS SYSTEM: Cranial N 2-12 grossly normal. Moves all 4 limbs. No focal deficits. No sensory deficit. No signs of cerebellar dysfucntion. Skin: no ulcer no rash - Labs CBC & Chem 7: 10/29/18 17:00 10/29/18 17:00 Labs: Abnormal Lab Results - Last 24 Hours (Table) 10/30/18 10/30/18 10/30/18 Range/Units 11:19 17:06 20:37 POC Glucose (mg/dL) 124 H 178 H 167 H (75-99) mg/dL 10/31/18 Range/Units 06:56 POC Glucose (mg/dL) 131 H (75-99) mg/dL Assessment and Plan Assessment: - Acute respiratory distress - COPD exacerbation - CHF exacerbation - Hypertension - Hyperlipidemia - History of PE - History of CHUY Plan - Continue steroids and breathing treatments - Appreciated pulmonology recommendations - Continue IV Lasix while in the hospital. We'll transition to oral at discharge - His left lower extremity is more swollen than the right. We'll order for ultrasound DVT to rule out DVT - Continue rest of the medications - We will follow the patient Time with Patient: Greater than 30
--- NOTE | 2018-10-31 09:56 | US ---
EXAMINATION TYPE: US venous doppler duplex LE BI DATE OF EXAM: 10/31/2018 8:49 AM COMPARISON: NONE CLINICAL HISTORY: 57-year-old male swelling . Bilateral leg swelling, h/o PE, CHF SIDE PERFORMED: Bilateral TECHNIQUE: The lower extremity deep venous system is examined utilizing real time linear array sonog brice with graded compression, doppler sonography and color-flow sonography. VESSELS IMAGED: External Iliac Vein (EIV) Common Femoral Vein Deep Femoral Vein Greater Saphenous Vein * Femoral Vein Popliteal Vein Small Saphenous Vein * Proximal Calf Veins (* superficial vessels) Right Leg: Appears negative for DVT Left Leg: Appears negative for DVT IMPRESSION: No evidence for DVT within the bilateral lower extremities imaged from the groin to the upper calves.
[2018-10-31 11:41] LABS: Glucose,Whole Blood 176 mg/dL (75-99)
[2018-10-31 11:55] VITALS: BP 158/86; PULSE 87; RESP 17; TEMP 97.9
--- NOTE | 2018-10-31 13:26 | P.PN ---
Subjective Progress Note Date: 10/31/18 57-year-old male patient well known to me from previous admissions. The patient has multiple medical problems and comorbidities. His underlying schizophrenia in addition. His caregiver has noted that the patient had some increased shortness of breath and wheezing for that reason the patient was brought into the hospital for further evaluation he was hospitalized for an acute COPD exacerbation. I think care of this patient in the past. He is known to have COPD with an FEV1 of 26% of predicted. He has chronic hypoxic respiratory failure and the patient has right hemidiaphragmatic elevation/ paralysis with underlying restrictive lung disease secondary to obesity and diaphragmatic disease. Among his comorbidities are hypertension, hyperlipidemia , remote history of pulmonary embolism and the patient has history of schizophrenia. I will also drain this patient's right lung in the past for a right-sided pleural effusion and this was back in February 2018. Back then he had vigorous cough and he also fractured some ribs on the right. In any rate, the patient is doing well. No pleurisy. No hemoptysis. No fever chills or night sweats. He is on DuoNeb nebulized treatments around the clock, oral Lasix and IV Solu-Medrol. No swelling lower extremities. No angina. No altered mentation. On 10/31/2018, the patient has no complaints. The patient is ambulating. No respiratory distress. No cough or sputum production. No fever or chills. No altered mentation. No pleurisy. No hemoptysis. Patient was treated with IV Lasix. The patient was treated with IV Solu-Medrol. The patient was also treated with bronchodilators. Pulmonary status is back to his baseline. Objective - Vital Signs Vital signs: Vital Signs Temp 97.9 F 10/31/18 11:55 Pulse 87 10/31/18 11:55 Resp 17 10/31/18 11:55 BP 158/86 10/31/18 11:55 Pulse Ox 93 L 10/31/18 11:55 Intake & Output 10/30/18 10/31/18 10/31/18 18:59 06:59 18:59 Intake Total 180 1090 Balance 180 1090 Weight 140 kg Intake: Intake, IV Titration 180 Amount Sodium Chloride 0.9% 1, 180 000 ml @ 20 mls/hr IV . Q24H [facility] Rx#:[id number] Oral 1090 Other: Voiding Method Toilet Toilet Toilet # Voids 1 - Exam Appearance, comfortable not in acute distress HEAD: Normocephalic/atraumatic. EYES: Normal reaction of pupils, equal size. Conjunctiva pink, sclera white. NOSE: Clear with pink turbinates. THROAT: No erythema or exudates. NECK: No masses, no JVD, no thyroid enlargement, no adenopathy. CHEST: No chest wall deformity. Symmetrical expansion. LUNGS: Equal air entry with diminished breath sounds, prolongation of the expiratory phase CVS: Regular rate and rhythm, normal S1 and S2, no gallops, no murmurs, no rubs ABDOMEN: Soft, nontender. No hepatosplenomegaly, normal bowel sounds, no guarding or rigidity. EXTREMITIES: No clubbing, mild pedal edema, no cyanosis, 2+ pulses and upper and lower extremities. MUSCULOSKELETAL: Muscle strength and tone normal. SPINE: No scoliosis or deformity SKIN: No rashes CENTRAL NERVOUS SYSTEM: Alert and oriented -3. No focal deficits, tone is normal in all 4 extremities. PSYCHIATRIC: Alert and oriented -3. Appropriate affect. Intact judgment and insight. - Labs CBC & Chem 7: 10/29/18 17:00 10/29/18 17:00 Labs: Abnormal Lab Results - Last 24 Hours (Table) 10/30/18 10/30/18 10/31/18 Range/Units 17:06 20:37 06:56 POC Glucose (mg/dL) 178 H 167 H 131 H (75-99) mg/dL 10/31/18 Range/Units 11:39 POC Glucose (mg/dL) 176 H (75-99) mg/dL Assessment and Plan Plan: Assessment 1 shortness of breath secondary to acute COPD exacerbation. The patient has advanced stage IV COPD maintenance accommodation of Symbicort and Spiriva on outpatient basis. Chest x-rays not showing any acute pulmonary infiltration. The patient is fully recovered and the patient is back to his baseline pulmonary status. 2 chronic hypoxic respiratory failure. The patient is currently on 5 L of oxygen by nasal cannula with pulse ox of 93% 3 chronic hypercapnic respiratory failure 4 chronic elevation of right hemidiaphragm, right hemidiaphragmatic paralysis 5 history of noninvasive positive pressure ventilation utilizing AVAPS machine on outpatient basis 6 severe COPD with a baseline FEV1 of 1.02 L which is 26% of predicted with a combination of Spiriva and Symbicort on outpatient basis 7 multiple right-sided rib fractures related to vigorous cough in addition to history of hemothorax involving the right sided back in February 2018 8 morbid obesity 9 history of hepatitis C viral infection of the liver 10 severe obstructive sleep apnea an AHI of 60 11 history of pulmonary embolism 12 history of smoking 13 history of acid reflux 14 schizophrenia Plan Discharge the patient home on his routine home medications addition to her prednisone burst taper to complete a 16 day course on outpatient basis. Continue Symbicort and continue Spiriva. Continue oxygen therapy. Continue his AVAPS machine on outpatient basis. We'll follow.
--- NOTE | 2018-10-31 15:10 | P.DS ---
Providers Date of admission: 10/29/18 19:31 Expected date of discharge: 10/31/18 Attending physician: Binu Reddy Consults: 10/29/18 19:31 Consult Physician Routine Consulting Provider: Porsche Farnsworth Consult Reason/Comments: COPD exacerbation Do you want consulting provider notified?: Yes Primary care physician: Hina Rojas MD Hospital Course: Discharge diagnosis - COPD exacerbation - Mild CHF exacerbation - Hypertension - History of hyperlipidemia 77-year-old gentleman with a past medical history significant with superior 5 L oxygen comes in with complaints of shortness of breath. He was diagnosed with COPD exacerbation. Pulmonology was consulted. He was started on IV steroids and breathing treatments. His breathing improved significantly the next day. He was also having edema of his bilateral lower extremities left more than right. His Lasix was changed to IV during the hospital stay. Patient was cleared by pulmonology to be discharged on tapering dose of steroids, to be taken at home. Patient will does be discharged. Patient has an appointment with PCP tomorrow. Patient to keep up with appointment with the PCP tomorrow Patient is to discuss about increasing dose of Lasix with the PCP. Right now patient is in no respiratory distress. Patient Condition at Discharge: Serious Plan - Discharge Summary Discharge Rx Participant: No New Discharge Prescriptions: New predniSONE 10 mg PO DIRECTED #70 tab Continue traZODone HCL [Desyrel] 200 mg PO HS Budesonide/Formoterol Fumarate [Symbicort 160-4.5 Mcg Inhaler] 2 puff INHALATION RT-BID Ipratropium-Albuterol Nebulize [Duoneb 0.5 mg-3 mg/3 ml Soln] 3 ml INHALATION RT-Q4H PRN ampul.neb PRN Reason: Shortness Of Breath Or Wheezing OLANZapine [ZyPREXA] 20 mg PO HS #30 tablet Furosemide [Lasix] 40 mg PO DAILY Ipratropium/Albuterol Sulfate [Combivent Respimat Inhaler] 1 puff INHALATION RT-QID Omeprazole [PriLOSEC] 20 mg PO DAILY Discharge Medication List traZODone HCL [Desyrel] 200 mg PO HS 08/13/18 [History] Budesonide/Formoterol Fumarate [Symbicort 160-4.5 Mcg Inhaler] 2 puff INHALATION RT-BID 09/06/18 [History] Ipratropium-Albuterol Nebulize [Duoneb 0.5 mg-3 mg/3 ml Soln] 3 ml INHALATION RT -Q4H PRN ampul.neb 09/08/18 [Rx] OLANZapine [ZyPREXA] 20 mg PO HS #30 tablet 09/08/18 [Rx] Furosemide [Lasix] 40 mg PO DAILY 10/29/18 [History] Ipratropium/Albuterol Sulfate [Combivent Respimat Inhaler] 1 puff INHALATION RT- QID 10/29/18 [History] Omeprazole [PriLOSEC] 20 mg PO DAILY 10/30/18 [History] predniSONE 10 mg PO DIRECTED #70 tab 10/31/18 [Rx] Follow up Appointment(s)/Referral(s): Hina Rojas MD [Primary Care Provider] - 1-2 Days (Patient to call Dr. Rojas's office Thursday to schedule follow up appointment. The office is closed at time of discharge. ) Patient Instructions/Handouts: Prednisone (By mouth), Acute Respiratory Distress Syndrome (GEN), COPD (Chronic Obstructive Pulmonary Disease) (DC) Activity/Diet/Wound Care/Special Instructions: If he started to have any chest pain, any increase in shortness of breath, any increase in cough, any fever or chills, any increased abdominal pain, increased swelling of his bilateral lower extremities please call your PCP or call 911 and come to the ER immediately Discharge Disposition: HOME SELF-CARE
[2018-11-01 12:50] LABS: Hemoglobin A1C 6.2 % (4.0-6.0)
== END 2018-10-31 15:30 | disposition home or self-care (01) ==
LOC: EC 16:54 → 3NMEDONC 19:31
PROVIDERS: ADMIT Internal Medicine; ATTEND Internal Medicine
DX: J44.1 Chronic obstructive pulmonary disease with (acute) exacerbation (principal); K21.9 Gastro-esophageal reflux disease without esophagitis; I50.9 Heart failure, unspecified; I11.0 Hypertensive heart disease with heart failure; E78.5 Hyperlipidemia, unspecified; F20.9 Schizophrenia, unspecified; J96.11 Chronic respiratory failure with hypoxia; J96.12 Chronic respiratory failure with hypercapnia; J98.6 Disorders of diaphragm; S22.41XA Multiple fractures of ribs, right side, initial encounter for closed fracture; B19.20 Unspecified viral hepatitis C without hepatic coma; E66.01 Morbid (severe) obesity due to excess calories; Z68.41 Body mass index [BMI] 40.0-44.9, adult; G47.33 Obstructive sleep apnea (adult) (pediatric); Z99.81 Dependence on supplemental oxygen; Z79.899 Other long term (current) drug therapy; Z99.89 Dependence on other enabling machines and devices; Z87.891 Personal history of nicotine dependence; Z79.51 Long term (current) use of inhaled steroids; Z87.01 Personal history of pneumonia (recurrent); Z86.79 Personal history of other diseases of the circulatory system; Z86.711 Personal history of pulmonary embolism; Z82.49 Family history of ischemic heart disease and other diseases of the circulatory system; Z82.5 Family history of asthma and other chronic lower respiratory diseases; X50.0XXA Overexertion from strenuous movement or load, initial encounter
CPT/HCPCS: 96376 ×3; 96372 ×2; 96375; 96374; 99291; 36415; 94640 ×5; 93005; 83880; 80053; 83735; 84484; 85025; 85610; 85730; 83036; 71046; 93970; G0378 ×3; J1644 ×2; J1940; J2930 ×3

== ENCOUNTER 2018-12-04 16:36 | Inpatient (IN) | payer MEDICARE, OTHER ==
[2018-12-04] MEDS ORDERED: methylPREDNISolone SOD SUCCI 125 MG/2 ML VIAL IV STA (16:46)
[2018-12-04] MEDS ORDERED: IPRATROPIUM-ALBUTEROL 3 ML NEB INHALATION STA (16:46)
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
[2018-12-04 17:13] LABS: ALT 42 U/L (21-72); AST 57 U/L (17-59); Albumin 4.2 g/dL (3.5-5.0); Alkaline Phosphatase 56 U/L (38-126); Anion Gap 11 mmol/L; Blood Urea Nitrogen 9 mg/dL (9-20); Calcium 8.7 mg/dL (8.4-10.2); Carbon Dioxide 30 mmol/L (22-30); Chloride 81 mmol/L (98-107); Glucose 109 mg/dL (74-99); Magnesium 1.7 mg/dL (1.6-2.3); Potassium 4.6 mmol/L (3.5-5.1); Sodium 122 mmol/L (137-145); Total Bilirubin 1.1 mg/dL (0.2-1.3); Total Protein 6.6 g/dL (6.3-8.2)
[2018-12-04 17:23] LABS: Basophils % (A) 0 %; Eosinophils # (A) 0.1 k/uL (0-0.7); Eosinophils % (A) 1 %; HCT 38.6 % (39.0-53.0); HGB 13.8 gm/dL (13.0-17.5); Lymphocytes # (A) 0.9 k/uL (1.0-4.8); Lymphocytes % (A) 7 %; MCH 30.4 pg (25.0-35.0); MCHC 35.7 g/dL (31.0-37.0); Mean Platelet Volume 7.4; Monocytes # (A) 0.5 k/uL (0-1.0); Monocytes % (A) 4 %; Neutrophils % (A) 87 %; Platelet Count 309 k/uL (150-450); RBC 4.53 m/uL (4.30-5.90); RDW 14.8 % (11.5-15.5); WBC 12.6 k/uL (3.8-10.6)
[2018-12-04 17:29] LABS: MCV 85.2 fL (80.0-100.0)
[2018-12-04 17:40] LABS: Partial Thromboplastin Time 25.1 sec (22.0-30.0); Prothrombin Time 10.3 sec (9.0-12.0)
--- NOTE | 2018-12-04 18:03 | XR ---
EXAMINATION TYPE: XR chest 1V portable DATE OF EXAM: 12/04/2018 COMPARISON: 10/29/2018 INDICATION: Short of breath TECHNIQUE: Single frontal view of the chest is obtained. FINDINGS: The heart size is normal. The pulmonary vasculature is normal. The lungs are clear. There is elevation of the right diaphragm. IMPRESSION: 1. No significant interval change. 2. No suspicious acute pulmonary process.
[2018-12-04] MEDS: SODIUM CHLORIDE 0.9% 1,000 ML IV SCH (18:45)
[2018-12-04] MEDS: IPRATROPIUM-ALBUTEROL 3 ML NEB INHALATION PRN (21:18)
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
[2018-12-05] MEDS: methylPREDNISolone SOD SUCCI 125 MG/2 ML VIAL IV SCH ×5 (02:17→23:24)
[2018-12-05] MEDS: HEPARIN SODIUM,PORCINE 5,000 UNIT/ML 1 ML VIAL SQ SCH ×4 (02:17→23:24)
[2018-12-05] MEDS: BACITRACIN OINT 1 EACH PACKET TOPICAL SCH ×4 (02:20→21:06)
[2018-12-05] MEDS ORDERED: METOPROLOL TARTRATE 5 MG/5 ML VIAL IVP STA (02:25)
[2018-12-05] MEDS ORDERED: METOPROLOL TARTRATE 25 MG TAB PO STA (02:26)
[2018-12-05 04:23] VITALS: BMI 43.0
[2018-12-05 07:03] LABS: Anisocytosis Slight; HCT 40.8 % (39.0-53.0); MCH 29.5 pg (25.0-35.0); MCHC 34.4 g/dL (31.0-37.0); MCV 85.7 fL (80.0-100.0); Mean Platelet Volume 9.6; Platelet Count 264 k/uL (150-450); RBC 4.76 m/uL (4.30-5.90); RDW 16.4 % (11.5-15.5); WBC 10.2 k/uL (3.8-10.6)
[2018-12-05 07:20] LABS: Anion Gap 9 mmol/L; Blood Urea Nitrogen 11 mg/dL (9-20); Calcium 8.7 mg/dL (8.4-10.2); Carbon Dioxide 39 mmol/L (22-30); Chloride 81 mmol/L (98-107); Glucose 126 mg/dL (74-99); Sodium 129 mmol/L (137-145)
[2018-12-05] MEDS: PANTOPRAZOLE 40 MG TABLET PO SCH (07:39)
[2018-12-05] MEDS: LOSARTAN 50 MG TAB PO SCH (07:39)
[2018-12-05] MEDS: METOPROLOL TARTRATE 25 MG TAB PO SCH ×2 (08:50→21:04)
[2018-12-05] MEDS: IPRATROPIUM-ALBUTEROL 3 ML NEB INHALATION PRN ×4 (09:08→20:16)
[2018-12-05 11:39] LABS: Glucose,Whole Blood 138 mg/dL (75-99)
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
[2018-12-05 16:36] LABS: Glucose,Whole Blood 216 mg/dL (75-99)
[2018-12-05] MEDS: SODIUM CHLORIDE 0.9% 1,000 ML IV SCH (18:20)
--- NOTE | 2018-12-05 19:14 | P.PN ---
Subjective Progress Note Date: 12/05/18 Principal diagnosis: COPD exacerbation Patient was seen and examined. No acute events overnight. Patient denies complaint of shortness of breath, worse with exertion.currently on BiPAP saturating mid 90s. Objective - Vital Signs Vital signs: Vital Signs Temp 98.1 F 12/05/18 16:00 Pulse 88 12/05/18 16:28 Resp 18 12/05/18 12:00 BP 142/77 12/05/18 16:00 Pulse Ox 96 12/05/18 16:00 Intake & Output 12/05/18 12/05/18 12/06/18 06:59 18:59 06:59 Intake Total 358 Output Total 1050 Balance -1050 358 Weight 143.7 kg Intake: Oral 358 Output: Urine 1050 - Exam General: [non toxic], [no distress], [appears at stated age], [morbid obesity] Derm: [warm], [dry] Head: [atraumatic], [normocephalic], [symmetric] Eyes: [EOMI], [no lid lag], [anicteric sclera] Mouth: [no lip lesion], [mucus membranes moist] Cardiovascular: [S1S2 reg], [no murmur], [positive posterior tibial pulse bilateral] Lungs: [decreased breath sounds bilateral], [no rhonchi, no rales] , [no accessory muscle use] Abdominal: [soft], [ nontender to palpation], [no guarding], [no appreciable organomegaly] Ext: [no gross muscle atrophy], [no edema], [no contractures] Neuro: [no focal neuro deficits] Psych: [Alert], [oriented], [appropriate affect] - Labs CBC & Chem 7: 12/05/18 05:57 12/05/18 05:57 Labs: Abnormal Lab Results - Last 24 Hours (Table) 12/05/18 12/05/18 12/05/18 Range/Units 05:57 05:57 11:30 RDW 16.4 H (11.5-15.5) % Sodium 129 L (137-145) mmol/L Chloride 81 L (98-107) mmol/L Carbon Dioxide 39 H (22-30) mmol/L Creatinine 0.65 L (0.66-1.25) mg/dL Glucose 126 H (74-99) mg/dL POC Glucose (mg/dL) 138 H (75-99) mg/dL 12/05/18 Range/Units 16:31 RDW (11.5-15.5) % Sodium (137-145) mmol/L Chloride (98-107) mmol/L Carbon Dioxide (22-30) mmol/L Creatinine (0.66-1.25) mg/dL Glucose (74-99) mg/dL POC Glucose (mg/dL) 216 H (75-99) mg/dL Assessment and Plan Assessment: assessment and plan Acute COPD exacerbation w/ acute on chronic hypoxic respiratory failure -Continue with Solu-Medrol, DuoNeb's -Continue with supplemental oxygen, and arrange for home equipment -Follow pulmonology consultation Facial flor-oral denson -Will order topical bacitracin Hyponatremia, euvolemic -Sodium 122-129 -Check urine studies, though patient started on IVFs in the ED. Since patient on lasix at home, will order labs to perform FeUrea -Will hold Lasix for now -Check BMP q12h Chronic conditions: Hypertension, hyperlipidemia, schizophrenia -Resume home medications DVT and GI prophylaxis -Heparin -Protonix
[2018-12-05] MEDS: BUDESONIDE 1 MG/2 ML NEBU INHALATION SCH (20:16)
[2018-12-05] MEDS: FORMOTEROL FUMARATE 20 MCG/2 ML NEBU INHALATION SCH (20:16)
[2018-12-05] MEDS: ATORVASTATIN 40 MG TAB PO SCH (21:04)
[2018-12-05] MEDS: AMOXIC-POT CLAV 875-125MG 1 EACH TAB PO SCH (21:04)
[2018-12-05] MEDS: traZODone HCL 100 MG TAB PO SCH (21:04)
[2018-12-05] MEDS: OLANZapine 10 MG TAB PO SCH (21:06)
[2018-12-05 21:08] LABS: Glucose,Whole Blood 167 mg/dL (75-99)
[2018-12-06] MEDS: IPRATROPIUM-ALBUTEROL 3 ML NEB INHALATION PRN ×3 (02:14→08:04)
[2018-12-06] MEDS: methylPREDNISolone SOD SUCCI 125 MG/2 ML VIAL IV SCH ×4 (05:38→23:00)
[2018-12-06 06:26] LABS: Glucose,Whole Blood 164 mg/dL (75-99)
[2018-12-06] MEDS: BUDESONIDE 1 MG/2 ML NEBU INHALATION SCH ×2 (08:04→18:53)
[2018-12-06] MEDS: FORMOTEROL FUMARATE 20 MCG/2 ML NEBU INHALATION SCH ×2 (08:04→18:53)
[2018-12-06] MEDS: PANTOPRAZOLE 40 MG TABLET PO SCH (08:29)
[2018-12-06] MEDS: METOPROLOL TARTRATE 25 MG TAB PO SCH ×2 (08:29→20:28)
[2018-12-06] MEDS: HEPARIN SODIUM,PORCINE 5,000 UNIT/ML 1 ML VIAL SQ SCH ×3 (08:29→22:59)
[2018-12-06] MEDS: LOSARTAN 50 MG TAB PO SCH (08:29)
[2018-12-06] MEDS: AMOXIC-POT CLAV 875-125MG 1 EACH TAB PO SCH ×2 (08:29→20:28)
[2018-12-06] MEDS: BACITRACIN OINT 1 EACH PACKET TOPICAL SCH ×3 (08:30→20:29)
[2018-12-06] MEDS: SODIUM CHLORIDE 0.9% 1,000 ML IV SCH ×3 (08:31→20:29)
[2018-12-06 11:42] LABS: Glucose,Whole Blood 147 mg/dL (75-99)
--- NOTE | 2018-12-06 12:21 | P.PN ---
Subjective Progress Note Date: 12/06/18 Principal diagnosis: COPD exacerbation Patient was seen and examined. No acute events overnight. Seen sleeping comfortably in bed. Patient reports improvement in his breathing. States it is back at baseline. Denies any chest pain or palpitations. No nausea or vomiting. No fever or chills. Objective - Vital Signs Vital signs: Vital Signs Temp 97.4 F L 12/06/18 08:00 Pulse 90 12/06/18 08:45 Resp 24 12/06/18 08:00 BP 154/74 12/06/18 08:00 Pulse Ox 91 L 12/06/18 08:00 Intake & Output 12/05/18 12/06/18 12/06/18 18:59 06:59 18:59 Intake Total 358 480 Balance 358 480 Weight 143.4 kg Intake: Oral 358 480 Other: # Voids 2 - Exam General: [non toxic], [no distress], [appears at stated age], [morbid obesity] Derm: [warm], [dry] Head: [atraumatic], [normocephalic], [symmetric] Eyes: [EOMI], [no lid lag], [anicteric sclera] Mouth: [no lip lesion], [mucus membranes moist] Cardiovascular: [S1S2 reg], [no murmur], [positive posterior tibial pulse bilateral] Lungs: [decreased breath sounds bilateral], [no rhonchi, no rales] , [no accessory muscle use] Abdominal: [soft], [ nontender to palpation], [no guarding], [no appreciable organomegaly] Ext: [no gross muscle atrophy], [no edema], [no contractures] Neuro: [no focal neuro deficits] Psych: [Alert], [oriented], [appropriate affect] - Labs CBC & Chem 7: 12/05/18 05:57 12/05/18 05:57 Labs: Abnormal Lab Results - Last 24 Hours (Table) 12/05/18 12/05/18 12/06/18 Range/Units 16:31 21:07 06:25 POC Glucose (mg/dL) 216 H 167 H 164 H (75-99) mg/dL 12/06/18 Range/Units 11:21 POC Glucose (mg/dL) 147 H (75-99) mg/dL Assessment and Plan Assessment: Assessment and Plan 1. Acute COPD exacerbation 2. Facial perioral denson 3. Hyponatremia, euvolemic 4. Hypertension 5. Schizophrenia 1. Exacerbation resolved. Social work consulted for home equipment. Continue Augmentin twice a day. Continue Pulmicort. Continue formoterol. DuoNeb as needed for shortness of breath or wheezing. Continue Solu-Medrol 60 mg IV every 6 hours. O2 per nasal cannula to maintain O2 saturation greater than 92%. Follow pulmonology consultation. 2. Continue bacitracin ointment. 3. Sodium greatly improved from 122 to 129 with normal saline. This is likely secondary to dehydration. Continue normal saline at 75 mL per hour. 4. Continue metoprolol and losartan. Monitor vitals, adjust medications as necessary. 5. Continue olanzapine. Patient admitted for COPD exacerbation, malfunctioning medical equipment at home. Social social work is on consult to obtain medical equipment. Follow pulmonology recommendations. Likely DC today or tomorrow.
[2018-12-06 13:02] LABS: Anion Gap 8 mmol/L; Blood Urea Nitrogen 15 mg/dL (9-20); Calcium 9.7 mg/dL (8.4-10.2); Carbon Dioxide 38 mmol/L (22-30); Chloride 86 mmol/L (98-107); Glucose 133 mg/dL (74-99); Potassium 4.9 mmol/L (3.5-5.1); Sodium 132 mmol/L (137-145)
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
[2018-12-06 16:26] LABS: Glucose,Whole Blood 116 mg/dL (75-99)
[2018-12-06] MEDS: ATORVASTATIN 40 MG TAB PO SCH (20:28)
[2018-12-06] MEDS: traZODone HCL 100 MG TAB PO SCH (20:29)
[2018-12-06] MEDS: OLANZapine 10 MG TAB PO SCH (20:29)
[2018-12-06 21:06] LABS: Glucose,Whole Blood 144 mg/dL (75-99)
[2018-12-07] MEDS: methylPREDNISolone SOD SUCCI 125 MG/2 ML VIAL IV SCH ×2 (05:46→08:14)
[2018-12-07 06:19] LABS: Glucose,Whole Blood 142 mg/dL (75-99)
[2018-12-07] MEDS: PANTOPRAZOLE 40 MG TABLET PO SCH (06:28)
[2018-12-07] MEDS: METOPROLOL TARTRATE 25 MG TAB PO SCH (08:14)
[2018-12-07] MEDS: LOSARTAN 50 MG TAB PO SCH (08:14)
[2018-12-07] MEDS: AMOXIC-POT CLAV 875-125MG 1 EACH TAB PO SCH (08:14)
[2018-12-07] MEDS: HEPARIN SODIUM,PORCINE 5,000 UNIT/ML 1 ML VIAL SQ SCH (08:14)
[2018-12-07] MEDS: BACITRACIN OINT 1 EACH PACKET TOPICAL SCH (08:15)
[2018-12-07] MEDS: IPRATROPIUM-ALBUTEROL 3 ML NEB INHALATION PRN ×2 (08:34→11:43)
[2018-12-07] MEDS: FORMOTEROL FUMARATE 20 MCG/2 ML NEBU INHALATION SCH (08:35)
[2018-12-07] MEDS: BUDESONIDE 1 MG/2 ML NEBU INHALATION SCH (08:35)
[2018-12-07 11:45] LABS: Glucose,Whole Blood 134 mg/dL (75-99)
[2018-12-07 11:57] VITALS: BP 133/63; PULSE 75; RESP 20; TEMP 98
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
== END 2018-12-07 12:53 | disposition home or self-care (01) | DRG 190 ==
LOC: EC 16:36 → 3SCARD 18:22
PROVIDERS: ADMIT Family Medicine; ATTEND Family Medicine
DX: J44.1 Chronic obstructive pulmonary disease with (acute) exacerbation (principal); J96.21 Acute and chronic respiratory failure with hypoxia; J96.22 Acute and chronic respiratory failure with hypercapnia; Z68.41 Body mass index [BMI] 40.0-44.9, adult; E87.1 Hypo-osmolality and hyponatremia; E66.01 Morbid (severe) obesity due to excess calories; E78.5 Hyperlipidemia, unspecified; E86.0 Dehydration; F20.9 Schizophrenia, unspecified; G47.33 Obstructive sleep apnea (adult) (pediatric); J98.6 Disorders of diaphragm; I10 Essential (primary) hypertension; K21.9 Gastro-esophageal reflux disease without esophagitis; T20.22XA Burn of second degree of lip(s), initial encounter; T20.24XA Burn of second degree of nose (septum), initial encounter; Z72.0 Tobacco use; Z79.52 Long term (current) use of systemic steroids; Z79.899 Other long term (current) drug therapy; Z82.49 Family history of ischemic heart disease and other diseases of the circulatory system; Z82.5 Family history of asthma and other chronic lower respiratory diseases; Z86.711 Personal history of pulmonary embolism; Z87.01 Personal history of pneumonia (recurrent); Z99.81 Dependence on supplemental oxygen; X08.8XXA Exposure to other specified smoke, fire and flames, initial encounter; F11.11 Opioid abuse, in remission; Z71.6 Tobacco abuse counseling
CPT/HCPCS: 36415; 71045; 80048; 80053; 82570; 83735; 83880; 84300; 84484; 84540; 85025; 85027; 85610; 85730; 93005; 94640; 94660; 96361; 96374; 99291